=== PATIENT | male | born 1955 | race Caucasian/White ===

== ENCOUNTER 2020-04-04 18:50 | Inpatient (IN) ==
[2020-04-04] MEDS ORDERED: METOCLOPRAMIDE HCL INJ 5 MG/ML 2 ML VIAL IV ONE (20:22)
[2020-04-04] MEDS ORDERED: FAMOTIDINE 20MG/5ML IV PUSH IV STA (20:22)
[2020-04-04] MEDS ORDERED: SODIUM CHLORIDE 0.9% 1000ML 1,000 ML IV SCH (20:30)
--- NOTE | 2020-04-04 20:32 | Emergency Department Note ---
History of Present Illness General Chief complaint: Abdominal Pain Stated complaint: REFERRED BY DOCTOR, FATIGUE & WEAKNESS Time Seen by Provider: 04/04/20 20:01 Source: patient Mode of arrival: ambulatory Limitations: no limitations History of Present Illness Provider complaint: Constipation, nausea and vomiting Onset (ago): day(s) 5 Location: abdomen Radiation: non-radiation Severity: moderate Pain Consistency: + colicky Maximum Pain Intensity: 6 Relieved By: + none Exacerbated By: + eating Associated symptoms: + loss of appetite, + malaise and + nausea/vomiting; no fever/chills and no shortness of breath Treatments prior to arrival: none This is a 64-year-old male who presents from home with concerns for 5 days of constipation, nausea vomiting. Patient is a diabetic and states he had one similar episode previously where he required admission and treatment for DKA. Patient states he had a normal bowel movement last Saturday. Over the weekend and into this morning he had very small bowel movements. Patient began having some intermittent accompanying abdominal pain. Patient had decreasing appetite, and developed overt nausea and vomiting. Patient denies any prior abdominal surgery. Patient states he does have remote history of GERD, has not had any recent increase GERD-like symptoms. No history of peptic ulcer disease. Patient denies accompanying fevers or chills. Patient states his blood sugars have been in the 200s at home which is high for him. Patient states he has had very little oral intake over the last 5 days due to not feeling well. Patient denies any other change in medications or diet. No known sick contacts or any known coronavirus exposures. Pt seen during a time of high acuity and national emergency pandemic while wearing PPE. Home Medications Home Medications Medication Instructions Recorded Confirmed Type amlodipine 10 mg PO DAILY 06/26/18 04/04/20 History atorvastatin 40 mg PO DAILY 06/26/18 04/04/20 History gemfibrozil 600 mg PO DAILY 06/26/18 04/04/20 History magnesium oxide 400 mg PO DAILY 06/26/18 04/04/20 History aspirin 81 mg tablet,delayed 81 mg PO DAILY 01/13/20 04/04/20 History release insulin glargine 100 unit/mL (3 35 units SQ BID ml 01/13/20 04/04/20 History mL) subcutaneous pen metoprolol tartrate 100 mg tablet 100 mg PO BID 01/13/20 04/04/20 History hydrochlorothiazide 25 mg tablet 25 mg PO DAILY #90 tab 02/18/20 04/04/20 Rx Allergies Allergy/AdvReac Type Severity Reaction Status Date / Time No Known Allergies Allergy Verified 04/04/20 20:28 Past Med/Surg History Medical History CKD (chronic kidney disease) Diabetes type 2, uncontrolled Hyperlipidemia LDL goal <70 Hypertension Surgical History 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 Family History Other Diabetes type 2, controlled Social History Smoking Status: Never smoker Hx Alcohol Use: No Hx Substance Use: No Preferred Language: Russian Communication Ability: Effective Log Handling Equipment Operator Required: No Beliefs That Will Affect Care: Amish Amish Beliefs: congregational Current Living Situation: Alone Other Information That Helps Us Care for You: No Feels Safe at Home: Yes Safety Concerns: Feels Safe At This Time Review of Systems See HPI for pertinent positives & negatives. and A total of 10 systems reviewed and were otherwise negative Physical Exam Vital Signs Vital Signs - 24 hr 04/04/20 19:00 04/04/20 21:10 Temperature 37.5 C Temperature Source Oral Pulse Rate 84 Pulse Rate [Bilateral] 92 H Pulse Rhythm [Bilateral] Regular Pulse Strength [Bilateral] Normal Respiratory Rate 20 17 Respiratory Effort / Characteristics Non-Labored Non-Labored Spontaneous Respiratory Depth Normal Normal Respiratory Pattern Regular Blood Pressure 162/81 H Blood Pressure [Right Arm] 222/93 H Blood Pressure Mean 108 Blood Pressure Mean [Right Arm] 136 Blood Pressure Position [Right Arm] Lying Pulse Oximetry 95 97 Oxygen Delivery Method Room Air Room Air Sepsis Recent Fever Within 48 Hours No Sepsis New/Unexplained Change in Mental Status N/A Sepsis Action Taken by Nursing No Action Required GENERAL: alert, ill appearing, well nourished, mild distress, non-toxic, pale appearing, holding emesis bag EYE EXAM: normal conjunctiva, PERRL and EOM's grossly intact OROPHARYNX: no exudate, no erythema, lips, buccal mucosa, and tongue normal and mucous membranes are moist NECK: supple, no nuchal rigidity, no adenopathy, non-tender LUNGS: Clear to auscultation. Normal chest wall mechanics, no w/r/r HEART: no murmurs, S1 normal and S2 normal ABDOMEN: abdomen soft, mild generalized discomfort with palpation, normo-active bowel sounds, no masses, no rebound or guarding. Dull to percussion. BACK: Back is symmetrical on inspection and there is no deformity, no midline tenderness, no CVA tenderness. SKIN: no rashes and no bruising UPPER EXTREMITIES: upper extremities are grossly normal. FROM, nml pulses b/l. LOWER EXTREMITIES: No pitting edema. FROM, nml pulses b/l. NEURO EXAM: Normal sensorium, cranial nerves II-XII grossly intact, normal speech, no gross weakness of arms, no gross weakness of legs. Gross sensation intact. Course Course 2034: Pt with emesis here, appeared grossly bloody. Sent for gastric occult blood testing. 2144: Updated pt on results. Patient states feeling improved, vital signs stable. 2224: Discussed with Dr. Aguilar for admission. Administered Medications Amlodipine Besylate (Norvasc) 10 mg PO DAILY MARCELLUS Stop: 05/05/20 08:59 Last Admin: 04/05/20 08:20 Dose: 10 mg Documented by: [id number] Atorvastatin Calcium (Lipitor) 40 mg PO DAILY MARCELLUS Stop: 05/05/20 08:59 Last Admin: 04/05/20 08:19 Dose: 40 mg Documented by: [id number] Gemfibrozil (Lopid) 600 mg PO DAILY MARCELLUS Stop: 05/05/20 08:59 Last Admin: 04/05/20 08:20 Dose: 600 mg Documented by: [id number] Pantoprazole Sodium 40 mg/ (Dextrose) 100 mls @ 20 mls/hr IV Q5H MARCELLUS Stop: 05/04/20 22:12 Last Admin: 04/05/20 23:33 Dose: Not Given Documented by: [id number] Admin: 04/05/20 23:31 Dose: 8 mg/hr, 20 mls/hr Documented by: [id number] Infusion: 04/05/20 23:26 Dose: 8 mg/hr, 20 mls/hr Documented by: [id number] Admin: 04/05/20 18:26 Dose: 8 mg/hr, 20 mls/hr Documented by: [id number] Infusion: 04/05/20 17:47 Dose: 8 mg/hr, 20 mls/hr Documented by: [id number] Infusion: 04/05/20 14:14 Dose: 8 mg/hr, 20 mls/hr Documented by: [id number] Infusion: 04/05/20 10:35 Dose: 0 mg/hr, 0 mls/hr Documented by: [id number] Admin: 04/05/20 09:07 Dose: 8 mg/hr, 20 mls/hr Documented by: [id number] Infusion: 04/05/20 09:07 Dose: 8 mg/hr, 20 mls/hr Documented by: [id number] Admin: 04/05/20 04:13 Dose: 8 mg/hr, 20 mls/hr Documented by: [id number] Infusion: 04/05/20 04:13 Dose: 8 mg/hr, 20 mls/hr Documented by: [id number] Admin: 04/04/20 23:44 Dose: 8 mg/hr, 20 mls/hr Documented by: [id number] Sodium Chloride (Nss 1000ml) 1,000 mls @ 80 mls/hr IV .[id number] MARCELLUS Stop: 04/06/20 12:28 Last Admin: 04/05/20 23:32 Dose: 80 mls/hr Documented by: [id number] Sodium Chloride (Nss 1000ml) 1,000 mls @ 125 mls/hr IV .Q8H MARCELLUS Stop: 04/06/20 02:14 Last Infusion: 04/05/20 23:32 Dose: 0 mls/hr Documented by: [id number] Admin: 04/05/20 18:33 Dose: 125 mls/hr Documented by: [id number] Insulin Aspart (Novolog Flexpen) 0 units SC Q6 MARCELLUS Stop: 05/05/20 00:59 Last Admin: 04/05/20 17:47 Dose: 9 units Documented by: [id number] Cosigned by: [id number] Admin: 04/05/20 13:59 Dose: Not Given Documented by: [id number] Cosigned by: [id number] Admin: 04/05/20 06:26 Dose: 1 units Documented by: [id number] Cosigned by: [id number] Admin: 04/05/20 01:34 Dose: 6 units Documented by: [id number] Cosigned by: [id number] Insulin Glargine (Lantus Solostar Pen) 35 units SQ BID MARCELLUS Stop: 05/05/20 08:59 Last Admin: 04/05/20 22:02 Dose: 18 units Documented by: [id number] Cosigned by: [id number] Admin: 04/05/20 09:06 Dose: 18 units Documented by: [id number] Cosigned by: [id number] Labetalol HCl (Normodyne) 10 mg IV Q4H PRN PRN Reason: Hypertension Stop: 05/05/20 00:16 Last Admin: 04/05/20 03:34 Dose: 10 mg Documented by: [id number] Cosigned by: [id number] Metoprolol Tartrate (Lopressor) 100 mg PO BID MARCELLUS Stop: 05/05/20 08:59 Last Admin: 04/05/20 22:03 Dose: 100 mg Documented by: [id number] Admin: 04/05/20 08:19 Dose: 100 mg Documented by: [id number] Polyethylene Glycol/Electrolytes (Golytely) 16 dose PO 1800 [facility] Stop: 04/05/20 23:59 Last Admin: 04/05/20 17:46 Dose: 16 dose Documented by: [id number] Polyethylene Glycol/Electrolytes (Golytely) 8 dose PO TODAY@0300,1800 [facility] Stop: 04/06/20 03:01 Last Admin: 04/05/20 19:44 Dose: Not Given Documented by: [id number] Discontinued Medications Famotidine (Pepcid 20mg Iv Push) 20 mg IV ONE STA Stop: 04/04/20 20:23 Last Admin: 04/04/20 21:07 Dose: 20 mg Documented by: [id number] Hydralazine HCl (Hydralazine Hcl) 5 mg IV NOW ONE Stop: 04/05/20 21:31 Last Admin: 04/05/20 22:02 Dose: 5 mg Documented by: [id number] Sodium Chloride (Nss 1000ml) 1,000 mls @ 250 mls/hr IV .Q4H MARCELLUS Stop: 05/04/20 20:29 Last Infusion: 04/05/20 00:22 Dose: 0 mls/hr Documented by: [id number] Admin: 04/04/20 21:07 Dose: 250 mls/hr Documented by: [id number] Pantoprazole Sodium (Protonix Bolus/Drip) 0 mls @ 1 mls/hr IV ONE STA Stop: 04/04/20 21:59 Last Admin: 04/04/20 23:30 Dose: Not Given Documented by: [id number] Pantoprazole Sodium 80 mg/ (Dextrose) 120 mls @ 400 mls/hr IV NOW ONE Stop: 04/04/20 22:15 Last Infusion: 04/04/20 23:43 Dose: 0 mls/hr Documented by: [id number] Admin: 04/04/20 23:25 Dose: 400 mls/hr Documented by: [id number] Sodium Chloride (Nss 1000ml) 1,000 mls @ 125 mls/hr IV .Q8H MARCELLUS Stop: 04/05/20 08:16 Last Infusion: 04/05/20 09:40 Dose: 0 mls/hr Documented by: [id number] Admin: 04/05/20 01:34 Dose: 125 mls/hr Documented by: [id number] Potassium Chloride (K Kan / Wtr) 10 meq in 100 mls @ 100 mls/hr IV Q1H MARCELLUS Stop: 04/05/20 10:44 Last Infusion: 04/05/20 12:46 Dose: 0 mls/hr Documented by: [id number] Admin: 04/05/20 10:17 Dose: 100 mls/hr Documented by: [id number] Infusion: 04/05/20 10:06 Dose: 50 mls/hr Documented by: [id number] Admin: 04/05/20 09:06 Dose: 100 mls/hr Documented by: [id number] Insulin Glargine (Lantus Per Unit) 35 units SQ NOW STA Stop: 04/04/20 22:23 Last Admin: 04/04/20 23:27 Dose: 35 units Documented by: [id number] Cosigned by: [id number] Insulin Human Regular (Novolin R U-100 Per Unit) 6 units SC NOW STA Stop: 04/04/20 21:42 Last Admin: 04/04/20 22:12 Dose: 6 units Documented by: [id number] Cosigned by: [id number] Labetalol HCl (Normodyne) 10 mg IV NOW STA Stop: 04/04/20 22:24 Last Admin: 04/05/20 00:22 Dose: Not Given Documented by: [id number] Lidocaine HCl (Xylocaine 2%) Confirm Administered Dose 4 ml INFIL .STK-MED ONE Stop: 04/05/20 10:53 Last Admin: 04/05/20 13:59 Dose: Not Given Documented by: [id number] Metoclopramide HCl (Reglan) 5 mg IV ONE ONE Stop: 04/04/20 20:23 Last Admin: 04/04/20 21:07 Dose: 5 mg Documented by: [id number] Potassium Chloride (Klor-Con M20) 40 meq PO NOW STA Stop: 04/05/20 03:25 Last Admin: 04/05/20 03:34 Dose: 40 meq Documented by: [id number] Potassium Chloride (Klor-Con M20) 20 meq PO NOW STA Stop: 04/05/20 17:58 Last Admin: 04/05/20 18:26 Dose: 20 meq Documented by: [id number] Propofol (Diprivan) Confirm Administered Dose 200 mg IV .STK-MED ONE Stop: 04/05/20 10:53 Last Admin: 04/05/20 13:59 Dose: Not Given Documented by: [id number] Critical Care Time Critical Care Time: Yes Total Critical Care Time: 39 Critical care of 39 min performed to assess and manage high likelihood of life- threatening gi bleed, involving labs and imaging performed with assessment to evaluate GI bleed diagnosis with frequent reassessment. This time includes bedside time, treatment discussions with patient/family/consultants, documentation time and excludes procedure time. Medical Decision Making Differential Diagnosis Differential: Gastroenteritis, Food Borne, Esophageal Perforation, , Electrolyte Abnormality, Dehydration, Intraabdominal Infection, U TI/Pyelonephritis, Bowel Obstruction, Biliary Pathology, DKA, viral infection, gastroparesis, amongst other pathology entertained. Medical Records Attestation: I reviewed the patient's medical records. Home Medications Current Medication List: was personally reviewed by me Laboratory Data Attestation: I reviewed the patient's lab results. Result diagrams: 04/05/20 15:39 04/05/20 15:39 Lab Results 04/04/20 04/04/20 04/04/20 Range/Units 20:50 20:50 20:50 WBC 10.81 H (4.8-10.8) K/uL RBC 3.07 L (4.7-6.1) M/uL Hgb 9.0 L (14.0-18.0) g/dL Hct 25.0 L (42-52) % MCV 81.4 (80-100) fL MCH 29.3 (25-34) pg MCHC 36.0 (32-36) g/dL RDW Std Deviation 38.4 (36.4-46.3) fL RDW Coeff of Whit 13.0 (11.5-14.5) % Plt Count 255 (130-400) K/uL MPV 8.9 (7.4-10.4) fL Immature Gran % (Auto) 0.4 % Neut % (Auto) 91.0 % Lymph % (Auto) 4.3 % [place] % (Auto) 4.2 % Eos % (Auto) 0.0 % Baso % (Auto) 0.1 % Neut # (Auto) 9.84 H (1.4-6.5) K/uL Lymph # (Auto) 0.47 L (1.2-3.4) K/uL [place] # (Auto) 0.45 (0.11-0.59) K/uL Eos # (Auto) 0.00 (0-0.5) K/uL Baso # (Auto) 0.01 (0-0.2) K/uL Immature Gran # (Auto) 0.04 H (0.00-0.02) K/uL PT 10.3 (9.0-12.0) Seconds INR 1.0 (0.9-1.1) Sodium 126 L (136-145) mmol/L Potassium 3.2 L (3.5-5.1) mmol/L Chloride 92 L (98-107) mmol/L Carbon Dioxide 22 (21-32) mmol/L Anion Gap 12.0 H (3-11) BUN 109 H (7-18) mg/dl Creatinine 2.47 H (0.6-1.4) mg/dl Est Cr Clr Drug Dosing Not Reportable Est GFR ( Amer) 30.5 Est GFR (Non-Af Amer) 26.4 BUN/Creatinine Ratio 43.9 H (10-20) Glucose 252 H (70-99) mg/dl POC Lactic Acid Rayo (0.90-1.70) mmol/L Calcium 8.8 (8.5-10.1) mg/dl Magnesium 2.9 H (1.8-2.4) mg/dl Total Bilirubin 0.3 (0.2-1) mg/dl AST 20 (15-37) U/L ALT 28 (12-78) U/L Alkaline Phosphatase 68 (45-117) U/L Troponin I 0.788 H* (0-0.045) ng/ml NT-Pro-B Natriuret Pep 1338 H (0-900) pg/ml Total Protein 7.8 (6.4-8.2) gm/dl Albumin 3.0 L (3.4-5.0) gm/dl Globulin 4.8 H (2.5-4.0) gm/dl Albumin/Globulin Ratio 0.6 L (0.9-2) Lipase 236 (73-393) U/L TSH 0.591 (0.300-4.500) uIu/ml Gastric Fluid pH Gastric Occult Blood (Negative) Blood Type Antibody Screen Crossmatch 04/04/20 04/04/20 04/04/20 Range/Units 21:00 21:00 23:10 WBC (4.8-10.8) K/uL RBC (4.7-6.1) M/uL Hgb (14.0-18.0) g/dL Hct (42-52) % MCV (80-100) fL MCH (25-34) pg MCHC (32-36) g/dL RDW Std Deviation (36.4-46.3) fL RDW Coeff of Whit (11.5-14.5) % Plt Count (130-400) K/uL MPV (7.4-10.4) fL Immature Gran % (Auto) % Neut % (Auto) % Lymph % (Auto) % [place] % (Auto) % Eos % (Auto) % Baso % (Auto) % Neut # (Auto) (1.4-6.5) K/uL Lymph # (Auto) (1.2-3.4) K/uL [place] # (Auto) (0.11-0.59) K/uL Eos # (Auto) (0-0.5) K/uL Baso # (Auto) (0-0.2) K/uL Immature Gran # (Auto) (0.00-0.02) K/uL PT (9.0-12.0) Seconds INR (0.9-1.1) Sodium (136-145) mmol/L Potassium (3.5-5.1) mmol/L Chloride (98-107) mmol/L Carbon Dioxide (21-32) mmol/L Anion Gap (3-11) BUN (7-18) mg/dl Creatinine (0.6-1.4) mg/dl Est Cr Clr Drug Dosing Est GFR ( Amer) Est GFR (Non-Af Amer) BUN/Creatinine Ratio (10-20) Glucose (70-99) mg/dl POC Lactic Acid Rayo 0.99 (0.90-1.70) mmol/L Calcium (8.5-10.1) mg/dl Magnesium (1.8-2.4) mg/dl Total Bilirubin (0.2-1) mg/dl AST (15-37) U/L ALT (12-78) U/L Alkaline Phosphatase (45-117) U/L Troponin I (0-0.045) ng/ml NT-Pro-B Natriuret Pep (0-900) pg/ml Total Protein (6.4-8.2) gm/dl Albumin (3.4-5.0) gm/dl Globulin (2.5-4.0) gm/dl Albumin/Globulin Ratio (0.9-2) Lipase (73-393) U/L TSH (0.300-4.500) uIu/ml Gastric Fluid pH 4 Gastric Occult Blood Positive A (Negative) Blood Type A Positive Antibody Screen NEGATIVE Crossmatch See Detail 04/04/20 Range/Units 23:13 WBC 11.48 H (4.8-10.8) K/uL RBC 2.88 L (4.7-6.1) M/uL Hgb 8.3 L (14.0-18.0) g/dL Hct 23.1 L (42-52) % MCV 80.2 (80-100) fL MCH 28.8 (25-34) pg MCHC 35.9 (32-36) g/dL RDW Std Deviation 37.9 (36.4-46.3) fL RDW Coeff of Whit 12.8 (11.5-14.5) % Plt Count 252 (130-400) K/uL MPV 9.1 (7.4-10.4) fL Immature Gran % (Auto) 0.4 % Neut % (Auto) 89.9 % Lymph % (Auto) 5.7 % [place] % (Auto) 4.0 % Eos % (Auto) 0.0 % Baso % (Auto) 0.0 % Neut # (Auto) 10.32 H (1.4-6.5) K/uL Lymph # (Auto) 0.65 L (1.2-3.4) K/uL [place] # (Auto) 0.46 (0.11-0.59) K/uL Eos # (Auto) 0.00 (0-0.5) K/uL Baso # (Auto) 0.00 (0-0.2) K/uL Immature Gran # (Auto) 0.05 H (0.00-0.02) K/uL PT (9.0-12.0) Seconds INR (0.9-1.1) Sodium (136-145) mmol/L Potassium (3.5-5.1) mmol/L Chloride (98-107) mmol/L Carbon Dioxide (21-32) mmol/L Anion Gap (3-11) BUN (7-18) mg/dl Creatinine (0.6-1.4) mg/dl Est Cr Clr Drug Dosing Est GFR ( Amer) Est GFR (Non-Af Amer) BUN/Creatinine Ratio (10-20) Glucose (70-99) mg/dl POC Lactic Acid Rayo (0.90-1.70) mmol/L Calcium (8.5-10.1) mg/dl Magnesium (1.8-2.4) mg/dl Total Bilirubin (0.2-1) mg/dl AST (15-37) U/L ALT (12-78) U/L Alkaline Phosphatase (45-117) U/L Troponin I (0-0.045) ng/ml NT-Pro-B Natriuret Pep (0-900) pg/ml Total Protein (6.4-8.2) gm/dl Albumin (3.4-5.0) gm/dl Globulin (2.5-4.0) gm/dl Albumin/Globulin Ratio (0.9-2) Lipase (73-393) U/L TSH (0.300-4.500) uIu/ml Gastric Fluid pH Gastric Occult Blood (Negative) Blood Type Antibody Screen Crossmatch Imaging Data Attestation: I personally reviewed and interpreted this imaging study as follows: My Impression: CXR: 1 view chest x-ray interpreted by me, no cardiomegaly, no effusions, no focal consolidation, no wide mediastinum, no pulmonary edema Abdomen: 2 view x-ray of the abdomen interpreted by me, no obvious SBO, no free air Radiologist's Impression: CT abdomen and pelvis without contrast: Impression: Mild wall thickening of the urinary bladder. Recommend correlation for cystitis. Otherwise no acute abnormality in the abdomen or pelvis. Extensive vascular calcifications. Colonic diverticulosis without evidence of acute diverticulitis. Moderate to severe multilevel degenerative changes throughout the lumbar spine. Radiologist: Brien Lockett MD ECG Data Attestation: I personally reviewed and interpreted this ECG as follows: Indication: + abdominal pain Rate (beats per minute): 86 Rhythm: + normal sinus ECG Intervals/blocks: + Normal QRS and + Normal QT ECG [place]: + Normal ECG ST segments: + T-wave inversions (I, II, aVL, aVF, V3-6) Comparison ECG Date: from (06/28/2018) Change: the following changes noted (More pronounced T wave inversions) Blood Pressure Blood Pressure Findings: Elevated blood pressure Blood Pressure Disposition: further management by hospitalist KAVEH Diego This is a 64-year-old male who is ill-appearing at time of presentation due to concern for nausea, vomiting, constipation, and abdominal pain. Labs drawn and sent, patient started on IV fluid rehydration, given medications for nausea and pain. Initially patient underwent x-ray imaging, however eventually we did progress to CT. With vomiting here, emesis appeared potentially bloody, this was sent for occult blood testing and was positive. Patient with no prior history of varices, peptic ulcer disease, or other GI bleed. Patient denied any recent black stools. Patient does have remote history of GERD. While patient was initially given a dose of IV Pepcid, following confirmation of blood, patient started on Protonix bolus and drip. Patient stated he was feeling improved following medications and IV fluids, and vital signs were stable with the exception of hypertension that was noted. Patient's creatinine was elevated, however he does have a history of chronic kidney disease and it is only slightly elevated compared to his prior. Patient's H&H stable, although his hemoglobin is decreased 2 grams compared to what it was several months ago. Patient is hyperglycemic, he is a known diabetic, no apparent DKA. Patient also noted to have hyponatremia that appears disproportionate to his hyperglycemia. Patient sent for CT imaging after evaluation of all labs and imaging as a precaution given patient's complex past medical history. CT was reassuring. Patient takes a baby aspirin, no other anticoagulation or need for reversal. Did not feel patient required emergent blood transfusion. Patient was also noted to have an elevated troponin, no chest pain or trouble breathing, no EKG changes noted. Unclear if this is from the patient's renal dysfunction, occult infectious etiology, demand ischemia due to worsening anemia, versus ACS. Patient was not anticoagulated due to GI bleed. Case was discussed with hospitalist. Patient was in agreement with plan and verbalized understanding of all results. An order was placed for continuous cardiac monitoring. The monitor shows a rate of 80 with normal sinus rhythm. Impression & Plan Abdominal pain, Constipation, Acute GI bleeding, Nausea & vomiting, Acute hyponatremia, CKD (chronic kidney disease), Elevated troponin Discharge Plan Visit Data *Final* Discharge Date/Time: 04/04/20 23:43 Chief Complaint: Abdominal Pain Stated Complaint: REFERRED BY DOCTOR, FATIGUE & WEAKNESS ED Provider: Bita Carrera Discharge Problem: Abdominal pain, Constipation, Acute GI bleeding, Nausea & vomiting, Acute hyponatremia, CKD (chronic kidney disease), Elevated troponin Patient Disposition: Admitted As Inpatient Discharge Instructions Interventions: ED Discharge Assessment Last Done: 04/04/20 23:43 Discharge Problem: Abdominal pain Qualifiers: Abdominal location: generalized Qualified Code(s): R10.84 - Generalized abdominal pain Constipation Qualifiers: Constipation type: unspecified constipation type Qualified Code(s): K59.00 - Constipation, unspecified Nausea & vomiting Qualifiers: Vomiting type: unspecified Vomiting Intractability: non-intractable Qualified Code(s): R11.2 - Nausea with vomiting, unspecified CKD (chronic kidney disease) Qualifiers: Chronic kidney disease stage: unspecified stage Qualified Code(s): N18.9 - Chronic kidney disease, unspecified
[2020-04-04 21:03] LABS: Basophils # (auto) 0.01 K/uL (0-0.2); Basophils % (auto) 0.1 %; Immature Granulocytes # (auto) 0.04 K/uL (0.00-0.02); Immature Granulocytes % (auto) 0.4 %; Lymphocytes # (auto) 0.47 K/uL (1.2-3.4); Lymphocytes % (auto) 4.3 %; Mean Corpuscular Hemoglobin 29.3 pg (25-34); Mean Corpuscular Volume 81.4 fL (80-100); Mean Platelet Volume 8.9 fL (7.4-10.4); Monocytes # (auto) 0.45 K/uL (0.11-0.59); Monocytes % (auto) 4.2 %; Neutrophils # (auto) 9.84 K/uL (1.4-6.5); Platelet Count 255 K/uL (130-400); RDW Standard Deviation 38.4 fL (36.4-46.3); Red Blood Count 3.07 M/uL (4.7-6.1); White Blood Count 10.81 K/uL (4.8-10.8)
[2020-04-04 21:12] LABS: Prothrombin Time 10.3 Seconds (9.0-12.0)
[2020-04-04 21:22] LABS: Alanine Aminotransferase 28 U/L (12-78); Aspartate Aminotransferase 20 U/L (15-37); BUN Creatinine Ratio 43.9 (10-20); Blood Urea Nitrogen 109 mg/dl (7-18); Calcium 8.8 mg/dl (8.5-10.1); Carbon Dioxide 22 mmol/L (21-32); Chloride 92 mmol/L (98-107); Est GFR (African American) 30.5; Est GFR (Non-African American) 26.4; Glucose 252 mg/dl (70-99); Lipase 236 U/L (73-393); Magnesium 2.9 mg/dl (1.8-2.4); Potassium 3.2 mmol/L (3.5-5.1); Sodium 126 mmol/L (136-145)
[2020-04-04 21:35] LABS: Albumin Globulin Ratio 0.6 (0.9-2); Alkaline Phosphatase 68 U/L (45-117); Bilirubin,Total 0.3 mg/dl (0.2-1); Globulin 4.8 gm/dl (2.5-4.0); NT Pro B Type Natriuretic Pept 1338 pg/ml (0-900); Thyroid Stimulating Hormone 0.591 uIu/ml (0.300-4.500); Total Protein 7.8 gm/dl (6.4-8.2); Troponin I 0.788 ng/ml (0-0.045)
[2020-04-04] MEDS ORDERED: NovoLIN-R INSULIN PER UNIT CHARGE SC STA (21:41)
[2020-04-04 21:58] LABS: Gastric Occult Blood Positive (Negative); pH Gastric Fluid 4
[2020-04-04] MEDS ORDERED: PANTOprazole 80 MG in DEXTROSE 5% 100 ML IV ONE (21:58)
[2020-04-04] MEDS ORDERED: PANTOPRAZOLE BOLUS/DRIP 1 EA IV STA (21:58)
[2020-04-04] MEDS ORDERED: LANTUS PER UNIT CHARGE SQ STA (22:22)
[2020-04-04] MEDS ORDERED: LABETALOL HCL IV 5 MG/ML 20ML IV STA (22:23)
--- NOTE | 2020-04-04 23:26 | History & Physical Report ---
Date of Service April 04, 2020 Assessment & Plan (1) Acute GI bleeding: Concern for acute UGIB - patient reports dark, tarry stools. He has had a significant drop in Hbg over the last 1.5 months, presently 9 from 11.4 and Hct=25 from 34.6. He has an elevated BUN to 109 with only mild increase in baseline Cr. -Admit to PCU, NPO -Maintain two large bore PIVs -Continue Protonic gtt -GI consultation appreciated -Trend CBC q 6 hours - transfuse for active bleed, symptomatic anemia or Hgb <8 -Hold ASA Present on Admission?: Yes (2) Elevated troponin: Patient with elevated troponin = 0.788. EKG with some TWI in anterior leads, similar to prior. He denies chest pain, tightness, SOB, dizziness, diaphoresis. Suspect demand ischemia -Continuous cardiac monitoring -Trend troponin q 8 hours x 3 sets -Hold ASA in setting of acute bleed -Continue Metoprolol and Atorvastatin -Transfusion for Hgb < 8 or increasing troponin Present on Admission?: Yes (3) Hypertension: Patient with elevate BP on arrival -Labetalol PRN -Continue Metoprolol -Continue Amlodipine -Continue to monitor -Hold HCTZ Present on Admission?: Yes (4) Hyperlipidemia LDL goal <70: Chronic -Continue Atorvastatin Present on Admission?: Yes (5) IDDM (insulin dependent diabetes mellitus): Chronic. Elevated blood sugar of 252 -Lantus 35u BID -ISS -Goal blood sugar 100 - 140 Present on Admission?: Yes (6) Hyponatremia: Pd=905. Patient appears volume depleted on exam. No seizure or n eurological symptoms -NSS -Repeat labs Present on Admission?: Yes (7) Hypokalemia: K=3.2 -KDUR 40mEq po x 1 -Repeat labs in AM F/E/N - NSS at 125mL/hr x 1 liter, K repletion as above, monitor BMP, NPO for now Ppx - low risk for DVT, no chemoprophylaxis due to suspected acute bleed Code - Full Dispo - Admit to PCU Admission and Anticipated Discharge Date Admission Date: 04/04/20 Anticipated date of discharge: 04/07/20 History of Present Illness Chief Complaint: nausea, dry heaving Primary Care Provider: Art Trejo Dionicio Coleman is a 64yo male with history of DM, HTN, HLP, CKD. He reports feeling ill starting 4 days ago - anxiety, abdominal pain, constipation then later developed nausea and dry heaving over the last three days. He reports passing minimal flatus, only small amount of black, tarry stools. He denies fever but has had some chills as well as poor appetite and decreased PO intake. He denies CP/SOB/cough. No Covid-19 concerns. No additional complaints at this time. Patient had an episode of vomiting in the ER - gastric contents were sent to the lab for evaluation which revealed +blood ER Course: Pepcid, Insulin, Labetalol, Reglan, NSS, Protonix bolus and drip. Allergies Allergy/AdvReac Type Severity Reaction Status Date / Time No Known Allergies Allergy Verified 04/04/20 20:28 Home Medications Home Medications Medication Instructions Recorded Confirmed Type amlodipine 10 mg PO DAILY 06/26/18 04/04/20 History atorvastatin 40 mg PO DAILY 06/26/18 04/04/20 History gemfibrozil 600 mg PO DAILY 06/26/18 04/04/20 History magnesium oxide 400 mg PO DAILY 06/26/18 04/04/20 History aspirin 81 mg tablet,delayed 81 mg PO DAILY 01/13/20 04/04/20 History release insulin glargine 100 unit/mL (3 35 units SQ BID ml 01/13/20 04/04/20 History mL) subcutaneous pen metoprolol tartrate 100 mg tablet 100 mg PO BID 01/13/20 04/04/20 History hydrochlorothiazide 25 mg tablet 25 mg PO DAILY #90 tab 02/18/20 04/04/20 Rx Past Med/Surg History Medical History (Updated 04/05/20 @ 03:17 by Rosa Aguilar DO) CKD (chronic kidney disease) Diabetes type 2, uncontrolled Hyperlipidemia LDL goal <70 Hypertension Surgical History 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 Family History Other Diabetes type 2, controlled Social History Smoking Status: Never smoker Hx Alcohol Use: No Hx Substance Use: No Preferred Language: Cymraes Communication Ability: Effective Control Room Supervisor Required: No Beliefs That Will Affect Care: Jew Jew Beliefs: protestant Current Living Situation: Alone Other Information That Helps Us Care for You: No Feels Safe at Home: Yes Safety Concerns: Feels Safe At This Time Review of Systems Review of Systems: All systems reviewed & are unremarkable except as noted in HPI & below Physical Exam Physical Exam: General: patient resting comfortably, NAD, non-toxic in appearance, AA&O x 4 Skin: warm, dry, intact, no rashes or lesions HEENT: NC/AT, PERRL, EOMI, anicteric sclera, conjunctiva without injection, external ear normal to inspection and nontender, nares patent, dry mucus membranes, dentition intact, no oropharyngeal lesions, neck supple, trachea midline, no LAD, no thyromegaly, no JVD Heart: +S1/S2, regular, no m/r/g Lungs: equal air entry bilaterally, no rales/rhonchi/wheezes Abd: +BS, soft, NT/ND, no masses/organomegaly/ascites Ext: warm, 2+ pulses in UE/LE bilaterally, no clubbing/cyanosis or edema Neuro: nonfocal, patient AA&O x 4, speech intact, no facial droop, moving all extremities on command with equal strength 5/5 Results & Data Results & Data ([facility]) Vital Signs (Past 12 Hours) Vital Signs Temp Pulse Pulse Resp BP BP Pulse Ox 04/04/20 21:10 92 H 17 222/93 H 97 04/04/20 19:00 37.5 C 84 20 162/81 H 95 Laboratory Results Lab Results 04/04/20 04/04/20 04/04/20 Range/Units 20:50 20:50 20:50 WBC 10.81 H (4.8-10.8) K/uL RBC 3.07 L (4.7-6.1) M/uL Hgb 9.0 L (14.0-18.0) g/dL Hct 25.0 L (42-52) % MCV 81.4 (80-100) fL MCH 29.3 (25-34) pg MCHC 36.0 (32-36) g/dL RDW Std Deviation 38.4 (36.4-46.3) fL RDW Coeff of Whit 13.0 (11.5-14.5) % Plt Count 255 (130-400) K/uL MPV 8.9 (7.4-10.4) fL Immature Gran % (Auto) 0.4 % Neut % (Auto) 91.0 % Lymph % (Auto) 4.3 % [place] % (Auto) 4.2 % Eos % (Auto) 0.0 % Baso % (Auto) 0.1 % Neut # (Auto) 9.84 H (1.4-6.5) K/uL Lymph # (Auto) 0.47 L (1.2-3.4) K/uL [place] # (Auto) 0.45 (0.11-0.59) K/uL Eos # (Auto) 0.00 (0-0.5) K/uL Baso # (Auto) 0.01 (0-0.2) K/uL Immature Gran # (Auto) 0.04 H (0.00-0.02) K/uL PT 10.3 (9.0-12.0) Seconds INR 1.0 (0.9-1.1) Sodium 126 L (136-145) mmol/L Potassium 3.2 L (3.5-5.1) mmol/L Chloride 92 L (98-107) mmol/L Carbon Dioxide 22 (21-32) mmol/L Anion Gap 12.0 H (3-11) BUN 109 H (7-18) mg/dl Creatinine 2.47 H (0.6-1.4) mg/dl Est Cr Clr Drug Dosing Not Reportable Est GFR ( Amer) 30.5 Est GFR (Non-Af Amer) 26.4 BUN/Creatinine Ratio 43.9 H (10-20) Glucose 252 H (70-99) mg/dl POC Glucose (70-99) mg/dl POC Lactic Acid Rayo (0.90-1.70) mmol/L Calcium 8.8 (8.5-10.1) mg/dl Magnesium 2.9 H (1.8-2.4) mg/dl Total Bilirubin 0.3 (0.2-1) mg/dl AST 20 (15-37) U/L ALT 28 (12-78) U/L Alkaline Phosphatase 68 (45-117) U/L Troponin I 0.788 H* (0-0.045) ng/ml NT-Pro-B Natriuret Pep 1338 H (0-900) pg/ml Total Protein 7.8 (6.4-8.2) gm/dl Albumin 3.0 L (3.4-5.0) gm/dl Globulin 4.8 H (2.5-4.0) gm/dl Albumin/Globulin Ratio 0.6 L (0.9-2) Lipase 236 (73-393) U/L TSH 0.591 (0.300-4.500) uIu/ml Gastric Fluid pH Gastric Occult Blood (Negative) Blood Type Antibody Screen 04/04/20 04/04/20 04/04/20 Range/Units 21:00 21:00 23:10 WBC (4.8-10.8) K/uL RBC (4.7-6.1) M/uL Hgb (14.0-18.0) g/dL Hct (42-52) % MCV (80-100) fL MCH (25-34) pg MCHC (32-36) g/dL RDW Std Deviation (36.4-46.3) fL RDW Coeff of Whit (11.5-14.5) % Plt Count (130-400) K/uL MPV (7.4-10.4) fL Immature Gran % (Auto) % Neut % (Auto) % Lymph % (Auto) % [place] % (Auto) % Eos % (Auto) % Baso % (Auto) % Neut # (Auto) (1.4-6.5) K/uL Lymph # (Auto) (1.2-3.4) K/uL [place] # (Auto) (0.11-0.59) K/uL Eos # (Auto) (0-0.5) K/uL Baso # (Auto) (0-0.2) K/uL Immature Gran # (Auto) (0.00-0.02) K/uL PT (9.0-12.0) Seconds INR (0.9-1.1) Sodium (136-145) mmol/L Potassium (3.5-5.1) mmol/L Chloride (98-107) mmol/L Carbon Dioxide (21-32) mmol/L Anion Gap (3-11) BUN (7-18) mg/dl Creatinine (0.6-1.4) mg/dl Est Cr Clr Drug Dosing Est GFR ( Amer) Est GFR (Non-Af Amer) BUN/Creatinine Ratio (10-20) Glucose (70-99) mg/dl POC Glucose (70-99) mg/dl POC Lactic Acid Rayo 0.99 (0.90-1.70) mmol/L Calcium (8.5-10.1) mg/dl Magnesium (1.8-2.4) mg/dl Total Bilirubin (0.2-1) mg/dl AST (15-37) U/L ALT (12-78) U/L Alkaline Phosphatase (45-117) U/L Troponin I (0-0.045) ng/ml NT-Pro-B Natriuret Pep (0-900) pg/ml Total Protein (6.4-8.2) gm/dl Albumin (3.4-5.0) gm/dl Globulin (2.5-4.0) gm/dl Albumin/Globulin Ratio (0.9-2) Lipase (73-393) U/L TSH (0.300-4.500) uIu/ml Gastric Fluid pH 4 Gastric Occult Blood Positive A (Negative) Blood Type A Positive Antibody Screen NEGATIVE 04/04/20 04/05/20 Range/Units 23:13 00:32 WBC 11.48 H (4.8-10.8) K/uL RBC 2.88 L (4.7-6.1) M/uL Hgb 8.3 L (14.0-18.0) g/dL Hct 23.1 L (42-52) % MCV 80.2 (80-100) fL MCH 28.8 (25-34) pg MCHC 35.9 (32-36) g/dL RDW Std Deviation 37.9 (36.4-46.3) fL RDW Coeff of Whit 12.8 (11.5-14.5) % Plt Count 252 (130-400) K/uL MPV 9.1 (7.4-10.4) fL Immature Gran % (Auto) 0.4 % Neut % (Auto) 89.9 % Lymph % (Auto) 5.7 % [place] % (Auto) 4.0 % Eos % (Auto) 0.0 % Baso % (Auto) 0.0 % Neut # (Auto) 10.32 H (1.4-6.5) K/uL Lymph # (Auto) 0.65 L (1.2-3.4) K/uL [place] # (Auto) 0.46 (0.11-0.59) K/uL Eos # (Auto) 0.00 (0-0.5) K/uL Baso # (Auto) 0.00 (0-0.2) K/uL Immature Gran # (Auto) 0.05 H (0.00-0.02) K/uL PT (9.0-12.0) Seconds INR (0.9-1.1) Sodium (136-145) mmol/L Potassium (3.5-5.1) mmol/L Chloride (98-107) mmol/L Carbon Dioxide (21-32) mmol/L Anion Gap (3-11) BUN (7-18) mg/dl Creatinine (0.6-1.4) mg/dl Est Cr Clr Drug Dosing Est GFR ( Amer) Est GFR (Non-Af Amer) BUN/Creatinine Ratio (10-20) Glucose (70-99) mg/dl POC Glucose 272 H (70-99) mg/dl POC Lactic Acid Rayo (0.90-1.70) mmol/L Calcium (8.5-10.1) mg/dl Magnesium (1.8-2.4) mg/dl Total Bilirubin (0.2-1) mg/dl AST (15-37) U/L ALT (12-78) U/L Alkaline Phosphatase (45-117) U/L Troponin I (0-0.045) ng/ml NT-Pro-B Natriuret Pep (0-900) pg/ml Total Protein (6.4-8.2) gm/dl Albumin (3.4-5.0) gm/dl Globulin (2.5-4.0) gm/dl Albumin/Globulin Ratio (0.9-2) Lipase (73-393) U/L TSH (0.300-4.500) uIu/ml Gastric Fluid pH Gastric Occult Blood (Negative) Blood Type Antibody Screen Diagnostic Findings CT Abdomen and Pelvis - MIld wall thickening of the urinary bladder. Recommend correlation for cystitis. Otherwise, no acute abnormality of the abdomen or pelvis. Extensive vascular calcifications. Colonic diverticulosis without evidence of acute diverticulitis. MOderate to severe multilevel degenerative changes throughout the lumbar spine ECG Additional Comments: NSR at 86, normal axis, GK=003, ISV=214, XDg=949, TWI in anterior leads present on prior study Code Status & VTE Plan Code Status FULL PG Care Time/CCT Total # of Minutes Spent Total Time Spent with Patient: Total time spent is greater than 50% in coordination of care (as documented) at patient's floor/unit and/or counseling patient: Coding Level of Care Code 50645 Initial Inpt Care Lvl 3 Diagnoses Acute GI bleeding K92.2 Elevated troponin R79.89 Hypertension I10 Hypertension type: unspecified Hyperlipidemia LDL goal <70 E78.5 IDDM (insulin dependent diabetes mellitus) E11.9; Z79.4 Hyponatremia E87.1 Hypokalemia E87.6 (1) Hypertension Hypertension type: unspecified Qualified Code(s): I10 - Essential (primary) hypertension
[2020-04-04] MEDS: PANTOprazole 40 MG in DEXTROSE 5% 100 ML IV SCH (23:44)
[2020-04-05] MEDS ORDERED: GLUCOSE 10 TABS/TUBE PO PRN (00:17)
[2020-04-05] MEDS ORDERED: GLUCOSE 40% GEL 15 GM TUBE PO PRN (00:17)
[2020-04-05] MEDS ORDERED: DEXTROSE 50% 50 ML SYRINGE IV PRN (00:17)
[2020-04-05] MEDS ORDERED: CARBOHYDRATES FOR HYPOGLYCEMIA PO PRN (00:17)
[2020-04-05] MEDS ORDERED: LABETALOL HCL IV 5 MG/ML 20ML IV PRN (00:17)
[2020-04-05] MEDS ORDERED: SODIUM CHLORIDE 0.9% 1000ML 1,000 ML IV SCH ×3 (00:17→23:59)
[2020-04-05] MEDS ORDERED: GLUCAGON FOR INJ 1 MG VIAL SQ PRN (00:17)
[2020-04-05] MEDS ORDERED: ONDANSETRON INJ 2 MG/ML 2 ML VIAL IV PRN (00:17)
[2020-04-05 00:29] LABS: Hematocrit (blood only) 23.1 % (42-52); Hemoglobin 8.3 g/dL (14.0-18.0); Immature Granulocytes # (auto) 0.05 K/uL (0.00-0.02); Immature Granulocytes % (auto) 0.4 %; Lymphocytes # (auto) 0.65 K/uL (1.2-3.4); Lymphocytes % (auto) 5.7 %; Mean Corpuscular Hemoglobin 28.8 pg (25-34); Mean Corpuscular Hgb Conc 35.9 g/dL (32-36); Mean Corpuscular Volume 80.2 fL (80-100); Mean Platelet Volume 9.1 fL (7.4-10.4); Monocytes # (auto) 0.46 K/uL (0.11-0.59); Neutrophils # (auto) 10.32 K/uL (1.4-6.5); Neutrophils % (auto) 89.9 %; Platelet Count 252 K/uL (130-400); RDW Coefficient of Variation 12.8 % (11.5-14.5); RDW Standard Deviation 37.9 fL (36.4-46.3); Red Blood Count 2.88 M/uL (4.7-6.1); White Blood Count 11.48 K/uL (4.8-10.8)
[2020-04-05] MEDS ORDERED: Nursing to Pharmacy Communication SCH (00:45)
[2020-04-05] MEDS: INSULIN ASPART 100 UNITS/ML 3 ML PEN SC SCH ×5 (01:34→23:56)
[2020-04-05] MEDS ORDERED: POTASSIUM CHLORIDE 20 MEQ TABCR PO STA ×2 (03:24→17:57)
[2020-04-05] MEDS: PANTOprazole 40 MG in DEXTROSE 5% 100 ML IV SCH ×5 (04:13→23:33)
[2020-04-05 06:04] LABS: Appearance Urine Clear (Clear); Bilirubin Urine Negative (Negative); Blood Urine Trace (Negative); Color Urine Yellow; Glucose Urine UA Trace (Negative); Ketones Urine Negative (Negative); Leukocyte Esterase Urine Negative (Negative); Nitrite Urine Negative (Negative); Protein Urine 2+ (Negative); Urobilinogen Urine Negative (Negative)
[2020-04-05 06:15] LABS: Bacteria Urine Negative (Negative); Epithelial Cell Urine 0-5 /lpf (0-5); RBC Urine 0-4 /hpf (0-4); WBC Urine 0-5 /hpf (0-5)
[2020-04-05 06:31] LABS: Basophils # (auto) 0.01 K/uL (0-0.2); Basophils % (auto) 0.1 %; Hematocrit (blood only) 22.2 % (42-52); Immature Granulocytes # (auto) 0.05 K/uL (0.00-0.02); Immature Granulocytes % (auto) 0.4 %; Lymphocytes # (auto) 0.86 K/uL (1.2-3.4); Lymphocytes % (auto) 6.4 %; Mean Corpuscular Hemoglobin 29.2 pg (25-34); Mean Platelet Volume 8.2 fL (7.4-10.4); Monocytes # (auto) 1.44 K/uL (0.11-0.59); Monocytes % (auto) 10.8 %; Neutrophils # (auto) 11.01 K/uL (1.4-6.5); Neutrophils % (auto) 82.3 %; Platelet Count 223 K/uL (130-400); RDW Coefficient of Variation 13.1 % (11.5-14.5); RDW Standard Deviation 38.6 fL (36.4-46.3); Red Blood Count 2.74 M/uL (4.7-6.1); White Blood Count 13.37 K/uL (4.8-10.8)
--- NOTE | 2020-04-05 07:04 | CT Scan Report ---
CT OF THE ABDOMEN AND PELVIS WITHOUT CONTRAST CLINICAL HISTORY: Constipation, nausea and vomiting. COMPARISON STUDY: Renal ultrasound December 15, 2018. Chest radiograph and abdominal series April 04 0. TECHNIQUE: Axial images of the abdomen and pelvis were obtained without IV contrast. Images were revi ewed in the axial, sagittal, and coronal planes. Automated exposure control was utilized for the laci dy. A dose lowering technique was utilized adhering to the principles of ALARA. FINDINGS: Lung bases are unremarkable. No renal, ureteral or bladder calculi are present. There is no hydronephrosis or hydroureter. There is scarring within the upper pole of the left kidney. Evaluatio n of the abdomen and pelvis is suboptimal on this unenhanced examination. There are several partially calcified upper abdominal lymph nodes. Unenhanced images of the liver, spleen, adrenal glands and pa ncreas are unremarkable. There is no biliary or pancreatic ductal dilatation. There is no peripancrea tic or pericholecystic infiltration. There is no evidence for a bowel obstruction. The appendix is no rmal. A few colonic diverticula are noted without evidence for acute diverticulitis. Mild diffuse angel dder wall thickening is noted. Extensive plaque of the abdominal aorta is noted which is ectatic, yamileth suring 2.6 cm in caliber. No suspicious lesions are identified within visualized skeletal structures. No acute fractures are noted. IMPRESSION: 1. No urinary calculi or hydronephrosis. 2. Mild bladder wall thickening which could be correlated with urinalysis to exclude cystitis. 3. Extensive atherosclerotic plaque of the abdominal aorta is ectatic, measuring 2.6 cm in caliber. 4. Normal appendix. No bowel obstruction. ACT 112: Negative or not required by law. Electronically signed by: Nas Drummond M.D. 04/05/2020 7:03 AM
[2020-04-05 07:08] LABS: BUN Creatinine Ratio 38.9 (10-20); Calcium 8.6 mg/dl (8.5-10.1); Creatinine Clr Calc Pharmacy 34.6 ml/min; Est GFR (African American) 30.7; Est GFR (Non-African American) 26.5; Potassium 3.1 mmol/L (3.5-5.1)
[2020-04-05 07:15] LABS: Troponin I 0.714 ng/ml (0-0.045)
--- NOTE | 2020-04-05 07:21 | XRay Report ---
PA CHEST RADIOGRAPH AND UPRIGHT AND SUPINE AP RADIOGRAPHS OF THE ABDOMEN CLINICAL HISTORY: weak, constipation COMPARISON STUDY: Chest radiograph June 26, 2018. FINDINGS: No pneumothorax or pleural effusion is noted. There is no consolidation or evidence for pu lmonary edema. Cardiac size is normal. Mediastinal contours are normal. There is no free air. The bow el gas pattern is normal. No urinary calculi are identified. IMPRESSION: 1. No free air or evidence of bowel obstruction. 2. No acute cardiopulmonary findings. ACT 112: Negative or not required by law. Electronically signed by: Nas Drummond M.D. 04/05/2020 7:19 AM
[2020-04-05] MEDS: ATORVASTATIN 40 MG TAB PO SCH (08:19)
[2020-04-05] MEDS: METOPROLOL TARTRATE 100 MG TAB PO SCH ×2 (08:19→22:03)
[2020-04-05] MEDS: gemfibroziL 600 MG TAB PO SCH (08:20)
[2020-04-05] MEDS: AMLODIPINE BESYLATE 5 MG TAB PO SCH (08:20)
[2020-04-05] MEDS: INSULIN GLARGINE SOLOSTAR 100 UNITS/ML 3 ML PEN SQ SCH ×2 (09:06→22:02)
[2020-04-05] MEDS: POTASSIUM CHLORIDE / WTR 10 MEQ/100 ML PLCT IV SCH ×2 (09:06→10:17)
--- NOTE | 2020-04-05 09:29 | Gastrointestinal Consultation ---
Date of Consultation April 05, 2020 Assessment & Plan (1) Anemia: Patient is a 64 yo male with anemia & melena concerning for possible upper GI bleed. -Continue Protonix drip at present -Continue to monitor H/H -Monitor for further signs & symptoms of active GI bleeding -Keep NPO; EGD today for further evaluation of anemia & melena -Supportive care per primary team Of note, patient has never had a screening colonoscopy. We discussed pursuing this as an outpatient, unless the need arises for diagnostic purposes in relation to his anemia. Thank you for allowing us to participate in the care of this patient. If you should have any further questions or concerns, do not hesitate to contact us at [phone] or [phone]. Present on Admission?: Yes Supervising Physician Co-Signing Physician Notes Agree with IRASEMA Cassidy Abd: Soft, NT, ND, +BS Continue current therapy with Protonix gtt and supportive care EGD today History of Present Illness Reason for Consultation: Possible upper GI bleed Attending Physician: Brian Waterman History of Present Illness Patient is a 64 yo male admitted to [facility]. He has a past medical history of DM, HTN, HLP, CKD. GI has been consulted for a possible upper GI bleed. The patient reports that last Saturday, he had an episode of gas associated with a small amount of black, tarry stool. He reports that this did not reoccur again. He reports that recently when he was hospitalized for another issue, he had one episode of blood-tinged emesis. He reports that over the past 3 days he developed nausea and dry heaving. He notes his appetite was poor. He vomited in the ED and lab confirmed blood in the emesis. He reports that since admission, he is asymptomatic. Of note, his CBC indicates worsening anemia in the short-term. In February 2020, his H/H was found to be 11.4/34.6. His H/H at present is 8.0/22.2. His troponin was elevated, but did not trend upwards during this stay and his EKG did not indicate significant change from previous study. He denies chest pain or shortness of breath. He denies ever having a colonoscopy. He denies heartburn or reflux. He denies NSAID use. He reports that his mother had gallbladder issues, but otherwise there is no family history of GI malignancy. Allergies Allergy/AdvReac Type Severity Reaction Status Date / Time No Known Allergies Allergy Verified 04/04/20 20:28 Home Medications Home Medications Medication Instructions Recorded Confirmed Type amlodipine 10 mg PO DAILY 06/26/18 04/04/20 History atorvastatin 40 mg PO DAILY 06/26/18 04/04/20 History gemfibrozil 600 mg PO DAILY 06/26/18 04/04/20 History magnesium oxide 400 mg PO DAILY 06/26/18 04/04/20 History aspirin 81 mg tablet,delayed 81 mg PO DAILY 01/13/20 04/04/20 History release insulin glargine 100 unit/mL (3 35 units SQ BID ml 01/13/20 04/04/20 History mL) subcutaneous pen metoprolol tartrate 100 mg tablet 100 mg PO BID 01/13/20 04/04/20 History hydrochlorothiazide 25 mg tablet 25 mg PO DAILY #90 tab 02/18/20 04/04/20 Rx Patient History Medical History CKD (chronic kidney disease) Diabetes type 2, uncontrolled Hyperlipidemia LDL goal <70 Hypertension Surgical History 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 Family History Other Diabetes type 2, controlled Social History Smoking Status: Never smoker Hx Alcohol Use: No Hx Substance Use: No Preferred Language: Nicaraguan Communication Ability: Effective Orthotic/Prosthetic Practitioner Required: No Beliefs That Will Affect Care: Latter Day Latter Day Beliefs: muslim Current Living Situation: Alone Other Information That Helps Us Care for You: No Feels Safe at Home: Yes Safety Concerns: Feels Safe At This Time Review of Systems Constitutional: no increased appetite Eyes: no problem reported Respiratory: no cough and no dyspnea Cardiovascular: no chest pain Gastrointestinal: + vomiting (now resolved) and + melena; no abdominal pain, no belching, no heartburn, no coffee ground emesis and no change in bowel habits Musculoskeletal: no problem reported Integumentary: no problem reported Neurologic: no problem reported Psychiatric: no problem reported Endocrine: no fatigue Physical Exam Constitutional: WD/WN, vitals as above Eyes: PERRL, conjunctivae normal, anicteric sclerae Neck: normal visual inspection Respiratory: normal respiratory effort Cardiovascular: Extremities: no edema Gastrointestinal (Abdomen): Inspection/Auscultation: abdomen normal to inspection; abdomen not distended Percussion/Palpation: no ascites Skin: no rashes Neurologic: Speech / Cognition: normal speech Motor/Sensory: no tremor Psychiatric: A+Ox3, euthymic affect Results & Data ([facility]) Vital Signs (Past 12 Hours) Vital Signs Temp Pulse Pulse Pulse Resp BP BP 04/05/20 08:16 36.8 C 79 16 165/79 H 04/05/20 04:16 85 177/73 H 04/05/20 03:28 36.7 C 104 H 16 197/80 H 04/05/20 00:05 37.4 C 101 H 101 H 16 193/78 H 04/04/20 23:31 101 H 15 04/04/20 23:30 99 H 28 H 192/83 H 04/04/20 23:09 103 H 22 213/88 H 04/04/20 23:00 96 H 20 04/04/20 22:14 99 H 22 199/92 H Pulse Ox 04/05/20 08:16 98 04/05/20 04:16 04/05/20 03:28 99 04/05/20 00:05 99 04/04/20 23:31 04/04/20 23:30 04/04/20 23:09 04/04/20 23:00 04/04/20 22:14 97 PG Care Time/CCT Total # of Minutes Spent Total Time Spent with Patient: Total time spent is greater than 50% in coordination of care (as documented) at patient's floor/unit and/or counseling patient: Coding Level of Care Code 40101 Initial Inpt Care Lvl 3 Diagnoses Anemia D64.9 Anemia type: unspecified type (1) Anemia Anemia type: unspecified type Qualified Code(s): D64.9 - Anemia, unspecified
[2020-04-05] MEDS ORDERED: PROPOFOL IV EMULSION 10 MG/ML 20 ML VIAL IV ONE (10:52)
[2020-04-05] MEDS ORDERED: LIDOCAINE HCL 2% 2 ML VIAL/AMP(20MG/ML) INFIL ONE (10:52)
[2020-04-05] MEDS ORDERED: SODIUM CHLORIDE 0.9% 250 ML IV PRN ×3 (10:53→11:24)
--- NOTE | 2020-04-05 10:55 | Anesthesiology Consultation ---
Date of Service April 05, 2020 Assessment & Plan (1) Encounter for pre-operative examination: Chart Review Chart Review: Acceptable Risk for Surgery and Patient NOT seen in Pre Admission Testing Consults Requested none ASA ASA4 Proposed Anesthesia Anesthesia Type: MAC Risk / Benefits Reviewed With: PT / POA / Parent / Guardian, Accepts Plan and Informed Consent Obtained History Surgery Operation Date: 04/05/20 16:00 Proposed Procedures p Esophagogastroduodenoscopy Dr Santana - Brien Parr Case, DO Height/Weight Height: 5 ft 10 in Weight: 93.4 kg Allergies Allergy/AdvReac Type Severity Reaction Status Date / Time No Known Allergies Allergy Verified 04/04/20 20:28 Medications Home Medications Medication Instructions Recorded Confirmed Last Taken amlodipine 10 mg PO DAILY 06/26/18 04/04/20 06/26/18 atorvastatin 40 mg PO DAILY 06/26/18 04/04/20 06/26/18 gemfibrozil 600 mg PO DAILY 06/26/18 04/04/20 06/26/18 magnesium oxide 400 mg PO DAILY 06/26/18 04/04/20 06/26/18 aspirin 81 mg tablet,delayed 81 mg PO DAILY 01/13/20 04/04/20 Unknown release insulin glargine 100 unit/mL (3 35 units SQ BID ml 01/13/20 04/04/20 Unknown mL) subcutaneous pen metoprolol tartrate 100 mg tablet 100 mg PO BID 01/13/20 04/04/20 Unknown hydrochlorothiazide 25 mg tablet 25 mg PO DAILY #90 tab 02/18/20 04/04/20 Unknown Active Medications Generic Name Dose Route Start Last Admin Trade Name Vinceq PRN Reason Stop Dose Admin Amlodipine Besylate 10 mg 04/05/20 09:00 04/05/20 08:20 Norvasc PO 05/05/20 08:59 10 mg DAILY MARCELLUS Administration Atorvastatin Calcium 40 mg 04/05/20 09:00 04/05/20 08:19 Lipitor PO 05/05/20 08:59 40 mg DAILY MARCELLUS Administration Gemfibrozil 600 mg 04/05/20 09:00 04/05/20 08:20 Lopid PO 05/05/20 08:59 600 mg DAILY MARCELLUS Administration Pantoprazole Sodium 40 mg/ 100 mls @ 20 mls/hr 04/04/20 22:13 04/05/20 10:35 Dextrose IV 05/04/20 22:12 0 mg/hr Q5H MARCELLUS 0 mls/hr Infusion 8 MG/HR Insulin Aspart 0 units 04/05/20 01:00 04/05/20 06:26 Novolog Flexpen SC 05/05/20 00:59 1 units Q6 MARCELLUS Administration Insulin Glargine 35 units 04/05/20 09:00 04/05/20 09:06 Lantus Solostar Pen SQ 05/05/20 08:59 18 units BID MARCELLUS Administration Labetalol HCl 10 mg 04/05/20 00:17 04/05/20 03:34 Normodyne IV 05/05/20 00:16 10 mg Q4H PRN Administration Hypertension Metoprolol Tartrate 100 mg 04/05/20 09:00 04/05/20 08:19 Lopressor PO 05/05/20 08:59 100 mg BID MARCELLUS Administration NPO Date Last Intake of Fluids: 04/04/20 Time Last Intake of Fluids: 12:00 Date Last Intake of Solids: 04/04/20 Time Last Intake of Solids: 12:00 Past Medical History Medical History CKD (chronic kidney disease) Diabetes type 2, uncontrolled Hyperlipidemia LDL goal <70 Hypertension Exercise / Class Metabolic Activity II 4-5 Yardwork/Stairs/Walk up hill Past Family History Family History Other Diabetes type 2, controlled Past Surgical History Surgical History 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 Past Anesthesia History No Hx of Anesthesia Complications and No Family Hx of Anesthesia Complications History of PONV No Hx of PONV and No Hx of Motion Sickness Social History Smoking Status: Never smoker Hx Alcohol Use: No Alcohol type: beer and wine alcohol intake frequency: a few times a month Hx Substance Use: No Physical Exam Vital Signs Last Vital Signs Temp 36.8 C 04/05/20 08:16 Pulse 79 04/05/20 08:16 Resp 16 04/05/20 08:16 BP 165/79 H 04/05/20 08:16 Pulse Ox 98 04/05/20 08:16 ENMT Mouth: no dentition abnormality Thyromental Distance: > or= 3.5 Finger Breadths Mallampati Class: II Neck normal visual inspection Respiratory normal respiratory effort Auscultation: lungs clear to auscultation bilaterally Cardiovascular Rate/Rhythm: regular rate and regular rhythm Psychiatric Orientation: alert Testing Laboratory Results 04/05/20 06:19 04/05/20 06:19 PT 10.3 Seconds (9.0-12.0) 04/04/20 20:50 INR 1.0 (0.9-1.1) 04/04/20 20:50 Urine Color Yellow 04/05/20 03:50 Urine Appearance Clear (Clear) 04/05/20 03:50 Urine pH 5.0 (4.5-7.5) 04/05/20 03:50 Ur Specific [place] 1.020 (1.000-1.030) 04/05/20 03:50 Urine Protein 2+ (Negative) H 04/05/20 03:50 Urine Glucose (UA) Trace (Negative) H 04/05/20 03:50 Urine Ketones Negative (Negative) 04/05/20 03:50 Urine Nitrite Negative (Negative) 04/05/20 03:50 Ur Leukocyte Esterase Negative (Negative) 04/05/20 03:50 Urine RBC 0-4 /hpf (0-4) 04/05/20 03:50 Urine WBC 0-5 /hpf (0-5) 04/05/20 03:50 Ur Epithelial Cells 0-5 /lpf (0-5) 04/05/20 03:50 Blood Type A Positive 04/04/20 23:10 Antibody Screen NEGATIVE 04/04/20 23:10 04/05/20 04/05/20 04/05/20 07:16 06:10 00:32 POC Glucose 146 H 150 H 272 H
--- NOTE | 2020-04-05 11:16 | Hospitalist Progress Note ---
Date of Service April 05, 2020 Assessment & Plan (1) Acute GI bleeding: * Concern for acute UGIB - patient reported dark, tarry stools. He had a significant drop in Hbg over the last 1.5 months, dropped to 9 from 11.4 and Hct=25 from 34.6 on admission. He has an elevated BUN to 109 with only mild increase in baseline Cr. * Hgb down to 8.0 -- transfused 1u PRBC with repeat hgb 8.6 * GI Consulted -- appreciate assistance * EGD this morning with gastritis, plans for colonoscopy in AM * Continue protonix gtt for now * Clear liquid diet, NPO after midnight (will place on NSS @80cc/hr at midnight) * Bowel prep per GI * Holding ASA in setting of GIB/melena * MCV low normal 80/81 -- iron studies obtained, wnl: Iron 75, TIBC 326, Transferrin 242, Trans % 22, Ferritin 257 * Serial labs (2) Elevated troponin: * Patient with elevated troponin = 0.788. EKG with some TWI in anterior leads, similar to prior. He denies chest pain, tightness, SOB, dizziness, diaphoresis. * Continuous cardiac monitoring -- has been sinus rhythm in the 90s this morning and sinus with PVCs 70-100s overnight on telemetry * Troponin trending down, suspect demand ischemia given anemia. (initially 0.788 --> 0.714, 0.638) * Cardiology consulted -- appreciate input * Holding ASA in setting of acute bleed * Continue home metoprolol tartrate 100mg BID, atorvastatin 40mg (3) Hypertension: * Patient with elevate BP on arrival. * BP 149/71 this AM, but back up to 174/63 * Labetalol 10mg IV PRN * Continue Metoprolol 100mg BID, amlodipine 10mg * HCTZ on hold * Continue to monitor (4) Hyperlipidemia LDL goal <70: * Chronic * Continue Atorvastatin (5) IDDM (insulin dependent diabetes mellitus): * Chronic. Elevated blood sugar of 252 * Lantus 35u BID * ISS * Goal blood sugar 100 - 140. Sugars have been 150-190 since initial 252 on admission. Will tighten parameters and continue to monitor (6) Acute kidney injury superimposed on CKD: * Follows with Dr. Nelson as an outpatient * Baseline Cr 1.6-1.8, however had been elevated up to 2.2 on most recent office visit * Cr 2.47 on admission -- likely in setting of GIB/ischemia * HCTZ on hold (had recently been increased to 25mg for HTN). * Not on EUN/ARB 2/2 hx hyperK * Will give additional IVF, prn medication for HTN * Continue to monitor (7) Hyponatremia: * Na 126 on admission. IVF as above. No neurological symptoms * Repeat Na improved to 132. * Additional IVF ordered * Continue to monitor (8) Hypokalemia: * K 3.2 on admission. Given 40meq PO x 1. * Repeat K 3.1 -- ordered 2 K riders as pt NPO for EGD this morning * Repeat K this afternoon 3.4 -- will order 20meq PO x 1 * Continue to monitor (9) CKD (chronic kidney disease) stage 3, GFR 30-59 ml/min: * Follows with Dr. Nelson. Of note, recently ordered PTH, Vit D levels show elevated PTH 91.8, Vit D low at 17.8. Per patient, no discussion about following up with Endocrinology mentioned (may need to have set up at d/c) * Baseline Cr 1.6-1.8, however had been elevated up to 2.2 on most recent office visit. 24h U with 3.5g/d. PEP w/o monocloncal process. Per note, suspecting kidney dysfunctionbe attributed to diabetic nephropathy or glomerular sclerosis. * HCTZ on hold (had recently been increased to 25mg for HTN). * Not on EUN/ARB 2/2 hx hyperK (10) DVT prophylaxis: * Low risk for DVT, no chemoprophylaxis due to suspected acute bleed Dispo: colonoscopy in AM Admission and Anticipated Discharge Date Admission Date: April 04, 2020 Supervising Physician Co-Signing Physician Notes Attending Attestation: Chart reviewed in detail, care plan d/w PREETI Grace. I agree w/ the mcgee components of her documentation. 64yo male with ACUTE BLOOD LOSS ANEMIA 2nd to GI bleeding. s/p EGD today with gastritis. colonoscopy planned for tomorrow. Serial labs. Vitals remain stable. Brian Waterman MD Subjective Patient feeling much better since admission. No further melena or BM reported since arrival. Patient underwent EGD this morning with Dr. Santana which showed some gastritis. Plans for colonoscopy in AM (never had one done in the past). States he had been on daily iron supplementation. Receiving 1 unit PRBC at current moment for hgb 8.0. Ill for 4 days, then took laxative and had "squirts" on Saturday and small dark tarry stool saturday which prompted him to come to ER. Denies abdominal pain, NSAID use (states he only uses tylenol with hx CKD), alcohol or tobacco use. Denies fever, chills, chest pain, shortness of breath, abdominal pain, n/v, dysuria at this time. Review of Systems Review of Systems: All systems reviewed & are unremarkable except as noted in HPI & below Physical Exam Constitutional: WD/WN, vitals as above no acute distress Eyes: PERRL, conjunctivae normal, anicteric sclerae Neck: trachea midline, no thyromegaly Respiratory: normal respiratory effort, lungs clear to auscultation Cardiovascular: RRR, no murmur, no edema Gastrointestinal (Abdomen): normal bowel sounds, soft, nontender, no hepatosplenomegaly Musculoskeletal: no cyanosis or clubbing, extremities motor strength 5/5 Skin: no rashes, warm and dry Neurologic: PERRL, EOMI, accommodation nl, no face palsy, no dysarthria Psychiatric: A+Ox3, euthymic affect Lymphatic: no cervical or axillary lymphadenopathy Results & Data Results & Data ([facility]) Vital Signs (Past 12 Hours) Vital Signs Temp Pulse Pulse Pulse Resp BP BP 04/05/20 10:59 37.6 C H 66 16 149/71 H 04/05/20 08:16 36.8 C 79 16 165/79 H 04/05/20 04:16 85 177/73 H 04/05/20 03:28 36.7 C 104 H 16 197/80 H 04/05/20 00:05 37.4 C 101 H 101 H 16 193/78 H 04/04/20 23:31 101 H 15 04/04/20 23:30 99 H 28 H 192/83 H Pulse Ox 04/05/20 10:59 98 04/05/20 08:16 98 04/05/20 04:16 04/05/20 03:28 99 04/05/20 00:05 99 04/04/20 23:31 04/04/20 23:30 Laboratory Results 04/05/20 04/05/20 04/05/20 Range/Units 16:17 15:39 15:39 WBC 12.37 H (4.8-10.8) K/uL RBC 3.05 L (4.7-6.1) M/uL Hgb 8.6 L (14.0-18.0) g/dL Hct 24.8 L (42-52) % MCV 81.3 (80-100) fL MCH 28.2 (25-34) pg MCHC 34.7 (32-36) g/dL RDW Std Deviation 40.7 (36.4-46.3) fL RDW Coeff of Whit 13.7 (11.5-14.5) % Plt Count 256 (130-400) K/uL MPV 8.6 (7.4-10.4) fL Immature Gran % (Auto) 0.5 % Neut % (Auto) 79.5 % Lymph % (Auto) 12.6 % [place] % (Auto) 7.0 % Eos % (Auto) 0.2 % Baso % (Auto) 0.2 % Neut # (Auto) 9.85 H (1.4-6.5) K/uL Lymph # (Auto) 1.56 (1.2-3.4) K/uL [place] # (Auto) 0.86 H (0.11-0.59) K/uL Eos # (Auto) 0.02 (0-0.5) K/uL Baso # (Auto) 0.02 (0-0.2) K/uL Immature Gran # (Auto) 0.06 H (0.00-0.02) K/uL PT (9.0-12.0) Seconds INR (0.9-1.1) Sodium 136 (136-145) mmol/L Potassium 3.4 L (3.5-5.1) mmol/L Chloride 107 (98-107) mmol/L Carbon Dioxide 21 (21-32) mmol/L Anion Gap 8.0 (3-11) BUN 84 H (7-18) mg/dl Creatinine 2.48 H (0.6-1.4) mg/dl Est Cr Clr Drug Dosing 34.1 Est GFR ( Amer) 30.4 Est GFR (Non-Af Amer) 26.2 BUN/Creatinine Ratio 33.7 H (10-20) Glucose 194 H (70-99) mg/dl POC Glucose 190 H (70-99) mg/dl POC Lactic Acid Rayo (0.90-1.70) mmol/L Calcium 8.3 L (8.5-10.1) mg/dl Magnesium (1.8-2.4) mg/dl Iron (35-175) mcg/dl TIBC (250-450) mcg/dl Transferrin (200-360) mg/dl Transferrin % Sat (20-50) % Ferritin (8-388) ng/ml Total Bilirubin (0.2-1) mg/dl AST (15-37) U/L ALT (12-78) U/L Alkaline Phosphatase (45-117) U/L Troponin I 0.638 H* (0-0.045) ng/ml NT-Pro-B Natriuret Pep (0-900) pg/ml Total Protein (6.4-8.2) gm/dl Albumin (3.4-5.0) gm/dl Globulin (2.5-4.0) gm/dl Albumin/Globulin Ratio (0.9-2) Lipase (73-393) U/L TSH (0.300-4.500) uIu/ml Urine Color Urine Appearance (Clear) Urine pH (4.5-7.5) Ur Specific [place] (1.000-1.030) Urine Protein (Negative) Urine Glucose (UA) (Negative) Urine Ketones (Negative) Urine Blood (Negative) Urine Nitrite (Negative) Urine Bilirubin (Negative) Urine Urobilinogen (Negative) Ur Leukocyte Esterase (Negative) Urine RBC (0-4) /hpf Urine WBC (0-5) /hpf Ur Epithelial Cells (0-5) /lpf Urine Bacteria (Negative) Gastric Fluid pH Gastric Occult Blood (Negative) Blood Type Antibody Screen Crossmatch 04/05/20 04/05/20 04/05/20 Range/Units 07:16 06:19 06:19 WBC 13.37 H (4.8-10.8) K/uL RBC 2.74 L (4.7-6.1) M/uL Hgb 8.0 L (14.0-18.0) g/dL Hct 22.2 L (42-52) % MCV 81.0 (80-100) fL MCH 29.2 (25-34) pg MCHC 36.0 (32-36) g/dL RDW Std Deviation 38.6 (36.4-46.3) fL RDW Coeff of Whit 13.1 (11.5-14.5) % Plt Count 223 (130-400) K/uL MPV 8.2 (7.4-10.4) fL Immature Gran % (Auto) 0.4 % Neut % (Auto) 82.3 % Lymph % (Auto) 6.4 % [place] % (Auto) 10.8 % Eos % (Auto) 0.0 % Baso % (Auto) 0.1 % Neut # (Auto) 11.01 H (1.4-6.5) K/uL Lymph # (Auto) 0.86 L (1.2-3.4) K/uL [place] # (Auto) 1.44 H (0.11-0.59) K/uL Eos # (Auto) 0.00 (0-0.5) K/uL Baso # (Auto) 0.01 (0-0.2) K/uL Immature Gran # (Auto) 0.05 H (0.00-0.02) K/uL PT (9.0-12.0) Seconds INR (0.9-1.1) Sodium (136-145) mmol/L Potassium (3.5-5.1) mmol/L Chloride (98-107) mmol/L Carbon Dioxide (21-32) mmol/L Anion Gap (3-11) BUN (7-18) mg/dl Creatinine (0.6-1.4) mg/dl Est Cr Clr Drug Dosing Est GFR ( Amer) Est GFR (Non-Af Amer) BUN/Creatinine Ratio (10-20) Glucose (70-99) mg/dl POC Glucose 146 H (70-99) mg/dl POC Lactic Acid Rayo (0.90-1.70) mmol/L Calcium (8.5-10.1) mg/dl Magnesium (1.8-2.4) mg/dl Iron 75 (35-175) mcg/dl TIBC 326 (250-450) mcg/dl Transferrin 242 (200-360) mg/dl Transferrin % Sat 22 (20-50) % Ferritin 257.0 (8-388) ng/ml Total Bilirubin (0.2-1) mg/dl AST (15-37) U/L ALT (12-78) U/L Alkaline Phosphatase (45-117) U/L Troponin I (0-0.045) ng/ml NT-Pro-B Natriuret Pep (0-900) pg/ml Total Protein (6.4-8.2) gm/dl Albumin (3.4-5.0) gm/dl Globulin (2.5-4.0) gm/dl Albumin/Globulin Ratio (0.9-2) Lipase (73-393) U/L TSH (0.300-4.500) uIu/ml Urine Color Urine Appearance (Clear) Urine pH (4.5-7.5) Ur Specific [place] (1.000-1.030) Urine Protein (Negative) Urine Glucose (UA) (Negative) Urine Ketones (Negative) Urine Blood (Negative) Urine Nitrite (Negative) Urine Bilirubin (Negative) Urine Urobilinogen (Negative) Ur Leukocyte Esterase (Negative) Urine RBC (0-4) /hpf Urine WBC (0-5) /hpf Ur Epithelial Cells (0-5) /lpf Urine Bacteria (Negative) Gastric Fluid pH Gastric Occult Blood (Negative) Blood Type Antibody Screen Crossmatch 04/05/20 04/05/20 04/05/20 Range/Units 06:19 06:10 03:50 WBC (4.8-10.8) K/uL RBC (4.7-6.1) M/uL Hgb (14.0-18.0) g/dL Hct (42-52) % MCV (80-100) fL MCH (25-34) pg MCHC (32-36) g/dL RDW Std Deviation (36.4-46.3) fL RDW Coeff of Whit (11.5-14.5) % Plt Count (130-400) K/uL MPV (7.4-10.4) fL Immature Gran % (Auto) % Neut % (Auto) % Lymph % (Auto) % [place] % (Auto) % Eos % (Auto) % Baso % (Auto) % Neut # (Auto) (1.4-6.5) K/uL Lymph # (Auto) (1.2-3.4) K/uL [place] # (Auto) (0.11-0.59) K/uL Eos # (Auto) (0-0.5) K/uL Baso # (Auto) (0-0.2) K/uL Immature Gran # (Auto) (0.00-0.02) K/uL PT (9.0-12.0) Seconds INR (0.9-1.1) Sodium 132 L (136-145) mmol/L Potassium 3.1 L (3.5-5.1) mmol/L Chloride 100 (98-107) mmol/L Carbon Dioxide 23 (21-32) mmol/L Anion Gap 9.0 (3-11) BUN 96 H (7-18) mg/dl Creatinine 2.46 H (0.6-1.4) mg/dl Est Cr Clr Drug Dosing 34.6 Est GFR ( Amer) 30.7 Est GFR (Non-Af Amer) 26.5 BUN/Creatinine Ratio 38.9 H (10-20) Glucose 126 H (70-99) mg/dl POC Glucose 150 H (70-99) mg/dl POC Lactic Acid Rayo (0.90-1.70) mmol/L Calcium 8.6 (8.5-10.1) mg/dl Magnesium (1.8-2.4) mg/dl Iron (35-175) mcg/dl TIBC (250-450) mcg/dl Transferrin (200-360) mg/dl Transferrin % Sat (20-50) % Ferritin (8-388) ng/ml Total Bilirubin (0.2-1) mg/dl AST (15-37) U/L ALT (12-78) U/L Alkaline Phosphatase (45-117) U/L Troponin I 0.714 H* (0-0.045) ng/ml NT-Pro-B Natriuret Pep (0-900) pg/ml Total Protein (6.4-8.2) gm/dl Albumin (3.4-5.0) gm/dl Globulin (2.5-4.0) gm/dl Albumin/Globulin Ratio (0.9-2) Lipase (73-393) U/L TSH (0.300-4.500) uIu/ml Urine Color Yellow Urine Appearance Clear (Clear) Urine pH 5.0 (4.5-7.5) Ur Specific [place] 1.020 (1.000-1.030) Urine Protein 2+ H (Negative) Urine Glucose (UA) Trace H (Negative) Urine Ketones Negative (Negative) Urine Blood Trace H (Negative) Urine Nitrite Negative (Negative) Urine Bilirubin Negative (Negative) Urine Urobilinogen Negative (Negative) Ur Leukocyte Esterase Negative (Negative) Urine RBC 0-4 (0-4) /hpf Urine WBC 0-5 (0-5) /hpf Ur Epithelial Cells 0-5 (0-5) /lpf Urine Bacteria Negative (Negative) Gastric Fluid pH Gastric Occult Blood (Negative) Blood Type Antibody Screen Crossmatch 04/05/20 04/04/20 04/04/20 Range/Units 00:32 23:13 23:10 WBC 11.48 H (4.8-10.8) K/uL RBC 2.88 L (4.7-6.1) M/uL Hgb 8.3 L (14.0-18.0) g/dL Hct 23.1 L (42-52) % MCV 80.2 (80-100) fL MCH 28.8 (25-34) pg MCHC 35.9 (32-36) g/dL RDW Std Deviation 37.9 (36.4-46.3) fL RDW Coeff of Whit 12.8 (11.5-14.5) % Plt Count 252 (130-400) K/uL MPV 9.1 (7.4-10.4) fL Immature Gran % (Auto) 0.4 % Neut % (Auto) 89.9 % Lymph % (Auto) 5.7 % [place] % (Auto) 4.0 % Eos % (Auto) 0.0 % Baso % (Auto) 0.0 % Neut # (Auto) 10.32 H (1.4-6.5) K/uL Lymph # (Auto) 0.65 L (1.2-3.4) K/uL [place] # (Auto) 0.46 (0.11-0.59) K/uL Eos # (Auto) 0.00 (0-0.5) K/uL Baso # (Auto) 0.00 (0-0.2) K/uL Immature Gran # (Auto) 0.05 H (0.00-0.02) K/uL PT (9.0-12.0) Seconds INR (0.9-1.1) Sodium (136-145) mmol/L Potassium (3.5-5.1) mmol/L Chloride (98-107) mmol/L Carbon Dioxide (21-32) mmol/L Anion Gap (3-11) BUN (7-18) mg/dl Creatinine (0.6-1.4) mg/dl Est Cr Clr Drug Dosing Est GFR ( Amer) Est GFR (Non-Af Amer) BUN/Creatinine Ratio (10-20) Glucose (70-99) mg/dl POC Glucose 272 H (70-99) mg/dl POC Lactic Acid Rayo (0.90-1.70) mmol/L Calcium (8.5-10.1) mg/dl Magnesium (1.8-2.4) mg/dl Iron (35-175) mcg/dl TIBC (250-450) mcg/dl Transferrin (200-360) mg/dl Transferrin % Sat (20-50) % Ferritin (8-388) ng/ml Total Bilirubin (0.2-1) mg/dl AST (15-37) U/L ALT (12-78) U/L Alkaline Phosphatase (45-117) U/L Troponin I (0-0.045) ng/ml NT-Pro-B Natriuret Pep (0-900) pg/ml Total Protein (6.4-8.2) gm/dl Albumin (3.4-5.0) gm/dl Globulin (2.5-4.0) gm/dl Albumin/Globulin Ratio (0.9-2) Lipase (73-393) U/L TSH (0.300-4.500) uIu/ml Urine Color Urine Appearance (Clear) Urine pH (4.5-7.5) Ur Specific [place] (1.000-1.030) Urine Protein (Negative) Urine Glucose (UA) (Negative) Urine Ketones (Negative) Urine Blood (Negative) Urine Nitrite (Negative) Urine Bilirubin (Negative) Urine Urobilinogen (Negative) Ur Leukocyte Esterase (Negative) Urine RBC (0-4) /hpf Urine WBC (0-5) /hpf Ur Epithelial Cells (0-5) /lpf Urine Bacteria (Negative) Gastric Fluid pH Gastric Occult Blood (Negative) Blood Type A Positive Antibody Screen NEGATIVE Crossmatch See Detail 04/04/20 04/04/20 04/04/20 Range/Units 21:00 21:00 20:50 WBC (4.8-10.8) K/uL RBC (4.7-6.1) M/uL Hgb (14.0-18.0) g/dL Hct (42-52) % MCV (80-100) fL MCH (25-34) pg MCHC (32-36) g/dL RDW Std Deviation (36.4-46.3) fL RDW Coeff of Whit (11.5-14.5) % Plt Count (130-400) K/uL MPV (7.4-10.4) fL Immature Gran % (Auto) % Neut % (Auto) % Lymph % (Auto) % [place] % (Auto) % Eos % (Auto) % Baso % (Auto) % Neut # (Auto) (1.4-6.5) K/uL Lymph # (Auto) (1.2-3.4) K/uL [place] # (Auto) (0.11-0.59) K/uL Eos # (Auto) (0-0.5) K/uL Baso # (Auto) (0-0.2) K/uL Immature Gran # (Auto) (0.00-0.02) K/uL PT (9.0-12.0) Seconds INR (0.9-1.1) Sodium 126 L (136-145) mmol/L Potassium 3.2 L (3.5-5.1) mmol/L Chloride 92 L (98-107) mmol/L Carbon Dioxide 22 (21-32) mmol/L Anion Gap 12.0 H (3-11) BUN 109 H (7-18) mg/dl Creatinine 2.47 H (0.6-1.4) mg/dl Est Cr Clr Drug Dosing Not Reportable Est GFR ( Amer) 30.5 Est GFR (Non-Af Amer) 26.4 BUN/Creatinine Ratio 43.9 H (10-20) Glucose 252 H (70-99) mg/dl POC Glucose (70-99) mg/dl POC Lactic Acid Rayo 0.99 (0.90-1.70) mmol/L Calcium 8.8 (8.5-10.1) mg/dl Magnesium 2.9 H (1.8-2.4) mg/dl Iron (35-175) mcg/dl TIBC (250-450) mcg/dl Transferrin (200-360) mg/dl Transferrin % Sat (20-50) % Ferritin (8-388) ng/ml Total Bilirubin 0.3 (0.2-1) mg/dl AST 20 (15-37) U/L ALT 28 (12-78) U/L Alkaline Phosphatase 68 (45-117) U/L Troponin I 0.788 H* (0-0.045) ng/ml NT-Pro-B Natriuret Pep 1338 H (0-900) pg/ml Total Protein 7.8 (6.4-8.2) gm/dl Albumin 3.0 L (3.4-5.0) gm/dl Globulin 4.8 H (2.5-4.0) gm/dl Albumin/Globulin Ratio 0.6 L (0.9-2) Lipase 236 (73-393) U/L TSH 0.591 (0.300-4.500) uIu/ml Urine Color Urine Appearance (Clear) Urine pH (4.5-7.5) Ur Specific [place] (1.000-1.030) Urine Protein (Negative) Urine Glucose (UA) (Negative) Urine Ketones (Negative) Urine Blood (Negative) Urine Nitrite (Negative) Urine Bilirubin (Negative) Urine Urobilinogen (Negative) Ur Leukocyte Esterase (Negative) Urine RBC (0-4) /hpf Urine WBC (0-5) /hpf Ur Epithelial Cells (0-5) /lpf Urine Bacteria (Negative) Gastric Fluid pH 4 Gastric Occult Blood Positive A (Negative) Blood Type Antibody Screen Crossmatch 04/04/20 04/04/20 Range/Units 20:50 20:50 WBC 10.81 H (4.8-10.8) K/uL RBC 3.07 L (4.7-6.1) M/uL Hgb 9.0 L (14.0-18.0) g/dL Hct 25.0 L (42-52) % MCV 81.4 (80-100) fL MCH 29.3 (25-34) pg MCHC 36.0 (32-36) g/dL RDW Std Deviation 38.4 (36.4-46.3) fL RDW Coeff of Whit 13.0 (11.5-14.5) % Plt Count 255 (130-400) K/uL MPV 8.9 (7.4-10.4) fL Immature Gran % (Auto) 0.4 % Neut % (Auto) 91.0 % Lymph % (Auto) 4.3 % [place] % (Auto) 4.2 % Eos % (Auto) 0.0 % Baso % (Auto) 0.1 % Neut # (Auto) 9.84 H (1.4-6.5) K/uL Lymph # (Auto) 0.47 L (1.2-3.4) K/uL [place] # (Auto) 0.45 (0.11-0.59) K/uL Eos # (Auto) 0.00 (0-0.5) K/uL Baso # (Auto) 0.01 (0-0.2) K/uL Immature Gran # (Auto) 0.04 H (0.00-0.02) K/uL PT 10.3 (9.0-12.0) Seconds INR 1.0 (0.9-1.1) Sodium (136-145) mmol/L Potassium (3.5-5.1) mmol/L Chloride (98-107) mmol/L Carbon Dioxide (21-32) mmol/L Anion Gap (3-11) BUN (7-18) mg/dl Creatinine (0.6-1.4) mg/dl Est Cr Clr Drug Dosing Est GFR ( Amer) Est GFR (Non-Af Amer) BUN/Creatinine Ratio (10-20) Glucose (70-99) mg/dl POC Glucose (70-99) mg/dl POC Lactic Acid [place] (0.90-1.70) mmol/L Calcium (8.5-10.1) mg/dl Magnesium (1.8-2.4) mg/dl Iron (35-175) mcg/dl TIBC (250-450) mcg/dl Transferrin (200-360) mg/dl Transferrin % Sat (20-50) % Ferritin (8-388) ng/ml Total Bilirubin (0.2-1) mg/dl AST (15-37) U/L ALT (12-78) U/L Alkaline Phosphatase (45-117) U/L Troponin I (0-0.045) ng/ml NT-Pro-B Natriuret Pep (0-900) pg/ml Total Protein (6.4-8.2) gm/dl Albumin (3.4-5.0) gm/dl Globulin (2.5-4.0) gm/dl Albumin/Globulin Ratio (0.9-2) Lipase (73-393) U/L TSH (0.300-4.500) uIu/ml Urine Color Urine Appearance (Clear) Urine pH (4.5-7.5) Ur Specific [place] (1.000-1.030) Urine Protein (Negative) Urine Glucose (UA) (Negative) Urine Ketones (Negative) Urine Blood (Negative) Urine Nitrite (Negative) Urine Bilirubin (Negative) Urine Urobilinogen (Negative) Ur Leukocyte Esterase (Negative) Urine RBC (0-4) /hpf Urine WBC (0-5) /hpf Ur Epithelial Cells (0-5) /lpf Urine Bacteria (Negative) Gastric Fluid pH Gastric Occult Blood (Negative) Blood Type Antibody Screen Crossmatch PG Care Time/CCT Total # of Minutes Spent Total Time Spent with Patient: Total time spent is greater than 50% in coordination of care (as documented) at patient's floor/unit and/or counseling patient: Coding Level of Care Code 70599 Subseq Hosp Care Lvl 3 Diagnoses Acute GI bleeding K92.2 Elevated troponin R79.89 Hypertension I10 Hypertension type: unspecified Hyperlipidemia LDL goal <70 E78.5 IDDM (insulin dependent diabetes mellitus) E11.9; Z79.4 Acute kidney injury superimposed on CKD N17.9; N18.9 Hyponatremia E87.1 Hypokalemia E87.6 CKD (chronic kidney disease) stage 3, GFR 30-59 ml/min N18.3 DVT prophylaxis Z29.9 (1) Hypertension Hypertension type: unspecified Qualified Code(s): I10 - Essential (primary) hypertension
--- NOTE | 2020-04-05 12:19 | GI REPORT ---
Patient Name: Dionicio Coleman Procedure Date: 04/05/2020 12:01 PM Date of : 1955 Admit Type: Inpatient Age: 64 Gender: Male Attending MD: Brien Santana DO Procedure: Upper GI endoscopy Providers: Brien Santana DO Referring MD: Brian Waterman Indications: Iron deficiency anemia Medicines: Monitored Anesthesia Care Complications: No immediate complications. Estimated Blood Loss: Estimated blood loss: none. Procedure: Pre-Anesthesia Assessment: - Prior to the procedure, a History and Physical was performed, and patient medications and allergies were reviewed. The patient's tolerance of previous anesthesia was also reviewed. The risks and benefits of the procedure and the sedation options and risks were discussed with the patient. All questions were answered, and informed consent was obtained. Prior Anticoagulants: The patient has taken aspirin, last dose was 1 day prior to procedure. ASA Grade Assessment: IV - A patient with severe systemic disease that is a constant threat to life. After reviewing the risks and benefits, the patient was deemed in satisfactory condition to undergo the procedure. After obtaining informed consent, the endoscope was passed under direct vision. Throughout the procedure, the patient's blood pressure, pulse, and oxygen saturations were monitored continuously. The Endoscope was introduced through the mouth, and advanced to the second part of duodenum. The upper GI endoscopy was accomplished without difficulty. The patient tolerated the procedure well. Findings: The examined esophagus was normal. Localized mild inflammation characterized by congestion (edema), erosions and erythema was found in the gastric antrum. The examined duodenum was normal. Impression: - Normal esophagus. - Gastritis. - Normal examined duodenum. - No specimens collected. Recommendation: - Return patient to hospital [facility] for ongoing care. - Clear liquid diet. - Perform a colonoscopy tomorrow. Brien Santana DO 04/05/2020 12:18:56 PM This report has been signed electronically. Note Initiated On: 04/05/2020 12:01 PM Number of Addenda: 0 I attest to the content of the Intraoperative Record and orders documented therein, exceptions below {[id number]}
--- NOTE | 2020-04-05 12:57 | Anesthesiology Progress Note ---
Date of Service April 05, 2020 Anesthesia Post Procedure Vital Signs Vital Signs: Temp Pulse Pulse Pulse Pulse Resp BP 04/05/20 12:42 71 16 04/05/20 12:27 36.9 C 68 68 16 121/52 L 04/05/20 12:12 36.8 C 75 75 16 142/61 H 04/05/20 11:57 37.2 C 70 16 171/70 H 04/05/20 11:53 36.9 C 69 16 169/71 H 04/05/20 11:45 36.9 C 71 16 175/75 H 04/05/20 10:59 37.6 C H 66 16 04/05/20 08:16 36.8 C 79 16 04/05/20 04:16 85 04/05/20 03:28 36.7 C 104 H 16 04/05/20 00:05 37.4 C 101 H 101 H 16 04/04/20 23:31 101 H 15 04/04/20 23:30 99 H 28 H 192/83 H 04/04/20 23:09 103 H 22 213/88 H 04/04/20 23:00 96 H 20 04/04/20 22:14 99 H 22 199/92 H 04/04/20 21:12 94 H 17 222/93 H 04/04/20 21:10 92 H 17 04/04/20 19:00 37.5 C 84 20 162/81 H BP Pulse Ox 04/05/20 12:42 166/75 H 100 04/05/20 12:27 121/52 L 98 04/05/20 12:12 142/61 H 100 04/05/20 11:57 97 04/05/20 11:53 98 04/05/20 11:45 99 04/05/20 10:59 149/71 H 98 04/05/20 08:16 165/79 H 98 04/05/20 04:16 177/73 H 04/05/20 03:28 197/80 H 99 04/05/20 00:05 193/78 H 99 04/04/20 23:31 04/04/20 23:30 04/04/20 23:09 04/04/20 23:00 04/04/20 22:14 97 04/04/20 21:12 98 04/04/20 21:10 222/93 H 97 04/04/20 19:00 95 Transfer of Care Handoff Completed per policy Notes Mental Status: alert / awake / arousable Patient Amnestic to Procedure: Yes Nausea / Vomiting: adequately controlled Pain: adequately controlled Airway Patency, RR, SpO2: stable & adequate BP & HR: stable & adequate Hydration State: stable & adequate Anesthetic Complications: no major complications apparent Notes: 1 unit of packed red cells started in preop for acute blood loss anemia with signs of cardiac ischemia.
[2020-04-05 15:52] LABS: Basophils # (auto) 0.02 K/uL (0-0.2); Basophils % (auto) 0.2 %; Eosinophils # (auto) 0.02 K/uL (0-0.5); Eosinophils % (auto) 0.2 %; Hematocrit (blood only) 24.8 % (42-52); Hemoglobin 8.6 g/dL (14.0-18.0); Immature Granulocytes # (auto) 0.06 K/uL (0.00-0.02); Immature Granulocytes % (auto) 0.5 %; Lymphocytes # (auto) 1.56 K/uL (1.2-3.4); Lymphocytes % (auto) 12.6 %; Mean Corpuscular Hemoglobin 28.2 pg (25-34); Mean Corpuscular Hgb Conc 34.7 g/dL (32-36); Mean Corpuscular Volume 81.3 fL (80-100); Mean Platelet Volume 8.6 fL (7.4-10.4); Monocytes # (auto) 0.86 K/uL (0.11-0.59); Neutrophils # (auto) 9.85 K/uL (1.4-6.5); Neutrophils % (auto) 79.5 %; Platelet Count 256 K/uL (130-400); RDW Coefficient of Variation 13.7 % (11.5-14.5); RDW Standard Deviation 40.7 fL (36.4-46.3); Red Blood Count 3.05 M/uL (4.7-6.1); White Blood Count 12.37 K/uL (4.8-10.8)
[2020-04-05 16:09] LABS: BUN Creatinine Ratio 33.7 (10-20); Calcium 8.3 mg/dl (8.5-10.1); Creatinine Clr Calc Pharmacy 34.1 ml/min; Est GFR (African American) 30.4; Est GFR (Non-African American) 26.2; Potassium 3.4 mmol/L (3.5-5.1)
[2020-04-05 16:19] LABS: Troponin I 0.638 ng/ml (0-0.045)
[2020-04-05] MEDS ORDERED: LAVAGE SOLUTION 4000ML PO SCH (18:00)
[2020-04-05] MEDS: LAVAGE SOLUTION 4000ML PO SCH (19:44)
[2020-04-05] MEDS ORDERED: HydrALAZINE HCL 20 MG/ML VIAL IV ONE (21:30)
[2020-04-06 00:25] LABS: Hematocrit (blood only) 23.9 % (42-52); Hemoglobin 8.3 g/dL (14.0-18.0); Mean Corpuscular Hemoglobin 28.3 pg (25-34); Mean Corpuscular Hgb Conc 34.7 g/dL (32-36); Mean Corpuscular Volume 81.6 fL (80-100); Mean Platelet Volume 8.3 fL (7.4-10.4); Nucleated RBC # (auto) 0.02 K/uL (0-0); Nucleated RBC % (auto) 0.1 %; Platelet Count 276 K/uL (130-400); RDW Coefficient of Variation 14.1 % (11.5-14.5); RDW Standard Deviation 42.2 fL (36.4-46.3); Red Blood Count 2.93 M/uL (4.7-6.1); White Blood Count 14.96 K/uL (4.8-10.8)
[2020-04-06 00:53] LABS: BUN Creatinine Ratio 26.9 (10-20); Calcium 8.4 mg/dl (8.5-10.1); Creatinine Clr Calc Pharmacy 35.5 ml/min; Est GFR (African American) 31.9; Est GFR (Non-African American) 27.6; Potassium 3.3 mmol/L (3.5-5.1)
[2020-04-06] MEDS: LAVAGE SOLUTION 4000ML PO SCH (03:07)
[2020-04-06] MEDS: PANTOprazole 40 MG in DEXTROSE 5% 100 ML IV SCH ×4 (04:30→21:03)
[2020-04-06 06:06] LABS: Basophils # (auto) 0.02 K/uL (0-0.2); Basophils % (auto) 0.1 %; Eosinophils # (auto) 0.11 K/uL (0-0.5); Eosinophils % (auto) 0.8 %; Hematocrit (blood only) 24.1 % (42-52); Hemoglobin 8.4 g/dL (14.0-18.0); Immature Granulocytes # (auto) 0.11 K/uL (0.00-0.02); Immature Granulocytes % (auto) 0.8 %; Lymphocytes # (auto) 1.24 K/uL (1.2-3.4); Lymphocytes % (auto) 9.3 %; Mean Corpuscular Hemoglobin 28.4 pg (25-34); Mean Corpuscular Hgb Conc 34.9 g/dL (32-36); Mean Corpuscular Volume 81.4 fL (80-100); Mean Platelet Volume 8.6 fL (7.4-10.4); Monocytes # (auto) 1.12 K/uL (0.11-0.59); Monocytes % (auto) 8.4 %; Neutrophils # (auto) 10.75 K/uL (1.4-6.5); Neutrophils % (auto) 80.6 %; Nucleated RBC # (auto) 0.03 K/uL (0-0); Nucleated RBC % (auto) 0.3 %; Platelet Count 279 K/uL (130-400); RDW Coefficient of Variation 14.2 % (11.5-14.5); Red Blood Count 2.96 M/uL (4.7-6.1); White Blood Count 13.35 K/uL (4.8-10.8)
[2020-04-06] MEDS: INSULIN ASPART 100 UNITS/ML 3 ML PEN SC SCH ×4 (06:11→21:04)
[2020-04-06 06:29] LABS: Albumin Level 2.8 gm/dl (3.4-5.0); Calcium 8.2 mg/dl (8.5-10.1); Creatinine Clr Calc Pharmacy 39.2 ml/min; Est GFR (African American) 35.7; Est GFR (Non-African American) 30.8; Potassium 3.1 mmol/L (3.5-5.1)
[2020-04-06 06:32] LABS: Albumin Globulin Ratio 0.7 (0.9-2); Bilirubin,Total 0.5 mg/dl (0.2-1); Globulin 4.1 gm/dl (2.5-4.0); Phosphorus 2.5 mg/dl (2.5-4.9); Total Protein 6.9 gm/dl (6.4-8.2)
--- NOTE | 2020-04-06 08:45 | Anesthesiology Consultation ---
Date of Service April 06, 2020 Assessment & Plan Chart Review Chart Review: Acceptable Risk for Surgery Consults Requested none ASA ASA3 Proposed Anesthesia Anesthesia Type: MAC Risk / Benefits Reviewed With: PT / POA / Parent / Guardian, Accepts Plan and Informed Consent Obtained History Surgery Operation Date: 04/05/20 16:00 Proposed Procedures p Esophagogastroduodenoscopy Dr Max Parr Case, DO Operation Date: 04/06/20 15:35 Proposed Procedures p Colonoscopy Dr. Max Parr Case, DO Height/Weight Height: 5 ft 10 in Weight: 94.6 kg Allergies Allergy/AdvReac Type Severity Reaction Status Date / Time No Known Allergies Allergy Verified 04/04/20 20:28 Medications Home Medications Medication Instructions Recorded Confirmed Last Taken amlodipine 10 mg PO DAILY 06/26/18 04/04/20 06/26/18 atorvastatin 40 mg PO DAILY 06/26/18 04/04/20 06/26/18 gemfibrozil 600 mg PO DAILY 06/26/18 04/04/20 06/26/18 magnesium oxide 400 mg PO DAILY 06/26/18 04/04/20 06/26/18 aspirin 81 mg tablet,delayed 81 mg PO DAILY 01/13/20 04/04/20 Unknown release insulin glargine 100 unit/mL (3 35 units SQ BID ml 01/13/20 04/04/20 Unknown mL) subcutaneous pen metoprolol tartrate 100 mg tablet 100 mg PO BID 01/13/20 04/04/20 Unknown hydrochlorothiazide 25 mg tablet 25 mg PO DAILY #90 tab 02/18/20 04/04/20 Unknown Active Medications Generic Name Dose Route Start Last Admin Trade Name Sol PRN Reason Stop Dose Admin Amlodipine Besylate 10 mg 04/05/20 09:00 04/05/20 08:20 Norvasc PO 05/05/20 08:59 10 mg DAILY MARCELLUS Administration Atorvastatin Calcium 40 mg 04/05/20 09:00 04/05/20 08:19 Lipitor PO 05/05/20 08:59 40 mg DAILY MARCELLUS Administration Gemfibrozil 600 mg 04/05/20 09:00 04/05/20 08:20 Lopid PO 05/05/20 08:59 600 mg DAILY MARCELLUS Administration Pantoprazole Sodium 40 mg/ 100 mls @ 20 mls/hr 04/04/20 22:13 04/06/20 09:30 Dextrose IV 05/04/20 22:12 Infused Q5H MARCELLUS Infusion 8 MG/HR Potassium Chloride/Sodium Chloride 20 meq in 1,000 mls @ 80 mls/hr 04/06/20 11:00 04/06/20 10:00 Normal Saline W/20 Meq Kcl IV 04/06/20 23:29 80 mls/hr .[id number] MARCELLUS Administration Insulin Aspart 0 units 04/05/20 01:00 04/06/20 06:11 Novolog Flexpen SC 05/05/20 00:59 Not Given Q6 MARCELLUS Insulin Glargine 35 units 04/05/20 09:00 04/06/20 09:26 Lantus Solostar Pen SQ 05/05/20 08:59 18 units BID MARCELLUS Administration Labetalol HCl 10 mg 04/05/20 00:17 04/05/20 03:34 Normodyne IV 05/05/20 00:16 10 mg Q4H PRN Administration Hypertension Metoprolol Tartrate 100 mg 04/05/20 09:00 04/05/20 22:03 Lopressor PO 05/05/20 08:59 100 mg BID MARCELLUS Administration NPO Date Last Intake of Fluids: 04/06/20 Time Last Intake of Fluids: 06:30 Date Last Intake of Solids: 04/03/20 Time Last Intake of Solids: 18:00 Past Medical History Medical History CKD (chronic kidney disease) Diabetes type 2, uncontrolled Hyperlipidemia LDL goal <70 Hypertension Exercise / Class Metabolic Activity II 4-5 Yardwork/Stairs/Walk up hill Past Family History Family History Other Diabetes type 2, controlled Past Surgical History Surgical History 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 Past Anesthesia History No Hx of Anesthesia Complications and No Family Hx of Anesthesia Complications History of PONV No Hx of PONV and No Hx of Motion Sickness Social History Smoking Status: Never smoker Hx Alcohol Use: No Alcohol type: beer and wine alcohol intake frequency: a few times a month Hx Substance Use: No Physical Exam Vital Signs Last Vital Signs Temp 98.4 F 04/06/20 11:27 Pulse 77 04/06/20 11:27 Resp 18 04/06/20 11:27 BP 155/70 H 04/06/20 11:27 Pulse Ox 98 04/06/20 11:27 ENMT Mouth: no dentition abnormality Thyromental Distance: > or= 3.5 Finger Breadths Mallampati Class: II Neck normal visual inspection Respiratory normal respiratory effort Auscultation: lungs clear to auscultation bilaterally Cardiovascular Rate/Rhythm: regular rate and regular rhythm Testing Laboratory Results 04/06/20 05:32 04/06/20 05:32 PT 10.3 Seconds (9.0-12.0) 04/04/20 20:50 INR 1.0 (0.9-1.1) 04/04/20 20:50 Urine Color Yellow 04/05/20 03:50 Urine Appearance Clear (Clear) 04/05/20 03:50 Urine pH 5.0 (4.5-7.5) 04/05/20 03:50 Ur Specific [place] 1.020 (1.000-1.030) 04/05/20 03:50 Urine Protein 2+ (Negative) H 04/05/20 03:50 Urine Glucose (UA) Trace (Negative) H 04/05/20 03:50 Urine Ketones Negative (Negative) 04/05/20 03:50 Urine Nitrite Negative (Negative) 04/05/20 03:50 Ur Leukocyte Esterase Negative (Negative) 04/05/20 03:50 Urine RBC 0-4 /hpf (0-4) 04/05/20 03:50 Urine WBC 0-5 /hpf (0-5) 04/05/20 03:50 Ur Epithelial Cells 0-5 /lpf (0-5) 04/05/20 03:50 Blood Type A Positive 04/04/20 23:10 Antibody Screen NEGATIVE 04/04/20 23:10 04/06/20 04/05/20 04/05/20 05:58 23:49 20:14 POC Glucose 114 H 97 178 H Electrocardiogram Date: 04/04/20 Normal sinus rhythm, rate 86 bpm Left ventricular hypertrophy with repolarization abnormality Abnormal ECG When compared with ECG of 28-JUN-2018 07:08, Non-specific change in ST segment in Anterior leads T wave inversion now evident in Anterior leads
[2020-04-06] MEDS: POTASSIUM CHLORIDE / WTR 10 MEQ/100 ML PLCT IV SCH ×3 (09:25→13:51)
[2020-04-06] MEDS: INSULIN GLARGINE SOLOSTAR 100 UNITS/ML 3 ML PEN SQ SCH ×2 (09:26→21:03)
--- NOTE | 2020-04-06 10:19 | History & Physical Bridge Note ---
Date of Service April 06, 2020 History & Physical Bridge Note I have examined the patient, reviewed the History & Physical and in the interval since the performance of the History & Physical I have noted the following changes of clinical significance: no changes noted Patient denies any further melena. EGD on 04/05/20 was unremarkable. H/H stable at 8.4/24.1. He completed his bowel prep and has been appropriately NPO. Proceed with colonoscopy today. Supervising Physician Co-Signing Physician Notes Agree with IRASEMA Cassidy as above Abd: Soft, NT, ND, +BS Continue current therapy Proceed with colonoscopy today
--- NOTE | 2020-04-06 10:40 | Cardiology Consultation ---
Date of Consultation April 06, 2020 Assessment & Plan (1) Acute GI bleeding: Mr. Coleman is a 64 year old male with a history of long-standing Type 2 DM, Hypertension, Hypercholesterolemia, CKD, and Concentric LVH who was admitted with an Acute Blood Loss Anemia which required transfusion (negative EGD, colonoscopy pending), Non-specific EKG Findings (without any anginal type symptoms), and Downward Trending Troponin I Levels which is most consistent with Demand Ischemia. Troponin I level was 0.788 ng/ml with subsequent values of 0.714, 0.638, and 0.550 ng/ml. Echocardiogram has not been ordered -- but I will order one. Aspirin 81 mg is currently on hold for his GIB. On admission, patient was noted to be anemic with a Hgb of 9.0 gm/dl and trended down 8.0 gm/dl -- requiring a transfusion of PRBC's. He was diagnosed with an Acute GI bleed. He underwent an unremarkable EGD on 04/05/2020, and is scheduled to have a Colonoscopy today. Patient has been and remains hypokalemic throughout this hospitalization. His EKG on admission shows NSR with LVH and associated repolarization abnormalities, non-specific ST changes, and T wave inversion in anterior leads. Patient has not experienced any angina pectoris or anginal equivalent symptoms, overt signs or symptoms of CHF, nor has he had any evidence of dysrhythmia. Recommend the following: -- Check Echocardiogram to assess LV systolic function and wall motion. -- Continue Metoprolol Tartrate 100 mg b.i.d.. -- Continue Atorvastatin 40 mg daily. -- Continue Amlodipine 10 mg daily. -- Hold Aspirin 81 mg until he can safely restart. -- Continue Gemfibrozil 600 mg daily. (2) Acute blood loss anemia: -- GI work-up is underway. -- Monitor H&H closely. (3) Elevated troponin: -- Secondary to demand ischemia. -- Continue management as outlined above. (4) Hypertension: -- Continue anti hypertensives as outlined above. -- Continue Hydrochlorothiazide 25 mg daily. -- Address hypokalemia with potassium supplementation. Supervising Physician Co-Signing Physician Notes Patient was seen and examined. Discussed with Tiburcio Tristan. Agree with assessment and plan. History of Present Illness Reason for Consultation: -- Elevated Troponin I in the setting of an Acute Blood Loss Anemia. -- Multiple Cardiac Risk Factors. Requesting Physician: Giuseppe Cherry MD Attending Physician: Tyler Werner MD History of Present Illness Mr. Coleman is a 64 year old male with a history of long-standing Type 2 DM, Hypertension, Hypercholesterolemia, CKD, and Concentric LVH who presented to [facility] on 04/04/2020 with Fatigue and Weakness after experiencing 5 days of Constipation, Nausea, Vomiting, and Abdominal Pain. His last normal bowel movement was last Saturday. Over the weekend and into the morning of admission - he had very small bowel movements. Patient began having intermittent a bdominal pain, decreasing appetite, and then developed overt nausea and vomiting. Patient admits to a remote history of GERD -- but he denied any recent increase GERD-like symptoms. No history of peptic ulcer disease. On admission, patient admitted that his blood sugars had been in the 200s at home which were high for him. On admission, patient was noted to be anemic with a Hgb of 9.0 gm/dl and trended down 8.0 gm/dl -- requiring a transfusion of PRBC's. He was diagnosed with an Acute GI bleed. He underwent an unremarkable EGD on 04/05/2020, and is scheduled to have a Colonoscopy today. Patient has been and remains hypokalemic throughout this hospitalization. His EKG on admission shows NSR with LVH and associated repolarization abnormalities, non-specific ST changes, and T wave in version in anterior leads. Patient denies any cardiopulmonary symptoms leading up to or during this hospitalization -- he specifically denies any chest pain, heaviness, tightness, pressure, or discomfort. No neck, jaw, back, or arm pain. No SOB, orthopnea, or pnd. He further denies any palpitations, syncope, or near syncope. Troponin I level was 0.788 ng/ml with subsequent values of 0.714, 0.638, and 0.550 ng/ml. Echocardiogram has not been ordered -- but I will order one. Aspirin 81 mg is currently on hold for his GIB. Allergies Allergy/AdvReac Type Severity Reaction Status Date / Time No Known Allergies Allergy Verified 04/06/20 11:34 Home Medications Home Medications Medication Instructions Recorded Confirmed Type amlodipine 10 mg PO DAILY 06/26/18 04/04/20 History atorvastatin 40 mg PO DAILY 06/26/18 04/04/20 History gemfibrozil 600 mg PO DAILY 06/26/18 04/04/20 History magnesium oxide 400 mg PO DAILY 06/26/18 04/04/20 History aspirin 81 mg tablet,delayed 81 mg PO DAILY 01/13/20 04/04/20 History release insulin glargine 100 unit/mL (3 35 units SQ BID ml 01/13/20 04/04/20 History mL) subcutaneous pen metoprolol tartrate 100 mg tablet 100 mg PO BID 01/13/20 04/04/20 History hydrochlorothiazide 25 mg tablet 25 mg PO DAILY #90 tab 02/18/20 04/04/20 Rx Patient History Medical History CKD (chronic kidney disease) Diabetes type 2, uncontrolled Hyperlipidemia LDL goal <70 Hypertension Surgical History 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 Family History Other Diabetes type 2, controlled Social History Smoking Status: Never smoker Hx Alcohol Use: No Hx Substance Use: No Preferred Language: Trinidadian Communication Ability: Effective Financial Service Rep Required: No Beliefs That Will Affect Care: Islam Islam Beliefs: synagogue Current Living Situation: Alone Other Information That Helps Us Care for You: No Feels Safe at Home: Yes Safety Concerns: Feels Safe At This Time Physical Exam Physical Exam: GENERAL: Patient has a pale complexion but is in no acute distress. HEENT: Head is atraumatic, normocephalic. EOM's intact. Facies symmetric. No perioral cyanosis. NECK: No JVD. JVP is at the level of the clavicle sitting upright. Carotid upstrokes are + 2 bilaterally. No bruits are noted. CHEST/LUNGS: Clear to auscultation throughout all lung saenz. No wheezes, rales, or crackles. CVS: S1 and S2 are regular without obvious murmurs, gallops, or rubs. PMI is nondisplaced. No lifts, heaves, or thrills. No abdominal aortic or renal bruits. ABDOMINAL EXAM: Bowel sounds are present. No masses or organomegaly. EXTREMITIES: No clubbing or cyanosis. No edema. Intact posterior tibial and radial pulses bilaterally. NEUROLOGIC EXAM: Patient is awake, alert, and oriented. Pleasant and cooperative. Answers questions appropriately. Speech is clear. Normal movement in all 4 extremities. TELEMETRY: -- NSR with rare PAC's and rare PVC's. -- HR in the 65 to 80 bpm range. Results & Data ([facility]) Vital Signs (Past 12 Hours) Vital Signs Temp Pulse Pulse Pulse Resp BP Pulse Ox 04/06/20 08:03 37.0 C 72 19 153/69 H 96 04/06/20 03:24 36.8 C 71 16 148/64 H 98 04/06/20 00:01 88 04/05/20 23:59 36.9 C 68 16 158/73 H 98 Laboratory Results Laboratory Results - last 24 hr 04/04/20 04/05/20 04/05/20 23:10 15:39 15:39 WBC 12.37 H RBC 3.05 L Hgb 8.6 L Hct 24.8 L MCV 81.3 MCH 28.2 MCHC 34.7 RDW Std Deviation 40.7 RDW Coeff of Whit 13.7 Plt Count 256 MPV 8.6 Immature Gran % (Auto) 0.5 Neut % (Auto) 79.5 Lymph % (Auto) 12.6 Shannon % (Auto) 7.0 Eos % (Auto) 0.2 Baso % (Auto) 0.2 Neut # (Auto) 9.85 H Lymph # (Auto) 1.56 Shannon # (Auto) 0.86 H Eos # (Auto) 0.02 Baso # (Auto) 0.02 Immature Gran # (Auto) 0.06 H Absolute Nucleated RBC Nucleated RBC % (auto) Sodium 136 Potassium 3.4 L Chloride 107 Carbon Dioxide 21 Anion Gap 8.0 BUN 84 H Creatinine 2.48 H Est Cr Clr Drug Dosing 34.1 Est GFR ( Amer) 30.4 Est GFR (Non-Af Amer) 26.2 BUN/Creatinine Ratio 33.7 H Glucose 194 H POC Glucose Calcium 8.3 L Phosphorus Total Bilirubin AST ALT Alkaline Phosphatase Troponin I 0.638 H* Total Protein Albumin Globulin Albumin/Globulin Ratio Blood Type A Positive Antibody Screen NEGATIVE Crossmatch See Detail 04/05/20 04/05/20 04/05/20 16:17 20:14 23:49 WBC RBC Hgb Hct MCV MCH MCHC RDW Std Deviation RDW Coeff of Whit Plt Count MPV Immature Gran % (Auto) Neut % (Auto) Lymph % (Auto) Shannon % (Auto) Eos % (Auto) Baso % (Auto) Neut # (Auto) Lymph # (Auto) Shannon # (Auto) Eos # (Auto) Baso # (Auto) Immature Gran # (Auto) Absolute Nucleated RBC Nucleated RBC % (auto) Sodium Potassium Chloride Carbon Dioxide Anion Gap BUN Creatinine Est Cr Clr Drug Dosing Est GFR ( Amer) Est GFR (Non-Af Amer) BUN/Creatinine Ratio Glucose POC Glucose 190 H 178 H 97 Calcium Phosphorus Total Bilirubin AST ALT Alkaline Phosphatase Troponin I Total Protein Albumin Globulin Albumin/Globulin Ratio Blood Type Antibody Screen Crossmatch 04/06/20 04/06/20 04/06/20 00:10 00:10 05:32 WBC 14.96 H 13.35 H RBC 2.93 L 2.96 L Hgb 8.3 L 8.4 L Hct 23.9 L 24.1 L MCV 81.6 81.4 MCH 28.3 28.4 MCHC 34.7 34.9 RDW Std Deviation 42.2 42.0 RDW Coeff of Whit 14.1 14.2 Plt Count 276 279 MPV 8.3 8.6 Immature Gran % (Auto) 0.8 Neut % (Auto) 80.6 Lymph % (Auto) 9.3 Shannon % (Auto) 8.4 Eos % (Auto) 0.8 Baso % (Auto) 0.1 Neut # (Auto) 10.75 H Lymph # (Auto) 1.24 Shannon # (Auto) 1.12 H Eos # (Auto) 0.11 Baso # (Auto) 0.02 Immature Gran # (Auto) 0.11 H Absolute Nucleated RBC 0.02 H 0.03 H Nucleated RBC % (auto) 0.1 0.3 Sodium 140 Potassium 3.3 L Chloride 107 Carbon Dioxide 25 Anion Gap 8.0 BUN 64 H Creatinine 2.38 H Est Cr Clr Drug Dosing 35.5 Est GFR ( Amer) 31.9 Est GFR (Non-Af Amer) 27.6 BUN/Creatinine Ratio 26.9 H Glucose 81 POC Glucose Calcium 8.4 L Phosphorus Total Bilirubin AST ALT Alkaline Phosphatase Troponin I Total Protein Albumin Globulin Albumin/Globulin Ratio Blood Type Antibody Screen Crossmatch 04/06/20 04/06/20 04/06/20 05:32 05:58 07:50 WBC RBC Hgb Hct MCV MCH MCHC RDW Std Deviation RDW Coeff of Whit Plt Count MPV Immature Gran % (Auto) Neut % (Auto) Lymph % (Auto) Shannon % (Auto) Eos % (Auto) Baso % (Auto) Neut # (Auto) Lymph # (Auto) Shannon # (Auto) Eos # (Auto) Baso # (Auto) Immature Gran # (Auto) Absolute Nucleated RBC Nucleated RBC % (auto) Sodium 138 Potassium 3.1 L Chloride 105 Carbon Dioxide 25 Anion Gap 7.0 BUN 54 H Creatinine 2.17 H Est Cr Clr Drug Dosing 39.2 Est GFR ( Amer) 35.7 Est GFR (Non-Af Amer) 30.8 BUN/Creatinine Ratio 25.0 H Glucose 90 POC Glucose 114 H Calcium 8.2 L Phosphorus 2.5 Total Bilirubin 0.5 AST 34 ALT 36 Alkaline Phosphatase 73 Troponin I 0.550 H* Total Protein 6.9 Albumin 2.8 L Globulin 4.1 H Albumin/Globulin Ratio 0.7 L Blood Type Antibody Screen Crossmatch Medications Administered Active Medications Generic Name Dose Route Start Last Admin Trade Name Freq PRN Reason Stop Dose Admin Amlodipine Besylate 10 mg 04/05/20 09:00 04/05/20 08:20 Norvasc PO 05/05/20 08:59 10 mg DAILY MARCELLUS Administration Atorvastatin Calcium 40 mg 04/05/20 09:00 04/05/20 08:19 Lipitor PO 05/05/20 08:59 40 mg DAILY MARCELLUS Administration Dextrose 25 - 50 ml 04/05/20 00:17 Dextrose 50% IV 05/05/20 00:16 UD PRN Hypoglycemia Protocol Protocol Gemfibrozil 600 mg 04/05/20 09:00 04/05/20 08:20 Lopid PO 05/05/20 08:59 600 mg DAILY MARCELLUS Administration Glucagon 1 mg 04/05/20 00:17 Glucagen SQ 05/05/20 00:16 UD PRN Hypoglycemia Protocol Protocol Glucose 4 - 8 tabs 04/05/20 00:17 Dex4 Glucose PO 05/05/20 00:16 UD PRN Hypoglycemia Protocol Protocol Glucose 15 - 30 gm 04/05/20 00:17 Glucose 40% PO 05/05/20 00:16 UD PRN Hypoglycemia Protocol Protocol Pantoprazole Sodium 40 mg/ 100 mls @ 20 mls/hr 04/04/20 22:13 04/06/20 09:30 Dextrose IV 05/04/20 22:12 Infused Q5H MARCELLUS Infusion 8 MG/HR Potassium Chloride/Sodium Chloride 20 meq in 1,000 mls @ 80 mls/hr 04/06/20 1 1:00 04/06/20 10:00 Normal Saline W/20 Meq Kcl IV 04/06/20 23:29 80 mls/hr .[id number] MARCELLUS Administration Insulin Aspart 0 units 04/05/20 01:00 04/06/20 06:11 Novolog Flexpen SC 05/05/20 00:59 Not Given Q6 MARCELLUS Insulin Glargine 35 units 04/05/20 09:00 04/06/20 09:26 Lantus Solostar Pen SQ 05/05/20 08:59 18 units BID MARCELLUS Administration Labetalol HCl 10 mg 04/05/20 00:17 04/05/20 03:34 Normodyne IV 05/05/20 00:16 10 mg Q4H PRN Administration Hypertension Metoprolol Tartrate 100 mg 04/05/20 09:00 04/05/20 22:03 Lopressor PO 05/05/20 08:59 100 mg BID MARCELLUS Administration Miscellaneous 15 - 30 gm 04/05/20 00:17 Carbohydrates For Hypoglycemia PO 05/05/20 00:16 UD PRN Hypoglycemia Protocol Ondansetron HCl 4 mg 04/05/20 00:17 Zofran IV 05/05/20 00:16 Q6H PRN Nausea PG Care Time/CCT Total # of Minutes Spent Total Time Spent with Patient: Total time spent is greater than 50% in coordination of care (as documented) at patient's floor/unit and/or counseling patient: 60 minutes Coding Level of Care Code 78801 Inpt Consult Level 4 Diagnoses Acute GI bleeding K92.2 Acute blood loss anemia D62 Elevated troponin R79.89 Hypertension I10 Hypertension type: unspecified (1) Hypertension Hypertension type: unspecified Qualified Code(s): I10 - Essential (primary) hypertension
[2020-04-06] MEDS ORDERED: NSS + 20MEQ KCL 20 MEQ/1,000 ML BAG IV SCH (11:00)
[2020-04-06] MEDS ORDERED: PROPOFOL IV EMULSION 10 MG/ML 20 ML VIAL IV ONE (11:48)
[2020-04-06] MEDS ORDERED: LIDOCAINE HCL 2% 2 ML VIAL/AMP(20MG/ML) INFIL ONE (11:48)
--- NOTE | 2020-04-06 12:08 | GI REPORT ---
Patient Name: Dionicio Coleman Procedure Date: 04/06/2020 11:42 AM Date of : 1955 Admit Type: Inpatient Age: 64 Gender: Male Attending MD: Brien Santana DO Procedure: Colonoscopy Providers: Brien Santana DO Referring MD: Giuseppe Cherry Indications: Iron deficiency anemia Medicines: Monitored Anesthesia Care Complications: No immediate complications. Estimated Blood Loss: Estimated blood loss: none. Procedure: Pre-Anesthesia Assessment: - Prior to the procedure, a History and Physical was performed, and patient medications and allergies were reviewed. The patient's tolerance of previous anesthesia was also reviewed. The risks and benefits of the procedure and the sedation options and risks were discussed with the patient. All questions were answered, and informed consent was obtained. Prior Anticoagulants: The patient has taken aspirin, last dose was 2 days prior to procedure. ASA Grade Assessment: III - A patient with severe systemic disease. After reviewing the risks and benefits, the patient was deemed in satisfactory condition to undergo the procedure. After I obtained informed consent, the scope was passed under direct vision. Throughout the procedure, the patient's blood pressure, pulse, and oxygen saturations were monitored continuously. The Colonoscope was introduced through the anus and advanced to the cecum, identified by appendiceal orifice and ileocecal valve. The colonoscopy was performed without difficulty. The patient tolerated the procedure well. The quality of the bowel preparation was good. The ileocecal valve, appendiceal orifice, and rectum were photographed. Findings: The perianal and digital rectal examinations were normal. Non-bleeding internal hemorrhoids were found during retroflexion. The hemorrhoids were small. Impression: - Non-bleeding internal hemorrhoids. - No specimens collected. Recommendation: - Return patient to hospital [facility] for ongoing care. - Advance diet as tolerated. - Continue present medications. Brien Santana DO 04/06/2020 12:07:53 PM This report has been signed electronically. Note Initiated On: 04/06/2020 11:42 AM Number of Addenda: 0 I attest to the content of the Intraoperative Record and orders documented therein, exceptions below {[id number]}
--- NOTE | 2020-04-06 12:20 | Anesthesiology Progress Note ---
Date of Service April 06, 2020 Anesthesia Post Procedure Vital Signs Vital Signs: Temp Pulse Pulse Pulse Resp BP BP 04/06/20 12:05 63 16 100/43 L 04/06/20 11:27 98.4 F 77 18 155/70 H 04/06/20 11:25 98.6 F 74 16 176/76 H 04/06/20 08:03 98.6 F 72 19 153/69 H 04/06/20 03:24 98.2 F 71 16 148/64 H 04/06/20 00:01 88 04/05/20 23:59 98.4 F 68 16 158/73 H 04/05/20 20:36 98.2 F 86 18 169/73 H 04/05/20 15:35 98.6 F 72 18 174/63 H 04/05/20 14:33 97.9 F 85 16 185/65 H 04/05/20 14:32 97.9 F 85 16 185/65 H 04/05/20 13:32 97.7 F 73 16 170/73 H 04/05/20 12:57 99.0 F 67 16 160/61 H 04/05/20 12:42 71 16 166/75 H 04/05/20 12:27 98.4 F 68 68 16 121/52 L 121/52 L Pulse Ox 04/06/20 12:05 100 04/06/20 11:27 98 04/06/20 11:25 97 04/06/20 08:03 96 04/06/20 03:24 98 04/06/20 00:01 04/05/20 23:59 98 04/05/20 20:36 98 04/05/20 15:35 99 04/05/20 14:33 95 04/05/20 14:32 95 04/05/20 13:32 94 04/05/20 12:57 100 04/05/20 12:42 100 04/05/20 12:27 98 Transfer of Care Handoff Completed per policy Notes Mental Status: alert / awake / arousable and participated in evaluation Patient Amnestic to Procedure: Yes Nausea / Vomiting: adequately controlled Pain: adequately controlled Airway Patency, RR, SpO2: stable & adequate BP & HR: stable & adequate Hydration State: stable & adequate Anesthetic Complications: no major complications apparent and Pt Satisfied with anesthetic care
[2020-04-06] MEDS: AMLODIPINE BESYLATE 5 MG TAB PO SCH (15:42)
[2020-04-06] MEDS: METOPROLOL TARTRATE 100 MG TAB PO SCH ×2 (15:43→21:04)
[2020-04-06] MEDS: ATORVASTATIN 40 MG TAB PO SCH (15:43)
[2020-04-06] MEDS: gemfibroziL 600 MG TAB PO SCH (15:43)
--- NOTE | 2020-04-06 16:09 | Hospitalist Progress Note ---
Date of Service April 06, 2020 Assessment & Plan (1) Acute GI bleeding: * Concern for acute UGIB - patient reported dark, tarry stools. He had a significant drop in Hbg over the last 1.5 months, dropped to 9 from 11.4 and Hct=25 from 34.6 on admission. He has an elevated BUN to 109 with only mild increase in baseline Cr. * H/h 8.4/24.1 -- did receive 1 u PRBC on 04/05 for hgb 8.0 * GI Consulted -- appreciate assistance * EGD this morning with gastritis, plans for colonoscopy this afternoon * Continue protonix gtt for now * Clear liquid diet, NPO after midnight (will place on NSS @80cc/hr at midnight) * Holding ASA in setting of GIB/melena * MCV low normal 80/81 -- iron studies obtained, wnl: Iron 75, TIBC 326, Transferrin 242, Trans % 22, Ferritin 257 * Serial labs (2) Elevated troponin: * Patient with elevated troponin = 0.788. EKG with some TWI in anterior leads, similar to prior. He denies chest pain, tightness, SOB, dizziness, diaphoresis. * Continuous cardiac monitoring -- has been sinus rhythm in the 90s this morning and sinus with PVCs 70-100s overnight on telemetry * Troponin trending down, suspect demand ischemia given anemia. (initially 0.788 --> 0.714, 0.638) Repeat down to 0.055 in setting of acute blood loss/anemia * Cardiology consulted -- appreciate input * Holding ASA in setting of acute bleed * Continue home metoprolol tartrate 100mg BID, atorvastatin 40mg * ECHO pending (3) Hypertension: * Patient with elevate BP on arrival. Contiue to be elevated * Labetalol 10mg IV PRN * Continue Metoprolol 100mg BID, amlodipine 10mg * HCTZ on hold initially --> will resume * Continue to monitor (4) Hyperlipidemia LDL goal <70: * Chronic * Continue Atorvastatin (5) IDDM (insulin dependent diabetes mellitus): * Chronic. Elevated blood sugar of 252 * Lantus 35u BID * ISS * Goal blood sugar 100 - 140. * Continue to monitor (6) Acute kidney injury superimposed on CKD: * Follows with Dr. Nelson as an outpatient * Baseline Cr 1.6-1.8 * Cr 2.47 on admission -- likely in setting of GIB/ischemia * HCTZ on hold (had recently been increased to 25mg for HTN) -- resumed and will likely need extra potassium supplementation. Had issues in past with EUN/ARB with hyperK * Will give additional IVF, prn medication for HTN and discontinue IVF after colonoscopy * Cr improved to 2.17 today, likely newer baseline given recent office visit with Cr up to 2.2 * Continue to monitor (7) Hyponatremia: * Na 126 on admission. IVF as above. No neurological symptoms * RESOLVED -- Na 138 * IVF to be discontinued as above (8) Hypokalemia: * K 3.2 on admission. Given 40meq PO x 1. * Repeat K 3.1 -- ordered 3 K riders as pt NPO for colonoscopy this morning * Continue to monitor (9) CKD (chronic kidney disease) stage 3, GFR 30-59 ml/min: * Follows with Dr. Nelson. Of note, recently ordered PTH, Vit D levels show elevated PTH 91.8, Vit D low at 17.8. Per patient, no discussion about following up with Endocrinology mentioned (may need to have set up at d/c) * Baseline Cr 1.6-1.8, however had been elevated up to 2.2 on most recent office visit. 24h U with 3.5g/d. PEP w/o monocloncal process. Per note, suspecting kidney dysfunctionbe attributed to diabetic nephropathy or glomerular sclerosis. * HCTZ on hold (had recently been increased to 25mg for HTN) -- resumed as baove * Not on EUN/ARB 2/2 hx hyperK (10) DVT prophylaxis: * Low risk for DVT, no chemoprophylaxis due to suspected acute bleed Dispo: colonoscopy this afternoon Admission and Anticipated Discharge Date Admission Date: April 04, 2020 Subjective Patient evaluated this morning. Feeling well. No further BM or melena reported. Plans for Colonoscopy this afternoon. Review of Systems Review of Systems: All systems reviewed & are unremarkable except as noted in HPI & below Constitutional: no fever and no chills Respiratory: no cough and no dyspnea Cardiovascular: no chest pain and no palpitations Gastrointestinal: no abdominal pain, no nausea and no vomiting Genitourinary: no dysuria and no hematuria Physical Exam Constitutional: WD/WN, vitals as above no acute distress Eyes: PERRL, conjunctivae normal, anicteric sclerae Neck: trachea midline, no thyromegaly Respiratory: normal respiratory effort, lungs clear to auscultation Cardiovascular: RRR, no murmur, no edema Gastrointestinal (Abdomen): normal bowel sounds, soft, nontender, no hepatosplenomegaly Musculoskeletal: no cyanosis or clubbing, extremities motor strength 5/5 Skin: no rashes, warm and dry Neurologic: PERRL, EOMI, accommodation nl, no face palsy, no dysarthria Psychiatric: A+Ox3, euthymic affect Lymphatic: no cervical or axillary lymphadenopathy Results & Data Results & Data ([facility]) Vital Signs (Past 12 Hours) Vital Signs Temp Pulse Pulse Resp BP Pulse Ox 04/06/20 15:15 37.2 C 84 21 190/76 H 98 04/06/20 12:34 73 18 179/78 H 99 04/06/20 12:19 75 18 121/54 L 99 04/06/20 12:05 63 16 100/43 L 100 04/06/20 11:27 36.9 C 77 18 155/70 H 98 04/06/20 11:25 37.0 C 74 16 176/76 H 97 04/06/20 08:03 37.0 C 72 19 153/69 H 96 Laboratory Results 04/06/20 04/06/20 04/06/20 Range/Units 16:23 07:50 05:58 WBC (4.8-10.8) K/uL RBC (4.7-6.1) M/uL Hgb (14.0-18.0) g/dL Hct (42-52) % MCV (80-100) fL MCH (25-34) pg MCHC (32-36) g/dL RDW Std Deviation (36.4-46.3) fL RDW Coeff of Whit (11.5-14.5) % Plt Count (130-400) K/uL MPV (7.4-10.4) fL Immature Gran % (Auto) % Neut % (Auto) % Lymph % (Auto) % Citrus % (Auto) % Eos % (Auto) % Baso % (Auto) % Neut # (Auto) (1.4-6.5) K/uL Lymph # (Auto) (1.2-3.4) K/uL Citrus # (Auto) (0.11-0.59) K/uL Eos # (Auto) (0-0.5) K/uL Baso # (Auto) (0-0.2) K/uL Immature Gran # (Auto) (0.00-0.02) K/uL Absolute Nucleated RBC (0-0) K/uL Nucleated RBC % (auto) % Sodium (136-145) mmol/L Potassium (3.5-5.1) mmol/L Chloride (98-107) mmol/L Carbon Dioxide (21-32) mmol/L Anion Gap (3-11) BUN (7-18) mg/dl Creatinine (0.6-1.4) mg/dl Est Cr Clr Drug Dosing ml/min Est GFR ( Amer) Est GFR (Non-Af Amer) BUN/Creatinine Ratio (10-20) Glucose (70-99) mg/dl POC Glucose 97 114 H (70-99) mg/dl Calcium (8.5-10.1) mg/dl Phosphorus (2.5-4.9) mg/dl Total Bilirubin (0.2-1) mg/dl AST (15-37) U/L ALT (12-78) U/L Alkaline Phosphatase (45-117) U/L Troponin I 0.550 H* (0-0.045) ng/ml Total Protein (6.4-8.2) gm/dl Albumin (3.4-5.0) gm/dl Globulin (2.5-4.0) gm/dl Albumin/Globulin Ratio (0.9-2) 04/06/20 04/06/20 04/06/20 Range/Units 05:32 05:32 00:10 WBC 13.35 H (4.8-10.8) K/uL RBC 2.96 L (4.7-6.1) M/uL Hgb 8.4 L (14.0-18.0) g/dL Hct 24.1 L (42-52) % MCV 81.4 (80-100) fL MCH 28.4 (25-34) pg MCHC 34.9 (32-36) g/dL RDW Std Deviation 42.0 (36.4-46.3) fL RDW Coeff of Whit 14.2 (11.5-14.5) % Plt Count 279 (130-400) K/uL MPV 8.6 (7.4-10.4) fL Immature Gran % (Auto) 0.8 % Neut % (Auto) 80.6 % Lymph % (Auto) 9.3 % Citrus % (Auto) 8.4 % Eos % (Auto) 0.8 % Baso % (Auto) 0.1 % Neut # (Auto) 10.75 H (1.4-6.5) K/uL Lymph # (Auto) 1.24 (1.2-3.4) K/uL Citrus # (Auto) 1.12 H (0.11-0.59) K/uL Eos # (Auto) 0.11 (0-0.5) K/uL Baso # (Auto) 0.02 (0-0.2) K/uL Immature Gran # (Auto) 0.11 H (0.00-0.02) K/uL Absolute Nucleated RBC 0.03 H (0-0) K/uL Nucleated RBC % (auto) 0.3 % Sodium 138 140 (136-145) mmol/L Potassium 3.1 L 3.3 L (3.5-5.1) mmol/L Chloride 105 107 (98-107) mmol/L Carbon Dioxide 25 25 (21-32) mmol/L Anion Gap 7.0 8.0 (3-11) BUN 54 H 64 H (7-18) mg/dl Creatinine 2.17 H 2.38 H (0.6-1.4) mg/dl Est Cr Clr Drug Dosing 39.2 35.5 ml/min Est GFR ( Amer) 35.7 31.9 Est GFR (Non-Af Amer) 30.8 27.6 BUN/Creatinine Ratio 25.0 H 26.9 H (10-20) Glucose 90 81 (70-99) mg/dl POC Glucose (70-99) mg/dl Calcium 8.2 L 8.4 L (8.5-10.1) mg/dl Phosphorus 2.5 (2.5-4.9) mg/dl Total Bilirubin 0.5 (0.2-1) mg/dl AST 34 (15-37) U/L ALT 36 (12-78) U/L Alkaline Phosphatase 73 (45-117) U/L Troponin I (0-0.045) ng/ml Total Protein 6.9 (6.4-8.2) gm/dl Albumin 2.8 L (3.4-5.0) gm/dl Globulin 4.1 H (2.5-4.0) gm/dl Albumin/Globulin Ratio 0.7 L (0.9-2) 04/06/20 04/05/20 04/05/20 Range/Units 00:10 23:49 20:14 WBC 14.96 H (4.8-10.8) K/uL RBC 2.93 L (4.7-6.1) M/uL Hgb 8.3 L (14.0-18.0) g/dL Hct 23.9 L (42-52) % MCV 81.6 (80-100) fL MCH 28.3 (25-34) pg MCHC 34.7 (32-36) g/dL RDW Std Deviation 42.2 (36.4-46.3) fL RDW Coeff of Whit 14.1 (11.5-14.5) % Plt Count 276 (130-400) K/uL MPV 8.3 (7.4-10.4) fL Immature Gran % (Auto) % Neut % (Auto) % Lymph % (Auto) % Citrus % (Auto) % Eos % (Auto) % Baso % (Auto) % Neut # (Auto) (1.4-6.5) K/uL Lymph # (Auto) (1.2-3.4) K/uL Citrus # (Auto) (0.11-0.59) K/uL Eos # (Auto) (0-0.5) K/uL Baso # (Auto) (0-0.2) K/uL Immature Gran # (Auto) (0.00-0.02) K/uL Absolute Nucleated RBC 0.02 H (0-0) K/uL Nucleated RBC % (auto) 0.1 % Sodium (136-145) mmol/L Potassium (3.5-5.1) mmol/L Chloride (98-107) mmol/L Carbon Dioxide (21-32) mmol/L Anion Gap (3-11) BUN (7-18) mg/dl Creatinine (0.6-1.4) mg/dl Est Cr Clr Drug Dosing ml/min Est GFR ( Amer) Est GFR (Non-Af Amer) BUN/Creatinine Ratio (10-20) Glucose (70-99) mg/dl POC Glucose 97 178 H (70-99) mg/dl Calcium (8.5-10.1) mg/dl Phosphorus (2.5-4.9) mg/dl Total Bilirubin (0.2-1) mg/dl AST (15-37) U/L ALT (12-78) U/L Alkaline Phosphatase (45-117) U/L Troponin I (0-0.045) ng/ml Total Protein (6.4-8.2) gm/dl Albumin (3.4-5.0) gm/dl Globulin (2.5-4.0) gm/dl Albumin/Globulin Ratio (0.9-2) PG Care Time/CCT Total # of Minutes Spent Total Time Spent with Patient: Total time spent is greater than 50% in coordination of care (as documented) at patient's floor/unit and/or counseling patient: Coding Level of Care Code 08955 Subseq Hosp Care Lvl 2 Diagnoses Acute GI bleeding K92.2 Elevated troponin R79.89 Hypertension I10 Hypertension type: unspecified Hyperlipidemia LDL goal <70 E78.5 IDDM (insulin dependent diabetes mellitus) E11.9; Z79.4 Acute kidney injury superimposed on CKD N17.9; N18.9 Hyponatremia E87.1 Hypokalemia E87.6 CKD (chronic kidney disease) stage 3, GFR 30-59 ml/min N18.3 DVT prophylaxis Z29.9 (1) Hypertension Hypertension type: unspecified Qualified Code(s): I10 - Essential (primary) hypertension
--- NOTE | 2020-04-06 16:30 | XCELERA ---
[id number]
[2020-04-06] MEDS ORDERED: POTASSIUM CHLORIDE 20 MEQ TABCR PO STA (17:18)
[2020-04-06] MEDS ORDERED: HydrALAZINE HCL 20 MG/ML VIAL IV PRN (17:22)
[2020-04-06] MEDS ORDERED: HydrALAZINE HCL 20 MG/ML VIAL IV STA (17:23)
[2020-04-06] MEDS: hydroCHLOROthiazide 25 MG TAB PO SCH (17:39)
[2020-04-06 18:06] LABS: BUN Creatinine Ratio 18.3 (10-20); Calcium 8.1 mg/dl (8.5-10.1); Creatinine Clr Calc Pharmacy 40.5 ml/min; Est GFR (African American) 37.2; Est GFR (Non-African American) 32.1; Potassium 3.4 mmol/L (3.5-5.1)
[2020-04-06] MEDS ORDERED: Nursing to Pharmacy Communication SCH (18:15)
[2020-04-07] MEDS: PANTOprazole 40 MG in DEXTROSE 5% 100 ML IV SCH ×4 (03:48→17:32)
[2020-04-07] MEDS ORDERED: ALUMINUM/MAGNESIUM SUSP 30 ML UDC PO PRN (04:05)
[2020-04-07] MEDS: CALCIUM CARBONATE 500 MG CHEWABLE TAB PO PRN ×2 (05:24→08:40)
[2020-04-07 05:29] LABS: Basophils # (auto) 0.01 K/uL (0-0.2); Basophils % (auto) 0.1 %; Hematocrit (blood only) 24.3 % (42-52); Hemoglobin 8.4 g/dL (14.0-18.0); Immature Granulocytes # (auto) 0.12 K/uL (0.00-0.02); Immature Granulocytes % (auto) 0.7 %; Lymphocytes # (auto) 0.41 K/uL (1.2-3.4); Lymphocytes % (auto) 2.4 %; Mean Corpuscular Hemoglobin 28.6 pg (25-34); Mean Corpuscular Hgb Conc 34.6 g/dL (32-36); Mean Corpuscular Volume 82.7 fL (80-100); Mean Platelet Volume 8.4 fL (7.4-10.4); Monocytes # (auto) 0.22 K/uL (0.11-0.59); Monocytes % (auto) 1.3 %; Neutrophils # (auto) 16.67 K/uL (1.4-6.5); Neutrophils % (auto) 95.5 %; Platelet Count 285 K/uL (130-400); RDW Coefficient of Variation 14.3 % (11.5-14.5); RDW Standard Deviation 43.2 fL (36.4-46.3); Red Blood Count 2.94 M/uL (4.7-6.1); White Blood Count 17.43 K/uL (4.8-10.8)
[2020-04-07 06:08] LABS: Blood Urea Nitrogen 44 mg/dl (7-18); Calcium 8.2 mg/dl (8.5-10.1); Carbon Dioxide 21 mmol/L (21-32); Chloride 107 mmol/L (98-107); Creatine Kinase MB 1.5 ng/ml (0.5-3.6); Creatinine Clr Calc Pharmacy 36.8 ml/min; Est GFR (African American) 33.1; Est GFR (Non-African American) 28.6; Glucose 275 mg/dl (70-99); Sodium 135 mmol/L (136-145); Troponin I 0.244 ng/ml (0-0.045)
--- NOTE | 2020-04-07 08:14 | Electrocardiogram Report ---
Test Reason : Blood Pressure : / mmHG Vent. Rate : 086 BPM Atrial Rate : 086 BPM P-R Int : 176 ms QRS Dur : 100 ms QT Int : 366 ms P-R-T Axes : 040 002 210 degrees QTc Int : 437 ms Normal sinus rhythm Left ventricular hypertrophy with repolarization abnormality Abnormal ECG When compared with ECG of 28-JUN-2018 07:08, Non-specific change in ST segment in Anterior leads Confirmed by Tyler Werner ([id number]) on 04/07/2020 8:13:56 AM Referred By: REFERRED SELF Confirmed By:Tyler Werner
[2020-04-07] MEDS: INSULIN ASPART 100 UNITS/ML 3 ML PEN SC SCH ×4 (08:41→20:34)
[2020-04-07] MEDS: INSULIN GLARGINE SOLOSTAR 100 UNITS/ML 3 ML PEN SQ SCH ×2 (08:42→20:35)
[2020-04-07] MEDS: ATORVASTATIN 40 MG TAB PO SCH (08:43)
[2020-04-07] MEDS: AMLODIPINE BESYLATE 5 MG TAB PO SCH (08:43)
[2020-04-07] MEDS: hydroCHLOROthiazide 25 MG TAB PO SCH (08:43)
[2020-04-07] MEDS: gemfibroziL 600 MG TAB PO SCH (08:43)
[2020-04-07] MEDS ORDERED: METOPROLOL TARTRATE 1 MG/ML VIAL IV STA ×3 (09:20→10:19)
--- NOTE | 2020-04-07 09:20 | Electrocardiogram Report ---
Test Reason : Blood Pressure : / mmHG Vent. Rate : 086 BPM Atrial Rate : 086 BPM P-R Int : 192 ms QRS Dur : 094 ms QT Int : 370 ms P-R-T Axes : 049 006 228 degrees QTc Int : 442 ms Normal sinus rhythm Left ventricular hypertrophy with repolarization abnormality Abnormal ECG When compared with ECG of 04-APR-2020 20:42, No significant change Confirmed by Shaggy Lo ([id number] on 04/07/2020 9:20:01 AM Referred By: REFERRED SELF Confirmed By:Shaggy Lo
[2020-04-07] MEDS ORDERED: STAT IV Infusion **Titration per Protocol STA (11:10)
[2020-04-07] MEDS ORDERED: AMIODARONE / D5W 360 MG/200 ML BAG IV ONE (11:10)
[2020-04-07] MEDS ORDERED: 0.2 MICRON FILTER SET 1 EA IV ONE (11:10)
[2020-04-07] MEDS ORDERED: AMIODARONE / D5W 150 MG/100 ML BAG IV STA (11:10)
[2020-04-07] MEDS ORDERED: AMIODARONE IV BOLUS & DRIP IV STA (11:10)
[2020-04-07 11:11] LABS: C Reactive Protein 7.43 mg/dl (0-0.29); Troponin I 0.306 ng/ml (0-0.045)
--- NOTE | 2020-04-07 11:16 | Cardiology Progress Note ---
Date of Service April 07, 2020 Assessment & Plan (1) Atrial fibrillation, new onset: He developed sudden onset of atrial fibrillation at around 9 AM this morning. On discussing symptoms I am not sure he felt it, certainly he does not feel it now and although the rate is better it is still fast. It is very likely that he has had this arrhythmia before or will have it again. At this point with a high risk of anticoagulation I think would be safest to try to get him back into sinus rhythm since we know when it started. I am going to use intravenous amiodarone, if that is ineffective we can consider electrical cardioversion. If we do it within 24 hours that would be relatively safe. If it is safe to use anticoagulants I would recommend that but have not started them. I would continue his beta-abraham as well. (2) Acute GI bleeding: Based on the record I am not sure of the origin, perhaps it is the gastritis. In any case it appears risky to anticoagulate, if GI feels that we can I would recommend anticoagulation. (3) Chest pain at rest: He describes what he calls "heartburn", that occurred at 2 AM and the atrial fibrillation did not occur until 9 AM. They evidently are unrelated. I suspect his "heartburn" is gastritis but do not know, his troponin was very slightly elevated at 10 AM but not enough to consider this discomfort to be cardiac. I suspect it was not ischemic heart disease although I would not be surprised if he has coronary artery disease. (4) Atherosclerosis: He has known atherosclerosis, by his history he has 70% carotid stenoses bilaterally. I would not be surprised if he has coronary disease, he has risk factors of diabetes, hypertension and hypercholesterolemia. He does not have an acute cardiac event however. I would not be too surprised if his troponin increases somewhat due to the very rapid rate during atrial fibrillation this morning but do not think this represents an acute ischemic event. He should be on long-term risk factor modification. As an outpatient he was on aspirin and atorvastatin 40 mg daily as well as gemfibrozil. He should be on a platelet inhibitor, aspirin might not be a good idea with his gastritis. Consider starting clopidogrel. Admission and Anticipated Discharge Date Admission Date: April 04, 2020 Anticipated date of discharge: 04/07/20 Subjective He is feeling well today, he apparently had a rough night which he describes as "heartburn" occurring at about 2 AM and continuing until recently. He then developed rapid atrial fibrillation shoot 9 AM and has received IV metoprolol but the heart rate remains fast. In discussing symptoms it is not clear to me that he has any sensation of it, certainly now with a heart rate of 120 or so he has no sensation. The "heartburn" clearly started before the arrhythmia. Physical Exam Physical Exam: Constitutional: Alert, cooperative and in no distress. HEENT: Unremarkable Neck: No jugular venous distention, carotid pulses are irregular but otherwise normal and equal bilaterally without bruits. Pulmonary: Clear to auscultation bilaterally. Cardiac: Irregular rhythm with no murmur, gallop or rub. Abdomen: Soft, nontender with normal bowel sounds. Extremities: No edema. Distal pulses intact. Neurologic: No focal findings. Gait is steady. Skin: No rash, ecchymoses or petechiae. Results & Data ([facility]) Vital Signs (Past 12 Hours) Vital Signs Temp Pulse Pulse Pulse Resp BP BP 04/07/20 10:32 120 H 151/82 H 04/07/20 10:03 137 H 178/83 H 04/07/20 09:41 119 H 166/96 H 04/07/20 09:35 37 C 119 H 20 166/96 H 04/07/20 08:05 36.9 C 84 20 183/81 H 04/07/20 07:26 87 04/07/20 03:00 36.8 C 93 H 20 156/67 H Pulse Ox 04/07/20 10:32 04/07/20 10:03 04/07/20 09:41 04/07/20 09:35 95 04/07/20 08:05 97 04/07/20 07:26 04/07/20 03:00 97 PG Care Time/CCT Total # of Minutes Spent Total Time Spent with Patient: Total time spent is greater than 50% in coordination of care (as documented) at patient's floor/unit and/or counseling patient: Coding Level of Care Code 18708 Subseq Hosp Care Lvl 3 Diagnoses Atrial fibrillation, new onset I48.91 Acute GI bleeding K92.2 Chest pain at rest R07.9 Atherosclerosis I70.90
[2020-04-07 11:37] LABS: Lyme Ab IgG w/WB Rflx Negative (Negative)
[2020-04-07] MEDS: METOPROLOL TARTRATE 100 MG TAB PO SCH ×2 (11:54→22:23)
[2020-04-07 12:04] LABS: Lyme Ab IgM w/WB Rflx Positive (Negative)
[2020-04-07] MEDS: DOXYCYCLINE HYCLATE 100 MG in DEXTROSE 5% 100 ML IV SCH ×2 (13:26→20:34)
--- NOTE | 2020-04-07 14:47 | Hospitalist Progress Note ---
Date of Service April 07, 2020 Assessment & Plan (1) Atrial fibrillation, new onset: * New today with rates up to 208, starting at 9:22am on 04/07 * Given lopressor 5mg IV x 3. Cardiology placed on amiodarone. Possible cardioversion within 24 hours since known start time. No hx afib. CHADS-VASC score 4. * Patient converted back to NSR at 12:28 on 04/07 * Continue to monitor on telemetry. * TSH 0.591 * Possibly related to newly discovered lyme with + IgM, negative IgG (2) Lyme borreliosis: * Given effusion on ECHO and elevated inflammatory marker and reported weakness, elevated WBC at 17k --> obtained Lyme -- IgG negative, IgM positive. WB pending * EKG on admission without any AV block noted, none on telemetry noted as well * Initiated on Doxy IV BID * Continue to monitor (3) Pericardial effusion: * Seen on ECHO -- possibly 2/2 lyme. * Inflammatory markers also elevated, with ESR 61, CRP 7.43 * Would likely benefit from follow up with cardiology outpatient (4) Acute GI bleeding: * Concern for acute UGIB - patient reported dark, tarry stools. He had a significant drop in Hbg over the last 1.5 months, dropped to 9 from 11.4 and Hct=25 from 34.6 on admission. He has an elevated BUN to 109 with only mild increase in baseline Cr. * H/h unchanged --> 8.4/24 -- did receive 1 u PRBC on 04/05 for hgb 8.0 * GI Consulted -- appreciate assistance * EGD on 04/05 with gastritis. * Colonoscopy on 04/06 with non-bleeding internal hemorrhoids. * Will d/c protonix gtt and place on PO daily * Holding ASA in setting of GIB/melena * MCV low normal 80/81 -- iron studies obtained, wnl: Iron 75, TIBC 326, Transferrin 242, Trans % 22, Ferritin 257 * Serial labs (5) Elevated troponin: * Patient with elevated troponin = 0.788. EKG with some TWI in anterior leads, similar to prior. He denies chest pain, tightness, SOB, dizziness, diaphoresis. * Continuous cardiac monitoring -- has been sinus rhythm in the 90s this morning and sinus with PVCs 70-100s overnight on telemetry * Troponin trending down, suspect demand ischemia given anemia. Bump likely 2/2 to above * Cardiology consulted -- appreciate input * Holding ASA in setting of anemia * Continue home metoprolol tartrate 100mg BID, atorvastatin 40mg * ECHO with moderate LVH, EF 65-70%, normal RV size/function, mild aortic valve sclerosis, normal PA/RA pressures, trivial effusion noted (6) Hypertension: * BP improved to 151/75 * Continue Metoprolol 100mg BID, amlodipine 10mg, HCTZ * Continue to monitor (7) Hyperlipidemia LDL goal <70: * Chronic * Continue Atorvastatin (8) IDDM (insulin dependent diabetes mellitus): * Chronic. Elevated blood sugar of 252 * Lantus 35u BID * ISS * Goal blood sugar 100 - 140. * Elevated-- tighten parameters and continue to monitor (9) Acute kidney injury superimposed on CKD: * Follows with Dr. Nelson as an outpatient * Baseline Cr 1.6-1.8 (although most recent office visit with Cr up to 2.2, likely trending towards higher baseline) * Cr 2.47 on admission, down to 2.1 on 04/06 (HCTZ had been on hold in setting of GIB/ischemia but was resumed) * Cr elevated back up to 2.31 on AM * Will hold HCTZ and utilize hydralazine prn for BP (Of note, HTCZ recently increased to 25mg daily for HTN as pt with issues with EUN/ARB in past with hyperK) * Continue to monitor (10) Hyponatremia: * Na 126 on admission. IVF as above. No neurological symptoms * Na 135 * Continue to monitor on AM labs (11) Hypokalemia: * K 3.2 on admission. Given 40meq PO x 1. Down to 3.1 on 04/06 and given 3K riders prior to colonoscopy. * Resolved -- K 4.0 on AM labs * Continue to monitor (12) CKD (chronic kidney disease) stage 3, GFR 30-59 ml/min: * Follows with Dr. Nelson. Of note, recently ordered PTH, Vit D levels show elevated PTH 91.8, Vit D low at 17.8. Per patient, no discussion about following up with Endocrinology mentioned (may need to have set up at d/c) * Baseline Cr 1.6-1.8, however had been elevated up to 2.2 on most recent office visit. 24h U with 3.5g/d. PEP w/o monocloncal process. Per note, suspecting kidney dysfunctionbe attributed to diabetic nephropathy or glomerular sclerosis. * HCTZ on hold (had recently been increased to 25mg for HTN) -- resumed as baove * Not on EUN/ARB 2/2 hx hyperK (13) Acute blood loss anemia: * See above (14) Hypoxia: * O2 sat to high 80s. Improved initially upon waking patient early in afternoon. Asked nursing to place on O2 to maintain O2 sat >90% at this time * Later back down to 88% on RA. * Placed on 3L NC * Will obtain CXR, but likely related to anemia/effusion/atelectasis * Albuterol neb prn * Incentive spirometer Q1h WA * Continue to monitor * Of note, no reported DEE, but will further investigate daytime sleepiness/etc with pt in AM (15) Bilateral carotid artery stenosis: hx of. 80% bilaterally. likely also with CAD with risk factors DM, HTN, HLD ASA in setting of gastritis not ideal -- per cardiology, would recommend antiplatelet with plavix --> will discuss with pt in AM (16) DVT prophylaxis: * Low risk for DVT, no chemoprophylaxis due to suspected acute bleed Dispo: colonoscopy this afternoon Admission and Anticipated Discharge Date Admission Date: April 04, 2020 Subjective Patient evaluated this morning. Was NSR and converted to afib w RVR with rates in the 140s and bumped up to 208 at 9am. Patient states overnight he was having such severe reflux and woke up in a night sweat and then was unable to get medication for a while and ended up with significant emesis. Denies noting any blood or coffee ground appearance although states he just does not recall. Feels a "heaviness" sensation in his chest but denies any chest pain or appreciable palpitations at this time. Extremely fatigued and feeling wiped out, feeling generalized weakness. No specific joint pain/arthralgias. Discussed giving IV medication to help control HR but will have cardiology input regarding further medication. Also discussed adding lyme testing given elevated inflammatory markers and effusion on ECHO which was positive and that we will start doxycycline at this time. Patient denies any history of tick bites. Upon re-entry into room later, patient with O2 sat down into the 80s while resting, but bounced back up into 90s once awoken. Discussed we will apply supplemental O2 for now and continue to monitor. Review of Systems Review of Systems: All systems reviewed & are unremarkable except as noted in HPI & below Physical Exam Constitutional: + ill appearing and + diaphoretic fatigued Eyes: PERRL, conjunctivae normal, anicteric sclerae Neck: trachea midline, no thyromegaly Respiratory: normal respiratory effort, lungs clear to auscultation Cardiovascular: Rate/Rhythm: + irregularly irregular Vessels: no JVD Extremities: no edema Gastrointestinal (Abdomen): normal bowel sounds, soft, nontender, no hepatosplenomegaly Skin: warm, dry Neurologic: moves all extremities Psychiatric: A+Ox3, euthymic affect Lymphatic: no cervical or axillary lymphadenopathy Results & Data Results & Data ([facility]) Vital Signs (Past 12 Hours) Vital Signs Temp Pulse Pulse Pulse Resp BP BP 04/07/20 13:25 75 167/75 H 04/07/20 13:15 04/07/20 12:09 36.5 C 109 H 17 164/92 H 04/07/20 11:58 110 H 20 163/76 H 04/07/20 10:32 120 H 151/82 H 04/07/20 10:03 137 H 178/83 H 04/07/20 09:41 119 H 166/96 H 04/07/20 09:35 37 C 119 H 20 166/96 H 04/07/20 08:05 36.9 C 84 20 183/81 H 04/07/20 07:26 87 04/07/20 03:00 36.8 C 93 H 20 156/67 H Pulse Ox Pulse Ox 04/07/20 13:25 04/07/20 13:15 92 04/07/20 12:09 93 04/07/20 11:58 97 04/07/20 10:32 04/07/20 10:03 04/07/20 09:41 04/07/20 09:35 95 04/07/20 08:05 97 04/07/20 07:26 04/07/20 03:00 97 PG Care Time/CCT Total # of Minutes Spent Total Time Spent with Patient: Total time spent is greater than 50% in coordination of care (as documented) at patient's floor/unit and/or counseling patient: Coding Level of Care Code 30944 Subseq Hosp Care Lvl 3 Diagnoses Atrial fibrillation, new onset I48.91 Lyme borreliosis A69.20 Pericardial effusion I31.3 Acute GI bleeding K92.2 Elevated troponin R79.89 Hypertension I10 Hypertension type: unspecified Hyperlipidemia LDL goal <70 E78.5 IDDM (insulin dependent diabetes mellitus) E11.9; Z79.4 Acute kidney injury superimposed on CKD N17.9; N18.9 Hyponatremia E87.1 Hypokalemia E87.6 CKD (chronic kidney disease) stage 3, GFR 30-59 ml/min N18.3 Acute blood loss anemia D62 Hypoxia R09.02 Bilateral carotid artery stenosis I65.23 DVT prophylaxis Z29.9 (1) Hypertension Hypertension type: unspecified Qualified Code(s): I10 - Essential (primary) hypertension
--- NOTE | 2020-04-07 16:14 | Electrocardiogram Report ---
Test Reason : Blood Pressure : / mmHG Vent. Rate : 138 BPM Atrial Rate : 000 BPM P-R Int : 000 ms QRS Dur : 100 ms QT Int : 312 ms P-R-T Axes : 000 006 214 degrees QTc Int : 472 ms Atrial fibrillation with rapid ventricular response with premature ventricular or aberrantly conducte d complexes Diffuse Nonspecific ST and T wave abnormality Abnormal ECG When compared with ECG of 07-APR-2020 04:09, Atrial fibrillation has replaced Sinus rhythm Vent. rate has increased BY 52 BPM Confirmed by Shaggy Lo ([id number]) on 04/07/2020 4:14:05 PM Referred By: REFERRED SELF Confirmed By:Shaggy Lo
--- NOTE | 2020-04-07 16:31 | Electrocardiogram Report ---
Test Reason : Blood Pressure : / mmHG Vent. Rate : 076 BPM Atrial Rate : 076 BPM P-R Int : 172 ms QRS Dur : 110 ms QT Int : 384 ms P-R-T Axes : 027 -01 231 degrees QTc Int : 432 ms Normal sinus rhythm Left ventricular hypertrophy with repolarization abnormality ( R in aVL ) Abnormal ECG When compared with ECG of 07-APR-2020 09:27, Sinus rhythm has replaced Atrial fibrillation Vent. rate has decreased BY [address] less depressed in multiple leads Confirmed by Shaggy Lo ([id number]) on 04/07/2020 4:30:40 PM Referred By: REFERRED SELF Confirmed By:Shaggy Lo
[2020-04-07] MEDS: AMIODARONE / D5W 360 MG/200 ML BAG IV SCH (17:32)
--- NOTE | 2020-04-07 17:47 | XRay Report ---
XR chest 1V portable CLINICAL HISTORY: hypoxia dyspnea COMPARISON STUDY: 04/04/2020 FINDINGS: Mild increase in cardiac size. Minimal infiltrative process right base. Mild pulmonary vasc ular congestion IMPRESSION: 1.. Moderate cardiomegaly with components of pulmonary vascular congestion. 2. Small superimposed parenchymal infiltrate right base. ACT 112: Negative or not required by law. The above report was generated using voice recognition software. It may contain grammatical, syntax or spelling errors. Electronically signed by: Elmer Nichole M.D. 04/07/2020 5:45 PM
[2020-04-07] MEDS ORDERED: ALBUTEROL 0.083% NEBU SOLN 3 ML VIAL NEB PRN (19:00)
[2020-04-08] MEDS: AMIODARONE / D5W 360 MG/200 ML BAG IV SCH ×2 (05:55→17:15)
[2020-04-08 06:15] LABS: Basophils # (auto) 0.02 K/uL (0-0.2); Basophils % (auto) 0.1 %; Eosinophils # (auto) 0.09 K/uL (0-0.5); Eosinophils % (auto) 0.5 %; Hemoglobin 7.9 g/dL (14.0-18.0); Immature Granulocytes # (auto) 0.14 K/uL (0.00-0.02); Immature Granulocytes % (auto) 0.8 %; Lymphocytes # (auto) 1.52 K/uL (1.2-3.4); Lymphocytes % (auto) 8.3 %; Mean Corpuscular Hemoglobin 28.5 pg (25-34); Mean Corpuscular Hgb Conc 34.3 g/dL (32-36); Mean Platelet Volume 8.6 fL (7.4-10.4); Monocytes # (auto) 0.86 K/uL (0.11-0.59); Monocytes % (auto) 4.7 %; Neutrophils # (auto) 15.65 K/uL (1.4-6.5); Neutrophils % (auto) 85.6 %; Platelet Count 380 K/uL (130-400); RDW Coefficient of Variation 14.4 % (11.5-14.5); RDW Standard Deviation 43.3 fL (36.4-46.3); Red Blood Count 2.77 M/uL (4.7-6.1); White Blood Count 18.28 K/uL (4.8-10.8)
[2020-04-08 06:38] LABS: Polychromasia 1+
[2020-04-08 06:51] LABS: Calcium 8.3 mg/dl (8.5-10.1); Creatinine Clr Calc Pharmacy 34.9 ml/min; Est GFR (African American) 31.3; Potassium 3.4 mmol/L (3.5-5.1)
[2020-04-08] MEDS ORDERED: SODIUM CHLORIDE 0.9% 250 ML IV PRN (07:39)
[2020-04-08] MEDS ORDERED: POTASSIUM CHLORIDE 20 MEQ TABCR PO ONE (08:15)
[2020-04-08] MEDS ORDERED: FUROSEMIDE 20 MG in SYRINGE 0 ML IV ONE (08:15)
[2020-04-08] MEDS: ATORVASTATIN 40 MG TAB PO SCH (08:47)
[2020-04-08] MEDS: AMLODIPINE BESYLATE 5 MG TAB PO SCH (08:47)
[2020-04-08] MEDS: METOPROLOL TARTRATE 100 MG TAB PO SCH ×2 (08:47→21:12)
[2020-04-08] MEDS: cefTRIAXone SODIUM 2,000 MG in DEXTROSE 5% 50 ML IV SCH (08:47)
[2020-04-08] MEDS: INSULIN GLARGINE SOLOSTAR 100 UNITS/ML 3 ML PEN SQ SCH ×2 (08:48→21:10)
[2020-04-08] MEDS: gemfibroziL 600 MG TAB PO SCH (08:48)
[2020-04-08] MEDS: INSULIN ASPART 100 UNITS/ML 3 ML PEN SC SCH ×4 (08:48→21:11)
[2020-04-08] MEDS ORDERED: PANTOprazole 40 MG TAB PO SCH (09:00)
[2020-04-08] MEDS: DOXYCYCLINE HYCLATE 100 MG in DEXTROSE 5% 100 ML IV SCH ×2 (09:10→21:17)
[2020-04-08 09:56] LABS: Reticulocyte % 4.4 % (0.5-2.0); Reticulocytes # 0.13 10^6/uL (0.02-0.10)
[2020-04-08 15:12] LABS: Hematocrit (blood only) 26.9 % (42-52); Mean Corpuscular Hemoglobin 28.6 pg (25-34); Mean Corpuscular Hgb Conc 33.5 g/dL (32-36); Mean Corpuscular Volume 85.4 fL (80-100); Mean Platelet Volume 8.3 fL (7.4-10.4); Nucleated RBC # (auto) 0.02 K/uL (0-0); Nucleated RBC % (auto) 0.1 %; Platelet Count 374 K/uL (130-400); RDW Coefficient of Variation 14.6 % (11.5-14.5); RDW Standard Deviation 45.3 fL (36.4-46.3); Red Blood Count 3.15 M/uL (4.7-6.1)
--- NOTE | 2020-04-08 15:21 | Hospitalist Progress Note ---
Date of Service April 08, 2020 Assessment & Plan (1) Atrial fibrillation, new onset: * New on 04/07 with rates up to 208, starting at 9:22am * Given lopressor 5mg IV x 3. Cardiology placed on amiodarone. No hx afib. CHADS-VASC score 4. * Patient converted back to NSR at 12:28 on 04/07 * Flipped back into afib at 8:52 am and back into NSR at 9:32am on 04/08 * TSH 0.591 * Possibly related to newly discovered lyme with + IgM, negative IgG * Continue to monitor on telemetry. * Repeat h/h stable -- will place on Eliquis and monitor morning CBC given risk and afib (2) Lyme borreliosis: * Given effusion on ECHO and elevated inflammatory marker and reported w eakness, elevated WBC at 17k --> obtained Lyme -- IgG negative, IgM positive. WB pending * EKG on admission without any AV block noted, none on telemetry noted as well * Initiated on Doxy IV BID -- continue (on day #2 of therapy) * Continue to monitor (3) Pericardial effusion: * Seen on ECHO -- possibly 2/2 lyme. * Inflammatory markers also elevated, with ESR 61, CRP 7.43 * Would likely benefit from follow up with cardiology outpatient (4) Acute GI bleeding: * Concern for acute UGIB - patient reported dark, tarry stools. He had a significant drop in Hbg over the last 1.5 months, dropped to 9 from 11.4 and Hct=25 from 34.6 on admission. He has an elevated BUN to 109 with only mild increase in baseline Cr. * H/h low at 7.9/23.0 -- additional unit PRBC ordered (did receive 1 u PRBC on 04/05 for hgb 8.0) * Repeat h/h improved to 9/26.9. * GI Consulted -- appreciate assistance -- EGD on 04/05 with gastritis. Colonoscopy on 04/06 with non-bleeding internal hemorrhoids. ok from their standpoint to initiate Eliquis for anticoagulation and monitor h/h closely outpatient. Will continue on protonix BID * Holding ASA in setting of anemia * MCV low normal 80/81 -- iron studies obtained, wnl: Iron 75, TIBC 326, Transferrin 242, Trans % 22, Ferritin 257 * LDH wnl, Retic count elevated, 4.4, Haptoglobin pending * CBC in AM (5) Hypoxia: * Desat to 80s, placed on O2. * Supplemental O2 as needed. Did require 3L to maintain, but currently 95% on RA * CXR with moderate cardiomegaly with pulmonary vasc congestion, small infiltrate R base * Started on ceftriaxone --> could transition to omnicef PO at d/c * Albuterol neb prn * Incentive spirometer Q1h WA * Continue to monitor * Currently 95% on RA (6) Elevated troponin: * Patient with elevated troponin = 0.788. EKG with some TWI in anterior leads, similar to prior. He denies chest pain, tightness, SOB, dizziness, diaphoresis. * Continuous cardiac monitoring -- has been sinus rhythm in the 90s this morning and sinus with PVCs 70-100s overnight on telemetry * Troponin trending down, suspect demand ischemia given anemia. Bump likely 2/2 to above * Cardiology consulted -- appreciate input * Holding ASA in setting of anemia * Continue home metoprolol tartrate 100mg BID, atorvastatin 40mg * ECHO with moderate LVH, EF 65-70%, normal RV size/function, mild aortic valve sclerosis, normal PA/RA pressures, trivial effusion noted (7) Hypertension: * BP 139/53 * Continue Metoprolol 100mg BID, amlodipine 10mg * HCTZ on hold * Continue to monitor (8) Hyperlipidemia LDL goal <70: * Chronic * Continue Atorvastatin (9) IDDM (insulin dependent diabetes mellitus): * Chronic. * Lantus 35u BID * ISS * Goal blood sugar 100 - 140. * BSGs improved today (10) Acute kidney injury superimposed on CKD: * Follows with Dr. Nelson as an outpatient * Baseline Cr 1.6-1.8 (although most recent office visit with Cr up to 2.2, likely trending towards higher baseline) * Cr 2.47 on admission, down to 2.1 on 04/06 (HCTZ had been on hold in setting of GIB/ischemia but was resumed) * Cr elevated back up to 2.42 on AM labs but CXR with vascular congestion -- given lasix 40mg x 1 * Will hold HCTZ and utilize hydralazine prn for BP (Of note, HTCZ recently increased to 25mg daily for HTN as pt with issues with EUN/ARB in past with hyperK) * Continue to monitor (11) Hyponatremia: * Na 126 on admission. IVF as above. No neurological symptoms * Na 139 * Continue to monitor on AM labs (12) Hypokalemia: * K 3.2 on admission. Given 40meq PO x 1. Down to 3.1 on 04/06 and given 3K riders prior to colonoscopy. * 3.4 on AM labs -- given 20meq x 1 * Monitor AM labs (13) CKD (chronic kidney disease) stage 3, GFR 30-59 ml/min: * Follows with Dr. Nelson. Of note, recently ordered PTH, Vit D levels show elevated PTH 91.8, Vit D low at 17.8. Per patient, no discussion about following up with Endocrinology mentioned (may need to have set up at d/c) * Baseline Cr 1.6-1.8, however had been elevated up to 2.2 on most recent office visit. 24h U with 3.5g/d. PEP w/o monocloncal process. Per note, suspecting kidney dysfunctionbe attributed to diabetic nephropathy or glomerular sclerosis. * HCTZ on hold (had recently been increased to 25mg for HTN) * Not on EUN/ARB 2/2 hx hyperK (14) Acute blood loss anemia: * See above (15) Bilateral carotid artery stenosis: * hx of. 80% bilaterally. likely also with CAD with risk factors DM, HTN, HLD * ASA in setting of gastritis not ideal -- per cardiology, would recommend antiplatelet--> to be discussed in AM if to be off ASA given gastritis/bleeding. Rec'd plavix (16) DVT prophylaxis: * Low risk for DVT, no chemoprophylaxis due to suspected acute bleed (17) Pneumonia: * See above Admission and Anticipated Discharge Date Admission Date: April 04, 2020 Subjective Patient evaluated this morning. Feeling much better. Improved energy. Up in room standing talking with nursing upon arrival, getting unit of blood for low hemoglobin this morning. Denies chest pain, palpitations, shortness of breath, abdominal pain, n/v/d at this time. Discussed findings of pneumonia on imaging and some congestion and that we will administer dose of lasix with blood to prevent further volume overload. Had bowel movement but denies further blood at this time. Review of Systems Review of Systems: All systems reviewed & are unremarkable except as noted in HPI & below Physical Exam Constitutional: WD/WN, vitals as above comfortable; no acute distress Eyes: PERRL, conjunctivae normal, anicteric sclerae Neck: trachea midline, no thyromegaly Respiratory: normal respiratory effort, lungs clear to auscultation Cardiovascular: Rate/Rhythm: + irregularly irregular Vessels: no JVD Extremities: no edema Gastrointestinal (Abdomen): normal bowel sounds, soft, nontender, no hepatosplenomegaly Skin: warm, dry Neurologic: moves all extremities Psychiatric: A+Ox3, euthymic affect Lymphatic: no cervical or axillary lymphadenopathy Results & Data Results & Data ([facility]) Vital Signs (Past 12 Hours) Vital Signs Temp Pulse Pulse Resp BP BP BP 04/08/20 15:18 37.1 C 63 20 139/53 L 04/08/20 14:45 36.8 C 59 L 16 146/75 H 04/08/20 13:45 36.8 C 61 16 144/72 H 04/08/20 12:45 36.8 C 61 16 138/69 04/08/20 11:45 36.9 C 60 16 133/67 04/08/20 11:15 36.9 C 62 16 153/75 H 04/08/20 11:00 36.9 C 68 16 133/65 04/08/20 10:43 36.8 C 84 16 132/69 04/08/20 08:29 36.9 C 67 18 159/58 H 04/08/20 03:44 36.5 C 72 19 140/71 Pulse Ox 04/08/20 15:18 95 04/08/20 14:45 96 04/08/20 13:45 95 04/08/20 12:45 96 04/08/20 11:45 95 04/08/20 11:15 95 04/08/20 11:00 96 04/08/20 10:43 95 04/08/20 08:29 94 04/08/20 03:44 95 Laboratory Results 04/08/20 04/08/20 04/08/20 Range/Units 16:28 14:57 12:09 WBC 17.20 H (4.8-10.8) K/uL RBC 3.15 L (4.7-6.1) M/uL Hgb 9.0 L (14.0-18.0) g/dL Hct 26.9 L (42-52) % MCV 85.4 (80-100) fL MCH 28.6 (25-34) pg MCHC 33.5 (32-36) g/dL RDW Std Deviation 45.3 (36.4-46.3) fL RDW Coeff of Whit 14.6 H (11.5-14.5) % Plt Count 374 (130-400) K/uL MPV 8.3 (7.4-10.4) fL Immature Gran % (Auto) % Neut % (Auto) % Lymph % (Auto) % Hettinger % (Auto) % Eos % (Auto) % Baso % (Auto) % Reticulocyte % (Auto) (0.5-2.0) % Neut # (Auto) (1.4-6.5) K/uL Lymph # (Auto) (1.2-3.4) K/uL Hettinger # (Auto) (0.11-0.59) K/uL Eos # (Auto) (0-0.5) K/uL Baso # (Auto) (0-0.2) K/uL Reticulocyte # (0.02-0.10) 10^6/uL Immature Gran # (Auto) (0.00-0.02) K/uL Absolute Nucleated RBC 0.02 H (0-0) K/uL Nucleated RBC % (auto) 0.1 % Polychromasia Haptoglobin Sodium (136-145) mmol/L Potassium (3.5-5.1) mmol/L Chloride (98-107) mmol/L Carbon Dioxide (21-32) mmol/L Anion Gap (3-11) BUN (7-18) mg/dl Creatinine (0.6-1.4) mg/dl Est Cr Clr Drug Dosing ml/min Est GFR ( Amer) Est GFR (Non-Af Amer) BUN/Creatinine Ratio (10-20) Glucose (70-99) mg/dl POC Glucose 127 H 150 H (70-99) mg/dl Calcium (8.5-10.1) mg/dl Blood Type Antibody Screen Crossmatch 04/08/20 04/08/20 04/08/20 Range/Units 09:40 09:40 07:49 WBC (4.8-10.8) K/uL RBC (4.7-6.1) M/uL Hgb (14.0-18.0) g/dL Hct (42-52) % MCV (80-100) fL MCH (25-34) pg MCHC (32-36) g/dL RDW Std Deviation (36.4-46.3) fL RDW Coeff of Whit (11.5-14.5) % Plt Count (130-400) K/uL MPV (7.4-10.4) fL Immature Gran % (Auto) % Neut % (Auto) % Lymph % (Auto) % Hettinger % (Auto) % Eos % (Auto) % Baso % (Auto) % Reticulocyte % (Auto) 4.4 H (0.5-2.0) % Neut # (Auto) (1.4-6.5) K/uL Lymph # (Auto) (1.2-3.4) K/uL Hettinger # (Auto) (0.11-0.59) K/uL Eos # (Auto) (0-0.5) K/uL Baso # (Auto) (0-0.2) K/uL Reticulocyte # 0.13 H (0.02-0.10) 10^6/uL Immature Gran # (Auto) (0.00-0.02) K/uL Absolute Nucleated RBC (0-0) K/uL Nucleated RBC % (auto) % Polychromasia Haptoglobin Pending Sodium (136-145) mmol/L Potassium (3.5-5.1) mmol/L Chloride (98-107) mmol/L Carbon Dioxide (21-32) mmol/L Anion Gap (3-11) BUN (7-18) mg/dl Creatinine (0.6-1.4) mg/dl Est Cr Clr Drug Dosing ml/min Est GFR ( Amer) Est GFR (Non-Af Amer) BUN/Creatinine Ratio (10-20) Glucose (70-99) mg/dl POC Glucose (70-99) mg/dl Calcium (8.5-10.1) mg/dl Blood Type A Positive Antibody Screen NEGATIVE Crossmatch See Detail 04/08/20 04/08/20 04/07/20 Range/Units 05:41 05:41 20:17 WBC 18.28 H (4.8-10.8) K/uL RBC 2.77 L (4.7-6.1) M/uL Hgb 7.9 L (14.0-18.0) g/dL Hct 23.0 L (42-52) % MCV 83.0 (80-100) fL MCH 28.5 (25-34) pg MCHC 34.3 (32-36) g/dL RDW Std Deviation 43.3 (36.4-46.3) fL RDW Coeff of Whit 14.4 (11.5-14.5) % Plt Count 380 (130-400) K/uL MPV 8.6 (7.4-10.4) fL Immature Gran % (Auto) 0.8 % Neut % (Auto) 85.6 % Lymph % (Auto) 8.3 % Hettinger % (Auto) 4.7 % Eos % (Auto) 0.5 % Baso % (Auto) 0.1 % Reticulocyte % (Auto) (0.5-2.0) % Neut # (Auto) 15.65 H (1.4-6.5) K/uL Lymph # (Auto) 1.52 (1.2-3.4) K/uL Hettinger # (Auto) 0.86 H (0.11-0.59) K/uL Eos # (Auto) 0.09 (0-0.5) K/uL Baso # (Auto) 0.02 (0-0.2) K/uL Reticulocyte # (0.02-0.10) 10^6/uL Immature Gran # (Auto) 0.14 H (0.00-0.02) K/uL Absolute Nucleated RBC (0-0) K/uL Nucleated RBC % (auto) % Polychromasia 1+ Haptoglobin Sodium 139 (136-145) mmol/L Potassium 3.4 L (3.5-5.1) mmol/L Chloride 107 (98-107) mmol/L Carbon Dioxide 25 (21-32) mmol/L Anion Gap 7.0 (3-11) BUN 46 H (7-18) mg/dl Creatinine 2.42 H (0.6-1.4) mg/dl Est Cr Clr Drug Dosing 34.9 ml/min Est GFR ( Amer) 31.3 Est GFR (Non-Af Amer) 27.0 BUN/Creatinine Ratio 19.0 (10-20) Glucose 68 L (70-99) mg/dl POC Glucose 166 H (70-99) mg/dl Calcium 8.3 L (8.5-10.1) mg/dl Blood Type Antibody Screen Crossmatch Diagnostic Findings CXR IMPRESSION: 1.. Moderate cardiomegaly with components of pulmonary vascular congestion. 2. Small superimposed parenchymal infiltrate right base. PG Care Time/CCT Total # of Minutes Spent Total Time Spent with Patient: Total time spent is greater than 50% in coordination of care (as documented) at patient's floor/unit and/or counseling patient: Coding Level of Care Code 92323 Subseq Hosp Care Lvl 3 Diagnoses Atrial fibrillation, new onset I48.91 Lyme borreliosis A69.20 Pericardial effusion I31.3 Acute GI bleeding K92.2 Hypoxia R09.02 Elevated troponin R79.89 Hypertension I10 Hypertension type: unspecified Hyperlipidemia LDL goal <70 E78.5 IDDM (insulin dependent diabetes mellitus) E11.9; Z79.4 Acute kidney injury superimposed on CKD N17.9; N18.9 Hyponatremia E87.1 Hypokalemia E87.6 CKD (chronic kidney disease) stage 3, GFR 30-59 ml/min N18.3 Acute blood loss anemia D62 Bilateral carotid artery stenosis I65.23 DVT prophylaxis Z29.9 Pneumonia J18.9 (1) Hypertension Hypertension type: unspecified Qualified Code(s): I10 - Essential (primary) hypertension
--- NOTE | 2020-04-08 18:08 | Cardiology Progress Note ---
Date of Service April 08, 2020 Assessment & Plan (1) Atrial fibrillation, new onset: He developed sudden onset of atrial fibrillation at around 9 AM yesterday morning. He appears essentially asymptomatic. It is very likely that he has had this arrhythmia before or will have it again. I believe he should remain on anticoagulation indefinitely and I agree with the use of Eliquis. He is now in sinus rhythm, he may have recurrence of atrial fibrillation but I think we should discontinue his amiodarone. I will do that after he receives his Eliquis this evening. (2) Chest pain at rest: He describes what he calls "heartburn", that occurred at 2 AM and the atrial fibrillation did not occur until 9 AM. They evidently are unrelated. I suspect his "heartburn" is gastritis but do not know, his troponin was very slightly elevated at 10 AM but not enough to consider this discomfort to be cardiac. I suspect it was not ischemic heart disease although I would not be surprised if he has coronary artery disease. (3) Atherosclerosis: He has known atherosclerosis, by his history he has 70% carotid stenoses bilaterally. I would not be surprised if he has coronary disease, he has risk factors of diabetes, hypertension and hypercholesterolemia. He does not have an acute cardiac event however. I would not be too surprised if his troponin increases somewhat due to the very rapid rate during atrial fibrillation this morning but do not think this represents an acute ischemic event. He should be on long-term risk factor modification. As an outpatient he was on aspirin and atorvastatin 40 mg daily as well as gemfibrozil. He should be on a platelet inhibitor, aspirin might not be a good idea with his gastritis. Consider starting clopidogrel. Admission and Anticipated Discharge Date Admission Date: April 04, 2020 Anticipated date of discharge: 04/07/20 Subjective He is feeling quite well today, he feels much better than he has in quite some time he tells me. No cardiac complaints. Physical Exam Physical Exam: Constitutional: Alert, cooperative and in no distress. HEENT: Unremarkable Neck: No jugular venous distention, carotid pulses are normal and equal bilaterally without bruits. Pulmonary: Clear to auscultation bilaterally. Cardiac: Regular rhythm with no murmur, gallop or rub. Abdomen: Soft, nontender with normal bowel sounds. Extremities: No edema. Distal pulses intact. Neurologic: No focal findings. Gait is steady. Skin: No rash, ecchymoses or petechiae. Results & Data ([facility]) Vital Signs (Past 12 Hours) Vital Signs Temp Pulse Pulse Resp BP BP BP 04/08/20 15:18 37.1 C 63 20 139/53 L 04/08/20 14:45 36.8 C 59 L 16 146/75 H 04/08/20 13:45 36.8 C 61 16 144/72 H 04/08/20 12:45 36.8 C 61 16 138/69 04/08/20 11:45 36.9 C 60 16 133/67 04/08/20 11:15 36.9 C 62 16 153/75 H 04/08/20 11:00 36.9 C 68 16 133/65 04/08/20 10:43 36.8 C 84 16 132/69 04/08/20 08:29 36.9 C 67 18 159/58 H Pulse Ox 04/08/20 15:18 95 04/08/20 14:45 96 04/08/20 13:45 95 04/08/20 12:45 96 04/08/20 11:45 95 04/08/20 11:15 95 04/08/20 11:00 96 04/08/20 10:43 95 04/08/20 08:29 94 Laboratory Results CBC 04/08/20 04/08/20 Range/Units 05:41 14:57 WBC 18.28 H 17.20 H (4.8-10.8) K/uL RBC 2.77 L 3.15 L (4.7-6.1) M/uL Hgb 7.9 L 9.0 L (14.0-18.0) g/dL Hct 23.0 L 26.9 L (42-52) % Plt Count 380 374 (130-400) K/uL Neut # (Auto) 15.65 H (1.4-6.5) K/uL Lymph # (Auto) 1.52 (1.2-3.4) K/uL [place] # (Auto) 0.86 H (0.11-0.59) K/uL Eos # (Auto) 0.09 (0-0.5) K/uL Baso # (Auto) 0.02 (0-0.2) K/uL Comprehensive Metabolic Panel 04/08/20 Range/Units 05:41 Sodium 139 (136-145) mmol/L Potassium 3.4 L (3.5-5.1) mmol/L Chloride 107 (98-107) mmol/L Carbon Dioxide 25 (21-32) mmol/L BUN 46 H (7-18) mg/dl Creatinine 2.42 H (0.6-1.4) mg/dl Glucose 68 L (70-99) mg/dl Calcium 8.3 L (8.5-10.1) mg/dl Intake and Output 04/08/20 04/08/20 04/08/20 06:59 14:59 22:59 Intake Total 610.00 / 2009.666 1060.318 / 1229.266 168.948 / 1229.266 Output Total 700 / 1775 990 / 1390 400 / 1390 Balance -90.00 / 234.666 70.318 / -160.734 -231.052 / -160.734 Intake: IV 310.00 / 1009.666 200.318 / 369.266 168.948 / 369.266 NEXTERONE / D5W 360 mg In 200 200.00 / 200.00 20.318 / 189.266 168.948 / 189.266 ml @ 0.5 MG/MIN 16.667 mls/hr IV .Q12H [facility] Rx#:[id number] Vibramycin 100 mg In D5 100 ml 110 / 220 110 / 110 @ 50 mls/hr IV Q12 [facility] Rx#: [id number] Rocephin 2,000 mg In D5w 50 ml 70 / 70 @ 100 mls/hr IV DAILY [facility] Rx#: [id number] Oral 300 / 1000 550 / 550 Intake (Blood Product) Amt 310 / 310 Packed Cells, Leukoreduced 310 / 310 Unit [id number] Output: Urine 700 / 1775 990 / 1390 400 / 1390 Other: # Unmeasured Voids 1 Weight 93.4 kg Diagnostic Findings Telemetry: Atrial fibrillation with a heart rate of about 120 bpm this morning with conversion to sinus rhythm subsequently. PG Care Time/CCT Total # of Minutes Spent Total Time Spent with Patient: Total time spent is greater than 50% in coordination of care (as documented) at patient's floor/unit and/or counseling patient: Coding Level of Care Code 05551 Subseq Hosp Care Lvl 3 Diagnoses Atrial fibrillation, new onset I48.91 Chest pain at rest R07.9 Atherosclerosis I70.90
[2020-04-08] MEDS: PANTOprazole 40 MG TAB PO SCH (21:12)
[2020-04-08] MEDS: APIXABAN 5 MG TABLET PO SCH (21:12)
[2020-04-09 03:15] LABS: 18KDIGG Band NON-REACTIVE; 23KDIGG Band NON-REACTIVE; 23KDIGM Band REACTIVE; 28KDIGG Band NON-REACTIVE; 30KDIGG Band NON-REACTIVE; 39KDIGG Band NON-REACTIVE; 39KDIGM Band REACTIVE; 41KDIGG Band REACTIVE; 41KDIGM Band NON-REACTIVE; 45KDIGG Band NON-REACTIVE; 58KDIGG Band NON-REACTIVE; 66KDIGG Band NON-REACTIVE; 93KDIGG Band NON-REACTIVE; Lyme Antibodies, WB IgG NEGATIVE (NEGATIVE); Lyme Antibodies, WB IgM POSITIVE (NEGATIVE)
[2020-04-09 04:48] VITALS: O2SAT 98
[2020-04-09 07:24] LABS: Basophils # (auto) 0.02 K/uL (0-0.2); Basophils % (auto) 0.2 %; Eosinophils # (auto) 0.37 K/uL (0-0.5); Hematocrit (blood only) 28.1 % (42-52); Hemoglobin 9.7 g/dL (14.0-18.0); Immature Granulocytes # (auto) 0.33 K/uL (0.00-0.02); Immature Granulocytes % (auto) 2.6 %; Lymphocytes # (auto) 1.64 K/uL (1.2-3.4); Lymphocytes % (auto) 13.1 %; Mean Corpuscular Hgb Conc 34.5 g/dL (32-36); Mean Corpuscular Volume 83.9 fL (80-100); Mean Platelet Volume 8.6 fL (7.4-10.4); Monocytes # (auto) 1.12 K/uL (0.11-0.59); Neutrophils # (auto) 9.02 K/uL (1.4-6.5); Neutrophils % (auto) 72.1 %; Nucleated RBC # (auto) 0.04 K/uL (0-0); Nucleated RBC % (auto) 0.3 %; Platelet Count 393 K/uL (130-400); RDW Coefficient of Variation 14.3 % (11.5-14.5); RDW Standard Deviation 42.5 fL (36.4-46.3); Red Blood Count 3.35 M/uL (4.7-6.1)
[2020-04-09] MEDS: INSULIN GLARGINE SOLOSTAR 100 UNITS/ML 3 ML PEN SQ SCH (07:47)
[2020-04-09] MEDS: INSULIN ASPART 100 UNITS/ML 3 ML PEN SC SCH ×2 (07:48→12:07)
[2020-04-09] MEDS: APIXABAN 5 MG TABLET PO SCH (07:48)
[2020-04-09] MEDS: ATORVASTATIN 40 MG TAB PO SCH (07:49)
[2020-04-09] MEDS: METOPROLOL TARTRATE 100 MG TAB PO SCH (07:49)
[2020-04-09] MEDS: PANTOprazole 40 MG TAB PO SCH (07:49)
[2020-04-09] MEDS: gemfibroziL 600 MG TAB PO SCH (07:49)
[2020-04-09] MEDS: AMLODIPINE BESYLATE 5 MG TAB PO SCH (07:50)
[2020-04-09] MEDS: DOXYCYCLINE HYCLATE 100 MG in DEXTROSE 5% 100 ML IV SCH (07:53)
[2020-04-09] MEDS: cefTRIAXone SODIUM 2,000 MG in DEXTROSE 5% 50 ML IV SCH (07:53)
[2020-04-09 07:56] LABS: Albumin Level 2.6 gm/dl (3.4-5.0); BUN Creatinine Ratio 17.8 (10-20); Est GFR (African American) 29.5; Est GFR (Non-African American) 25.5; Potassium 3.2 mmol/L (3.5-5.1)
[2020-04-09 07:59] LABS: Albumin Globulin Ratio 0.6 (0.9-2); Bilirubin,Total 0.6 mg/dl (0.2-1); Globulin 4.7 gm/dl (2.5-4.0); Total Protein 7.3 gm/dl (6.4-8.2)
[2020-04-09] MEDS ORDERED: POTASSIUM CHLORIDE 20 MEQ TABCR PO STA (08:22)
--- NOTE | 2020-04-09 11:26 | Discharge Summary ---
Date of Service April 09, 2020 Admission HPI Per Admitting Provider Dionicio Coleman is a 64yo male with history of DM, HTN, HLP, CKD. He reports feeling ill starting 4 days ago - anxiety, abdominal pain, constipation then later developed nausea and dry heaving over the last three days. He reports passing minimal flatus, only small amount of black, tarry stools. He denies fever but has had some chills as well as poor appetite and decreased PO intake. He denies CP/SOB/cough. No Covid-19 concerns. No additional complaints at this time. Patient had an episode of vomiting in the ER - gastric contents were sent to the lab for evaluation which revealed +blood ER Course: Pepcid, Insulin, Labetalol, Reglan, NSS, Protonix bolus and drip. Admission Exam Per Admitting Provider Chief Complaint: nausea, dry heaving Primary Care Provider: Art Trejo Dionicio Coleman is a 64yo male with history of DM, HTN, HLP, CKD. He reports feeling ill starting 4 days ago - anxiety, abdominal pain, constipation then later developed nausea and dry heaving over the last three days. He reports passing minimal flatus, only small amount of black, tarry stools. He denies fever but has had some chills as well as poor appetite and decreased PO intake. He denies CP/SOB/cough. No Covid-19 concerns. No additional complaints at this time. Patient had an episode of vomiting in the ER - gastric contents were sent to the lab for evaluation which revealed +blood ER Course: Pepcid, Insulin, Labetalol, Reglan, NSS, Protonix bolus and drip. Allergies Principal Diagnosis Lyme Disease, Atrial Fibrillation, Pneumonia Discharge Exam Constitutional WD/WN, vitals as above comfortable; no acute distress Eyes PERRL, conjunctivae normal, anicteric sclerae ENMT external ear and nose normal, oropharynx normal Neck trachea midline, no thyromegaly Respiratory normal respiratory effort, lungs clear to auscultation Cardiovascular RRR, no murmur, no edema Gastrointestinal (Abdomen) normal bowel sounds, soft, nontender, no hepatosplenomegaly Musculoskeletal no cyanosis or clubbing, extremities motor strength 5/5 Skin no rashes, warm and dry Neurologic PERRL, EOMI, accommodation nl, no face palsy, no dysarthria moves all extremities Psychiatric A+Ox3, euthymic affect Lymphatic no cervical or axillary lymphadenopathy Discharge Data Allergies Allergy/AdvReac Type Severity Reaction Status Date / Time No Known Allergies Allergy Verified 04/06/20 11:34 Consultations 04/04/20 22:29 ED Decision to Admit Stat 04/05/20 00:17 Consult Gastroenterology Routine 04/05/20 18:11 Consult Cardiology Routine Procedures Performed Operation Date: 04/05/20 16:00 Actual Procedures p Esophagogastroduodenoscopy - Brien G. Case, DO Operation Date: 04/06/20 15:35 Actual Procedures p Colonoscopy - Brien G. Case, DO Ordered Studies 04/04/20 21:45 CT abd pelvis wo con Urgent Chest/Abdomen xray 04/06 ECHO 04/07 CXR Hospital Course (1) Atrial fibrillation, new onset: * New on 04/07 with rates up to 208, starting at 9:22am and was given lopressor IV x 3. Cardiology placed on amiodarone, since discontinued. No hx afib. CHADS-VASC score 4. * Patient converted back to NSR at 12:28 on 04/07 * Flipped back into afib at 8:52 am and back into NSR at 9:32am on 04/08 and remained in NSR since that time * TSH 0.591 * Possibly related to newly discovered lyme with + IgM, negative IgG * Initiated and continued on Eliquis 5mg BID daily and instructed to watch for s/sx bleeding. Given coupon for 30days by CM (2) Lyme borreliosis: * Given effusion on ECHO and elevated inflammatory marker and reported weakness, elevated WBC at 17k --> obtained Lyme -- IgG negative, IgM positive. WB with + [id number], IgM 23, 39 * EKG on admission without any AV block noted, none on telemetry noted as well * Initiated on Doxy IV BID -- continued doxy 100mg BID for 14 days total treatment * Also with effusion on ECHO -- to have follow up with cardiology in 1 month time (3) Pericardial effusion: * Seen on ECHO -- possibly 2/2 lyme. * Inflammatory markers also elevated, with ESR 61, CRP 7.43 * Rec'd follow up with cardiology outpatient as above in 1 month (4) Acute GI bleeding: * Concern for acute UGIB - patient reported dark, tarry stools. He had a significant drop in Hbg over the last 1.5 months, dropped to 9 from 11.4 and Hct=25 from 34.6 on admission. Had an elevated BUN to 109 with only mild increase in baseline Cr. * GI Consulted * s/p EGD on 04/05 with gastritis. s/p Colonoscopy on 04/06 with non-bleeding internal hemorrhoids. ok from their standpoint to initiate Eliquis for anticoagulation and monitor h/h closely outpatient. Continued on protonix 40mg daily at discharge * Received 2 units PRBC during admission with drop in hgb down to 7.9 on admission * H/h 9.7/.1 with repeat stable prior to discharge * ASA discontinued and patient placed on plavix for hx carotid stenosis/HLD for prevention * Given slips for repeat labs on Saturday but to return if any further s/sx bleeding * No further melena or hematochezia, hematemesis since admission * MCV low normal and iron studies obtained, wnl: Iron 75, TIBC 326, Transferrin 242, Trans % 22, Ferritin 257 * LDH wnl, Retic count elevated, 4.4, Haptoglobin pending at discharge * CBC on Saturday, slip provided (5) Hypoxia: * Hypoxia with O2 sat into the 80s during admission and required supplemental O2 to maintain sat * CXR with moderate cardiomegaly with pulmonary vasc congestion, small infiltrate R base. Given 40mg lasix x 1 with blood administration to prevent volume overload. * Initiated on ceftriaxone, discharge with cefdinir to complete course for this * Patient without wheezing/sob and feeling better, 98% on RA prior to discharge (6) Elevated troponin: * Patient with elevated troponin = 0.788. EKG with some TWI in anterior leads, similar to prior. He denies chest pain, tightness, SOB, dizziness, diaphoresis. * Troponin trending down, suspect demand ischemia given anemia. Bump likely 2/2 to above * Cardiology consulted. * Holding ASA in setting of anemia * Continued home metoprolol tartrate 100mg BID, atorvastatin 40mg * ECHO with moderate LVH, EF 65-70%, normal RV size/function, mild aortic valve sclerosis, normal PA/RA pressures, trivial effusion noted * Follow up with cardiology in 1 month for effusion on ECHO (7) Hypertension: * Continued Metoprolol 100mg BID, amlodipine 10mg (8) Hyperlipidemia LDL goal <70: * Chronic * Continued Atorvastatin (9) IDDM (insulin dependent diabetes mellitus): * Chronic. * Lantus 35u BID * ISS while inpatient, BSGs acceptable (10) Acute kidney injury superimposed on CKD: * Follows with Dr. Nelson as an outpatient * Baseline Cr 1.6-1.8 (although most recent office visit with Cr up to 2.2, likely trending towards higher baseline) * Cr 2.47 on admission, down to 2.1 on 04/06 (HCTZ had been on hold in setting of GIB/ischemia but was resumed) * Cr improved on repeat labs afternoon 04/09 to 2.54 but making adequate urine and wanting to be discharged * Given episodes of hypokalemia during admission, may want to re-trial EUN/ARB (previously had issues with hyperK) and repeat labs --> to have follow up with Dr. Nelson at discharge and given slips for repeat labs on Wednesday 04/11. May benefit from combination product (11) Hyponatremia: * Na 126 on admission. IVF as above. No neurological symptoms * Resolved, Na 136 on repeat (12) Hypokalemia: * K 3.2 on admission. Given 40meq PO x 1. Down to 3.1 on 04/06 and given 3K riders prior to colonoscopy. * 3.4 on AM labs -- given 20meq x 1. RESOLVED -- repeat 3.8 * Follow up with nephrology as above (13) CKD (chronic kidney disease) stage 3, GFR 30-59 ml/min: * Follows with Dr. Nelson. Of note, recently ordered PTH, Vit D levels show elevated PTH 91.8, Vit D low at 17.8. Per patient, no discussion about following up with Endocrinology mentioned (may need to have set up at d/c) * Baseline Cr 1.6-1.8, however had been elevated up to 2.2 on most recent office visit. 24h U with 3.5g/d. PEP w/o monocloncal process. Per note, suspecting kidney dysfunctionbe attributed to diabetic nephropathy or glomerular sclerosis. * HCTZ held for 1 day and then to be resumed. Patient to monitor BPs at home * Not on EUN/ARB 2/2 hx hyperK but to follow up as above (14) Acute blood loss anemia: * See above (15) Bilateral carotid artery stenosis: * hx of. 80% bilaterally. likely also with CAD with risk factors DM, HTN, HLD * ASA discontinued in setting of gastritis/anemia/bleeding * Per cardiology, rec antiplatelet with plavix --> discussed with patient and prescription sent (16) DVT prophylaxis: * Initiated on eliquis during admission for afib w/ rvr (17) Pneumonia: * See above Total Time Total Time Spent Total Time Spent (In Minutes): 110 Discharge Plan Discharge Items Patient Disposition: Home - Self-Care Reason For Visit: UGIB, ELEVATED TROPONIN Discharge Diagnosis: Anemia, Lyme Disease, Pneumonia Goals: You have been hospitalized for an acute medical problem. During your stay at [facility], we have made an effort to correct the problem that brought you to the hospital while keeping you as comfortable as possible. Medications were used to bring your condition under control and your discharge instructions will include directions for any medications you should take after leaving the hospital. Please make sure you see your Primary Care Provider as part of your follow up plan. Activity: Resume your previous activity Non-emergency contact: Primary Care Provider and Millwork Estimator Call non-emergency contact if: you have any medication questions, your symptoms worsen and you have a fever Follow-up/Referrals: Tyler Werner MD [Physician] - (1 month) Cornelius Nelson DO [Physician] - (1 week -- f/u [facility]ONE) Art Trejo [Primary Care Provider] - Diet: Carb Consistent or DM2 and Heart Healthy Ambulatory Orders: Basic Metabolic Panel (Routine) Timeframe: 2 Days Location: Determined by Patient Ordered By: Sara Grace Complete Blood Count no Diff (Timed) Timeframe: 2 Days Location: Determined by Patient Ordered By: Sara Grace Addtl Attending Provider Instructions: You have been hospitalized for blood in your stool. You had an EGD and colonoscopy that showed gastritis (inflammation of stomach lining) and non-bleeding hemorrhoids. You were started on and will be continued daily at discharge. You were found to be positive for Lyme Disease and started on Doxycycline, which will be continued for total of 14 days of treatment. This will be continued as 100mg by mouth twice daily. You were also found to have a small pneumonia and were given additional antibiotics to cover for that and will be continued on cefdinir 300 mg by mouth twice daily for total of seven days. You were found to flip into an irregular heart rhythm called atrial fibrillation. You were placed on medications and it has been decided that you should continue on Eliquis. You were evaluated by cardiology and should follow up with them in 1 month regarding the effusion seen on ECHO (ultrasound of your heart, likely due to current lyme disease) Please monitor for any bleeding in your stools, urine, nose, etc and alert your doctor MADELEINE. Given your carotid artery stenosis, and you having had been on Aspirin for this (which can worsen gastritis) it is recommended that you continue on daily clopidogrel (plavix) daily for prevention. Prescriptions for these medications have been sent to your pharmacy. Your kidney function is slightly above baseline. Repeat labs have been provided to have your blood counts and kidney function monitored on Saturday. Please hold your hydrochlorothiazide tomorrow and monitor your blood pressure at home. Please resume this medication on Saturday, given the elevation in your kidney function. You should follow up with your network programmer in the next week or two to monitor your progress. You should address supplemental potassium if it continued to be low on repeat labs on saturday and may need additional agent given recent increase to 25mg daily To be addressed at follow up with Nephrology given inability to tolerate EUN/ARB in the past due to elevated potassium. You should follow up with your primary care provider in the next week to monitor your progress. Please return to the emergency department for any worsening shortness of breath, chest pain, fevers, or for any symptoms that are concerning for you. It has been a pleasure being a part of the medical team providing for you while you have been in the hospital. Take care! Addtl Finance Clerk Provider Instructions: Medication Instructions: Your condition is typically treated with an anticoagulant. Anticoagulants will thin your blood to help prevent new clots. * You should take her medication exactly as directed. * Never skip a dose. * Never take a double dose. If you miss a dose, take it as soon as you remember. Call your Primary Care doctor if you experience any of the following: * Swelling or Pain in your leg * Sudden, continuous pain deep in a muscle * Pain that worsens when you are active or when you stand still for a long time * Chest Pain * Sudden Shortness of Breath * Rapid or pounding heart beat * Fainting * Dizziness * Cough with blood or bloody sputum * Sweating more than normal * Bruises * Heavy or uncontrolled bleeding * Blood in your urine, stool or vomit * Black or tarry stools Caring for Your Self at Home: * Avoid sitting, standing or lying down for long periods without moving your legs and feet * When traveling by car, stop to get out and move around at least once every 3 hours * On long airplane, train or bus rides, get up and move around when possible * If you can't get up, wiggle your toes and tighten your calves to keep your blood moving Follow Up: It is important for you to keep your follow up appointments with your medical provider. Pending Studies at Discharge: No Stand-Alone Forms: My [facility], Smoking Cessation Medications and DC Order Prescriptions: New pantoprazole 40 mg Tablet,Delayed Release (Dr/Ec) 40 mg PO QAM 30 Days Qty: 30 RF: 0 Eliquis 5 mg Tablet 5 mg PO BID 30 Days Qty: 60 RF: 1 clopidogrel [Plavix] 75 mg tablet 75 mg PO DAILY Qty: 30 RF: 0 cefdinir 300 mg capsule 300 mg PO BID 5 Days Qty: 10 RF: 0 doxycycline hyclate 100 mg tablet 100 mg PO BID 11 Days Qty: 22 RF: 0 Continued hydrochlorothiazide 25 mg tablet 25 mg PO DAILY Qty: 90 RF: 2 metoprolol tartrate 100 mg tablet 100 mg PO BID RF: 0 Basaglar KwikPen U-100 Insulin 100 unit/mL (3 mL) insulin pen 35 units SQ BID RF: 0 atorvastatin 40 mg Tablet 40 mg PO DAILY RF: 0 amlodipine 10 mg Tablet 10 mg PO DAILY RF: 0 gemfibrozil 600 mg Tablet 600 mg PO DAILY RF: 0 magnesium oxide 400 mg magnesium Tablet 400 mg PO DAILY RF: 0 Discontinued aspirin 81 mg tablet,delayed release (DR/EC) 81 mg PO DAILY RF: 0 Discharge Orders: Discharge Order (Routine); Ordered 04/09/20 Ordered By: Sara Grace Admission Data Admit Date/Time: 04/04/20 23:26 Attending Provider: Giuseppe Cherry Admit Provider: Rosa Aguilar Primary Care Provider: Art Trejo Other Providers: Rosa Aguilar ; Brien Santana ; Tyler Werner Other Interventions: Discharge Summary Assessment (RN) Last Done: 04/09/20 13:41 DC Date/Time DO NOT enter until pt leaves facility: 04/09/20 14:32 Coding Level of Care Code D/C Day Management >30 mins Diagnoses Atrial fibrillation, new onset I48.91 Lyme borreliosis A69.20 Pericardial effusion I31.3 Acute GI bleeding K92.2 Hypoxia R09.02 Elevated troponin R79.89 Hypertension I10 Hypertension type: unspecified Hyperlipidemia LDL goal <70 E78.5 IDDM (insulin dependent diabetes mellitus) E11.9; Z79.4 Acute kidney injury superimposed on CKD N17.9; N18.9 Hyponatremia E87.1 Hypokalemia E87.6 CKD (chronic kidney disease) stage 3, GFR 30-59 ml/min N18.3 Acute blood loss anemia D62 Bilateral carotid artery stenosis I65.23 DVT prophylaxis Z29.9 Pneumonia J18.9
[2020-04-09 12:13] VITALS: TEMP 98.6
[2020-04-09 13:23] LABS: Hematocrit (blood only) 28.9 % (42-52); Hemoglobin 9.6 g/dL (14.0-18.0)
[2020-04-09 13:43] VITALS: BP 177/76; PULSE 75
[2020-04-09 13:49] LABS: BUN Creatinine Ratio 18.1 (10-20); Calcium 8.6 mg/dl (8.5-10.1); Creatinine Clr Calc Pharmacy 33.8 ml/min; Est GFR (African American) 30.4; Est GFR (Non-African American) 26.2; Potassium 3.8 mmol/L (3.5-5.1)
[2020-04-15 06:24] LABS: CK Total 89 U/L (44-196); CK-MB 0 % (<5); CK-MM 100 % (95-100)
== END 2020-04-09 14:32 | disposition home or self-care (01) | DRG 867 ==
LOC: ED 18:50 → 2S 23:26 → SUATTDRO 23:26 → 2S 23:43

== ENCOUNTER 2022-08-02 19:15 | Inpatient (IN) ==
[2022-08-02] MEDS ORDERED: CEFEPIME 2,000 MG/20 ML VIAL IV STA (19:35)
[2022-08-02 20:17] LABS: Basophils # (auto) 0.02 K/uL (0-0.2); Basophils % (auto) 0.1 %; Hematocrit (blood only) 32.4 % (40.1-51.0); Hemoglobin 10.6 g/dl (14.0-18.0); Immature Granulocytes # (auto) 0.15 K/uL (0.00-0.02); Immature Granulocytes % (auto) 0.7 %; Lymphocytes # (auto) 1.76 K/uL (1.2-3.4); Lymphocytes % (auto) 8.7 %; Mean Corpuscular Hemoglobin 29.5 pg (25.0-34.0); Mean Corpuscular Hgb Conc 32.7 g/dL (32.0-36.0); Mean Corpuscular Volume 90.3 fL (80.0-100.0); Mean Platelet Volume 9.1 fL (9.4-12.4); Monocytes # (auto) 1.34 K/uL (0.24-0.82); Monocytes % (auto) 6.7 %; Neutrophils # (auto) 16.85 K/uL (1.4-6.5); Neutrophils % (auto) 83.8 %; Platelet Count 327 K/uL (130-400); RDW Coefficient of Variation 14.1 % (11.5-14.5); RDW Standard Deviation 46.5 fL (36.4-46.3); Red Blood Count 3.59 M/uL (4.63-6.08); White Blood Count 20.12 K/ul (4.8-10.8)
[2022-08-02 20:29] LABS: INR 1.1 (0.9-1.1); Partial Thromboplastin Time 28.2 Seconds (21.0-31.0); Prothrombin Time 11.5 Seconds (9.0-12.0)
--- NOTE | 2022-08-02 20:34 | Emergency Department Note ---
History of Present Illness General Chief complaint: Shortness of Breath/Dyspnea Stated complaint: SOB, SP02 81% Time Seen by Provider: 08/02/22 19:29 History of Present Illness 67-year-old male presents to the ED with a chief complaint of shortness of breath. The patient reports a cough for the past couple of days. Slight sore throat. Symptoms worsened today. His family wanted him to come in and get checked. His family initially called EMS who evaluated him on scene and found him to have oxygen saturations of 80%. He refused transport and came in by private vehicle. The patient denies any fevers. No chest pains today however he states that he has recently had some heartburn symptoms that resolved with Tums. He does have a history of A. fib and is chronically on Eliquis. He has not missed any doses. Home Medications Medication Instructions Recorded Confirmed Type amlodipine 10 mg tablet 10 mg PO DAILY 06/26/18 08/02/22 History atorvastatin 40 mg tablet 40 mg PO DAILY 06/26/18 08/02/22 History gemfibrozil 600 mg tablet 600 mg PO DAILY 06/26/18 08/02/22 History magnesium oxide 400 mg PO DAILY 06/26/18 08/02/22 History insulin glargine 100 unit/mL (3 35 units subcut BID 01/13/20 08/02/22 History mL) subcutaneous pen (Basaglar KwikPen U-100 Insulin) apixaban 5 mg tablet (Eliquis) 5 mg PO BID 30 days #60 tabs 04/09/20 08/02/22 Rx clopidogrel 75 mg tablet (Plavix) 75 mg PO DAILY #30 tabs 04/09/20 08/02/22 Rx acetaminophen 650 mg 650 mg PO BID 05/30/20 08/02/22 History tablet,extended release coenzyme Q10 400 mg capsule 400 mg PO DAILY 05/30/20 08/02/22 History docusate sodium 100 mg capsule 100 mg PO DAILY 05/30/20 08/02/22 History ferrous sulfate 325 mg (65 mg 325 mg PO DAILY 05/30/20 08/02/22 History iron) tablet fluticasone propionate 50 1 spray intranasal DAILY PRN 05/30/20 08/02/22 History mcg/actuation nasal Congestion spray,suspension krill oil 500 mg capsule 500 mg PO BID 05/30/20 08/02/22 History mecobalamin (vitamin B12) 5,000 5,000 mcg PO DAILY 05/30/20 08/02/22 History mcg disintegrating tablet metoprolol succinate 100 mg 100 mg PO BID 05/30/20 08/02/22 History tablet,extended release 24 hr tivrczaceuvl-iasegngb-tlbicx tablet 1 tab PO DAILY 05/30/20 08/02/22 History potassium chloride 20 mEq 20 meq PO DAILY 05/30/20 08/02/22 History tablet,extended release vitamin B complex 1 tab PO DAILY 05/30/20 08/02/22 History hydrochlorothiazide 25 mg tablet 50 mg PO DAILY #90 tabs 03/21/22 08/02/22 Rx sodium bicarbonate 650 mg tablet 1,300 mg PO BID #360 tabs 03/21/22 08/02/22 Rx calcitriol 0.25 mcg capsule 0.25 mcg PO DAILY #90 caps 03/23/22 08/02/22 Rx Allergies Allergy/AdvReac Type Severity Reaction Status Date / Time No Known Allergies Allergy Verified 08/02/22 21:00 Past Med/Surg History Medical History Acute non-ST elevation myocardial infarction (NSTEMI) Diabetes type 2, uncontrolled DKA (diabetic ketoacidoses) Hypertension Lyme borreliosis Surgical History 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 Family History Other Diabetes type 2, controlled Social History Smoking Status: Never smoker Hx Alcohol Use: No Hx Substance Use: No Preferred Language: Tamaz[place] Communication Ability: Effective Kitchen Bath Designer Required: No Beliefs That Will Affect Care: Hoahaoism Hoahaoism Beliefs: islam Current Living Situation: Alone Feels Safe at Home: Yes Assistive Devices: Glasses Review of Systems A total of 10 systems reviewed and were otherwise negative Physical Exam Vital Signs Vital Signs - 24 hr 08/02/22 19:17 08/02/22 19:24 08/02/22 19:24 Pulse Rate 94 H Pulse Rate from SpO2 Sensor Pulse Rhythm Regular Pulse Strength Normal Respiratory Rate 22 Respiratory Effort / Characteristics Non-Labored Spontaneous Spontaneous Short of Breath SOB on Exertion Respiratory Depth Normal Normal Respiratory Pattern Regular Regular Blood Pressure Position Sitting Pulse Oximetry 86 L 90 Oxygen Delivery Method Room Air Nasal Cannula Nasal Cannula Oxygen Flow Rate 2 3 Sepsis Recent Fever Within 48 Hours No Sepsis New/Unexplained Change in Mental Status N/A Sepsis Action Taken by Nursing No Action Required 08/02/22 19:24 08/02/22 19:31 08/02/22 20:00 Pulse Rate 88 89 Pulse Rate from SpO2 Sensor 90 90 Pulse Rhythm Pulse Strength Respiratory Rate 28 H 29 H Respiratory Effort / Characteristics Respiratory Depth Respiratory Pattern Blood Pressure Position Pulse Oximetry 60 L 93 90 Oxygen Delivery Method Nasal Cannula Nasal Cannula Nasal Cannula Oxygen Flow Rate 3 2 2 Sepsis Recent Fever Within 48 Hours Sepsis New/Unexplained Change in Mental Status Sepsis Action Taken by Nursing 08/02/22 20:30 Pulse Rate 92 H Pulse Rate from SpO2 Sensor 93 H Pulse Rhythm Pulse Strength Respiratory Rate 22 Respiratory Effort / Characteristics Respiratory Depth Respiratory Pattern Blood Pressure Position Pulse Oximetry 90 Oxygen Delivery Method Nasal Cannula Oxygen Flow Rate 2 Sepsis Recent Fever Within 48 Hours Sepsis New/Unexplained Change in Mental Status Sepsis Action Taken by Nursing CONSTITUTIONAL/VITAL SIGNS: Reviewed / noted above. GENERAL: Non-toxic in appearance. INTEGUMENTARY: Warm, dry, and Kathryn. HEAD: Normocephalic. EYES: without scleral icterus or trauma. ENT/OROPHARYNX: clear and moist. LYMPHADENOPATHY/NECK: Is supple without lymphadenopathy or meningismus. RESPIRATORY: Diminished with bilateral expiratory wheezing to auscultation bilaterally. No increased work of breathing. CARDIOVASCULAR: Regular rate and rhythm. GI/ABDOMEN: Soft and nontender. No organomegaly or pulsatile mass. EXTREMITIES: Warm and well perfused. BACK: No CVA tenderness. NEUROLOGICAL: Intact without focal deficits. PSYCHIATRIC: normal affect. MUSCULOSKELETAL: Normally developed with good muscle tone. TRIAGE NURSING DOCUMENTATION REVIEWED. Course Administered Medications Discontinued Medications Albuterol (Albut/Ipratrop 3mg/0.5mg Neb 3 Ml Vial) 3 ml NEB NOW STA; Protocol Stop: 08/02/22 20:36 Last Admin: 08/02/22 20:43 Dose: 3 ml Documented By: Cefepime HCl (Maxipime) 2,000 mg in 20 mls @ 5 mls/min IV NOW STA; Protocol Stop: 08/02/22 19:38 Last Admin: 08/02/22 20:15 Dose: 5 mls/min Documented By: JAYDE Medical Decision Making Differential Diagnosis The differential was considered includes acute myocardial infarction, acute coronary syndrome, myocarditis, pericarditis, pericardial effusions /tamponad, esophageal perforation, pulmonary embolism, pneumonia, pneumothorax, cardiomyopathy, congestive heart, anemia , COPD/asthma exacerbation. Medical Records Attestation: I reviewed the patient's medical records. Home Medications Current Medication List: was personally reviewed by me Laboratory Data Attestation: I reviewed the patient's lab results. Result diagrams: 08/02/22 20:05 08/02/22 20:05 Lab Results 08/02/22 08/02/22 08/02/22 Range/Units 19:25 19:59 20:05 WBC 20.12 H (4.8-10.8) K/ul RBC 3.59 L (4.63-6.08) M/uL Hgb 10.6 L (14.0-18.0) g/dl Hct 32.4 L (40.1-51.0) % MCV 90.3 (80.0-100.0) fL MCH 29.5 (25.0-34.0) pg MCHC 32.7 (32.0-36.0) g/dL RDW Std Deviation 46.5 H (36.4-46.3) fL RDW Coeff of Whit 14.1 (11.5-14.5) % Plt Count 327 (130-400) K/uL MPV 9.1 L (9.4-12.4) fL Immature Gran % (Auto) 0.7 % Neut % (Auto) 83.8 % Lymph % (Auto) 8.7 % Roosevelt % (Auto) 6.7 % Eos % (Auto) 0.0 % Baso % (Auto) 0.1 % Neut # (Auto) 16.85 H (1.4-6.5) K/uL Lymph # (Auto) 1.76 (1.2-3.4) K/uL Roosevelt # (Auto) 1.34 H (0.24-0.82) K/uL Eos # (Auto) 0.00 (0-0.50) K/uL Baso # (Auto) 0.02 (0-0.2) K/uL Immature Gran # (Auto) 0.15 H (0.00-0.02) K/uL PT (9.0-12.0) Seconds INR (0.9-1.1) APTT (21.0-31.0) Seconds PTT Ratio Sodium (136-145) mmol/L Potassium (3.5-5.1) mmol/L Chloride (98-107) mmol/L Carbon Dioxide (21-32) mmol/L Anion Gap (3-11) BUN (6-23) mg/dl Creatinine (0.6-1.4) mg/dl Est Cr Clr Drug Dosing ml/min Est GFR ( Amer) ml/min Est GFR (Non-Af Amer) ml/min BUN/Creatinine Ratio (10-20) Glucose (70-99(Fasting)) mg/dl POC Glucose (70-99) mg/dl Lactate 1.7 (0.4-2.0) mmol/L Calcium (8.5-10.1) mg/dl Magnesium (1.7-2.4) mg/dl Total Bilirubin (0.2-1.0) mg/dl Direct Bilirubin (0-0.2) mg/dl AST (13-39) U/L ALT (7-52) U/L Alkaline Phosphatase (34-104) U/L Troponin I High Sens (0-20) pg/ml Total Protein (6.0-8.3) gm/dl Albumin (3.4-5.0) gm/dl Procalcitonin (0-0.5) ng/ml Adenovirus (PCR) Not Detected (NotDetected) B. pertussis DNA (PCR) Not Detected (NotDetected) B.parapertussis DNA PCR Not Detected (NotDetected) C. pneumoniae DNA (PCR) Not Detected (NotDetected) Coronavirus OC43 (PCR) Not Detected (NotDetected) Coronavirus HKU1 (PCR) Not Detected (NotDetected) Coronavirus 229E (PCR) Not Detected (NotDetected) SARS-CoV-2 (PCR) Not Detected (NotDetected) Coronavirus NL63 (PCR) Not Detected (NotDetected) Human Metapneumovir PCR Not Detected (NotDetected) Influenza Type A (PCR) Not Detected (NotDetected) Influenza Type B (PCR) Not Detected (NotDetected) M. pneumoniae (PCR) Not Detected (NotDetected) Parainfluenza 1 (PCR) Not Detected (NotDetected) Parainfluenza 2 (PCR) Not Detected (NotDetected) Parainfluenza 3 (PCR) Not Detected (NotDetected) Parainfluenza 4 (PCR) Not Detected (NotDetected) RSV (PCR) Not Detected (NotDetected) Entero/Rhino (PCR) Not Detected (NotDetected) 08/02/22 08/02/22 08/02/22 Range/Units 20:05 20:05 20:05 WBC (4.8-10.8) K/ul RBC (4.63-6.08) M/uL Hgb (14.0-18.0) g/dl Hct (40.1-51.0) % MCV (80.0-100.0) fL MCH (25.0-34.0) pg MCHC (32.0-36.0) g/dL RDW Std Deviation (36.4-46.3) fL RDW Coeff of Whit (11.5-14.5) % Plt Count (130-400) K/uL MPV (9.4-12.4) fL Immature Gran % (Auto) % Neut % (Auto) % Lymph % (Auto) % Roosevelt % (Auto) % Eos % (Auto) % Baso % (Auto) % Neut # (Auto) (1.4-6.5) K/uL Lymph # (Auto) (1.2-3.4) K/uL Roosevelt # (Auto) (0.24-0.82) K/uL Eos # (Auto) (0-0.50) K/uL Baso # (Auto) (0-0.2) K/uL Immature Gran # (Auto) (0.00-0.02) K/uL PT 11.5 (9.0-12.0) Seconds INR 1.1 (0.9-1.1) APTT 28.2 (21.0-31.0) Seconds PTT Ratio 1.0 Sodium 136 (136-145) mmol/L Potassium 5.0 (3.5-5.1) mmol/L Chloride 103 (98-107) mmol/L Carbon Dioxide 19 L (21-32) mmol/L Anion Gap 14 H (3-11) BUN 82 H (6-23) mg/dl Creatinine 4.09 H (0.6-1.4) mg/dl Est Cr Clr Drug Dosing 17.8 ml/min Est GFR ( Amer) 16.3 ml/min Est GFR (Non-Af Amer) 14.0 ml/min BUN/Creatinine Ratio 20.0 (10-20) Glucose 150 H (70-99(Fasting)) mg/dl POC Glucose (70-99) mg/dl Lactate (0.4-2.0) mmol/L Calcium 10.4 H (8.5-10.1) mg/dl Magnesium 1.6 L (1.7-2.4) mg/dl Total Bilirubin 0.4 (0.2-1.0) mg/dl Direct Bilirubin 0.1 (0-0.2) mg/dl AST 178 H (13-39) U/L ALT 34 (7-52) U/L Alkaline Phosphatase 60 (34-104) U/L Troponin I High Sens 57121.9 H* (0-20) pg/ml Total Protein 8.0 (6.0-8.3) gm/dl Albumin 4.0 (3.4-5.0) gm/dl Procalcitonin 0.35 (0-0.5) ng/ml Adenovirus (PCR) (NotDetected) B. pertussis DNA (PCR) (NotDetected) B.parapertussis DNA PCR (NotDetected) C. pneumoniae DNA (PCR) (NotDetected) Coronavirus OC43 (PCR) (NotDetected) Coronavirus HKU1 (PCR) (NotDetected) Coronavirus 229E (PCR) (NotDetected) SARS-CoV-2 (PCR) (NotDetected) Coronavirus NL63 (PCR) (NotDetected) Human Metapneumovir PCR (NotDetected) Influenza Type A (PCR) (NotDetected) Influenza Type B (PCR) (NotDetected) M. pneumoniae (PCR) (NotDetected) Parainfluenza 1 (PCR) (NotDetected) Parainfluenza 2 (PCR) (NotDetected) Parainfluenza 3 (PCR) (NotDetected) Parainfluenza 4 (PCR) (NotDetected) RSV (PCR) (NotDetected) Entero/Rhino (PCR) (NotDetected) 08/02/22 Range/Units 21:42 WBC (4.8-10.8) K/ul RBC (4.63-6.08) M/uL Hgb (14.0-18.0) g/dl Hct (40.1-51.0) % MCV (80.0-100.0) fL MCH (25.0-34.0) pg MCHC (32.0-36.0) g/dL RDW Std Deviation (36.4-46.3) fL RDW Coeff of Whit (11.5-14.5) % Plt Count (130-400) K/uL MPV (9.4-12.4) fL Immature Gran % (Auto) % Neut % (Auto) % Lymph % (Auto) % Roosevelt % (Auto) % Eos % (Auto) % Baso % (Auto) % Neut # (Auto) (1.4-6.5) K/uL Lymph # (Auto) (1.2-3.4) K/uL Roosevelt # (Auto) (0.24-0.82) K/uL Eos # (Auto) (0-0.50) K/uL Baso # (Auto) (0-0.2) K/uL Immature Gran # (Auto) (0.00-0.02) K/uL PT (9.0-12.0) Seconds INR (0.9-1.1) APTT (21.0-31.0) Seconds PTT Ratio Sodium (136-145) mmol/L Potassium (3.5-5.1) mmol/L Chloride (98-107) mmol/L Carbon Dioxide (21-32) mmol/L Anion Gap (3-11) BUN (6-23) mg/dl Creatinine (0.6-1.4) mg/dl Est Cr Clr Drug Dosing ml/min Est GFR ( Amer) ml/min Est GFR (Non-Af Amer) ml/min BUN/Creatinine Ratio (10-20) Glucose (70-99(Fasting)) mg/dl POC Glucose 139 H (70-99) mg/dl Lactate (0.4-2.0) mmol/L Calcium (8.5-10.1) mg/dl Magnesium (1.7-2.4) mg/dl Total Bilirubin (0.2-1.0) mg/dl Direct Bilirubin (0-0.2) mg/dl AST (13-39) U/L ALT (7-52) U/L Alkaline Phosphatase (34-104) U/L Troponin I High Sens (0-20) pg/ml Total Protein (6.0-8.3) gm/dl Albumin (3.4-5.0) gm/dl Procalcitonin (0-0.5) ng/ml Adenovirus (PCR) (NotDetected) B. pertussis DNA (PCR) (NotDetected) B.parapertussis DNA PCR (NotDetected) C. pneumoniae DNA (PCR) (NotDetected) Coronavirus OC43 (PCR) (NotDetected) Coronavirus HKU1 (PCR) (NotDetected) Coronavirus 229E (PCR) (NotDetected) SARS-CoV-2 (PCR) (NotDetected) Coronavirus NL63 (PCR) (NotDetected) Human Metapneumovir PCR (NotDetected) Influenza Type A (PCR) (NotDetected) Influenza Type B (PCR) (NotDetected) M. pneumoniae (PCR) (NotDetected) Parainfluenza 1 (PCR) (NotDetected) Parainfluenza 2 (PCR) (NotDetected) Parainfluenza 3 (PCR) (NotDetected) Parainfluenza 4 (PCR) (NotDetected) RSV (PCR) (NotDetected) Entero/Rhino (PCR) (NotDetected) Imaging Data My Impression: Chest x-ray: Per my interpretation there is bilateral pneumonia ECG Data Attestation: I personally reviewed and interpreted this ECG as follows: Additional Comments: Twelve-lead EKG: Per my interpretation shows a Normal sinus rhythm at a rate of 90. No ST elevation. No PVCs. Normal QTC. MDM Narrative 67-year-old male presents to the ED with a chief complaint of shortness of breath and hypoxia. His vital signs reveal hypoxia on room air. He was 86%. He does not use home oxygen. Lung sounds revealed bilateral wheezing. Chest x- ray suggest bilateral pneumonia. His white blood cell count was 20,000. Lactic acid was negative. Chronic renal sufficiency. Little worse than baseline. Troponin is elevated at 68,309. EKG did not show any acute ischemic changes. The patient was treated with IV cefepime and given a DuoNeb treatment. He will be seen by the hospitalist for further evaluation and care. His ox saturations improved to the 90s on 2 L of oxygen. Viral panel was negative. Impression & Plan Hypoxia, Bilateral pneumonia, Elevated troponin Discharge Plan Visit Data Chief Complaint: Shortness of Breath/Dyspnea Stated Complaint: SOB, SP02 81% ED Provider: Cornelius Doshi Discharge Problem: Hypoxia, Bilateral pneumonia, Elevated troponin Patient Disposition: Being Evaluated by Hospitalist Forms Stand Alone Forms: My [facility] Prescriptions Prescriptions: No Action calcitriol 0.25 mcg capsule 0.25 mcg PO DAILY Qty: 90 2RF metoprolol succinate 100 mg tablet extended release 24 hr 100 mg PO BID krill oil 500 mg capsule 500 mg PO BID ferrous sulfate 325 mg (65 mg iron) tablet 325 mg PO DAILY fluticasone propionate 50 mcg/actuation spray,suspension 1 spray intranasal DAILY PRN (Reason: Congestion) Rx Instructions: administer into each nostril vitamin B complex Tablet 1 tab PO DAILY mecobalamin (vitamin B12) 5,000 mcg tablet,disintegrating 5,000 mcg PO DAILY [id number] Tablet 1 tab PO DAILY coenzyme Q10 400 mg capsule 400 mg PO DAILY docusate sodium 100 mg capsule 100 mg PO DAILY potassium chloride 20 mEq tablet extended release 20 meq PO DAILY acetaminophen 650 mg tablet extended release 650 mg PO BID hydrochlorothiazide 25 mg tablet 50 mg PO DAILY Qty: 90 2RF sodium bicarbonate 650 mg tablet 1,300 mg PO BID Qty: 360 3RF Basaglar KwikPen U-100 Insulin 100 unit/mL (3 mL) insulin pen 35 units SQ BID atorvastatin 40 mg Tablet 40 mg PO DAILY amlodipine 10 mg Tablet 10 mg PO DAILY gemfibrozil 600 mg Tablet 600 mg PO DAILY magnesium oxide 400 mg magnesium Tablet 400 mg PO DAILY Eliquis 5 mg Tablet 5 mg PO BID 30 Days Qty: 60 1RF clopidogrel [Plavix] 75 mg tablet 75 mg PO DAILY Qty: 30 0RF Referrals Referrals: Art Trejo [Primary Care Provider] -
[2022-08-02] MEDS ORDERED: ALBUT/IPRATROP 3MG/0.5MG NEB 3 ML VIAL NEB STA (20:35)
[2022-08-02 20:38] LABS: Bilirubin Direct 0.1 mg/dl (0-0.2); Bilirubin,Total 0.4 mg/dl (0.2-1.0); Calcium 10.4 mg/dl (8.5-10.1); Creatinine Clr Calc Pharmacy 17.8 ml/min; Est GFR (African American) 16.3 ml/min; Magnesium 1.6 mg/dl (1.7-2.4)
[2022-08-02 21:08] LABS: Troponin I High Sensitivity 68309.9 pg/ml (0-20)
[2022-08-02 21:28] LABS: Adenovirus PCR Not Detected (NotDetected); Bordetella parapertussis PCR Not Detected (NotDetected); Bordetella pertussis PCR Not Detected (NotDetected); Chlamydia pneumoniae PCR Not Detected (NotDetected); Coronavirus 229E PCR Not Detected (NotDetected); Coronavirus CoV-2 (COVID19)PCR Not Detected (NotDetected); Coronavirus HKU1 PCR Not Detected (NotDetected); Coronavirus NL63 PCR Not Detected (NotDetected); Coronavirus OC43PCR Not Detected (NotDetected); Human Metapneumovirus PCR Not Detected (NotDetected); Influenza A PCR Not Detected (NotDetected); Influenza B PCR Not Detected (NotDetected); Mycoplasma pneumoniae PCR Not Detected (NotDetected); Parainfluenza Virus 1 PCR Not Detected (NotDetected); Parainfluenza Virus 2 PCR Not Detected (NotDetected); Parainfluenza Virus 3 PCR Not Detected (NotDetected); Parainfluenza Virus 4 PCR Not Detected (NotDetected); Respiratory Syncytial VirusPCR Not Detected (NotDetected); Rhinovirus/Enterovirus PCR Not Detected (NotDetected)
[2022-08-02] MEDS ORDERED: MAGNESIUM SULFATE / D5W 1 GM/100 ML BAG IV ONE (22:03)
[2022-08-02] MEDS ORDERED: METOPROLOL SUCC 50MG EXT REL TAB PO STA (22:06)
[2022-08-02] MEDS ORDERED: LANTUS PER UNIT CHARGE SQ ONE (22:07)
[2022-08-03] MEDS ORDERED: DEXTROSE 50% 50 ML SYRINGE IV PRN (00:19)
[2022-08-03] MEDS ORDERED: GLUCOSE 10 TAB/TUBE PO PRN (00:19)
[2022-08-03] MEDS ORDERED: GLUCOSE 40% GEL 15 GM TUBE PO PRN (00:19)
[2022-08-03] MEDS ORDERED: NITROGLYCERIN SL 0.4 MG/TAB TAB SL PRN (00:19)
[2022-08-03] MEDS ORDERED: GLUCAGON FOR INJ 1 MG VIAL SQ PRN (00:19)
[2022-08-03] MEDS ORDERED: Heparin IV Adult Wt-Based Low-Dose *NO* Bolus Protocol IV SCH (00:19)
[2022-08-03] MEDS ORDERED: ONDANSETRON INJ 2 MG/ML 2 ML VIAL IV PRN (00:19)
[2022-08-03] MEDS ORDERED: CARBOHYDRATES FOR HYPOGLYCEMIA PO PRN (00:19)
[2022-08-03] MEDS ORDERED: ACETAMINOPHEN 325 MG TAB PO PRN (00:19)
[2022-08-03] MEDS: METOPROLOL SUCC 50MG EXT REL TAB PO SCH ×3 (01:09→20:27)
[2022-08-03] MEDS: SODIUM BICARBONATE 650 MG TAB PO SCH ×3 (01:10→20:27)
[2022-08-03] MEDS: HEPARIN SODIUM/DEXTROSE 25,000 UNITS/500 ML BAG IV SCH (01:11)
[2022-08-03] MEDS: LANTUS PER UNIT CHARGE SQ SCH ×3 (01:11→20:26)
--- NOTE | 2022-08-03 03:58 | History & Physical Report ---
Date of Service August 03, 2022 The patient was seen and examined on 08/02/22 Assessment & Plan (1) Bilateral pneumonia: Plan: Bilateral pneumonia/acute respiratory failure with hypoxia- Cefepime 2 g IV every 12 hours Azithromycin 500 mg IV daily Guaifenesin extended release 1200 mg p.o. twice daily Duonebs every 4 hours while awake and every 2 hours when necessary. Pulmicort Respules 0.5 mg inhaled twice daily Nasal cannula oxygen, titrate to keep pulse ox 92-94%. Patient is 80% on room air (2) Hypoxia: (3) Elevated troponin: Plan: Elevated troponin/atrial fibrillation/hypertension- Troponin 68,309.9 on admission. The patient will be admitted to telemetry for serial cardiac enzymes, serial EKG's, cardiac rhythm monitoring and a 2-D echocardiogram with Dopplers. Hold Eliquis Start heparin drip low-dose no bolus per protocol Give magnesium sulfate 1 g IV for magnesium of 1.6 Consult cardiology (4) Chronic kidney disease, stage IV (severe): Plan: Acute kidney injury on chronic kidney disease- Creatinine 4.09, with range 2.4 to-3.58 Hold HCTZ and potassium NSS x80 mils per hour for 1 L Recheck laboratories in a.m. Continue aspirin, clopidogrel, amlodipine and metoprolol succinate Hold HCTZ and potassium chloride (5) Diabetes type 2, uncontrolled: Plan: Continue Lantus insulin but decrease dose from 35 units to 20 units subcu twice daily, with 15 units this evening Placed on Accu-Cheks with NovoLog SSI (6) Hyperlipidemia LDL goal <70: Plan: Continue atorvastatin 40 mg daily and gemfibrozil 600 mg daily (7) Bilateral carotid artery stenosis: (8) Atrial fibrillation, new onset: (9) Hypertension: Admission and Anticipated Discharge Date Admission Date: August 02, 2022 History of Present Illness Chief Complaint: The patient presents to the ED with complaint of SOB//ZHONG for 2 days, but made it very difficult to sleep last evening. He slept for most of the day today, which prompted his family to ask him to see a doctor today Primary Care Provider: Art Trejo The patient is a 67-year-old male with a past medical history including CKD stage IV, diabetes mellitus type 2, bilateral carotid artery stenosis, atrial fibrillation, anemia and hypertension. The patient presents with symptoms as noted above. He reports that a number of family members have come to visit due to the , but is unsure if any of them were sick. Allergies Allergy/AdvReac Type Severity Reaction Status Date / Time No Known Allergies Allergy Verified 08/02/22 21:00 Home Medications Medication Instructions Recorded Confirmed Type amlodipine 10 mg tablet 10 mg PO DAILY 06/26/18 08/02/22 History atorvastatin 40 mg tablet 40 mg PO DAILY 06/26/18 08/02/22 History gemfibrozil 600 mg tablet 600 mg PO DAILY 06/26/18 08/02/22 History magnesium oxide 400 mg PO DAILY 06/26/18 08/02/22 History insulin glargine 100 unit/mL (3 35 units subcut BID 01/13/20 08/02/22 History mL) subcutaneous pen (Basaglar KwikPen U-100 Insulin) apixaban 5 mg tablet (Eliquis) 5 mg PO BID 30 days #60 tabs 04/09/20 08/02/22 Rx clopidogrel 75 mg tablet (Plavix) 75 mg PO DAILY #30 tabs 04/09/20 08/02/22 Rx acetaminophen 650 mg 650 mg PO BID 05/30/20 08/02/22 History tablet,extended release coenzyme Q10 400 mg capsule 400 mg PO DAILY 05/30/20 08/02/22 History docusate sodium 100 mg capsule 100 mg PO DAILY 05/30/20 08/02/22 History ferrous sulfate 325 mg (65 mg 325 mg PO DAILY 05/30/20 08/02/22 History iron) tablet fluticasone propionate 50 1 spray intranasal DAILY PRN 05/30/20 08/02/22 History mcg/actuation nasal Congestion spray,suspension krill oil 500 mg capsule 500 mg PO BID 05/30/20 08/02/22 History mecobalamin (vitamin B12) 5,000 5,000 mcg PO DAILY 05/30/20 08/02/22 History mcg disintegrating tablet metoprolol succinate 100 mg 100 mg PO BID 05/30/20 08/02/22 History tablet,extended release 24 hr phcvczabghrr-ckdshdpj-yxawdm tablet 1 tab PO DAILY 05/30/20 08/02/22 History potassium chloride 20 mEq 20 meq PO DAILY 05/30/20 08/02/22 History tablet,extended release vitamin B complex 1 tab PO DAILY 05/30/20 08/02/22 History hydrochlorothiazide 25 mg tablet 50 mg PO DAILY #90 tabs 03/21/22 08/02/22 Rx sodium bicarbonate 650 mg tablet 1,300 mg PO BID #360 tabs 03/21/22 08/02/22 Rx calcitriol 0.25 mcg capsule 0.25 mcg PO DAILY #90 caps 03/23/22 08/02/22 Rx Past Med/Surg History Medical History (Updated 08/03/22 @ 04:26 by Alexander Santoyo MD) Acute non-ST elevation myocardial infarction (NSTEMI) Diabetes type 2, uncontrolled DKA (diabetic ketoacidoses) Hyperlipidemia LDL goal <70 Hypertension Lyme borreliosis Surgical History 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 Family History Other Diabetes type 2, controlled Social History Smoking Status: Never smoker Hx Alcohol Use: No Hx Substance Use: No Preferred Language: Azeri Communication Ability: Effective Button Breaker Required: No Beliefs That Will Affect Care: None Current Living Situation: Alone Feels Safe at Home: Yes Safety Concerns: Feels Safe At This Time Assistive Devices: Glasses Review of Systems Review of Systems: The patient denies chest pain, palpitations, cough, lower extremity swelling, sore throat, fevers, chills, sweats, nausea, vomiting, diarrhea , constipation, abdominal pain, pelvic pain, blood in urine or stool, dysuria, urinary frequency or urgency, lightheadedness, dizziness, headache, memory loss, loss of consciousness, rash, abnormal bruising or bleeding, imbalance, focal weakness, numbness or tingling in arms or legs, generalized arthralgias or myalgias, back or neck pain, or night sweats. The review of systems is otherwise negative other than for that already noted above, and at least 10 systems have been reviewed. Physical Exam Physical Exam: The patient is awake, alert and oriented 3, well developed and well nourished, normocephalic and atraumatic, lying in bed and in no acute distress. HEENT--PERRL, EOMI, mucous membranes and oropharynx mildly dry. Neck--supple. No JVD. No bruits. Thyroid normal, trachea midline, no adenopat hy. Heart--normal S1 and S2. No murmurs, rubs or gallops. Lungs--coarse breath sounds bilaterally with wheezes, right worse than left Abdomen--normal bowel sounds and soft. Nontender. Nondistended, no hernias or masses, no organomegaly. Extremities--no cyanosis or clubbing. No edema. Dermatologic--normal skin turgor, normal color, no abnormal lymph nodes, no rash. Neurologic--cranial nerves II through XII grossly intact. Rheumatologic--normal range of motion. Psychiatric--normal affect. Results & Data Results & Data ([facility]) Vital Signs (Past 12 Hours) Vital Signs Temp Pulse Pulse Resp BP BP Pulse Ox 08/03/22 02:30 174/82 H 08/03/22 00:59 08/03/22 00:33 08/03/22 00:08 37.3 C 91 H 22 186/75 H 95 08/03/22 00:01 08/02/22 23:30 84 24 177/81 H 90 08/02/22 22:30 95 H 22 172/78 H 90 08/02/22 22:01 94 H 29 H 189/135 H 92 08/02/22 21:49 93 H 24 93 08/02/22 21:49 192/86 H 08/02/22 19:31 174/82 H 08/02/22 20:30 92 H 22 90 08/02/22 20:00 89 29 H 90 08/02/22 19:31 88 28 H 93 08/02/22 19:24 60 L 08/02/22 19:24 90 08/02/22 19:24 08/02/22 19:17 36.6 C 94 H 22 181/80 H 86 L Pulse Ox O2 Del Method O2 Del Method O2 Flow Rate O2 Flow Rate 08/03/22 02:30 08/03/22 00:59 94 Nasal Cannula 5 08/03/22 00:33 Nasal Cannula 5 08/03/22 00:08 Nasal Cannula 5 08/03/22 00:01 Nasal Cannula 5 08/02/22 23:30 Nasal Cannula 5 08/02/22 22:30 Nasal Cannula 5 08/02/22 22:01 Nasal Cannula 5 08/02/22 21:49 Nasal Cannula 4 08/02/22 21:49 08/02/22 19:31 08/02/22 20:30 Nasal Cannula 2 08/02/22 20:00 Nasal Cannula 2 08/02/22 19:31 Nasal Cannula 2 08/02/22 19:24 Nasal Cannula 3 08/02/22 19:24 Nasal Cannula 3 08/02/22 19:24 Nasal Cannula 2 08/02/22 19:17 Room Air Laboratory Results Laboratory Results WBC 20.12 K/ul (4.8-10.8) H 08/02/22 20:05 RBC 3.59 M/uL (4.63-6.08) L 08/02/22 20:05 Hgb 10.6 g/dl (14.0-18.0) L 08/02/22 20:05 Hct 32.4 % (40.1-51.0) L 08/02/22 20:05 MCV 90.3 fL (80.0-100.0) 08/02/22 20:05 MCH 29.5 pg (25.0-34.0) 08/02/22 20:05 MCHC 32.7 g/dL (32.0-36.0) 08/02/22 20:05 RDW Std Deviation 46.5 fL (36.4-46.3) H 08/02/22 20:05 RDW Coeff of Whit 14.1 % (11.5-14.5) 08/02/22 20:05 Plt Count 327 K/uL (130-400) 08/02/22 20:05 MPV 9.1 fL (9.4-12.4) L 08/02/22 20:05 Immature Gran % (Auto) 0.7 % 08/02/22 20:05 Neut % (Auto) 83.8 % 08/02/22 20:05 Lymph % (Auto) 8.7 % 08/02/22 20:05 Prentiss % (Auto) 6.7 % 08/02/22 20:05 Eos % (Auto) 0.0 % 08/02/22 20:05 Baso % (Auto) 0.1 % 08/02/22 20:05 Neut # (Auto) 16.85 K/uL (1.4-6.5) H 08/02/22 20:05 Lymph # (Auto) 1.76 K/uL (1.2-3.4) 08/02/22 20:05 Prentiss # (Auto) 1.34 K/uL (0.24-0.82) H 08/02/22 20:05 Eos # (Auto) 0.00 K/uL (0-0.50) 08/02/22 20:05 Baso # (Auto) 0.02 K/uL (0-0.2) 08/02/22 20:05 Immature Gran # (Auto) 0.15 K/uL (0.00-0.02) H 08/02/22 20:05 PT 11.5 Seconds (9.0-12.0) 08/02/22 20:05 INR 1.1 (0.9-1.1) 08/02/22 20:05 APTT 28.2 Seconds (21.0-31.0) 08/02/22 20:05 PTT Ratio 1.0 08/02/22 20:05 Sodium 136 mmol/L (136-145) 08/02/22 20:05 Potassium 5.0 mmol/L (3.5-5.1) 08/02/22 20:05 Chloride 103 mmol/L (98-107) 08/02/22 20:05 Carbon Dioxide 19 mmol/L (21-32) L 08/02/22 20:05 Anion Gap 14 (3-11) H 08/02/22 20:05 BUN 82 mg/dl (6-23) H 08/02/22 20:05 Creatinine 4.09 mg/dl (0.6-1.4) H 08/02/22 20:05 Est Cr Clr Drug Dosing 17.8 ml/min 08/02/22 20:05 Est GFR ( Amer) 16.3 ml/min 08/02/22 20:05 Est GFR (Non-Af Amer) 14.0 ml/min 08/02/22 20:05 BUN/Creatinine Ratio 20.0 (10-20) 08/02/22 20:05 Glucose 150 mg/dl (70-99(Fasting)) H 08/02/22 20:05 POC Glucose 141 mg/dl (70-99) H 08/03/22 00:18 Lactate 1.7 mmol/L (0.4-2.0) 08/02/22 19:59 Calcium 10.4 mg/dl (8.5-10.1) H 08/02/22 20:05 Magnesium 1.6 mg/dl (1.7-2.4) L 08/02/22 20:05 Total Bilirubin 0.4 mg/dl (0.2-1.0) 08/02/22 20:05 Direct Bilirubin 0.1 mg/dl (0-0.2) 08/02/22 20:05 AST 178 U/L (13-39) H 08/02/22 20:05 ALT 34 U/L (7-52) 08/02/22 20:05 Alkaline Phosphatase 60 U/L (34-104) 08/02/22 20:05 Troponin I High Sens 98364.9 pg/ml (0-20) H* 08/03/22 00:20 Total Protein 8.0 gm/dl (6.0-8.3) 08/02/22 20:05 Albumin 4.0 gm/dl (3.4-5.0) 08/02/22 20:05 Procalcitonin 0.35 ng/ml (0-0.5) 08/02/22 20:05 Nasal Screen MRSA (PCR) Negative (Negative) 08/03/22 00:49 Adenovirus (PCR) Not Detected (NotDetected) 08/02/22 19:25 B. pertussis DNA (PCR) Not Detected (NotDetected) 08/02/22 19:25 B.parapertussis DNA PCR Not Detected (NotDetected) 08/02/22 19:25 C. pneumoniae DNA (PCR) Not Detected (NotDetected) 08/02/22 19:25 Coronavirus OC43 (PCR) Not Detected (NotDetected) 08/02/22 19:25 Coronavirus HKU1 (PCR) Not Detected (NotDetected) 08/02/22 19:25 Coronavirus 229E (PCR) Not Detected (NotDetected) 08/02/22 19:25 SARS-CoV-2 (PCR) Not Detected (NotDetected) 08/02/22 19:25 Coronavirus NL63 (PCR) Not Detected (NotDetected) 08/02/22 19:25 Human Metapneumovir PCR Not Detected (NotDetected) 08/02/22 19:25 Influenza Type A (PCR) Not Detected (NotDetected) 08/02/22 19:25 Influenza Type B (PCR) Not Detected (NotDetected) 08/02/22 19:25 M. pneumoniae (PCR) Not Detected (NotDetected) 08/02/22 19:25 Parainfluenza 1 (PCR) Not Detected (NotDetected) 08/02/22 19:25 Parainfluenza 2 (PCR) Not Detected (NotDetected) 08/02/22 19:25 Parainfluenza 3 (PCR) Not Detected (NotDetected) 08/02/22 19:25 Parainfluenza 4 (PCR) Not Detected (NotDetected) 08/02/22 19:25 RSV (PCR) Not Detected (NotDetected) 08/02/22 19:25 Entero/Rhino (PCR) Not Detected (NotDetected) 08/02/22 19:25 Code Status & VTE Plan Code Status Full code VTE Prophylaxis Plan VTE Prophylaxis will be ordered: Yes (1) Hypertension Hypertension type: unspecified Qualified Code(s): I10 - Essential (primary) hypertension
--- NOTE | 2022-08-03 04:29 | Billing Data ---
Date of Service August 03, 2022 Coding Level of Care Code 55145 Initial Inpt Care Lvl 3
[2022-08-03 06:36] LABS: Basophils # (auto) 0.02 K/uL (0-0.2); Basophils % (auto) 0.1 %; Eosinophils # (auto) 0.01 K/uL (0-0.50); Eosinophils % (auto) 0.1 %; Hematocrit (blood only) 27.8 % (40.1-51.0); Hemoglobin 9.2 g/dl (14.0-18.0); Immature Granulocytes # (auto) 0.22 K/uL (0.00-0.02); Immature Granulocytes % (auto) 1.3 %; Lymphocytes # (auto) 2.08 K/uL (1.2-3.4); Lymphocytes % (auto) 12.2 %; Mean Corpuscular Hgb Conc 33.1 g/dL (32.0-36.0); Mean Corpuscular Volume 90.6 fL (80.0-100.0); Mean Platelet Volume 8.9 fL (9.4-12.4); Monocytes # (auto) 1.56 K/uL (0.24-0.82); Monocytes % (auto) 9.2 %; Neutrophils # (auto) 13.13 K/uL (1.4-6.5); Neutrophils % (auto) 77.1 %; Platelet Count 274 K/uL (130-400); RDW Standard Deviation 45.4 fL (36.4-46.3); Red Blood Count 3.07 M/uL (4.63-6.08); White Blood Count 17.02 K/ul (4.8-10.8)
[2022-08-03] MEDS: ALBUT/IPRATROP 3MG/0.5MG NEB 3 ML VIAL NEB SCH ×4 (06:56→19:33)
[2022-08-03] MEDS: BUDESONIDE 0.5 MG/2 ML VIAL (PULMICORT) NEB SCH ×2 (06:56→19:33)
[2022-08-03 07:03] LABS: Albumin Globulin Ratio 1.1 (0.9-2); Albumin Level 3.5 gm/dl (3.4-5.0); BUN Creatinine Ratio 19.7 (10-20); Bilirubin,Total 0.3 mg/dl (0.2-1.0); Calcium 9.1 mg/dl (8.5-10.1); Creatinine Clr Calc Pharmacy 20.5 ml/min; Est GFR (African American) 16.4 ml/min; Est GFR (Non-African American) 14.1 ml/min; Globulin 3.3 gm/dl (2.5-4.0); Magnesium 1.9 mg/dl (1.7-2.4); Potassium 4.6 mmol/L (3.5-5.1); Total Protein 6.8 gm/dl (6.0-8.3)
[2022-08-03 07:38] LABS: Estimated Average Glucose 126 mg/dl
[2022-08-03 07:41] LABS: INR 1.1 (0.9-1.1); Partial Thromboplastin Ratio 1.1; Partial Thromboplastin Time 31.3 Seconds (21.0-31.0); Prothrombin Time 11.2 Seconds (9.0-12.0)
[2022-08-03] MEDS: gemfibroziL 600 MG TAB PO SCH (08:11)
[2022-08-03] MEDS: FERROUS SULFATE 325 MG TAB PO SCH (08:12)
[2022-08-03] MEDS: CYANOCOBALAMIN (B-12) 2,500 MCG TABLET SL SCH (08:12)
[2022-08-03] MEDS: CALCITRIOL 0.25 MCG CAPSULE PO SCH (08:12)
[2022-08-03] MEDS: VITAMIN B COMPLEX TAB PO SCH (08:12)
[2022-08-03] MEDS: amLODIPine BESYLATE 5 MG TAB PO SCH (08:13)
[2022-08-03] MEDS: DOCUSATE SODIUM 100 MG CAP PO SCH (08:13)
[2022-08-03] MEDS: ATORVASTATIN 40 MG TAB PO SCH (08:13)
[2022-08-03] MEDS: CEROVITE ADV FORMULA TAB PO SCH (08:13)
[2022-08-03] MEDS: CLOPIDOGREL BISULFATE 75 MG TAB PO SCH (08:14)
[2022-08-03] MEDS: MAGNESIUM OXIDE 400 MG TAB PO SCH (08:15)
[2022-08-03] MEDS ORDERED: HEPARIN SOD (PORCINE) 1000 UNIT/ML IV ONE ×3 (08:15→23:50)
[2022-08-03] MEDS: guaiFENesin 600 MG TABCR PO SCH ×2 (08:15→20:26)
[2022-08-03] MEDS: INSULIN ASPART PER UNIT SC SCH ×4 (08:25→20:23)
--- NOTE | 2022-08-03 08:46 | XRay Report ---
XR chest 1V portable CLINICAL HISTORY: Sepsis TECHNIQUE: Single frontal radiograph of the chest was obtained. Comparison: Comparison is made to chest radiograph 04/07/2020 FINDINGS: No lines and tubes are seen. Cardiomegaly is noted. The aortic arch is calcified. Multifocal airspace opacities are seen. No evidence of pleural effusion or pneumothorax. IMPRESSION: Multifocal airspace opacities may represent atelectasis, pneumonia, and/or aspiration. ACT 112: Negative or not required by law. Electronically signed by: Wally Qiu M.D. 08/03/2022 8:44 AM
[2022-08-03] MEDS: AZITHROMYCIN 500 MG in DEXTROSE 5% 250 ML IV SCH (08:50)
--- NOTE | 2022-08-03 09:00 | Cardiology Consultation ---
Date of Consultation August 03, 2022 Assessment & Plan (1) Demand ischemia: (2) Elevated troponin: (3) Bilateral pneumonia: (4) Hypoxia: (5) Chronic kidney disease, stage IV (severe): (6) IDDM (insulin dependent diabetes mellitus): Plan 67-year-old man with significant vascular risk factors (DM, HTN, dyslipidemia) and apparent vascular disease (vertebral stenosis with questionable carotid stenosis), who was admitted with bilateral pneumonia and found to have an elevated troponin. Of note, his troponin is chronically quite elevated, going back to at least 2018, when I saw him in consultation for a very similar presentation (elevated troponin in the context of DKA). Most likely his chronic troponin elevations are secondary to a combination of severe left ventricular hypertrophy and chronic kidney disease, with fluctuations likely based on transient supply/demand factors when he faces any hemodynamic challenge. ECG is difficult to interpret given his baseline LVH with repolarization abnormalities, but does not show any definite ischemic changes nor evidence of i nfarct. The absence of chest pain and the presence of normal wall motion on echocardiogram is quite reassuring, making the occurrence of an acute thrombotic event exceedingly unlikely. He has not been tachycardic but has had significant BP elevation since admission, this could be the source of supply/demand mismatch. Given the low likelihood that this is an acute thrombotic event, could discontinue heparin and restart his apixaban. Rhythm appears to have been been sinus since admission. Continue metoprolol succinate 100 mg twice daily for rhythm/rate control. He may need additional antihypertensive medication for BP spikes, could consider clonidine 0.1 mg twice daily with additional as needed use if necessary. If he does develop chest pain or further cardiac issues, please contact Dr. Mittal tomorrow, as he will be covering [facility] cardiology. History of Present Illness Reason for Consultation: NSTEMI, pneumonia Requesting Physician: Abril Curiel MD Attending Physician: Abril Curiel MD History of Present Illness 67-year-old man with HTN, DM, stage IV chronic kidney disease, chronic anemia, ? carotid artery stenosis, paroxysmal atrial fibrillation (metoprolol/apixaban) who was admitted earlier today (08/03/2022) with bilateral pneumonia and noted to have an elevated troponin. His main complaint is dyspnea, although he has bilateral pneumonia he denies chest pain at any time. Troponin was significantly elevated but fairly flat curve over the first 4 draws with a modest decline on the fifth draw. ECGs did show some initial ST abnormalities, but earlier ECGs have shown left ventricular hypertrophy with repolarization abnormalities, making the recent findings nonspecific. Echocardiogram today shows severe LVH with type II diastolic dysfunction, no wall motion abnormalities. Of note, the diagnosis of "carotid artery stenosis" is uncertain, as Dopplers have suggested 70-99% left carotid stenosis, but CT angiograms in 2018 and 2019 showed linear densities consistent with possible prior dissection but no remaining stenosis. He did have significant left vertebral stenosis on the angiograms. At the time my evaluation, the patient was comfortable at rest and had no somatic complaints. Allergies Allergy/AdvReac Type Severity Reaction Status Date / Time No Known Allergies Allergy Verified 08/02/22 21:00 Home Medications Medication Instructions Recorded Confirmed Type amlodipine 10 mg tablet 10 mg PO DAILY 06/26/18 08/02/22 History atorvastatin 40 mg tablet 40 mg PO DAILY 06/26/18 08/02/22 History gemfibrozil 600 mg tablet 600 mg PO DAILY 06/26/18 08/02/22 History magnesium oxide 400 mg PO DAILY 06/26/18 08/02/22 History insulin glargine 100 unit/mL (3 35 units subcut BID 01/13/20 08/02/22 History mL) subcutaneous pen (Basaglar KwikPen U-100 Insulin) apixaban 5 mg tablet (Eliquis) 5 mg PO BID 30 days #60 tabs 04/09/20 08/02/22 Rx clopidogrel 75 mg tablet (Plavix) 75 mg PO DAILY #30 tabs 04/09/20 08/02/22 Rx acetaminophen 650 mg 650 mg PO BID 05/30/20 08/02/22 History tablet,extended release coenzyme Q10 400 mg capsule 400 mg PO DAILY 05/30/20 08/02/22 History docusate sodium 100 mg capsule 100 mg PO DAILY 05/30/20 08/02/22 History ferrous sulfate 325 mg (65 mg 325 mg PO DAILY 05/30/20 08/02/22 History iron) tablet fluticasone propionate 50 1 spray intranasal DAILY PRN 05/30/20 08/02/22 History mcg/actuation nasal Congestion spray,suspension krill oil 500 mg capsule 500 mg PO BID 05/30/20 08/02/22 History mecobalamin (vitamin B12) 5,000 5,000 mcg PO DAILY 05/30/20 08/02/22 History mcg disintegrating tablet metoprolol succinate 100 mg 100 mg PO BID 05/30/20 08/02/22 History tablet,extended release 24 hr kghaqiypskyd-pwmadzjc-itqrrw tablet 1 tab PO DAILY 05/30/20 08/02/22 History potassium chloride 20 mEq 20 meq PO DAILY 05/30/20 08/02/22 History tablet,extended release vitamin B complex 1 tab PO DAILY 05/30/20 08/02/22 History hydrochlorothiazide 25 mg tablet 50 mg PO DAILY #90 tabs 03/21/22 08/02/22 Rx sodium bicarbonate 650 mg tablet 1,300 mg PO BID #360 tabs 03/21/22 08/02/22 Rx calcitriol 0.25 mcg capsule 0.25 mcg PO DAILY #90 caps 03/23/22 08/02/22 Rx Patient History Medical History Acute non-ST elevation myocardial infarction (NSTEMI) Diabetes type 2, uncontrolled DKA (diabetic ketoacidoses) Hyperlipidemia LDL goal <70 Hypertension Lyme borreliosis Surgical History 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 Family History Other Diabetes type 2, controlled Social History Smoking Status: Never smoker Hx Alcohol Use: No Hx Substance Use: No Preferred Language: Polish Communication Ability: Effective Party Host Required: No Beliefs That Will Affect Care: None Current Living Situation: Alone Feels Safe at Home: Yes Safety Concerns: Feels Safe At This Time Assistive Devices: Cane Physical Exam Physical Exam: No distress. BP mildly hypertensive. Pulse 76 bpm and regular without ectopy. Skin: no ecchymoses or generalized lesions. HEENT: unremarkable. Neck: Jugular venous pulse just above the clavicle, no obvious carotid bruits. Lungs: Bilateral expiratory wheezing, greater on the left. No accessory muscle use. Cardiac: regular rhythm, no murmur or gallop. Abdomen: benign. Extremities: no edema, pulses intact. Neurologic: normal affect and conversation, nonfocal. Results & Data ([facility]) Laboratory Results High-sensitivity troponin curve was flat as follows: [id number] Normal sodium and potassium, BUN 80, creatinine 4.07. Magnesium initially 1.6, 1.9 today. Hemoglobin 9.2 with white count 17.02, normal platelet count. Diagnostic Findings ECG on admission showed sinus rhythm at [address] abnormalities (1 to [address] depression in multiple leads). Repeat ECG today showed sinus rhythm at 79 bpm with persistent but improved ST abnormalities. Chest x-ray on admission showed multifocal airspace opacities, likely pneumonia. Echocardiogram today showed normal systolic function with no wall motion abnormalities, severe LVH with type II diastolic dysfunction, mild mitral regurgitation. Echocardiogram from 2020 showed EF 65 to 70% with no wall motion abnormalities, moderate LVH was present, trivial pericardial effusion, no significant valvular disease and no change compared with 2018. PG Care Time/CCT Total # of Minutes Spent Total Time Spent with Patient: Total time spent is greater than 50% in coordination of care (as documented) at patient's floor/unit and/or counseling patient: Coding Level of Care Code 56239 Inpt Consult Level 4 Diagnoses Demand ischemia I24.8 Elevated troponin R77.8 Bilateral pneumonia J18.9 Hypoxia R09.02 Chronic kidney disease, stage IV (severe) N18.4 IDDM (insulin dependent diabetes mellitus) E11.9; Z79.4
--- NOTE | 2022-08-03 09:13 | Electrocardiogram Report ---
Test Reason : Blood Pressure : / mmHG Vent. Rate : 079 BPM Atrial Rate : 079 BPM P-R Int : 160 ms QRS Dur : 092 ms QT Int : 396 ms P-R-T Axes : 021 012 105 degrees QTc Int : 454 ms Poor data quality, interpretation may be adversely affected Normal sinus rhythm Cannot rule out Anteroseptal infarct , age undetermined Nonspecific ST and T wave abnormality Lateral leads Abnormal ECG When compared with ECG of 02-AUG-2022 19:24, Minimal criteria for Anteroseptal infarct are now Present Confirmed by Shaggy Lo ([id number]) on 08/03/2022 9:13:37 AM Referred By: REFERRED SELF Confirmed By:Shaggy Lo
--- NOTE | 2022-08-03 09:13 | Electrocardiogram Report ---
Test Reason : Blood Pressure : / mmHG Vent. Rate : 091 BPM Atrial Rate : 091 BPM P-R Int : 166 ms QRS Dur : 090 ms QT Int : 378 ms P-R-T Axes : 023 024 057 degrees QTc Int : 464 ms Normal sinus rhythm Diffuse Nonspecific ST and T wave abnormality Prolonged QT Abnormal ECG When compared with ECG of 07-APR-2020 12:59, Criteria for Voltage criteria for left ventricular hypertrophy no longer present Nonspecific ST and T wave abnormality less pronounced Confirmed by Shaggy Lo ([id number]) on 08/03/2022 9:13:02 AM Referred By: REFERRED SELF Confirmed By:Shaggy Lo
--- NOTE | 2022-08-03 14:22 | Hospitalist Progress Note ---
Date of Service August 03, 2022 Assessment & Plan (1) Bilateral pneumonia: Plan: Patient has been feeling unwell for a few days Presents to the hospital on account of worsening SOB Found to have Bilateral pneumonia on prema x ray COVID was negative Cultures were obtained Started on Cefepime 2 g IV every 12 hours and Azithromycin 500 mg IV daily Guaifenesin extended release 1200 mg p.o. twice daily Duonebs every 4 hours while awake and every 2 hours when necessary. Pulmicort Respules 0.5 mg inhaled twice daily Nasal cannula oxygen, titrate to keep pulse ox 92-94%. (2) Hypoxia: Plan: acute respiratory failure with hypoxia- secondary to PNA Currently on 5L oxygen through mask wean as tolerated (3) Elevated troponin: Plan: Most lijkley demand ischemia from worsening Afib and PNA Troponin 68,309.9 on admission. He was started on Heparin by weight, his home Eliquis was held No ST changes on EKG Cardiology consulted 2 D ECHO pending (4) Chronic kidney disease, stage IV (severe): Plan: Acute kidney injury on chronic kidney disease- Creatinine 4.09, with range 2.4 to-3.58 Hold HCTZ and potassium Recheck laboratories in a.m. Continue aspirin, clopidogrel, amlodipine and metoprolol succinate Hold HCTZ and potassium chloride Continue sodium bicarbonate Outpatient follow up with nephrology (5) Diabetes type 2, uncontrolled: Plan: Continue Lantus insulin but decrease dose from 35 units to 20 units subcu twice daily, with 15 units this evening Placed on Accu-Cheks with NovoLog SSI Blood glucose under fair control (6) Hyperlipidemia LDL goal <70: Plan: Continue atorvastatin 40 mg daily and gemfibrozil 600 mg daily (7) Bilateral carotid artery stenosis: (8) Atrial fibrillation, new onset: Plan: Patient on Eliquis at home (9) Hypertension: Plan continue hospitalization Admission and Anticipated Discharge Date Admission Date: August 02, 2022 Subjective patient seen and examined,feels a little less short of breath Review of Systems Review of Systems: All systems reviewed are negative, apart from the ones contained in the history. Physical Exam Physical Exam: The patient is awake, alert and oriented 3, well developed and well nourished, normocephalic and atraumatic, lying in bed and in no acute distress. HEENT--PERRL, EOMI, mucous membranes and oropharynx mildly dry Neck--supple. No JVD. No bruits. Thyroid normal, trachea midline, no adenopathy. Heart--normal S1 and S2. No murmurs, rubs or gallops. Lungs--Reduced air entry on auscultation Abdomen--normal bowel sounds and soft. Mild epigastric and left sided abdominal pain Extremities--no cyanosis or clubbing. No edema. Dermatologic--normal skin turgor, normal color, no abnormal lymph nodes, no rash. Neurologic--cranial nerves II through XII grossly intact. Rheumatologic--normal range of motion. Psychiatric--normal affect. Results & Data Results & Data ([facility]) Vital Signs (Past 12 Hours) Vital Signs Temp Pulse Pulse Resp BP Pulse Ox O2 Del Method 08/03/22 11:58 98.2 F 76 20 160/73 H 97 Oxymask 08/03/22 11:00 71 18 93 Oxymask 08/03/22 07:00 75 08/03/22 08:43 92 Oxymask 08/03/22 07:38 98.4 F 82 18 155/78 H 92 Nasal Cannula 08/03/22 06:58 80 19 94 Nasal Cannula 08/03/22 04:02 97.5 F L 77 17 165/76 H 90 Nasal Cannula 08/03/22 02:30 174/82 H O2 Flow Rate 08/03/22 11:58 5 08/03/22 11:00 4 08/03/22 07:00 08/03/22 08:43 5 08/03/22 07:38 3 08/03/22 06:58 4 08/03/22 04:02 5 08/03/22 02:30 PG Care Time/CCT Total # of Minutes Spent Total Time Spent with Patient: Total time spent is greater than 50% in coordination of care (as documented) at patient's floor/unit and/or counseling patient: Coding Level of Care Code 88262 Subseq Hosp Care Lvl 2 Diagnoses Bilateral pneumonia J18.9 Hypoxia R09.02 Elevated troponin R77.8 Chronic kidney disease, stage IV (severe) N18.4 Diabetes type 2, uncontrolled E11.65 Hyperlipidemia LDL goal <70 E78.5 Bilateral carotid artery stenosis I65.23 Atrial fibrillation, new onset I48.91 Hypertension I10 Hypertension type: unspecified Time Spent (min) 35 (1) Hypertension Hypertension type: unspecified Qualified Code(s): I10 - Essential (primary) hypertension
--- NOTE | 2022-08-03 14:24 | XCELERA ---
[id number]}___[id number]
[2022-08-03 15:21] LABS: Partial Thromboplastin Ratio 1.2; Partial Thromboplastin Time 32.4 Seconds (21.0-31.0)
[2022-08-03] MEDS: CEFEPIME 2,000 MG in SYRINGE 0 ML IV SCH (20:26)
[2022-08-03 22:56] LABS: Partial Thromboplastin Ratio 1.2; Partial Thromboplastin Time 31.9 Seconds (21.0-31.0)
[2022-08-04] MEDS: HEPARIN SODIUM/DEXTROSE 25,000 UNITS/500 ML BAG IV SCH ×2 (00:08→19:05)
[2022-08-04 05:38] LABS: Basophils # (auto) 0.02 K/uL (0-0.2); Basophils % (auto) 0.1 %; Eosinophils # (auto) 0.05 K/uL (0-0.50); Eosinophils % (auto) 0.4 %; Hemoglobin 8.3 g/dl (14.0-18.0); Immature Granulocytes % (auto) 0.7 %; Lymphocytes # (auto) 1.98 K/uL (1.2-3.4); Lymphocytes % (auto) 14.5 %; Mean Corpuscular Hemoglobin 30.1 pg (25.0-34.0); Mean Corpuscular Hgb Conc 33.2 g/dL (32.0-36.0); Mean Corpuscular Volume 90.6 fL (80.0-100.0); Mean Platelet Volume 9.3 fL (9.4-12.4); Monocytes # (auto) 1.15 K/uL (0.24-0.82); Monocytes % (auto) 8.4 %; Neutrophils % (auto) 75.9 %; Platelet Count 234 K/uL (130-400); RDW Standard Deviation 46.2 fL (36.4-46.3); Red Blood Count 2.76 M/uL (4.63-6.08)
[2022-08-04 05:58] LABS: Partial Thromboplastin Ratio 1.4; Partial Thromboplastin Time 37.6 Seconds (21.0-31.0); Prothrombin Time 11.1 Seconds (9.0-12.0)
[2022-08-04 06:20] LABS: Albumin Globulin Ratio 1.1 (0.9-2); Albumin Level 3.4 gm/dl (3.4-5.0); BUN Creatinine Ratio 18.7 (10-20); Bilirubin,Total 0.4 mg/dl (0.2-1.0); Calcium 8.6 mg/dl (8.5-10.1); Creatinine Clr Calc Pharmacy 18.4 ml/min; Est GFR (African American) 14.3 ml/min; Est GFR (Non-African American) 12.4 ml/min; Globulin 3.2 gm/dl (2.5-4.0); Magnesium 1.9 mg/dl (1.7-2.4); Potassium 4.2 mmol/L (3.5-5.1); Total Protein 6.6 gm/dl (6.0-8.3)
[2022-08-04] MEDS ORDERED: HEPARIN SOD (PORCINE) 1000 UNIT/ML IV ONE (06:30)
[2022-08-04] MEDS: BUDESONIDE 0.5 MG/2 ML VIAL (PULMICORT) NEB SCH (07:07)
[2022-08-04] MEDS: ALBUT/IPRATROP 3MG/0.5MG NEB 3 ML VIAL NEB SCH ×2 (07:07→11:00)
--- NOTE | 2022-08-04 07:15 | Electrocardiogram Report ---
Test Reason : Blood Pressure : / mmHG Vent. Rate : 074 BPM Atrial Rate : 074 BPM P-R Int : 162 ms QRS Dur : 096 ms QT Int : 412 ms P-R-T Axes : 022 016 088 degrees QTc Int : 457 ms Normal sinus rhythm Abnormal ECG Confirmed by Jose Eduardo Mittal ([id number]) on 08/04/2022 7:15:13 AM Referred By: REFERRED SELF Confirmed By:Dominguez Mittal
[2022-08-04] MEDS: amLODIPine BESYLATE 5 MG TAB PO SCH (08:32)
[2022-08-04] MEDS: CYANOCOBALAMIN (B-12) 2,500 MCG TABLET SL SCH (08:32)
[2022-08-04] MEDS: guaiFENesin 600 MG TABCR PO SCH ×2 (08:33→20:07)
[2022-08-04] MEDS: SODIUM BICARBONATE 650 MG TAB PO SCH ×2 (08:33→20:08)
[2022-08-04] MEDS: MAGNESIUM OXIDE 400 MG TAB PO SCH (08:33)
[2022-08-04] MEDS: VITAMIN B COMPLEX TAB PO SCH (08:33)
[2022-08-04] MEDS: CEROVITE ADV FORMULA TAB PO SCH (08:34)
[2022-08-04] MEDS: DOCUSATE SODIUM 100 MG CAP PO SCH (08:34)
[2022-08-04] MEDS: ATORVASTATIN 40 MG TAB PO SCH (08:34)
[2022-08-04] MEDS: CLOPIDOGREL BISULFATE 75 MG TAB PO SCH (08:34)
[2022-08-04] MEDS: FERROUS SULFATE 325 MG TAB PO SCH (08:35)
[2022-08-04] MEDS: gemfibroziL 600 MG TAB PO SCH (08:36)
[2022-08-04] MEDS: METOPROLOL SUCC 50MG EXT REL TAB PO SCH ×2 (08:36→20:08)
[2022-08-04] MEDS: CALCITRIOL 0.25 MCG CAPSULE PO SCH (08:37)
[2022-08-04] MEDS: LANTUS PER UNIT CHARGE SQ SCH ×2 (08:57→20:06)
[2022-08-04] MEDS: INSULIN ASPART PER UNIT SC SCH ×4 (08:57→20:03)
[2022-08-04] MEDS: AZITHROMYCIN 500 MG in DEXTROSE 5% 250 ML IV SCH (09:00)
[2022-08-04] MEDS: APIXABAN 5 MG TABLET PO SCH ×2 (09:04→20:07)
--- NOTE | 2022-08-04 12:46 | Hospitalist Progress Note ---
Date of Service August 04, 2022 Assessment & Plan (1) Bilateral pneumonia: Plan: According to Patient he had been feeling unwell for a few days prior to presentation was Found to have Bilateral pneumonia on prema x ray COVID was negative Cultures were obtained Started on Cefepime 2 g IV every 12 hours and Azithromycin 500 mg IV daily Guaifenesin extended release 1200 mg p.o. twice daily Duonebs every 4 hours while awake and every 2 hours when necessary. Pulmicort Respules 0.5 mg inhaled twice daily Nasal cannula oxygen, titrate to keep pulse ox 92-94%. SOB is much improved (2) Hypoxia: Plan: acute respiratory failure with hypoxia- secondary to PNA Currently on 2L oxygen through mask wean as tolerated (3) Elevated troponin: Plan: Most likely demand ischemia from worsening renal function, elevated BP Troponin 68,309.9 on admission. He was started on Heparin by weight, his home Eliquis was held No acute ST changes on EKG, but chronic repolarization changes Cardiology consulted, Heparin has been stopped, Eliquis continued 2 D ECHO shows preserved EF, but grade II diasytolic dysfunction (4) Chronic kidney disease, stage IV (severe): Plan: Acute kidney injury on chronic kidney disease- Creatinine still worsening Hold HCTZ and potassium Recheck laboratories in a.m. Continue aspirin, clopidogrel, amlodipine and metoprolol succinate Hold HCTZ and potassium chloride Continue sodium bicarbonate consult nephrology (5) Diabetes type 2, uncontrolled: Plan: Continue Lantus insulin but decrease dose from 35 units to 20 units subcu twice daily, with 15 units this evening Placed on Accu-Cheks with NovoLog SSI Blood glucose under fair control (6) Hyperlipidemia LDL goal <70: Plan: Continue atorvastatin 40 mg daily and gemfibrozil 600 mg daily (7) Bilateral carotid artery stenosis: (8) Atrial fibrillation, new onset: Plan: Patient on Eliquis at home (9) Hypertension: Plan continue hospitalization Admission and Anticipated Discharge Date Admission Date: August 02, 2022 Subjective patient seen and examined,feels a little less short of breath Review of Systems Review of Systems: All systems reviewed are negative, apart from the ones contained in the history. Physical Exam Physical Exam: The patient is awake, alert and oriented 3, well developed and well nourished, normocephalic and atraumatic, lying in bed and in no acute distress. HEENT--PERRL, EOMI, mucous membranes and oropharynx mildly dry Neck--supple. No JVD. No bruits. Thyroid normal, trachea midline, no adenopa thy. Heart--normal S1 and S2. No murmurs, rubs or gallops. Lungs--Reduced air entry on auscultation Abdomen--normal bowel sounds and soft. Mild epigastric and left sided abdominal pain Extremities--no cyanosis or clubbing. No edema. Dermatologic--normal skin turgor, normal color, no abnormal lymph nodes, no rash. Neurologic--cranial nerves II through XII grossly intact. Rheumatologic--normal range of motion. Psychiatric--normal affect. Results & Data Results & Data ([facility]) Vital Signs (Past 12 Hours) Vital Signs Temp Pulse Pulse Resp BP Pulse Ox O2 Del Method 08/04/22 11:00 98.1 F 71 18 159/73 H 94 Nasal Cannula 08/04/22 11:00 74 16 98 Nasal Cannula 08/04/22 07:00 98.1 F 74 18 153/71 H 91 Oxymask 08/04/22 07:17 73 08/04/22 06:06 Oxymask 08/04/22 02:52 97.9 F 79 18 164/74 H 93 Oxymask O2 Flow Rate 08/04/22 11:00 2 08/04/22 11:00 4 08/04/22 07:00 4 08/04/22 07:17 08/04/22 06:06 5 08/04/22 02:52 9 PG Care Time/CCT Total # of Minutes Spent Total Time Spent with Patient: Total time spent is greater than 50% in coordination of care (as documented) at patient's floor/unit and/or counseling patient: Coding Level of Care Code 84198 Subseq Hosp Care Lvl 2 Diagnoses Bilateral pneumonia J18.9 Hypoxia R09.02 Elevated troponin R77.8 Chronic kidney disease, stage IV (severe) N18.4 Diabetes type 2, uncontrolled E11.65 Hyperlipidemia LDL goal <70 E78.5 Bilateral carotid artery stenosis I65.23 Atrial fibrillation, new onset I48.91 Hypertension I10 Hypertension type: unspecified Time Spent (min) 35 (1) Hypertension Hypertension type: unspecified Qualified Code(s): I10 - Essential (primary) hypertension
--- NOTE | 2022-08-04 13:05 | Nephrology Consultation ---
Date of Consultation August 04, 2022 Assessment & Plan (1) Acute kidney injury: (2) Hypertension: (3) Anemia: (4) Bilateral pneumonia: (5) Renal artery stenosis: Plan 67 year old gentleman with stage IV CKD in the setting of renovascular disease, poorly-controlled hypertension, diabetes with nephrotic range proteinuria baseline creatinine 3-3.5. Admitted with hypoxic respiratory failure and noted to have pneumonia and elevated troponin. Renal function has been worsening over last 2 days with creatinine up to 4.5, blood pressure poorly controlled and renal artery Doppler showing more than 60% stenosis and right renal artery. -- poorly-controlled hypertension and elevated creatinine could be secondary to underlying hemodynamically significant renal artery stenosis although Doppler is showing more than 60% stenosis. . -- may need further evaluation with CTA or angiogram however considering MONE, focus on blood pressure control, start on hydralazine 25 mg 3 times a day. Since he has underlying pretty advanced CKD, even if there is critical left renal artery stenosis, unclear how much benefit there will be with any vascular intervention. -- routine vascular consult -- continue calcitriol and sodium bicarbonate Thank you for allowing me to participate in your patient's care. It was a pleasure to see Dionicio. History of Present Illness Reason for Consultation: Acute kidney injury with advanced CKD, poorly-controlled hypertension and concern for renovascular disease. Attending Physician: Abril Curiel MD History of Present Illness Dionicio Coleman is 67-year-old gentleman with past medical history significant for stage IV CKD baseline creatinine 3-3.5, hypertension, diabetes, LVH, AFib admitted to the hospital with pneumonia, MONE and elevated troponin. Nephrology consult was requested for management of MONE with advanced CKD and poorly- controlled hypertension. EMR records are reviewed in detail during patient's visit. Dionicio was admitted To hospital on 08/02/2022 after he presented with weakness, shortness of breath and respiratory failure. Oxygen saturation was less than 90%. Chest x-ray on admission was concerning for multifocal pneumonia versus aspiration. He was started on empiric antibiotic. His troponin was noted to be elevated but it was considered less likely to be acute coronary event but rather due to demand ischemia. 2D echo showed severe LVH and grade 2 diastolic dysfunction but no significant wall motion abnormality noted. Blood pressure remained elevated through the hospitalization, on amlodipine 10 mg daily and metoprolol 100 mg twice a day. At home he was on HCTZ 25 mg bid. Renal artery Doppler showed more than 60% stenosis in left renal artery. also has history of carotid artery stenosis and atherosclerotic disease. on admission creatinine was 4.1 which worsened to 4.5 this morning. As metabolic acidosis but potassium has been normal. Never smoker, lives alone. No known history of CKD or ESRD in family. Stage IV CKD, baseline creatinine 3.0-3.5, follows with Dr. Nelson as an outpatient. CKD was thought to be secondary to renovascular disease, FSGS or diabetic nephropathy. Has nephrotic range proteinuria but no hematuria. He had pre dialysis education done and decided to do peritoneal dialysis when needed. Previously refused AV fistula placement. Past medical history also significant for hypertension, diabetes, dyslipidemia, atherosclerotic disease. Shortness of breath improved and overall feeling much better, no chest pain, no nausea or vomiting. Decent urine output. Allergies Allergy/AdvReac Type Severity Reaction Status Date / Time No Known Allergies Allergy Verified 08/02/22 21:00 Home Medications Medication Instructions Recorded Confirmed Type amlodipine 10 mg tablet 10 mg PO DAILY 06/26/18 08/02/22 History atorvastatin 40 mg tablet 40 mg PO DAILY 06/26/18 08/02/22 History gemfibrozil 600 mg tablet 600 mg PO DAILY 06/26/18 08/02/22 History magnesium oxide 400 mg PO DAILY 06/26/18 08/02/22 History insulin glargine 100 unit/mL (3 35 units subcut BID 01/13/20 08/02/22 History mL) subcutaneous pen (Basaglar KwikPen U-100 Insulin) apixaban 5 mg tablet (Eliquis) 5 mg PO BID 30 days #60 tabs 04/09/20 08/02/22 Rx clopidogrel 75 mg tablet (Plavix) 75 mg PO DAILY #30 tabs 04/09/20 08/02/22 Rx acetaminophen 650 mg 650 mg PO BID 05/30/20 08/02/22 History tablet,extended release coenzyme Q10 400 mg capsule 400 mg PO DAILY 05/30/20 08/02/22 History docusate sodium 100 mg capsule 100 mg PO DAILY 05/30/20 08/02/22 History ferrous sulfate 325 mg (65 mg 325 mg PO DAILY 05/30/20 08/02/22 History iron) tablet fluticasone propionate 50 1 spray intranasal DAILY PRN 05/30/20 08/02/22 History mcg/actuation nasal Congestion spray,suspension krill oil 500 mg capsule 500 mg PO BID 05/30/20 08/02/22 History mecobalamin (vitamin B12) 5,000 5,000 mcg PO DAILY 05/30/20 08/02/22 History mcg disintegrating tablet metoprolol succinate 100 mg 100 mg PO BID 05/30/20 08/02/22 History tablet,extended release 24 hr fyqxmxoberlq-rrvsthla-huhaod tablet 1 tab PO DAILY 05/30/20 08/02/22 History potassium chloride 20 mEq 20 meq PO DAILY 05/30/20 08/02/22 History tablet,extended release vitamin B complex 1 tab PO DAILY 05/30/20 08/02/22 History hydrochlorothiazide 25 mg tablet 50 mg PO DAILY #90 tabs 03/21/22 08/02/22 Rx sodium bicarbonate 650 mg tablet 1,300 mg PO BID #360 tabs 03/21/22 08/02/22 Rx calcitriol 0.25 mcg capsule 0.25 mcg PO DAILY #90 caps 03/23/22 08/02/22 Rx Patient History Medical History (Updated 08/04/22 @ 13:11 by Penny Munoz MD) Acute kidney injury Acute non-ST elevation myocardial infarction (NSTEMI) Diabetes type 2, uncontrolled DKA (diabetic ketoacidoses) Hyperlipidemia LDL goal <70 Hypertension Lyme borreliosis Renal artery stenosis Surgical History 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 Family History Other Diabetes type 2, controlled Social History Smoking Status: Never smoker Hx Alcohol Use: No Hx Substance Use: No Preferred Language: Frisian Communication Ability: Effective Barrel Raiser Helper Required: No Beliefs That Will Affect Care: None Current Living Situation: Alone Feels Safe at Home: Yes Safety Concerns: Feels Safe At This Time Assistive Devices: Cane Review of Systems Review of Systems: Detailed review of system was done and pertinent positives and negatives were mentioned above. Physical Exam Constitutional: WD/WN, vitals as above no acute distress Eyes: + anicteric sclerae ENMT: Ears: no hearing impairment Neck: normal visual inspection Respiratory: no respiratory distress Auscultation: + diminished lung sounds; no wheezes Gastrointestinal (Abdomen): Inspection/Auscultation: abdomen normal to inspection and normal bowel sounds Percussion/Palpation: abdomen soft; abdomen nontender Musculoskeletal: Extremities: extremities normal to inspection Skin: no rashes Neurologic: no focal motor deficits Psychiatric: Orientation: alert and oriented x 3 Affect: euthymic affect Results & Data ([facility]) Vital Signs (Past 12 Hours) Vital Signs Temp Pulse Pulse Resp BP Pulse Ox O2 Del Method 08/04/22 11:00 36.7 C 71 18 159/73 H 94 Nasal Cannula 08/04/22 11:00 74 16 98 Nasal Cannula 08/04/22 07:00 36.7 C 74 18 153/71 H 91 Oxymask 08/04/22 07:17 73 08/04/22 06:06 Oxymask 08/04/22 02:52 36.6 C 79 18 164/74 H 93 Oxymask O2 Flow Rate 08/04/22 11:00 2 08/04/22 11:00 4 08/04/22 07:00 4 08/04/22 07:17 08/04/22 06:06 5 08/04/22 02:52 9 PG Care Time/CCT Total # of Minutes Spent Total Time Spent with Patient: Total time spent is greater than 50% in coordination of care (as documented) at patient's floor/unit and/or counseling patient: Coding Level of Care Code 84885 Inpt Consult Level 5 Diagnoses Acute kidney injury N17.9 Hypertension I10 Hypertension type: unspecified Anemia D64.9 Anemia type: unspecified type Bilateral pneumonia J18.9 Renal artery stenosis I70.1 (1) Anemia Anemia type: unspecified type Qualified Code(s): D64.9 - Anemia, unspecified (2) Hypertension Hypertension type: unspecified Qualified Code(s): I10 - Essential (primary) hypertension
[2022-08-04] MEDS ORDERED: ALBUT/IPRATROP 3MG/0.5MG NEB 3 ML VIAL NEB PRN (14:21)
[2022-08-04] MEDS: hydrALAZINE HCL 25 MG TAB PO SCH ×2 (14:50→20:09)
[2022-08-04] MEDS: CEFEPIME 2,000 MG in SYRINGE 0 ML IV SCH (20:07)
[2022-08-05 06:43] LABS: Basophils # (auto) 0.03 K/uL (0-0.2); Basophils % (auto) 0.2 %; Eosinophils # (auto) 0.24 K/uL (0-0.50); Eosinophils % (auto) 1.9 %; Hematocrit (blood only) 25.2 % (40.1-51.0); Hemoglobin 8.4 g/dl (14.0-18.0); Immature Granulocytes # (auto) 0.05 K/uL (0.00-0.02); Immature Granulocytes % (auto) 0.4 %; Lymphocytes # (auto) 2.11 K/uL (1.2-3.4); Lymphocytes % (auto) 16.4 %; Mean Corpuscular Hemoglobin 29.8 pg (25.0-34.0); Mean Corpuscular Hgb Conc 33.3 g/dL (32.0-36.0); Mean Corpuscular Volume 89.4 fL (80.0-100.0); Mean Platelet Volume 9.6 fL (9.4-12.4); Monocytes # (auto) 1.18 K/uL (0.24-0.82); Monocytes % (auto) 9.2 %; Neutrophils # (auto) 9.24 K/uL (1.4-6.5); Neutrophils % (auto) 71.9 %; Platelet Count 237 K/uL (130-400); RDW Coefficient of Variation 13.8 % (11.5-14.5); RDW Standard Deviation 44.5 fL (36.4-46.3); Red Blood Count 2.82 M/uL (4.63-6.08); White Blood Count 12.85 K/ul (4.8-10.8)
[2022-08-05 07:02] LABS: Albumin Level 3.5 gm/dl (3.4-5.0); Calcium 8.6 mg/dl (8.5-10.1); Creatinine Clr Calc Pharmacy 19.4 ml/min; Est GFR (African American) 15.3 ml/min; Est GFR (Non-African American) 13.2 ml/min; Potassium 4.1 mmol/L (3.5-5.1)
[2022-08-05 07:23] LABS: Partial Thromboplastin Ratio 1.1; Partial Thromboplastin Time 30.3 Seconds (21.0-31.0); Prothrombin Time 10.8 Seconds (9.0-12.0)
[2022-08-05] MEDS: SODIUM BICARBONATE 650 MG TAB PO SCH (08:30)
[2022-08-05] MEDS: MAGNESIUM OXIDE 400 MG TAB PO SCH (08:30)
[2022-08-05] MEDS: VITAMIN B COMPLEX TAB PO SCH (08:31)
[2022-08-05] MEDS: METOPROLOL SUCC 50MG EXT REL TAB PO SCH (08:31)
[2022-08-05] MEDS: CYANOCOBALAMIN (B-12) 2,500 MCG TABLET SL SCH (08:31)
[2022-08-05] MEDS: amLODIPine BESYLATE 5 MG TAB PO SCH (08:32)
[2022-08-05] MEDS: CALCITRIOL 0.25 MCG CAPSULE PO SCH (08:32)
[2022-08-05] MEDS: APIXABAN 5 MG TABLET PO SCH (08:33)
[2022-08-05] MEDS: ATORVASTATIN 40 MG TAB PO SCH (08:33)
[2022-08-05] MEDS: gemfibroziL 600 MG TAB PO SCH (08:33)
[2022-08-05] MEDS: guaiFENesin 600 MG TABCR PO SCH (08:33)
[2022-08-05] MEDS: CLOPIDOGREL BISULFATE 75 MG TAB PO SCH (08:33)
[2022-08-05] MEDS: CEROVITE ADV FORMULA TAB PO SCH (08:34)
[2022-08-05] MEDS: DOCUSATE SODIUM 100 MG CAP PO SCH (08:34)
[2022-08-05] MEDS: hydrALAZINE HCL 25 MG TAB PO SCH (08:34)
[2022-08-05] MEDS: AZITHROMYCIN 500 MG in DEXTROSE 5% 250 ML IV SCH (08:35)
[2022-08-05] MEDS: FERROUS SULFATE 325 MG TAB PO SCH (08:35)
[2022-08-05] MEDS: INSULIN ASPART PER UNIT SC SCH ×2 (08:45→12:21)
[2022-08-05] MEDS: LANTUS PER UNIT CHARGE SQ SCH (08:45)
[2022-08-05] MEDS ORDERED: IRON SUCROSE 200 MG in 0.9 % SODIUM CHLORIDE 100 ML IV SCH (10:30)
--- NOTE | 2022-08-05 12:23 | Discharge Summary ---
Date of Service August 05, 2022 Admission HPI Per Admitting Provider The patient is a 67-year-old male with a past medical history including CKD stage IV, diabetes mellitus type 2, bilateral carotid artery stenosis, atrial fibrillation, anemia and hypertension. The patient presents with symptoms as noted above. He reports that a number of family members have come to visit due to the , but is unsure if any of them were sick. Principal Diagnosis Bilateral PNA Discharge Exam The patient is awake, alert and oriented 3, well developed and well nourished, normocephalic and atraumatic, lying in bed and in no acute distress. HEENT--PERRL, EOMI, mucous membranes and oropharynx mildly dry Neck--supple. No JVD. No bruits. Thyroid normal, trachea midline, no johny opathy. Heart--normal S1 and S2. No murmurs, rubs or gallops. Lungs--Reduced air entry on auscultation Abdomen--normal bowel sounds and soft. Mild epigastric and left sided abdominal pain Extremities--no cyanosis or clubbing. No edema. Dermatologic--normal skin turgor, normal color, no abnormal lymph nodes, no rash. Neurologic--cranial nerves II through XII grossly intact. Rheumatologic--normal range of motion. Psychiatric--normal affect. Discharge Data Allergies Allergy/AdvReac Type Severity Reaction Status Date / Time No Known Allergies Allergy Verified 08/02/22 21:00 Consultations 08/02/22 21:47 ED Decision to Admit Stat 08/03/22 00:19 Consult Cardiology Routine 08/04/22 12:27 Consult Nephrology Routine Hospital Course (1) Bilateral pneumonia: According to Patient he had been feeling unwell for a few days prior to presentation was Found to have Bilateral pneumonia on prema x ray COVID was negative Cultures were obtained Started on Cefepime 2 g IV every 12 hours and Azithromycin 500 mg IV daily Guaifenesin extended release 1200 mg p.o. twice daily Duonebs every 4 hours while awake and every 2 hours when necessary. Pulmicort Respules 0.5 mg inhaled twice daily Nasal cannula oxygen, titrate to keep pulse ox 92-94%. SOB is much improved Cultures have been negative will discharge on PO cefdinir 300mg BID for 5 days, PO Cipro 500mg BID for 5 days (2) Hypoxia: Resolved patient saturating on room air (3) Elevated troponin: Most likely demand ischemia from worsening renal function, elevated BP Troponin 68,309.9 on admission. He was started on Heparin by weight, his home Eliquis was held No acute ST changes on EKG, but chronic repolarization changes Cardiology consulted, Heparin has been stopped, Eliquis continued 2 D ECHO shows preserved EF, but grade II diasytolic dysfunction (4) Chronic kidney disease, stage IV (severe): Acute kidney injury on chronic kidney disease- -Renal artery stenosis comtributing Hold HCTZ and potassium Recheck laboratories in a.m. Continue aspirin, clopidogrel, amlodipine and metoprolol succinate Hold HCTZ and potassium chloride Continue sodium bicarbonate consult nephrology Outpatient follow up with nephrology and vascular surgery (5) Diabetes type 2, uncontrolled: Continue Lantus insulin but decrease dose from 35 units to 20 units subcu twice daily, with 15 units this evening Placed on Accu-Cheks with NovoLog SSI Blood glucose under fair control (6) Hyperlipidemia LDL goal <70: Continue atorvastatin 40 mg daily and gemfibrozil 600 mg daily (7) Bilateral carotid artery stenosis: (8) Atrial fibrillation, new onset: Patient on Eliquis at home (9) Hypertension: Plan d/c home Total Time Total Time Spent Total Time Spent (In Minutes): 35 Discharge Plan Discharge Items Patient Disposition: Home - Self-Care Reason For Visit: NSTEMI, PNEUMONIA Discharge Diagnosis: Bilateral PNA Activity: Resume your previous activity Non-emergency contact: Primary Care Provider and Aircraft Air Conditioning Mechanic Call non-emergency contact if: you have any medication questions Follow-up/Referrals: Art Trejo [Primary Care Provider] - Diet: Regular Addtl Attending Provider Instructions: Please make appointment to see your windows server specialist, so he can arrange an evaluation with a vascular surgeon regarding your renal artery stenosis Pending Studies at Discharge: No Stand-Alone Forms: My [employer], Smoking Cessation Medications and DC Order Prescriptions: New cefdinir 300 mg capsule 300 mg PO BID 5 Days Qty: 10 0RF ciprofloxacin HCl 500 mg tablet 500 mg PO BID 5 Days Qty: 10 0RF Continued calcitriol 0.25 mcg capsule 0.25 mcg PO DAILY Qty: 90 2RF metoprolol succinate 100 mg tablet extended release 24 hr 100 mg PO BID krill oil 500 mg capsule 500 mg PO BID ferrous sulfate 325 mg (65 mg iron) tablet 325 mg PO DAILY fluticasone propionate 50 mcg/actuation spray,suspension 1 spray intranasal DAILY PRN (Reason: Congestion) Rx Instructions: administer into each nostril vitamin B complex Tablet 1 tab PO DAILY mecobalamin (vitamin B12) 5,000 mcg tablet,disintegrating 5,000 mcg PO DAILY [id number] Tablet 1 tab PO DAILY coenzyme Q10 400 mg capsule 400 mg PO DAILY docusate sodium 100 mg capsule 100 mg PO DAILY potassium chloride 20 mEq tablet extended release 20 meq PO DAILY acetaminophen 650 mg tablet extended release 650 mg PO BID hydrochlorothiazide 25 mg tablet 50 mg PO DAILY Qty: 90 2RF sodium bicarbonate 650 mg tablet 1,300 mg PO BID Qty: 360 3RF Basaglar KwikPen U-100 Insulin 100 unit/mL (3 mL) insulin pen 35 units SQ BID atorvastatin 40 mg Tablet 40 mg PO DAILY amlodipine 10 mg Tablet 10 mg PO DAILY gemfibrozil 600 mg Tablet 600 mg PO DAILY magnesium oxide 400 mg magnesium Tablet 400 mg PO DAILY Eliquis 5 mg Tablet 5 mg PO BID 30 Days Qty: 60 1RF clopidogrel [Plavix] 75 mg tablet 75 mg PO DAILY Qty: 30 0RF Discharge Orders: Discharge Order (Routine); Ordered 08/05/22 Ordered By: Abril Vega/Other Patient Handouts: Managing Type 2 Diabetes Admission Data Admit Date/Time: 08/02/22 22:28 Attending Provider: Abril Curiel Admit Provider: Alexander Santoyo Primary Care Provider: Art Trejo Other Providers: Alexander Santoyo ; Jordan Oates ; Cornelius Nelson Coding Level of Care Code D/C DAY MANAGEMENT >30 MINS Diagnoses Bilateral pneumonia J18.9 Hypoxia R09.02 Elevated troponin R77.8 Chronic kidney disease, stage IV (severe) N18.4 Diabetes type 2, uncontrolled E11.65 Hyperlipidemia LDL goal <70 E78.5 Bilateral carotid artery stenosis I65.23 Atrial fibrillation, new onset I48.91 Hypertension I10 Hypertension type: unspecified Time Spent (min) 35
--- NOTE | 2022-08-05 12:54 | Nephrology Progress Note ---
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 Admitted with hypoxic respiratory failure and noted to have pneumonia and elevated troponin. Renal function has been worsening over last 2 days with creatinine up to 4.5, blood pressure poorly controlled and renal artery Doppler showing more than 60% stenosis and right renal artery. Poorly-controlled hypertension and elevated creatinine could be secondary to underlying hemodynamically significant renal artery stenosis although Doppler is showing more than 60% stenosis. Creatinine staying relatively stable at 4.3 this morning, electrolyte decent. Blood pressure remains elevated. --will need further evaluation with CTA or angiogram, either inpatient or can be done as an outpatient. -- increase hydralazine to 50 mg 3 times a day. Since he has underlying pretty advanced CKD, even if there is critical left renal artery stenosis, unclear how much benefit there will be with any vascular intervention. -- continue calcitriol and sodium bicarbonate --venofer -- if discharge planned, recommend checking renal function electrolyte tomorrow, advised to keep well hydrated at home and avoid NSAIDs. Will follow Admission and Anticipated Discharge Date Admission Date: August 02, 2022 Subjective Dionicio was seen and evaluated this morning. Overall he feels well, denies any shortness of breath, chest pain, appetite decent. Renal function relatively stable without further worsening, electrolyte acceptable. Decent urine output. Blood pressure remains elevated. Review of Systems Review of Systems: Detailed review of system was done and pertinent positives and negatives were mentioned above. Physical Exam Constitutional: WD/WN, vitals as above no acute distress Eyes: + anicteric sclerae ENMT: Ears: no hearing impairment Neck: normal visual inspection Respiratory: no respiratory distress Auscultation: + diminished lung sounds; no wheezes Neurologic: no focal motor deficits Psychiatric: Orientation: alert and oriented x 3 Affect: euthymic affect Results & Data ([facility]) Vital Signs (Past 12 Hours) Vital Signs Temp Pulse Pulse Resp BP Pulse Ox O2 Del Method 08/05/22 12:05 37.2 C 67 19 160/74 H 95 Room Air 08/05/22 11:40 95 08/05/22 11:25 94 Room Air 08/05/22 07:42 36.7 C 72 19 168/72 H 92 Nasal Cannula 08/05/22 07:16 69 08/05/22 03:48 36.7 C 70 18 172/73 H 96 Nasal Cannula O2 Flow Rate 08/05/22 12:05 08/05/22 11:40 08/05/22 11:25 08/05/22 07:42 2 08/05/22 07:16 08/05/22 03:48 PG Care Time/CCT Total # of Minutes Spent Total Time Spent with Patient: Total time spent is greater than 50% in coordination of care (as documented) at patient's floor/unit and/or counseling patient: Coding Level of Care Code 99399 Subseq Hosp Care Lvl 3 Diagnoses Acute kidney injury N17.9 Hypertension I10 Hypertension type: unspecified Anemia D64.9 Anemia type: unspecified type Bilateral pneumonia J18.9 Renal artery stenosis I70.1 (1) Hypertension Hypertension type: unspecified Qualified Code(s): I10 - Essential (primary) hypertension (2) Anemia Anemia type: unspecified type Qualified Code(s): D64.9 - Anemia, unspecified
[2022-08-05] MEDS ORDERED: hydrALAZINE TAB 50 MG TAB PO SCH (14:00)
== END 2022-08-05 13:57 | disposition home or self-care (01) | DRG 193 ==
LOC: ED 19:15 → SUATTDRO 22:28 → 2S 22:28

== ENCOUNTER 2022-08-08 19:28 | Inpatient (IN) ==
[2022-08-08] MEDS ORDERED: ALBUT/IPRATROP 3MG/0.5MG NEB 3 ML VIAL INH STA (19:44)
[2022-08-08] MEDS ORDERED: CEFEPIME 2,000 MG/20 ML VIAL IV STA (19:45)
--- NOTE | 2022-08-08 19:49 | Emergency Department Note ---
Impression & Plan Respiratory failure, Chronic kidney disease, stage IV (severe), Fluid overload, Pneumonia ED Provider Note Provider: Roman Morris MD DATE OF SERVICE: 08/08/2022 CHIEF COMPLAINT: Shortness of breath HISTORY OF PRESENT ILLNESS: Patient is a 67-year-old gentleman significant history for advanced CAD type 2 diabetes, carotid stenosis, atrial fibrillation on Eliquis, and recent hospitalization over just this past week for pneumonia presenting the ambulance today. States he was doing well and taking his antibiotics and medications including this morning. However woke this morning felt more short of breath which persisted all day. Denies pain. Maybe little bit of feet swelling. Denies abdominal pain or nausea or vomiting. Patient states he feels short of breath and weak but has not fainted. Denies a history of smoking or asthma. Did test negative for COVID during last hospitalization. Again denies chest pain. EMS found the patient in the SpO2 70s on room air. REVIEW OF SYSTEMS: A total of 10 review of systems was obtained and negative except as stated above in the HPI. PAST MEDICAL HISTORY: As noted above MEDICATIONS: Reviewed home medications includes Eliquis SOCIAL HISTORY: Does not smoke currently, very distantly briefly smoked. PHYSICAL EXAM: GENERAL: alert and oriented in no acute distress on stretcher fatigued in appearance Head: normocephalic and atraumatic EYES: No injection, discharge or icterus. NECK: Trachea midline. ENT: Mucous membranes pink and moist. LUNGS: Airway patent. No retractions but some increased work of breathing with some diffuse expiratory wheeze appreciated. Diminished bases HEART: Regular rate and rhythm. No chest wall tenderness ABDOMEN: Soft and non-tender, without guarding or rebound. SKIN: Acyanotic, warm, dry, without rashes EXTREMITIES: Without significant tenderness with trace bilateral pedal edema. NEUROLOGICAL: No focal deficits. No aphasia. No facial droop or slurred speech. EK beats per min. Normal sinus rhythm. No PVC or PAC. No acute ST segment elevation with nonspecific T wave changes. CONTINUOUS CARDIAC MONITORING: was ordered and showed a heart rate of 70s-80s bpm in normal sinus rhythm Patient's laboratory studies and imaging reviewed. Differential includes Reactive airway disease, pneumonia, pneumothorax, COPD, CHF, infections, cardiac ischemia, pulmonary embolism, musculoskeletal, gastrointestinal, as well as other pathologies. IMPRESSION/MEDICAL DECISION MAKING: Desaturates into the mid 80s on 6 L of oxygen. Wheezy. Given DuoNeb here. Will cover empirically with cefepime given recent pneumonia. X-ray basic labs and cultures were sent. Anticoagulation lowers my suspicion for acute VTE. Does not normally use oxygen. Leukocytosis increased to 17 today. Stable mild anemia 9.6 today. Has chronic kidney disease fairly similar to over the weekend at 4.68. Mild hyperkalemia 5.7. BNP significantly elevated. Slight AST and ALT elevation but no bilirubin elevation. Chest x-ray questions pneumonia versus some component of pleural effusion fluid/pulmonary edema. Given this we will complete a CT of the chest without contrast to evaluate further the lung parenchyma. Again with the anticoagulation of the lower suspicion for PE. We will try some Lasix to see if some diuresis improves the situation as well. Negative COVID and influenza testing. No real improvement after albuterol. History of elevated troponins and this returns elevated today. Believe likely more demand from his hypoxia and fluid overload. CT report is below questions pneumonia versus possible pulmonary edema. Hospitalist will admit for further care given his new oxygen requirement. DIAGNOSIS: Acute hypoxic respiratory failure, pneumonia, pulmonary edema, CKD DISPOSITION: Hospitalist will evaluate Patient was agreeable with this plan. Critical Care I have personally spent 34 minutes of critical care time in the direct management of this patient. This includes bedside care, interpretation of diagnostic studies, and testing, discussion with consultants, patient, and family members, and other required patient management activities. These 34 minutes is in excess of all separately billable procedures. Preliminary Findings Only See Final Report For Complete Findings CT CHEST Without Contrast: Impression: Airspace disease throughout the lungs concerning for multifocal pneumonia. Edema could have a similar appearance. Bilateral pleural effusions. Extensive coronary artery atherosclerotic calcifications. Degenerative change in the spine. 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: No Beliefs That Will Affect Care: None Current Living Situation: Alone Feels Safe at Home: Yes Assistive Devices: Cane Allergies Allergies Allergy/AdvReac Type Severity Reaction Status Date / Time No Known Allergies Allergy Verified 08/02/22 21:00 Home Meds Home Medications Medication Instructions Recorded Confirmed amlodipine 10 mg tablet 10 mg PO DAILY 06/26/18 08/02/22 atorvastatin 40 mg tablet 40 mg PO DAILY 06/26/18 08/02/22 gemfibrozil 600 mg tablet 600 mg PO DAILY 06/26/18 08/02/22 magnesium oxide 400 mg PO DAILY 06/26/18 08/02/22 insulin glargine 100 unit/mL (3 35 units subcut BID 01/13/20 08/02/22 mL) subcutaneous pen (Basaglar KwikPen U-100 Insulin) acetaminophen 650 mg 650 mg PO BID 05/30/20 08/02/22 tablet,extended release coenzyme Q10 400 mg capsule 400 mg PO DAILY 05/30/20 08/02/22 docusate sodium 100 mg capsule 100 mg PO DAILY 05/30/20 08/02/22 ferrous sulfate 325 mg (65 mg 325 mg PO DAILY 05/30/20 08/02/22 iron) tablet fluticasone propionate 50 1 spray intranasal DAILY PRN 05/30/20 08/02/22 mcg/actuation nasal Congestion spray,suspension krill oil 500 mg capsule 500 mg PO BID 05/30/20 08/02/22 mecobalamin (vitamin B12) 5,000 5,000 mcg PO DAILY 05/30/20 08/02/22 mcg disintegrating tablet metoprolol succinate 100 mg 100 mg PO BID 05/30/20 08/02/22 tablet,extended release 24 hr jfayfvlfrphb-qtelekqt-[id number] tablet 1 tab PO DAILY 05/30/20 08/02/22 potassium chloride 20 mEq 20 meq PO DAILY 05/30/20 08/02/22 tablet,extended release vitamin B complex 1 tab PO DAILY 05/30/20 08/02/22 Previous Rx's Medication Instructions Recorded apixaban 5 mg tablet (Eliquis) 5 mg PO BID 30 days #60 tabs 04/09/20 clopidogrel 75 mg tablet (Plavix) 75 mg PO DAILY #30 tabs 04/09/20 sodium bicarbonate 650 mg tablet 1,300 mg PO BID #360 tabs 03/21/22 calcitriol 0.25 mcg capsule 0.25 mcg PO DAILY #90 caps 03/23/22 cefdinir 300 mg capsule 300 mg PO BID 5 days #10 caps 08/05/22 ciprofloxacin HCl 500 mg tablet 500 mg PO BID 5 days #10 tabs 08/05/22 hydrochlorothiazide 25 mg tablet 50 mg PO DAILY #60 tabs 08/06/22 Results & Data (ED) Vital Signs Vital Signs - 24 hr 08/08/22 20:02 08/08/22 20:02 08/08/22 20:08 Temperature Temperature Source Pulse Rate Respiratory Effort / Characteristics Grunting Labored Blood Pressure Blood Pressure Mean Pulse Oximetry Oxygen Delivery Method Oxymask Nebulizer Oxymask Nebulizer Oxygen Flow Rate 10 10 Sepsis Recent Fever Within 48 Hours Sepsis New/Unexplained Change in Mental Status Sepsis Action Taken by Nursing Pulse Oximetry Post Tiitration 95 95 08/08/22 20:08 08/08/22 20:08 08/08/22 20:08 Temperature 36.5 C 36.5 C Temperature Source Oral Oral Pulse Rate 78 Respiratory Effort / Characteristics Blood Pressure 180/94 H Blood Pressure Mean 122 Pulse Oximetry 94 95 95 Oxygen Delivery Method Oxymask Nebulizer Oxymask Nebulizer Nebulizer Oxygen Flow Rate 10 10 10 Sepsis Recent Fever Within 48 Hours No Sepsis New/Unexplained Change in Mental Status No Sepsis Action Taken by Nursing No Action Required Pulse Oximetry Post Tiitration Laboratory Data Result diagrams: 08/08/22 20:00 08/08/22 20:00 Lab Results 08/08/22 08/08/22 08/08/22 Range/Units 20:00 20:00 20:00 WBC 17.61 H (4.8-10.8) K/ul RBC 3.24 L (4.63-6.08) M/uL Hgb 9.6 L (14.0-18.0) g/dl Hct 29.5 L (40.1-51.0) % MCV 91.0 (80.0-100.0) fL MCH 29.6 (25.0-34.0) pg MCHC 32.5 (32.0-36.0) g/dL RDW Std Deviation 46.9 H (36.4-46.3) fL RDW Coeff of Whit 14.1 (11.5-14.5) % Plt Count 435 H (130-400) K/uL MPV 9.2 L (9.4-12.4) fL Immature Gran % (Auto) 1.0 % Neut % (Auto) 92.1 % Lymph % (Auto) 3.7 % [place] % (Auto) 3.0 % Eos % (Auto) 0.0 % Baso % (Auto) 0.2 % Neut # (Auto) 16.21 H (1.4-6.5) K/uL Lymph # (Auto) 0.66 L (1.2-3.4) K/uL [place] # (Auto) 0.53 (0.24-0.82) K/uL Eos # (Auto) 0.00 (0-0.50) K/uL Baso # (Auto) 0.03 (0-0.2) K/uL Immature Gran # (Auto) 0.18 H (0.00-0.02) K/uL PT 11.6 (9.0-12.0) Seconds INR 1.1 (0.9-1.1) APTT 29.2 (21.0-31.0) Seconds PTT Ratio 1.1 Sodium 133 L (136-145) mmol/L Potassium 5.7 H (3.5-5.1) mmol/L Chloride 100 (98-107) mmol/L Carbon Dioxide 19 L (21-32) mmol/L Anion Gap 14 H (3-11) BUN 98 H (6-23) mg/dl Creatinine 4.68 H* (0.6-1.4) mg/dl Est Cr Clr Drug Dosing 18.0 ml/min Est GFR ( Amer) 13.8 ml/min Est GFR (Non-Af Amer) 11.9 ml/min BUN/Creatinine Ratio 20.9 H (10-20) Glucose 160 H (70-99(Fasting)) mg/dl Calcium 11.1 H (8.5-10.1) mg/dl Magnesium 2.1 (1.7-2.4) mg/dl Total Bilirubin 0.3 (0.2-1.0) mg/dl AST 270 H (13-39) U/L ALT 86 H (7-52) U/L Alkaline Phosphatase 64 (34-104) U/L Troponin I High Sens 25757.0 H* D (0-20) pg/ml C-Reactive Protein (0-0.5) mg/dl B-Natriuretic Peptide (0-100) pg/ml Total Protein 8.0 (6.0-8.3) gm/dl Albumin 3.9 (3.4-5.0) gm/dl Globulin 4.1 H (2.5-4.0) gm/dl Albumin/Globulin Ratio 1.0 (0.9-2) Procalcitonin (0-0.5) ng/ml SARS-CoV-2 (PCR) (Negative) Influenza Type A (PCR) (Neg) Influenza Type B (PCR) (Neg) RSV (RT-PCR) (Neg) 08/08/22 08/08/22 08/08/22 Range/Units 20:00 20:00 20:00 WBC (4.8-10.8) K/ul RBC (4.63-6.08) M/uL Hgb (14.0-18.0) g/dl Hct (40.1-51.0) % MCV (80.0-100.0) fL MCH (25.0-34.0) pg MCHC (32.0-36.0) g/dL RDW Std Deviation (36.4-46.3) fL RDW Coeff of Whit (11.5-14.5) % Plt Count (130-400) K/uL MPV (9.4-12.4) fL Immature Gran % (Auto) % Neut % (Auto) % Lymph % (Auto) % [place] % (Auto) % Eos % (Auto) % Baso % (Auto) % Neut # (Auto) (1.4-6.5) K/uL Lymph # (Auto) (1.2-3.4) K/uL [place] # (Auto) (0.24-0.82) K/uL Eos # (Auto) (0-0.50) K/uL Baso # (Auto) (0-0.2) K/uL Immature Gran # (Auto) (0.00-0.02) K/uL PT (9.0-12.0) Seconds INR (0.9-1.1) APTT (21.0-31.0) Seconds PTT Ratio Sodium (136-145) mmol/L Potassium (3.5-5.1) mmol/L Chloride (98-107) mmol/L Carbon Dioxide (21-32) mmol/L Anion Gap (3-11) BUN (6-23) mg/dl Creatinine (0.6-1.4) mg/dl Est Cr Clr Drug Dosing ml/min Est GFR ( Amer) ml/min Est GFR (Non-Af Amer) ml/min BUN/Creatinine Ratio (10-20) Glucose (70-99(Fasting)) mg/dl Calcium (8.5-10.1) mg/dl Magnesium (1.7-2.4) mg/dl Total Bilirubin (0.2-1.0) mg/dl AST (13-39) U/L ALT (7-52) U/L Alkaline Phosphatase (34-104) U/L Troponin I High Sens (0-20) pg/ml C-Reactive Protein 5.39 H (0-0.5) mg/dl B-Natriuretic Peptide 2286 H (0-100) pg/ml Total Protein (6.0-8.3) gm/dl Albumin (3.4-5.0) gm/dl Globulin (2.5-4.0) gm/dl Albumin/Globulin Ratio (0.9-2) Procalcitonin (0-0.5) ng/ml SARS-CoV-2 (PCR) NEGATIVE (Negative) Influenza Type A (PCR) Negative (Neg) Influenza Type B (PCR) Negative (Neg) RSV (RT-PCR) Negative (Neg) 08/08/22 Range/Units 20:00 WBC (4.8-10.8) K/ul RBC (4.63-6.08) M/uL Hgb (14.0-18.0) g/dl Hct (40.1-51.0) % MCV (80.0-100.0) fL MCH (25.0-34.0) pg MCHC (32.0-36.0) g/dL RDW Std Deviation (36.4-46.3) fL RDW Coeff of Whit (11.5-14.5) % Plt Count (130-400) K/uL MPV (9.4-12.4) fL Immature Gran % (Auto) % Neut % (Auto) % Lymph % (Auto) % [place] % (Auto) % Eos % (Auto) % Baso % (Auto) % Neut # (Auto) (1.4-6.5) K/uL Lymph # (Auto) (1.2-3.4) K/uL [place] # (Auto) (0.24-0.82) K/uL Eos # (Auto) (0-0.50) K/uL Baso # (Auto) (0-0.2) K/uL Immature Gran # (Auto) (0.00-0.02) K/uL PT (9.0-12.0) Seconds INR (0.9-1.1) APTT (21.0-31.0) Seconds PTT Ratio Sodium (136-145) mmol/L Potassium (3.5-5.1) mmol/L Chloride (98-107) mmol/L Carbon Dioxide (21-32) mmol/L Anion Gap (3-11) BUN (6-23) mg/dl Creatinine (0.6-1.4) mg/dl Est Cr Clr Drug Dosing ml/min Est GFR ( Amer) ml/min Est GFR (Non-Af Amer) ml/min BUN/Creatinine Ratio (10-20) Glucose (70-99(Fasting)) mg/dl Calcium (8.5-10.1) mg/dl Magnesium (1.7-2.4) mg/dl Total Bilirubin (0.2-1.0) mg/dl AST (13-39) U/L ALT (7-52) U/L Alkaline Phosphatase (34-104) U/L Troponin I High Sens (0-20) pg/ml C-Reactive Protein (0-0.5) mg/dl B-Natriuretic Peptide (0-100) pg/ml Total Protein (6.0-8.3) gm/dl Albumin (3.4-5.0) gm/dl Globulin (2.5-4.0) gm/dl Albumin/Globulin Ratio (0.9-2) Procalcitonin 0.55 H (0-0.5) ng/ml SARS-CoV-2 (PCR) (Negative) Influenza Type A (PCR) (Neg) Influenza Type B (PCR) (Neg) RSV (RT-PCR) (Neg) Administered Medications Apixaban (Apixaban 5 Mg Tablet) 5 mg PO BID MARCELLUS Stop: 09/07/22 23:19 Last Admin: 08/09/22 01:04 Dose: 5 mg Documented By: TIM Azithromycin 500 mg/ Dextrose 255 mls @ 125 mls/hr IV Q24H MARCELLUS Stop: 08/16/22 00:00 Last Admin: 08/09/22 01:09 Dose: 125 mls/hr Documented By: TIM Insulin Glargine (Lantus Per Unit Charge) 25 units SQ BID MARCELLUS Stop: 09/07/22 23:19 Last Admin: 08/09/22 00:55 Dose: 25 units Documented By: TIM Co-signed By: HERSON Discontinued Medications Albuterol (Albut/Ipratrop 3mg/0.5mg Neb 3 Ml Vial) 3 ml INH NOW STA Stop: 08/08/22 19:45 Last Admin: 08/08/22 19:55 Dose: 3 ml Documented By: JOAQUIM Furosemide (Furosemide Inj 20 Mg/2 Ml Vial) 20 mg IV ONE ONE Stop: 08/08/22 21:13 Last Admin: 08/08/22 21:54 Dose: 20 mg Documented By: JOAQUIM Furosemide (Furosemide Inj 20 Mg/2 Ml Vial) 20 mg IV ONE ONE Stop: 08/08/22 22:55 Last Admin: 08/09/22 01:06 Dose: 20 mg Documented By: TIM Cefepime HCl (Maxipime) 2,000 mg in 20 mls @ 5 mls/min IV NOW STA; Protocol Stop: 08/08/22 19:48 Last Admin: 08/08/22 21:10 Dose: 5 mls/min Documented By: JOAQUIM Ondansetron HCl (Ondansetron Inj 2 Mg/Ml 2 Ml Vial) Confirm Administered Dose 4 mg .ROUTE .STK-MED ONE Stop: 08/08/22 21:52 Last Admin: 08/08/22 21:54 Dose: 4 mg Documented By: JOAQUIM Patiromer (Patiromer Calcium Sorbitex 8.4 Gm Pack) 8.4 gm PO NOW STA Stop: 08/08/22 23:21 Last Admin: 08/09/22 00:58 Dose: 8.4 gm Documented By: TIM Imaging Data Radiologist's Impression: Chest X-Ray 08/08/22 19:44 XR chest 1V portable HISTORY: 67 years-old Male Dyspnea acute shortness of breath COMPARISON: Chest radiograph 08/02/2022 TECHNIQUE: AP view of the chest FINDINGS: Cardiac silhouette is enlarged. Pulmonary vascular congestion with interstitial coarsening. No pneumothorax. Trace pleural effusions. Bibasilar and right midlung airspace opacities. Pulmonary edema compared to the prior study. Degenerative changes of the shoulders and spine. IMPRESSION: 1. Cardiomegaly with mildly improved pulmonary edema compared to the 08/02/2022 exam. 2. Right greater than left bibasilar opacities may represent atelectasis versus pneumonia. 3. Right midlung opacity may represent pleural fluid within the minor fissure. ACT 112: Negative or not required by law. The above report was generated using voice recognition software. It may contain grammatical, syntax or spelling errors. Electronically signed by: Ted Victor M.D. 08/08/2022 8:20 PM Discharge Plan Visit Data Chief Complaint: Shortness of Breath/Dyspnea ED Provider: Roman Morris Discharge Problem: Respiratory failure, Chronic kidney disease, stage IV (severe), Fluid overload, Pneumonia Patient Disposition: Admitted As Inpatient Discharge Instructions Interventions: ED Discharge Assessment Last Done: 08/08/22 23:22 : Respiratory failure Qualifiers: Chronicity: acute Respiratory failure complication: hypoxia Qualified Code(s): J96.01 - Acute respiratory failure with hypoxia
[2022-08-08 20:21] LABS: Hematocrit (blood only) 29.5 % (40.1-51.0); Hemoglobin 9.6 g/dl (14.0-18.0); Mean Corpuscular Hemoglobin 29.6 pg (25.0-34.0); Mean Corpuscular Hgb Conc 32.5 g/dL (32.0-36.0); Mean Platelet Volume 9.2 fL (9.4-12.4); Platelet Count 435 K/uL (130-400); RDW Coefficient of Variation 14.1 % (11.5-14.5); RDW Standard Deviation 46.9 fL (36.4-46.3); Red Blood Count 3.24 M/uL (4.63-6.08); White Blood Count 17.61 K/ul (4.8-10.8)
--- NOTE | 2022-08-08 20:22 | XRay Report ---
XR chest 1V portable HISTORY: 67 years-old Male Dyspnea acute shortness of breath COMPARISON: Chest radiograph 08/02/2022 TECHNIQUE: AP view of the chest FINDINGS: Cardiac silhouette is enlarged. Pulmonary vascular congestion with interstitial coarsening. No pneumo thorax. Trace pleural effusions. Bibasilar and right midlung airspace opacities. Pulmonary edema comp ared to the prior study. Degenerative changes of the shoulders and spine. IMPRESSION: 1. Cardiomegaly with mildly improved pulmonary edema compared to the 08/02/2022 exam. 2. Right greater than left bibasilar opacities may represent atelectasis versus pneumonia. 3. Right midlung opacity may represent pleural fluid within the minor fissure. ACT 112: Negative or not required by law. The above report was generated using voice recognition software. It may contain grammatical, syntax o r spelling errors. Electronically signed by: Ted Victor M.D. 08/08/2022 8:20 PM
[2022-08-08 20:33] LABS: INR 1.1 (0.9-1.1); Partial Thromboplastin Ratio 1.1; Partial Thromboplastin Time 29.2 Seconds (21.0-31.0); Prothrombin Time 11.6 Seconds (9.0-12.0)
[2022-08-08 20:41] LABS: Basophils # (auto) 0.03 K/uL (0-0.2); Basophils % (auto) 0.2 %; Immature Granulocytes # (auto) 0.18 K/uL (0.00-0.02); Lymphocytes # (auto) 0.66 K/uL (1.2-3.4); Lymphocytes % (auto) 3.7 %; Monocytes # (auto) 0.53 K/uL (0.24-0.82); Neutrophils # (auto) 16.21 K/uL (1.4-6.5); Neutrophils % (auto) 92.1 %
[2022-08-08 20:48] LABS: Albumin Level 3.9 gm/dl (3.4-5.0); BUN Creatinine Ratio 20.9 (10-20); Bilirubin,Total 0.3 mg/dl (0.2-1.0); Calcium 11.1 mg/dl (8.5-10.1); Est GFR (African American) 13.8 ml/min; Est GFR (Non-African American) 11.9 ml/min; Globulin 4.1 gm/dl (2.5-4.0); Magnesium 2.1 mg/dl (1.7-2.4); Potassium 5.7 mmol/L (3.5-5.1)
[2022-08-08 21:11] LABS: Influenza A virus by PCR Negative (Neg); Influenza B virus by PCR Negative (Neg); RSV by PCR Negative (Neg); SARS CoV2 RNA(COVID-19) Ceph NEGATIVE (Negative)
[2022-08-08] MEDS ORDERED: FUROSEMIDE INJ 20 MG/2 ML VIAL IV ONE ×2 (21:12→22:54)
--- NOTE | 2022-08-08 21:29 | History & Physical Report ---
Date of Service August 08, 2022 Assessment & Plan (1) Respiratory failure: Plan: This is a 67-year-old male with a history of hypertension, insulin-dependent diabetes, atrial fibrillation, bilateral carotid artery stenosis, CKD stage IV, hyperlipidemia, renal artery stenosis who presented to [facility] for evaluation of shortness of breath, likely secondary to hypervolemia and recurrent PNA. Acute Hypoxic Respiratory Failure - Redevelopment of AHRF in the setting of CKD4 and recent PNA; patient found to have features of hypervolemia on exam and on chest imaging - Work-up as follows: - TTE 08/02: LVEF 65-70% with severe cLVH, grade II diastolic dysfunction, no significant AoV stenosis - BUN 98 / Cr 4.68 on admission (from 84 / 4.59 on 08/06) - Lytes: Na 133, K 5.7, HCO3 19 - Troponin 45137 (from 06717) on arrival / BNP at 2286 - CT Chest (STAT Rad): " Airspace disease throughout the lungs concerning for multifocal pneumonia. Edema could have a similar appearance. Bilateral pleural effusions. Extensive coronary artery calcifications. " - WBC 17.6 with L shift on admission / procal elevated 0.55 / CRP 5.39 - MRSA swab 08/03: NEGATIVE - Likely multifactorial: possible recurrence of multifocal PNA given appearance on CT, likely compounded by fluid overload and pleural effusions - multifactorial from CKD4 and HFpEF. Lower suspicion for VTE at present. - Titrate oxygen as needed to maintain SpO2 > 92%; given fluid overloaded appearance, opt to transition to BiPAP if needed - Fluid restriction to 2L/d, Dialysis diet, daily I&Os, daily weights - Management as below otherwise (2) Pneumonia: Plan: Multifocal Pneumonia - As above, CT imaging and labs are concerning for recurrent multifocal pneumonia. Influenza/COVID/RSV negative. - Continue cefepime/azithromycin as above - Recheck MRSA nares to determine MRSA coverage - Could consider respiratory BioFire if no significant improvement - Pulmonary Respules b.i.d. scheduled (3) Hypervolemia: Plan: Hypervolemia - Features of pulmonary edema and lower extremity edema present on exam and imaging and with elevated BNP (though noted with CKD) - TTE 08/02: LVEF 65-70% with severe cLVH, grade II diastolic dysfunction, no significant AoV stenosis - Suspect multifactorial: CKD4, component of acute HFpEF (e.g., cardiorenal) - Lasix 40mg IV given in the ED - Monitor I&Os, daily weights - Fluid restriction < 2L/day, Dialysis diet - Monitor lytes (4) Pleural effusion: Plan: Bilateral Pleural Effusions - Appreciated on CT and CXR imaging - Very likely secondary to hypervolemia from CKD and HFpEF - Diurese as outlined above - Recheck CXR and follow - if respiratory status continues to be poor and/or effusions grow, could consider pulmonary consult (5) Chronic kidney disease, stage IV (severe): Plan: MONE-on-CKD4 - Patient was being followed during last admission for the same - nephrology notes indicate baseline Cr 3.0-3.5, though has been persistently >4 since last admission - Secondary to renovascular disease, including renal artery stenosis (>60% stenosis in R renal artery) - BUN 98 / Cr 4.68 on admission (from 84 / 4.59 on 08/06) - Lytes: Na 133, K 5.7, HCO3 19 - Appreciate nephrology consultation while here to aid with fluid balance - Continue NaHCO3 and calcitriol - Patiromer x 1 given in the ED given hyperkalemia in setting of MONE-on-CKD - Lasix 40mg IV x 1 in ED, will schedule additional dose in the AM - Monitor BMP - Hold HCTZ/KCl (6) Hyperlipidemia LDL goal <70: Plan: HLD, CAD, MARTIN, B[place] - Continue statin, Plavix (7) IDDM (insulin dependent diabetes mellitus): Plan: ID-DM2 - History of poorly controlled DM2, now more well controlled with most recent A1c at 6.0% on 08/03 - Lower home Lantus to 25U b.i.d. and add SSI, adjust as needed (8) Hypertension: Plan: HTN - Continue amlodipine, metoprolol - Hold HCTZ (9) Hyperkalemia: Plan: Hyperkalemia - Likely secondary to MONE-on-CKD - Diuresis as above, give Patiromer x 1 (10) Atrial fibrillation: Plan: Atrial Fibrillation - Continue metoprolol and Eliquis (11) Elevated troponin: Plan: Elevated Troponin - Patient presented with high sensitivity troponin at over >28258 ; however, he has an extensive history of chronically and highly elevated troponin - He has no chest symptoms at present and has no acute ECG changes compared to last visit - Cardiology consulted during last admission (08/03) - suspect due to severe cLVH, CKD, vascular disease, especially given no RWMAs on TTE performed same-day - In setting of acute hypoxia and PNA/hypervolemia, suspect this is similar to previous with supply/demand mismatch - Check once more in 6 hours' time, trend if indicated - Monitored bed (12) Leukocytosis: Plan: Leukocytosis - Definitely a degree of PNA/physiologic stress contributing to this. However, looking back at his records, he has had a notable leukocytosis to 2018 - Should consider obtaining a peripheral smear once acute stressors have resolved to screen for hematologic malignancy Plan Code: Full Diet: Renal, fluid < 2L/d PPX: Eliquis Dispo: PCU History of Present Illness Primary Care Provider: Art Trejo This is a 67-year-old male with a history of hypertension, insulin-dependent diabetes, atrial fibrillation, bilateral carotid artery stenosis, CKD stage IV, hyperlipidemia, renal artery stenosis who presented to [facility] for evaluation of shortness of breath and fatigue. Patient says following his discharge from the hospital couple days ago, he was actually feeling quite good. He tells me his energy levels were good, he was not getting short of breath walking around, did not have any fevers, chills, sweats. Then beginning yesterday, he began developing progressive fatigue. He said that he just did not have the energy to do things that he normally wanted to do. He then said he began getting a little more short of breath with activities. He says he has felt cold/hot throughout today, but no myalgias or new night sweats or fevers. He denies any appetite changes. He does say that his belly has felt bigger today compared to previous days, no change in leg size. Given his significant fatigue and growing shortness of breath, he did report to the emergency department for further evaluation. Of note, patient was recently discharged for management of pneumonia. During that time, He was treated with cefepime and azithromycin, scheduled DuoNebs. Medications reviewed and include amlodipine, atorvastatin, calcitriol, clopidogrel, Eliquis, gemfibrozil, hydrochlorothiazide, Lantus, metoprolol, sodium bicarbonate. In the ED, patient was found to have a 10 L oxygen requirement to maintain saturations over 90%. Blood pressure on arrival was 180/94, heart rate 78. Weight today at 100.7 kg from 98.8 kg on discharge 1126 (on 1126, also was back on room air).Labs reveal white count of 17.6 with notable left shift, chronic anemia at 9.6, sodium 133, potassium 5.7, anion gap 14, HCO3 19, BUN 98/creatinine 4.68 (from 84/4.59 on 1127). Calcium at 11.1. AST 270/ALT 86. BNP 2286. COVID-negative, influenza negative, RSV negative.Chest x-ray demonstrated cardiomegaly with pulmonary edema, right and left bibasilar opacit ies, right midlung opacity. Chest CT pending.He was given albuterol and cefepime. He was also given 20 mg of IV Lasix. Allergies Allergy/AdvReac Type Severity Reaction Status Date / Time No Known Allergies Allergy Verified 08/02/22 21:00 Home Medications Medication Instructions Recorded Confirmed Type amlodipine 10 mg tablet 10 mg PO DAILY 06/26/18 08/02/22 History atorvastatin 40 mg tablet 40 mg PO DAILY 06/26/18 08/02/22 History gemfibrozil 600 mg tablet 600 mg PO DAILY 06/26/18 08/02/22 History magnesium oxide 400 mg PO DAILY 06/26/18 08/02/22 History insulin glargine 100 unit/mL (3 35 units subcut BID 01/13/20 08/02/22 History mL) subcutaneous pen (Basaglar KwikPen U-100 Insulin) apixaban 5 mg tablet (Eliquis) 5 mg PO BID 30 days #60 tabs 04/09/20 08/02/22 Rx clopidogrel 75 mg tablet (Plavix) 75 mg PO DAILY #30 tabs 04/09/20 08/02/22 Rx acetaminophen 650 mg 650 mg PO BID 05/30/20 08/02/22 History tablet,extended release coenzyme Q10 400 mg capsule 400 mg PO DAILY 05/30/20 08/02/22 History docusate sodium 100 mg capsule 100 mg PO DAILY 05/30/20 08/02/22 History ferrous sulfate 325 mg (65 mg 325 mg PO DAILY 05/30/20 08/02/22 History iron) tablet fluticasone propionate 50 1 spray intranasal DAILY PRN 05/30/20 08/02/22 History mcg/actuation nasal Congestion spray,suspension krill oil 500 mg capsule 500 mg PO BID 05/30/20 08/02/22 History mecobalamin (vitamin B12) 5,000 5,000 mcg PO DAILY 05/30/20 08/02/22 History mcg disintegrating tablet metoprolol succinate 100 mg 100 mg PO BID 05/30/20 08/02/22 History tablet,extended release 24 hr vbxdfwjsbmbi-lgyatuie-ewqnxh tablet 1 tab PO DAILY 05/30/20 08/02/22 History potassium chloride 20 mEq 20 meq PO DAILY 05/30/20 08/02/22 History tablet,extended release vitamin B complex 1 tab PO DAILY 05/30/20 08/02/22 History sodium bicarbonate 650 mg tablet 1,300 mg PO BID #360 tabs 03/21/22 08/02/22 Rx calcitriol 0.25 mcg capsule 0.25 mcg PO DAILY #90 caps 03/23/22 08/02/22 Rx cefdinir 300 mg capsule 300 mg PO BID 5 days #10 caps 08/05/22 Rx ciprofloxacin HCl 500 mg tablet 500 mg PO BID 5 days #10 tabs 08/05/22 Rx hydrochlorothiazide 25 mg tablet 50 mg PO DAILY #60 tabs 08/06/22 Rx Past Med/Surg History Medical History (Updated 08/08/22 @ 23:08 by Arnaud Rodríguez MD) Acute kidney injury Acute non-ST elevation myocardial infarction (NSTEMI) Atrial fibrillation, new onset Diabetes type 2, uncontrolled DKA (diabetic ketoacidoses) Hyperlipidemia LDL goal <70 Hypertension Lyme borreliosis Renal artery stenosis Surgical History 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 Family History Other Diabetes type 2, controlled Social History Smoking Status: Never smoker Hx Alcohol Use: No Hx Substance Use: No Preferred Language: Slovak Communication Ability: Effective Care Transition Coordinator Required: No Beliefs That Will Affect Care: None Current Living Situation: Alone Feels Safe at Home: Yes Assistive Devices: Cane Review of Systems Review of Systems: as per HPI Physical Exam Physical Exam: General: Tired-appearing 67-year old male who is alert, oriented, and appears in no acute distress. HEENT: NCAT. - Eyes - Sclera are white, anicteric, and without injection. - Mouth - MMM - Neck - supple, no appreciable JVD though difficult to assess with habitus Cardiac: Difficult exam given habitus. Normal rate and regular rhythm; S1 and S2 present with no murmurs, rubs, or gallops. Pulmonary: Mildly increased respiratory effort with symmetric expansion of the chest. No use of accessory muscles. Lungs demonstrated diffuse crackles, R>L, particularly near the bases and in the mid-lung saenz on R Abdominal: Normoactive bowel sounds. Abdomen was soft, mildly distended, and non-tender to palpation. Extremities: Upper and lower extremities are warm and well perfused. 1+ peripheral edema in the lower extremities bilaterally Psych: Well-developed, well-nourished, appropriately dressed for occasion. Behavior is cooperative and appropriate. Affect is WNL. Insight is appropriate. Results & Data Results & Data ([facility]) Vital Signs (Past 12 Hours) Vital Signs Temp Pulse BP Pulse Ox O2 Del Method O2 Flow Rate 08/08/22 20:08 95 Nebulizer 10 08/08/22 20:08 36.5 C 95 Oxymask, Nebulizer 10 08/08/22 20:08 36.5 C 78 180/94 H 94 Oxymask, Nebulizer 10 08/08/22 20:02 Oxymask, Nebulizer 10 08/08/22 20:02 Oxymask, Nebulizer 10 Laboratory Results Laboratory Results WBC 17.61 K/ul (4.8-10.8) H 08/08/22 20:00 RBC 3.24 M/uL (4.63-6.08) L 08/08/22 20:00 Hgb 9.6 g/dl (14.0-18.0) L 08/08/22 20:00 Hct 29.5 % (40.1-51.0) L 08/08/22 20:00 MCV 91.0 fL (80.0-100.0) 08/08/22 20: MCH 29.6 pg (25.0-34.0) 08/08/22 20:00 MCHC 32.5 g/dL (32.0-36.0) 08/08/22 20:00 RDW Std Deviation 46.9 fL (36.4-46.3) H 08/08/22 20:00 RDW Coeff of Whit 14.1 % (11.5-14.5) 08/08/22 20:00 Plt Count 435 K/uL (130-400) H 08/08/22 20:00 MPV 9.2 fL (9.4-12.4) L 08/08/22 20:00 Immature Gran % (Auto) 1.0 % 08/08/22 20:00 Neut % (Auto) 92.1 % 08/08/22 20:00 Lymph % (Auto) 3.7 % 08/08/22 20:00 [place] % (Auto) 3.0 % 08/08/22 20:00 Eos % (Auto) 0.0 % 08/08/22 20:00 Baso % (Auto) 0.2 % 08/08/22 20:00 Neut # (Auto) 16.21 K/uL (1.4-6.5) H 08/08/22 20:00 Lymph # (Auto) 0.66 K/uL (1.2-3.4) L 08/08/22 20:00 [place] # (Auto) 0.53 K/uL (0.24-0.82) 08/08/22 20:00 Eos # (Auto) 0.00 K/uL (0-0.50) 08/08/22 20:00 Baso # (Auto) 0.03 K/uL (0-0.2) 08/08/22 20:00 Immature Gran # (Auto) 0.18 K/uL (0.00-0.02) H 08/08/22 20:00 PT 11.6 Seconds (9.0-12.0) 08/08/22 20:00 INR 1.1 (0.9-1.1) 08/08/22 20:00 APTT 29.2 Seconds (21.0-31.0) 08/08/22 20:00 PTT Ratio 1.1 08/08/22 20:00 Sodium 133 mmol/L (136-145) L 08/08/22 20:00 Potassium 5.7 mmol/L (3.5-5.1) H 08/08/22 20:00 Chloride 100 mmol/L (98-107) 08/08/22 20:00 Carbon Dioxide 19 mmol/L (21-32) L 08/08/22 20:00 Anion Gap 14 (3-11) H 08/08/22 20:00 BUN 98 mg/dl (6-23) H 08/08/22 20:00 Creatinine 4.68 mg/dl (0.6-1.4) H* 08/08/22 20:00 Est Cr Clr Drug Dosing 18.0 ml/min 08/08/22 20:00 Est GFR ( Amer) 13.8 ml/min 08/08/22 20:00 Est GFR (Non-Af Amer) 11.9 ml/min 08/08/22 20:00 BUN/Creatinine Ratio 20.9 (10-20) H 08/08/22 20:00 Glucose 160 mg/dl (70-99(Fasting)) H 08/08/22 20:00 Calcium 11.1 mg/dl (8.5-10.1) H 08/08/22 20:00 Magnesium 2.1 mg/dl (1.7-2.4) 08/08/22 20:00 Total Bilirubin 0.3 mg/dl (0.2-1.0) 08/08/22 20:00 AST 270 U/L (13-39) H 08/08/22 20:00 ALT 86 U/L (7-52) H 08/08/22 20:00 Alkaline Phosphatase 64 U/L (34-104) 08/08/22 20:00 Troponin I High Sens 69738.0 pg/ml (0-20) H* D 08/08/22 20:00 C-Reactive Protein 5.39 mg/dl (0-0.5) H 08/08/22 20:00 B-Natriuretic Peptide 2286 pg/ml (0-100) H 08/08/22 20:00 Total Protein 8.0 gm/dl (6.0-8.3) 08/08/22 20:00 Albumin 3.9 gm/dl (3.4-5.0) 08/08/22 20:00 Globulin 4.1 gm/dl (2.5-4.0) H 08/08/22 20:00 Albumin/Globulin Ratio 1.0 (0.9-2) 08/08/22 20:00 Procalcitonin 0.55 ng/ml (0-0.5) H 08/08/22 20:00 Urine Color Yellow 08/09/22 00:15 Urine Appearance Clear (Clear) 08/09/22 00:15 Urine pH 5.0 (4.5-7.5) 08/09/22 00:15 Ur Specific [place] 1.017 (1.000-1.030) 08/09/22 00:15 Urine Protein 3+ (Negative) H 08/09/22 00:15 Urine Glucose (UA) 1+ (Negative) H 08/09/22 00:15 Urine Ketones Negative (Negative) 08/09/22 00:15 Urine Blood 3+ (Negative) H 08/09/22 00:15 Urine Nitrite Negative (Negative) 08/09/22 00:15 Urine Bilirubin Negative (Negative) 08/09/22 00:15 Urine Urobilinogen Negative (Negative) 08/09/22 00:15 Ur Leukocyte Esterase Negative (Negative) 08/09/22 00:15 Urine WBC (Auto) 1-5 /hpf (0-5) 08/09/22 00:15 Urine RBC (Auto) 0-4 /hpf (0-4) 08/09/22 00:15 U Hyaline Cast (Auto) 1-5 /lpf (0-5) 08/09/22 00:15 U Epithel Cells (Auto) 10-20 /lpf (0-5) H 08/09/22 00:15 Urine Bacteria (Auto) Negative (Negative) 08/09/22 00:15 SARS-CoV-2 (PCR) NEGATIVE (Negative) 08/08/22 20:00 Influenza Type A (PCR) Negative (Neg) 08/08/22 20:00 Influenza Type B (PCR) Negative (Neg) 08/08/22 20:00 RSV (RT-PCR) Negative (Neg) 08/08/22 20:00 Impressions Chest X-Ray 08/08/22 19:44 XR chest 1V portable HISTORY: 67 years-old Male Dyspnea acute shortness of breath COMPARISON: Chest radiograph 08/02/2022 TECHNIQUE: AP view of the chest FINDINGS: Cardiac silhouette is enlarged. Pulmonary vascular congestion with interstitial coarsening. No pneumothorax. Trace pleural effusions. Bibasilar and right midlung airspace opacities. Pulmonary edema compared to the prior study. Degenerative changes of the shoulders and spine. IMPRESSION: 1. Cardiomegaly with mildly improved pulmonary edema compared to the 08/02/2022 exam. 2. Right greater than left bibasilar opacities may represent atelectasis versus pneumonia. 3. Right midlung opacity may represent pleural fluid within the minor fissure. ACT 112: Negative or not required by law. The above report was generated using voice recognition software. It may contain grammatical, syntax or spelling errors. Electronically signed by: Ted Victor M.D. 08/08/2022 8:20 PM Supervising Physician Co-Signing Physician Notes Patient seen and examined, chart reviewed, case discussed with Dr. Rodríguez and I agree with the assessment and plan as above. In brief, patient is a 67yo male with history of DM, AF, CKD IV and HLP presentign with progressive SOB. Patient was recently hospitalized for PNA. Has had progressive fatigue and SOB x 1 day. On exam he is afebrile, hypertensive Resting comfortably, no respiratory distress at present. Speaking in complete sentences. Skin - intact, no rash HEENT - MMM, neck supple Heart - +S1/S2, regular, no m/r/g Lungs - +crackles in bilateral bases, some coarse breath sounds anteriorly Abd - +BS, soft, NT/ND Ext - warm an dwell perfused, 1+ edema bilaterally Labs and images reviewed Assessment/Plan - worsening respiratory status, suspect volume is major contributor. Also infectious process -Treatment with diuresis, follow I/Os, daily weights -Continue antibiotics -nebs scheduled and PRN -Remainder as above Resident Activity Tracking Resident Involvement: Resident Care Provided Care Provided: Adult Hospital Medicine (1) Respiratory failure Chronicity: acute Respiratory failure complication: hypoxia Qualified Code(s): J96.01 - Acute respiratory failure with hypoxia (2) Hypertension Hypertension type: unspecified Qualified Code(s): I10 - Essential (primary) hypertension
[2022-08-08] MEDS ORDERED: ONDANSETRON INJ 2 MG/ML 2 ML VIAL ONE (21:51)
[2022-08-08] MEDS ORDERED: FLUTICASONE PROPIONATE NA SPR 16 GM BTL NAE PRN (23:20)
[2022-08-08] MEDS ORDERED: DEXTROSE 50% 50 ML SYRINGE IV PRN (23:20)
[2022-08-08] MEDS ORDERED: CARBOHYDRATES FOR HYPOGLYCEMIA PO PRN (23:20)
[2022-08-08] MEDS ORDERED: PATIROMER CALCIUM SORBITEX 8.4 GM PACK PO STA (23:20)
[2022-08-08] MEDS ORDERED: GLUCOSE 40% GEL 15 GM TUBE PO PRN (23:20)
[2022-08-08] MEDS ORDERED: GLUCOSE 10 TAB/TUBE PO PRN (23:20)
[2022-08-08] MEDS ORDERED: GLUCAGON FOR INJ 1 MG VIAL SQ PRN (23:20)
[2022-08-09 00:42] LABS: Appearance Urine Clear (Clear); Bacteria Urine Automated Negative (Negative); Bilirubin Urine Negative (Negative); Blood Urine 3+ (Negative); Color Urine Yellow; Glucose Urine UA 1+ (Negative); Ketones Urine Negative (Negative); Leukocyte Esterase Urine Negative (Negative); Nitrite Urine Negative (Negative); Protein Urine 3+ (Negative); RBC Urine Automated 0-4 /hpf (0-4); Specific Gravity Urine 1.017 (1.000-1.030); Urobilinogen Urine Negative (Negative)
[2022-08-09] MEDS: LANTUS PER UNIT CHARGE SQ SCH ×3 (00:55→21:35)
--- NOTE | 2022-08-09 00:55 | Billing Data ---
Date of Service August 08, 2022 Coding Level of Care Code 62832 Initial Inpt Care Lvl 3
[2022-08-09] MEDS: APIXABAN 5 MG TABLET PO SCH (01:04)
[2022-08-09] MEDS: AZITHROMYCIN 500 MG in DEXTROSE 5% 250 ML IV SCH ×2 (01:09→23:23)
[2022-08-09 02:56] LABS: Basophils # (auto) 0.03 K/uL (0-0.2); Basophils % (auto) 0.2 %; Hematocrit (blood only) 26.8 % (40.1-51.0); Hemoglobin 8.8 g/dl (14.0-18.0); Immature Granulocytes # (auto) 0.15 K/uL (0.00-0.02); Immature Granulocytes % (auto) 0.8 %; Lymphocytes # (auto) 1.61 K/uL (1.2-3.4); Lymphocytes % (auto) 8.1 %; Mean Corpuscular Hgb Conc 32.8 g/dL (32.0-36.0); Mean Corpuscular Volume 91.5 fL (80.0-100.0); Mean Platelet Volume 8.9 fL (9.4-12.4); Monocytes # (auto) 1.35 K/uL (0.24-0.82); Monocytes % (auto) 6.8 %; Neutrophils % (auto) 84.1 %; Platelet Count 346 K/uL (130-400); RDW Coefficient of Variation 13.9 % (11.5-14.5); RDW Standard Deviation 45.9 fL (36.4-46.3); Red Blood Count 2.93 M/uL (4.63-6.08); White Blood Count 19.84 K/ul (4.8-10.8)
[2022-08-09 03:37] LABS: Albumin Globulin Ratio 0.9 (0.9-2); Albumin Level 3.4 gm/dl (3.4-5.0); BUN Creatinine Ratio 20.8 (10-20); Bilirubin,Total 0.3 mg/dl (0.2-1.0); Calcium 10.3 mg/dl (8.5-10.1); Creatinine Clr Calc Pharmacy 17.3 ml/min; Est GFR (African American) 13.2 ml/min; Est GFR (Non-African American) 11.4 ml/min; Globulin 3.6 gm/dl (2.5-4.0)
[2022-08-09] MEDS ORDERED: LACTATED RINGER'S 500 ML IV SCH (04:30)
[2022-08-09] MEDS: BUDESONIDE 0.5 MG/2 ML VIAL (PULMICORT) NEB SCH ×2 (07:06→19:58)
[2022-08-09] MEDS ORDERED: INSULIN ASPART PER UNIT SC SCH (07:30)
--- NOTE | 2022-08-09 07:55 | Hospitalist Progress Note ---
Date of Service August 09, 2022 Assessment & Plan (1) Respiratory failure: Plan: 67yo male PMHx hypertension, insulin-dependent diabetes, atrial fibrillation, bilateral carotid artery stenosis, CKD stage IV, hyperlipidemia, renal artery stenosis who presented for evaluation of shortness of breath, likely secondary to hypervolemia and recurrent PNA. Acute Hypoxic Respiratory Failure - Redevelopment of AHRF in the setting of CKD4 and recent PNA; patient found to have features of hypervolemia on exam and on chest imaging. Likely multifactorial: possible recurrence of multifocal PNA compounded by fluid overload and pleural effusions - multifactorial from CKD4 and HFpEF. - Work-up as follows: - TTE 08/02: LVEF 65-70% with severe concentric LVH, grade II diastolic dysfunction, no significant aortic stenosis - BUN 98 / Cr 4.68 (from 84 / 4.59 on 08/06) - initial Troponin 47k, peaked at 90k - WBC 17.6, increasing / procal elevated 0.55 / CRP 5.39 - CT Chest: Moderate interstitial pulmonary edema with suspected alveolar pulmonary edema. Small to moderate right and small left pleural effusions. Multifocal subpleural airspace opacities. Extensive coronary artery calcification. Mild cardiomegaly. Follow up chest CT in 2 months to ensure resolution is recommended. - Supplement O2, goal SpO2 > 92%; currently on non rebreather - furosemide 40 mg IV x1. Goal will be to continue diuretics to encourage a negative fluid balance. - daily I&Os, daily weights - Management as below otherwise (2) Hypervolemia: Plan: Hypervolemia - Features of pulmonary edema and lower extremity edema present on exam and imaging and with elevated BNP (though noted with CKD) - pleural effusions appreciated on CT and CXR imaging - TTE 08/02: LVEF 65-70% with severe LVH, grade II diastolic dysfunction, no significant aortic stenosis - Suspect multifactorial: CKD4, component of acute HFpEF (e.g., cardiorenal) - Lasix 40mg IV given in the ED. Cont diuresis as above. - Monitor I&Os, daily weights - Fluid restriction < 2L/day - Monitor lytes (3) Pneumonia: Plan: Multifocal Pneumonia - As above, CT imaging and labs are concerning for recurrent multifocal pneumonia. Influenza/COVID/RSV negative. - Continue cefepime/azithromycin as above - MRSA nares neg - Consider respiratory BioFire if no significant improvement - Pulmonary Respules (4) Chronic kidney disease, stage IV (severe): Plan: MONE-on-CKD4 - Patient was being followed during last admission for the same - nephrology notes indicate baseline Cr 3.0-3.5, though has been persistently >4 since last admission - Secondary to renovascular disease, including renal artery stenosis (>60% stenosis in R renal artery) - Continue NaHCO3 and calcitriol - Patiromer x1 in ED given hyperkalemia in setting of MONE-on-CKD - Lasix 40mg IV x1 in ED, diuresis as above. - Appreciate nephrology consultation -multi organ symptomatology likely stemming from acute renal failure -will need dialysis, scheduled for HD catheter placement tomorrow - Monitor BMP - Hold HCTZ/KCl (5) Elevated troponin: Plan: Elevated Troponin, peaked - high sensitivity troponin at over >[id number] on admission; however, he has an extensive history of chronically and highly elevated troponin - denies chest symptoms with no acute ECG changes compared to last visit - Cardiology consulted during last admission (08/03) - suspect due to severe LVH, CKD, vascular disease, especially given no wall motion abnormalities on TTE - In setting of acute hypoxia and PNA/hypervolemia, suspect this is similar to previous with supply/demand mismatch - consulted cardiology given significant elevation in troponin from baseline (6) Hyperlipidemia LDL goal <70: Plan: HLD, CAD, MARTIN, [place] - Continue statin, Plavix (7) IDDM (insulin dependent diabetes mellitus): Plan: ID-DM2 - h/o poorly controlled DM2, improved, most recent A1c at 6.0% (08/03) - Lower home Lantus to 30U b.i.d. and add SSI, adjust as needed (8) Hypertension: Plan: HTN - Continue amlodipine, metoprolol - Hold HCTZ (9) Hyperkalemia: Plan: Hyperkalemia - Likely secondary to MONE-on-CKD - Diuresis as above, give Patiromer x1 in ED (10) Atrial fibrillation: Plan: Atrial Fibrillation - Continue metoprolol and Eliquis (11) Leukocytosis: Plan: Leukocytosis - Definitely a degree of PNA/physiologic stress contributing to this. However, looking back at his records, he has had a notable leukocytosis to 2018 - Should consider obtaining a peripheral smear once acute stressors have resolved to screen for hematologic malignancy Plan Code status: Full Diet: npo after midnight DVT ppx: SCD, hold eliquis for procedure in am Dispo: PCU Admission and Anticipated Discharge Date Admission Date: August 08, 2022 Supervising Physician Co-Signing Physician Notes Attending attestation Pt seen and examined in concert with Dr. Hadley. In agreement with the documented findings as noted in the resident documentation with any exceptions or additions as noted here. Shortness of breath improved on supplemental O2 therapy. VS, nursing notes, ED documentation, imaging reviewed. On examination, S1/S2 nl RRR no MCG. CTAB. Abd NT/ND BS+ve. No LE edema appreciated. Acute hypoxic respiratory failure - multifactorial with PNA, but concerning for fluid overload in the setting of MONE on CKD4. O2 therapy per protocol. Furosemide 40mg x 1 with close monitoring of I/O/weights. Echo as noted. IV cefepime, azithro MONE on CKD4 - nephrology consult, vascular consult - HD catheter for tomorrow to assist in electrolyte and fluid balance management Elevated troponin - cardiology consult - no apparent symptoms or EKG changes, e cho as noted. Downtrending. IDDMII - A1c tightly controlled at 6%. Consider loosening glycemic control as outpatient, reduced insulin here as noted. Else see resident documentation as noted. Subjective Seen at bedside this morning. Just feels a little weird with some sob. Otherwise laying comfortably. On nonrebreather. Denies chest pain, abd pain, headache, N/V. Review of Systems Review of Systems: All systems reviewed & are unremarkable except as noted in HPI & below Physical Exam Physical Exam: General: AOx3, in no acute distress. HEENT: NCAT. Sclera without injection. MMM Neck - supple, no appreciable JVD Cardiac: Difficult exam given habitus. RRR; S1 and S2 present with no murmurs, rubs, or gallops. Pulmonary: Mildly increased respiratory effort with symmetric expansion of the chest. Visible retractions. No use of accessory muscles. Lungs demonstrated diffuse crackles, R>L, particularly near the bases and in the mid-lung saenz on R Abdominal: Normoactive bowel sounds. Abdomen was soft, mildly distended, and non-tender to palpation. Extremities: Upper and lower extremities are warm and well perfused. 1+ peripheral edema in the lower extremities bilaterally Psych: cooperative. Insight is appropriate. Results & Data Results & Data ([facility]) Vital Signs (Past 12 Hours) Vital Signs Temp Pulse Pulse Resp BP BP Pulse Ox 08/09/22 07:43 73 08/09/22 07:22 37.1 C 81 19 157/62 H 95 08/09/22 07:06 84 96 08/09/22 03:30 08/09/22 03:15 36.5 C 83 16 150/76 H 95 08/09/22 03:12 83 08/09/22 03:15 36.5 C 83 20 151/71 H 95 08/09/22 02:50 82 20 97 08/09/22 02:46 79 23 95 08/09/22 02:10 43 H 100 08/09/22 02:00 36 H 99 08/09/22 02:00 158/72 H 08/09/22 01:50 37 H 98 08/09/22 01:40 23 96 08/09/22 01:30 24 97 08/09/22 01:20 28 H 97 08/09/22 01:10 22 97 08/09/22 01:00 24 98 08/09/22 01:00 176/84 H 08/09/22 00:54 25 H 98 08/09/22 00:54 154/69 H 08/09/22 00:50 23 99 08/09/22 00:40 83 24 98 08/09/22 00:30 80 23 98 08/09/22 00:20 82 24 93 08/09/22 00:10 83 23 93 08/09/22 00:00 78 25 H 96 08/08/22 23:50 76 21 96 08/08/22 23:40 78 31 H 97 08/08/22 23:30 83 26 H 92 08/08/22 23:20 85 41 H 95 08/08/22 23:10 73 23 97 08/08/22 23:00 73 23 97 08/08/22 22:50 74 23 97 08/08/22 22:40 76 27 H 97 08/08/22 22:30 80 34 H 98 08/08/22 22:20 81 30 H 96 08/08/22 22:10 83 22 97 08/08/22 22:00 97 08/08/22 21:50 97 08/08/22 21:40 96 08/08/22 21:30 96 08/08/22 21:27 93 08/08/22 21:10 79 30 H 97 08/08/22 21:00 78 26 H 96 08/08/22 20:50 78 25 H 97 08/08/22 20:40 78 29 H 96 08/08/22 20:30 73 27 H 94 08/08/22 20:20 77 28 H 94 08/08/22 20:10 79 27 H 95 08/08/22 20:00 78 30 H 96 08/09/22 02:43 78 24 167/78 H 97 08/08/22 22:31 78 98 08/08/22 20:08 95 08/08/22 20:08 36.5 C 95 08/08/22 20:08 36.5 C 78 180/94 H 94 08/08/22 20:02 08/08/22 20:02 O2 Del Method O2 Flow Rate 08/09/22 07:43 08/09/22 07:22 Room Air, Nasal Cannula, Aerosol Mask 6 08/09/22 07:06 6 08/09/22 03:30 Non-rebreather 10 08/09/22 03:15 Non-rebreather 10 08/09/22 03:12 08/09/22 03:15 Non-rebreather 10 08/09/22 02:50 08/09/22 02:46 08/09/22 02:10 08/09/22 02:00 08/09/22 02:00 08/09/22 01:50 08/09/22 01:40 08/09/22 01:30 08/09/22 01:20 08/09/22 01:10 08/09/22 01:00 08/09/22 01:00 08/09/22 00:54 08/09/22 00:54 08/09/22 00:50 08/09/22 00:40 08/09/22 00:30 08/09/22 00:20 08/09/22 00:10 08/09/22 00:00 08/08/22 23:50 08/08/22 23:40 08/08/22 23:30 08/08/22 23:20 08/08/22 23:10 08/08/22 23:00 08/08/22 22:50 08/08/22 22:40 08/08/22 22:30 08/08/22 22:20 08/08/22 22:10 08/08/22 22:00 08/08/22 21:50 08/08/22 21:40 08/08/22 21:30 08/08/22 21:27 08/08/22 21:10 08/08/22 21:00 08/08/22 20:50 08/08/22 20:40 08/08/22 20:30 08/08/22 20:20 08/08/22 20:10 08/08/22 20:00 08/09/22 02:43 Non-rebreather 10 08/08/22 22:31 Room Air 08/08/22 20:08 Nebulizer 10 08/08/22 20:08 Oxymask, Nebulizer 10 08/08/22 20:08 Oxymask, Nebulizer 10 08/08/22 20:02 Oxymask, Nebulizer 10 08/08/22 20:02 Oxymask, Nebulizer 10 Laboratory Results 08/09/22 08/09/22 08/09/22 Range/Units 11:06 10:40 07:35 WBC (4.8-10.8) K/ul RBC (4.63-6.08) M/uL Hgb (14.0-18.0) g/dl Hct (40.1-51.0) % MCV (80.0-100.0) fL MCH (25.0-34.0) pg MCHC (32.0-36.0) g/dL RDW Std Deviation (36.4-46.3) fL RDW Coeff of Whit (11.5-14.5) % Plt Count (130-400) K/uL MPV (9.4-12.4) fL Immature Gran % (Auto) % Neut % (Auto) % Lymph % (Auto) % Whitman % (Auto) % Eos % (Auto) % Baso % (Auto) % Neut # (Auto) (1.4-6.5) K/uL Lymph # (Auto) (1.2-3.4) K/uL Whitman # (Auto) (0.24-0.82) K/uL Eos # (Auto) (0-0.50) K/uL Baso # (Auto) (0-0.2) K/uL Immature Gran # (Auto) (0.00-0.02) K/uL PT (9.0-12.0) Seconds INR (0.9-1.1) APTT (21.0-31.0) Seconds PTT Ratio Sodium (136-145) mmol/L Potassium (3.5-5.1) mmol/L Chloride (98-107) mmol/L Carbon Dioxide (21-32) mmol/L Anion Gap (3-11) BUN (6-23) mg/dl Creatinine (0.6-1.4) mg/dl Est Cr Clr Drug Dosing ml/min Est GFR ( Amer) ml/min Est GFR (Non-Af Amer) ml/min BUN/Creatinine Ratio (10-20) Glucose (70-99(Fasting)) mg/dl POC Glucose 150 H 119 H (70-99) mg/dl Calcium (8.5-10.1) mg/dl Magnesium (1.7-2.4) mg/dl Total Bilirubin (0.2-1.0) mg/dl AST (13-39) U/L ALT (7-52) U/L Alkaline Phosphatase (34-104) U/L Troponin I High Sens 28893.1 H* D (0-20) pg/ml C-Reactive Protein (0-0.5) mg/dl B-Natriuretic Peptide (0-100) pg/ml Total Protein (6.0-8.3) gm/dl Albumin (3.4-5.0) gm/dl Globulin (2.5-4.0) gm/dl Albumin/Globulin Ratio (0.9-2) Procalcitonin (0-0.5) ng/ml Urine Color Urine Appearance (Clear) Urine pH (4.5-7.5) Ur Specific [place] (1.000-1.030) Urine Protein (Negative) Urine Glucose (UA) (Negative) Urine Ketones (Negative) Urine Blood (Negative) Urine Nitrite (Negative) Urine Bilirubin (Negative) Urine Urobilinogen (Negative) Ur Leukocyte Esterase (Negative) Urine WBC (Auto) (0-5) /hpf Urine RBC (Auto) (0-4) /hpf U Hyaline Cast (Auto) (0-5) /lpf U Epithel Cells (Auto) (0-5) /lpf Urine Bacteria (Auto) (Negative) Nasal Screen MRSA (PCR) (Negative) SARS-CoV-2 (PCR) (Negative) Influenza Type A (PCR) (Neg) Influenza Type B (PCR) (Neg) RSV (RT-PCR) (Neg) 08/09/22 08/09/22 08/09/22 Range/Units 02:45 02:45 02:45 WBC 19.84 H (4.8-10.8) K/ul RBC 2.93 L (4.63-6.08) M/uL Hgb 8.8 L (14.0-18.0) g/dl Hct 26.8 L (40.1-51.0) % MCV 91.5 (80.0-100.0) fL MCH 30.0 (25.0-34.0) pg MCHC 32.8 (32.0-36.0) g/dL RDW Std Deviation 45.9 (36.4-46.3) fL RDW Coeff of Whit 13.9 (11.5-14.5) % Plt Count 346 (130-400) K/uL MPV 8.9 L (9.4-12.4) fL Immature Gran % (Auto) 0.8 % Neut % (Auto) 84.1 % Lymph % (Auto) 8.1 % Whitman % (Auto) 6.8 % Eos % (Auto) 0.0 % Baso % (Auto) 0.2 % Neut # (Auto) 16.70 H (1.4-6.5) K/uL Lymph # (Auto) 1.61 (1.2-3.4) K/uL Whitman # (Auto) 1.35 H (0.24-0.82) K/uL Eos # (Auto) 0.00 (0-0.50) K/uL Baso # (Auto) 0.03 (0-0.2) K/uL Immature Gran # (Auto) 0.15 H (0.00-0.02) K/uL PT (9.0-12.0) Seconds INR (0.9-1.1) APTT (21.0-31.0) Seconds PTT Ratio Sodium 132 L (136-145) mmol/L Potassium 5.0 (3.5-5.1) mmol/L Chloride 101 (98-107) mmol/L Carbon Dioxide 18 L (21-32) mmol/L Anion Gap 13 H (3-11) BUN 101 H (6-23) mg/dl Creatinine 4.86 H* (0.6-1.4) mg/dl Est Cr Clr Drug Dosing 17.3 ml/min Est GFR ( Amer) 13.2 ml/min Est GFR (Non-Af Amer) 11.4 ml/min BUN/Creatinine Ratio 20.8 H (10-20) Glucose 142 H (70-99(Fasting)) mg/dl POC Glucose (70-99) mg/dl Calcium 10.3 H (8.5-10.1) mg/dl Magnesium (1.7-2.4) mg/dl Total Bilirubin 0.3 (0.2-1.0) mg/dl AST 331 H (13-39) U/L ALT 85 H (7-52) U/L Alkaline Phosphatase 53 (34-104) U/L Troponin I High Sens 01959.1 H* D (0-20) pg/ml C-Reactive Protein (0-0.5) mg/dl B-Natriuretic Peptide (0-100) pg/ml Total Protein 7.0 (6.0-8.3) gm/dl Albumin 3.4 (3.4-5.0) gm/dl Globulin 3.6 (2.5-4.0) gm/dl Albumin/Globulin Ratio 0.9 (0.9-2) Procalcitonin (0-0.5) ng/ml Urine Color Urine Appearance (Clear) Urine pH (4.5-7.5) Ur Specific [place] (1.000-1.030) Urine Protein (Negative) Urine Glucose (UA) (Negative) Urine Ketones (Negative) Urine Blood (Negative) Urine Nitrite (Negative) Urine Bilirubin (Negative) Urine Urobilinogen (Negative) Ur Leukocyte Esterase (Negative) Urine WBC (Auto) (0-5) /hpf Urine RBC (Auto) (0-4) /hpf U Hyaline Cast (Auto) (0-5) /lpf U Epithel Cells (Auto) (0-5) /lpf Urine Bacteria (Auto) (Negative) Nasal Screen MRSA (PCR) (Negative) SARS-CoV-2 (PCR) (Negative) Influenza Type A (PCR) (Neg) Influenza Type B (PCR) (Neg) RSV (RT-PCR) (Neg) 08/09/22 08/09/22 08/08/22 Range/Units 01:15 00:15 20:00 WBC (4.8-10.8) K/ul RBC (4.63-6.08) M/uL Hgb (14.0-18.0) g/dl Hct (40.1-51.0) % MCV (80.0-100.0) fL MCH (25.0-34.0) pg MCHC (32.0-36.0) g/dL RDW Std Deviation (36.4-46.3) fL RDW Coeff of Whit (11.5-14.5) % Plt Count (130-400) K/uL MPV (9.4-12.4) fL Immature Gran % (Auto) % Neut % (Auto) % Lymph % (Auto) % Whitman % (Auto) % Eos % (Auto) % Baso % (Auto) % Neut # (Auto) (1.4-6.5) K/uL Lymph # (Auto) (1.2-3.4) K/uL Whitman # (Auto) (0.24-0.82) K/uL Eos # (Auto) (0-0.50) K/uL Baso # (Auto) (0-0.2) K/uL Immature Gran # (Auto) (0.00-0.02) K/uL PT (9.0-12.0) Seconds INR (0.9-1.1) APTT (21.0-31.0) Seconds PTT Ratio Sodium (136-145) mmol/L Potassium (3.5-5.1) mmol/L Chloride (98-107) mmol/L Carbon Dioxide (21-32) mmol/L Anion Gap (3-11) BUN (6-23) mg/dl Creatinine (0.6-1.4) mg/dl Est Cr Clr Drug Dosing ml/min Est GFR ( Amer) ml/min Est GFR (Non-Af Amer) ml/min BUN/Creatinine Ratio (10-20) Glucose (70-99(Fasting)) mg/dl POC Glucose (70-99) mg/dl Calcium (8.5-10.1) mg/dl Magnesium (1.7-2.4) mg/dl Total Bilirubin (0.2-1.0) mg/dl AST (13-39) U/L ALT (7-52) U/L Alkaline Phosphatase (34-104) U/L Troponin I High Sens (0-20) pg/ml C-Reactive Protein (0-0.5) mg/dl B-Natriuretic Peptide (0-100) pg/ml Total Protein (6.0-8.3) gm/dl Albumin (3.4-5.0) gm/dl Globulin (2.5-4.0) gm/dl Albumin/Globulin Ratio (0.9-2) Procalcitonin 0.55 H (0-0.5) ng/ml Urine Color Yellow Urine Appearance Clear (Clear) Urine pH 5.0 (4.5-7.5) Ur Specific [place] 1.017 (1.000-1.030) Urine Protein 3+ H (Negative) Urine Glucose (UA) 1+ H (Negative) Urine Ketones Negative (Negative) Urine Blood 3+ H (Negative) Urine Nitrite Negative (Negative) Urine Bilirubin Negative (Negative) Urine Urobilinogen Negative (Negative) Ur Leukocyte Esterase Negative (Negative) Urine WBC (Auto) 1-5 (0-5) /hpf Urine RBC (Auto) 0-4 (0-4) /hpf U Hyaline Cast (Auto) 1-5 (0-5) /lpf U Epithel Cells (Auto) 10-20 H (0-5) /lpf Urine Bacteria (Auto) Negative (Negative) Nasal Screen MRSA (PCR) Negative (Negative) SARS-CoV-2 (PCR) (Negative) Influenza Type A (PCR) (Neg) Influenza Type B (PCR) (Neg) RSV (RT-PCR) (Neg) 08/08/22 08/08/22 08/08/22 Range/Units 20:00 20:00 20:00 WBC (4.8-10.8) K/ul RBC (4.63-6.08) M/uL Hgb (14.0-18.0) g/dl Hct (40.1-51.0) % MCV (80.0-100.0) fL MCH (25.0-34.0) pg MCHC (32.0-36.0) g/dL RDW Std Deviation (36.4-46.3) fL RDW Coeff of Whit (11.5-14.5) % Plt Count (130-400) K/uL MPV (9.4-12.4) fL Immature Gran % (Auto) % Neut % (Auto) % Lymph % (Auto) % Whitman % (Auto) % Eos % (Auto) % Baso % (Auto) % Neut # (Auto) (1.4-6.5) K/uL Lymph # (Auto) (1.2-3.4) K/uL Whitman # (Auto) (0.24-0.82) K/uL Eos # (Auto) (0-0.50) K/uL Baso # (Auto) (0-0.2) K/uL Immature Gran # (Auto) (0.00-0.02) K/uL PT (9.0-12.0) Seconds INR (0.9-1.1) APTT (21.0-31.0) Seconds PTT Ratio Sodium (136-145) mmol/L Potassium (3.5-5.1) mmol/L Chloride (98-107) mmol/L Carbon Dioxide (21-32) mmol/L Anion Gap (3-11) BUN (6-23) mg/dl Creatinine (0.6-1.4) mg/dl Est Cr Clr Drug Dosing ml/min Est GFR ( Amer) ml/min Est GFR (Non-Af Amer) ml/min BUN/Creatinine Ratio (10-20) Glucose (70-99(Fasting)) mg/dl POC Glucose (70-99) mg/dl Calcium (8.5-10.1) mg/dl Magnesium (1.7-2.4) mg/dl Total Bilirubin (0.2-1.0) mg/dl AST (13-39) U/L ALT (7-52) U/L Alkaline Phosphatase (34-104) U/L Troponin I High Sens (0-20) pg/ml C-Reactive Protein 5.39 H (0-0.5) mg/dl B-Natriuretic Peptide 2286 H (0-100) pg/ml Total Protein (6.0-8.3) gm/dl Albumin (3.4-5.0) gm/dl Globulin (2.5-4.0) gm/dl Albumin/Globulin Ratio (0.9-2) Procalcitonin (0-0.5) ng/ml Urine Color Urine Appearance (Clear) Urine pH (4.5-7.5) Ur Specific [place] (1.000-1.030) Urine Protein (Negative) Urine Glucose (UA) (Negative) Urine Ketones (Negative) Urine Blood (Negative) Urine Nitrite (Negative) Urine Bilirubin (Negative) Urine Urobilinogen (Negative) Ur Leukocyte Esterase (Negative) Urine WBC (Auto) (0-5) /hpf Urine RBC (Auto) (0-4) /hpf U Hyaline Cast (Auto) (0-5) /lpf U Epithel Cells (Auto) (0-5) /lpf Urine Bacteria (Auto) (Negative) Nasal Screen MRSA (PCR) (Negative) SARS-CoV-2 (PCR) NEGATIVE (Negative) Influenza Type A (PCR) Negative (Neg) Influenza Type B (PCR) Negative (Neg) RSV (RT-PCR) Negative (Neg) 08/08/22 08/08/22 08/08/22 Range/Units 20:00 20:00 20:00 WBC 17.61 H (4.8-10.8) K/ul RBC 3.24 L (4.63-6.08) M/uL Hgb 9.6 L (14.0-18.0) g/dl Hct 29.5 L (40.1-51.0) % MCV 91.0 (80.0-100.0) fL MCH 29.6 (25.0-34.0) pg MCHC 32.5 (32.0-36.0) g/dL RDW Std Deviation 46.9 H (36.4-46.3) fL RDW Coeff of Whit 14.1 (11.5-14.5) % Plt Count 435 H (130-400) K/uL MPV 9.2 L (9.4-12.4) fL Immature Gran % (Auto) 1.0 % Neut % (Auto) 92.1 % Lymph % (Auto) 3.7 % Whitman % (Auto) 3.0 % Eos % (Auto) 0.0 % Baso % (Auto) 0.2 % Neut # (Auto) 16.21 H (1.4-6.5) K/uL Lymph # (Auto) 0.66 L (1.2-3.4) K/uL Whitman # (Auto) 0.53 (0.24-0.82) K/uL Eos # (Auto) 0.00 (0-0.50) K/uL Baso # (Auto) 0.03 (0-0.2) K/uL Immature Gran # (Auto) 0.18 H (0.00-0.02) K/uL PT 11.6 (9.0-12.0) Seconds INR 1.1 (0.9-1.1) APTT 29.2 (21.0-31.0) Seconds PTT Ratio 1.1 Sodium 133 L (136-145) mmol/L Potassium 5.7 H (3.5-5.1) mmol/L Chloride 100 (98-107) mmol/L Carbon Dioxide 19 L (21-32) mmol/L Anion Gap 14 H (3-11) BUN 98 H (6-23) mg/dl Creatinine 4.68 H* (0.6-1.4) mg/dl Est Cr Clr Drug Dosing 18.0 ml/min Est GFR ( Amer) 13.8 ml/min Est GFR (Non-Af Amer) 11.9 ml/min BUN/Creatinine Ratio 20.9 H (10-20) Glucose 160 H (70-99(Fasting)) mg/dl POC Glucose (70-99) mg/dl Calcium 11.1 H (8.5-10.1) mg/dl Magnesium 2.1 (1.7-2.4) mg/dl Total Bilirubin 0.3 (0.2-1.0) mg/dl AST 270 H (13-39) U/L ALT 86 H (7-52) U/L Alkaline Phosphatase 64 (34-104) U/L Troponin I High Sens 77312.0 H* D (0-20) pg/ml C-Reactive Protein (0-0.5) mg/dl B-Natriuretic Peptide (0-100) pg/ml Total Protein 8.0 (6.0-8.3) gm/dl Albumin 3.9 (3.4-5.0) gm/dl Globulin 4.1 H (2.5-4.0) gm/dl Albumin/Globulin Ratio 1.0 (0.9-2) Procalcitonin (0-0.5) ng/ml Urine Color Urine Appearance (Clear) Urine pH (4.5-7.5) Ur Specific [place] (1.000-1.030) Urine Protein (Negative) Urine Glucose (UA) (Negative) Urine Ketones (Negative) Urine Blood (Negative) Urine Nitrite (Negative) Urine Bilirubin (Negative) Urine Urobilinogen (Negative) Ur Leukocyte Esterase (Negative) Urine WBC (Auto) (0-5) /hpf Urine RBC (Auto) (0-4) /hpf U Hyaline Cast (Auto) (0-5) /lpf U Epithel Cells (Auto) (0-5) /lpf Urine Bacteria (Auto) (Negative) Nasal Screen MRSA (PCR) (Negative) SARS-CoV-2 (PCR) (Negative) Influenza Type A (PCR) (Neg) Influenza Type B (PCR) (Neg) RSV (RT-PCR) (Neg) Resident Activity Tracking Resident Involvement: Resident Care Provided Care Provided: Adult Hospital Medicine (1) Respiratory failure Chronicity: acute Respiratory failure complication: hypoxia Qualified Code(s): J96.01 - Acute respiratory failure with hypoxia (2) Hypertension Hypertension type: unspecified Qualified Code(s): I10 - Essential (primary) hypertension
--- NOTE | 2022-08-09 08:02 | CT Scan Report ---
CT OF THE CHEST WITHOUT IV CONTRAST CLINICAL HISTORY: Severe hypoxia. COMPARISON STUDY: Chest radiographs August 02, 2022 and August 08, 2022. CT DOSE: 623.87 mGy.cm TECHNIQUE: Axial images of the chest were obtained without IV contrast. Images were reviewed in the axial, sagittal, and coronal planes. IV contrast was not administered for this examination. Automat ed exposure control was utilized for the study. A dose lowering technique was utilized adhering to t he principles of ALARA. FINDINGS: Extensive coronary artery calcification is present. Mild cardiomegaly. There is no pericar dial effusion. Small to moderate right and small left pleural effusions are present. There is no pneu mothorax. Extensive interlobular septal thickening is noted. This represent pulmonary edema. Associat ed airspace opacities favor alveolar edema. In addition, there are are subpleural opacities within th e right upper lobe and the bilateral lower lobes. Central airways are patent. No acute fracture or solomon spicious lesion within the visualized bony thorax is noted. Visualized portions of the upper abdomen are unremarkable on this unenhanced exam. IMPRESSION: 1. Moderate interstitial pulmonary edema with suspected alveolar pulmonary edema. Small to moderate r ight and small left pleural fusions. 2. Multifocal subpleural airspace opacities. These are nonspecific and could reflect atelectasis, sup erimposed pneumonia or alveolar edema. Follow up chest CT in 2 months to ensure resolution is recomme nded. 3. Extensive coronary artery calcification. Mild cardiomegaly. ACT 112: Negative or not required by law. Electronically signed by: Nas Drummond M.D. 08/09/2022 8:01 AM
--- NOTE | 2022-08-09 08:38 | Ultrasound Report ---
ABDOMINAL ULTRASOUND, RIGHT UPPER QUADRANT HISTORY: worsening transaminitis. COMPARISON: Abdomen and pelvis CT 04/04/2020. FINDINGS: Pancreas: The pancreatic tail is obscured by overlying bowel gas. The remaining portions of the pancr eas are within normal limits. Liver: Slightly heterogenous echotexture. No definite masses. 19 cm in length. Gallbladder: No gallbladder wall thickening. No gallstones. CBD: 5 mm. Right kidney: No hydronephrosis. Miscellaneous: Incidental note is made of a small right pleural effusion. This remains unchanged. IMPRESSION: 1. Slightly heterogeneous echotexture within the liver. No definite focal masses 2. Normal gallbladder. No gallstones. 3. Small right pleural effusion, unchanged. ACT 112: Negative or not required by law. Electronically signed by: Chilango Juarez M.D. 08/09/2022 8:36 AM
--- NOTE | 2022-08-09 08:41 | XRay Report ---
XR chest 1V portable CLINICAL HISTORY: effusion and edema f/u COMPARISON STUDY: Chest radiograph and chest CT August 08, 2022. FINDINGS: There is no pneumothorax. Small bilateral pleural effusions are again noted. Mild cardiomeg john is unchanged. Right midlung airspace opacity slightly improved. Left basilar opacity has increase d. Moderate pulmonary edema persists. IMPRESSION: 1. Persistent moderate interstitial pulmonary edema. Small bilateral pleural effusions. 2. Increase in left basilar opacity with improvement in right midlung opacity. These opacities could reflect alveolar edema, superimposed pneumonia or atelectasis. ACT 112: Negative or not required by law. Electronically signed by: Nas Drummond M.D. 08/09/2022 8:39 AM
[2022-08-09] MEDS ORDERED: CALCITRIOL 0.25 MCG CAPSULE PO SCH (09:00)
[2022-08-09] MEDS ORDERED: gemfibroziL 600 MG TAB PO SCH (09:00)
[2022-08-09] MEDS: amLODIPine BESYLATE 5 MG TAB PO SCH (09:29)
[2022-08-09] MEDS: DOCUSATE SODIUM 100 MG CAP PO SCH (09:29)
[2022-08-09] MEDS: CLOPIDOGREL BISULFATE 75 MG TAB PO SCH (09:29)
[2022-08-09] MEDS: ATORVASTATIN 40 MG TAB PO SCH (09:29)
[2022-08-09] MEDS: SODIUM BICARBONATE 650 MG TAB PO SCH ×2 (09:29→20:38)
[2022-08-09] MEDS: MULTIVITAMIN TAB PO SCH (09:29)
[2022-08-09] MEDS: FERROUS SULFATE 325 MG TAB PO SCH (09:29)
[2022-08-09] MEDS: METOPROLOL SUCC 50MG EXT REL TAB PO SCH ×2 (09:30→20:37)
[2022-08-09] MEDS: guaiFENesin 600 MG TABCR PO SCH ×2 (09:30→20:38)
[2022-08-09] MEDS ORDERED: PHARMACY GLYCEMIC MGMT CONSULT PRN (09:33)
--- NOTE | 2022-08-09 09:52 | Nephrology Consultation ---
Date of Consultation August 09, 2022 Assessment & Plan (1) Acute kidney injury superimposed on CKD: Kidney dysfunction is notably advanced. Advanced care planning has been reviewed. Indications for HD reviewed. I have consulted Dr. Orourke for HD catheter placement which can be performed tomorrow. Dionicio will need to be NPO after midnight. Eliquis has been held. Heparin gtt will need to be held accordingly depending on scheduling of the procedure. Hepatitis B profile has been ordered to be sent with AM labs. Case management assistance would be appreciated to help in arranging outpatient HD at [facility] under the care of Dr. Munoz. I stopped the IVF this AM and provided furosemide 40 mg IV. Goal will be to continue diuretics to encourage a negative fluid balance. Medications are appropriate for kidney function. Q24 hour dosing of cefepime may be considered. (2) Hyperkalemia: Improved with medical management overnight. Renal diet. Diuretics to encourage urine output. (3) Renal artery stenosis: BP reasonably acceptable. Unilateral L >60% per recent duplex. Unfortunately, given advanced kidney dysfunction, I would not anticipate significant benefit to intervention. I did discuss with Dr. Orourke this AM who will review and provide any additional considerations and recommendations with his consultation later today. (4) Bilateral pneumonia: Cefepime dosing per kidney dysfunction. (5) Elevated troponin: NSTEMI. Cardiology consultation pending. Heparin gtt ordered. Denies chest pain currently. History of Present Illness Reason for Consultation: MONE/CKD Requesting Physician: Lorenzo Estevez MD Attending Physician: Lorenzo Estevez MD History of Present Illness Mr. Dionicio Coleman is a 67 year-old male that I know well from the outpatient CKD clinic. Medical history is notable for with insulin dependent DMII, hypertension, renovascular disease, atrial fibrillation, and CKD IV A3. Baseline creatinine recently ~3.5 mg/dL. Dionicio has nephrotic range proteinuria quantified at 8.8 grams/gram suggestive of underlying sFSGS. He was recently admitted to [facility] with bilateral pneumonia. Dionicio was discharged home on August 05, unfortunately he started feeling poorly within 48 hours of hospital discharge. Serum creatinine 4.3 mg/dL on discharge. He presented to the ER yesterday with notable fatigue, nausea, and shortness of breath. Symptoms had been progressive over ~48 hours. He was admitted with hypoxic respiratory failure and acute on chronic kidney injury. Dionicio has been non-oliguric. He was resting in bed on an oxymask during my assessment this AM. He denies chest pain or palpitations. We reviewed his history. I called Dr. Orourke and reviewed the case with him as well. Dionicio has know underlying right sided renal artery stenosis. There had been consideration for intervention previously. Unfortunately, his kidney dysfunction is advanced and he is experiencing notable symptomatic fluid retention. Dionicio is increasingly notably azotemic with increasing symptoms. He presented with hyperkalemia requiring medical management and has progressive metabolic acidosis. I reviewed risks/benefits of initiation of dialysis with Dionicio. He expressed understanding. Eliquis has been held this morning. Cardiology consultation pending regarding elevated troponin. Heparin gtt is planned to start this afternoon. Dr. Orourke is available for permcath placement tomorrow. Allergies Allergy/AdvReac Type Severity Reaction Status Date / Time No Known Allergies Allergy Verified 08/02/22 21:00 Home Medications Medication Instructions Recorded Confirmed Type amlodipine 10 mg tablet 10 mg PO DAILY 06/26/18 08/02/22 History atorvastatin 40 mg tablet 40 mg PO DAILY 06/26/18 08/02/22 History gemfibrozil 600 mg tablet 600 mg PO DAILY 06/26/18 08/02/22 History magnesium oxide 400 mg PO DAILY 06/26/18 08/02/22 History insulin glargine 100 unit/mL (3 35 units subcut BID 01/13/20 08/02/22 History mL) subcutaneous pen (Basaglar KwikPen U-100 Insulin) apixaban 5 mg tablet (Eliquis) 5 mg PO BID 30 days #60 tabs 04/09/20 08/02/22 Rx clopidogrel 75 mg tablet (Plavix) 75 mg PO DAILY #30 tabs 04/09/20 08/02/22 Rx acetaminophen 650 mg 650 mg PO BID 05/30/20 08/02/22 History tablet,extended release coenzyme Q10 400 mg capsule 400 mg PO DAILY 05/30/20 08/02/22 History docusate sodium 100 mg capsule 100 mg PO DAILY 05/30/20 08/02/22 History ferrous sulfate 325 mg (65 mg 325 mg PO DAILY 05/30/20 08/02/22 History iron) tablet fluticasone propionate 50 1 spray intranasal DAILY PRN 05/30/20 08/02/22 History mcg/actuation nasal Congestion spray,suspension krill oil 500 mg capsule 500 mg PO BID 05/30/20 08/02/22 History mecobalamin (vitamin B12) 5,000 5,000 mcg PO DAILY 05/30/20 08/02/22 History mcg disintegrating tablet metoprolol succinate 100 mg 100 mg PO BID 05/30/20 08/02/22 History tablet,extended release 24 hr mmafepiwwdpd-kbveujji-syhtcl tablet 1 tab PO DAILY 05/30/20 08/02/22 History potassium chloride 20 mEq 20 meq PO DAILY 05/30/20 08/02/22 History tablet,extended release vitamin B complex 1 tab PO DAILY 05/30/20 08/02/22 History sodium bicarbonate 650 mg tablet 1,300 mg PO BID #360 tabs 03/21/22 08/02/22 Rx calcitriol 0.25 mcg capsule 0.25 mcg PO DAILY #90 caps 03/23/22 08/02/22 Rx cefdinir 300 mg capsule 300 mg PO BID 5 days #10 caps 08/05/22 Rx ciprofloxacin HCl 500 mg tablet 500 mg PO BID 5 days #10 tabs 08/05/22 Rx hydrochlorothiazide 25 mg tablet 50 mg PO DAILY #60 tabs 08/06/22 Rx Patient History Medical History Acute kidney injury Acute non-ST elevation myocardial infarction (NSTEMI) Atrial fibrillation, new onset Diabetes type 2, uncontrolled DKA (diabetic ketoacidoses) Hyperlipidemia LDL goal <70 Hypertension Lyme borreliosis Renal artery stenosis Surgical History 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 Family History Other Diabetes type 2, controlled Social History Smoking Status: Never smoker Hx Alcohol Use: Yes Alcohol type: beer and wine Hx Substance Use: No Preferred Language: Estonian Communication Ability: Effective Support Analyst Required: No Beliefs That Will Affect Care: None Current Living Situation: Alone Feels Safe at Home: Yes Assistive Devices: Glasses Review of Systems Review of Systems: All systems reviewed & are unremarkable except as noted in HPI & below Respiratory: + dyspnea; no cough, no hemoptysis and no pain on inspiration Cardiovascular: + dyspnea at rest and + orthopnea; no chest pain, no palpitati ons and no edema Gastrointestinal: + bloating, + nausea and + constipation; no abdominal pain, no vomiting, no diarrhea/loose stools and no melena Physical Exam Constitutional: well developed; no acute distress Eyes: + anicteric sclerae; no conjunctival abnormality ENMT: Mouth: no oral mucosal abnormality and oral mucous membranes not dry Neck: normal visual inspection and trachea midline Respiratory: + tachypneic; does not use accessory muscles Auscultation: + rales Cardiovascular: Rate/Rhythm: + irregularly irregular Heart Sounds: normal S1 and normal S2 Extremities: no edema Musculoskeletal: Extremities: no cyanosis and no clubbing Skin: normal turgor; no lesions Neurologic: Motor/Sensory: no tremor and no asterixis Psychiatric: Orientation: alert and oriented x 3 Results & Data ([facility]) Vital Signs (Past 12 Hours) Vital Signs Temp Pulse Pulse Resp BP BP Pulse Ox 08/09/22 09:40 20 87 L 08/09/22 07:43 73 08/09/22 07:22 37.1 C 81 19 157/62 H 95 08/09/22 07:06 84 96 08/09/22 03:30 08/09/22 03:15 36.5 C 83 16 150/76 H 95 08/09/22 03:12 83 08/09/22 03:15 36.5 C 83 20 151/71 H 95 08/09/22 02:50 82 20 97 08/09/22 02:46 79 23 95 08/09/22 02:10 43 H 100 08/09/22 02:00 36 H 99 08/09/22 02:00 158/72 H 08/09/22 01:50 37 H 98 08/09/22 01:40 23 96 08/09/22 01:30 24 97 08/09/22 01:20 28 H 97 08/09/22 01:10 22 97 08/09/22 01:00 24 98 08/09/22 01:00 176/84 H 08/09/22 00:54 25 H 98 08/09/22 00:54 154/69 H 08/09/22 00:50 23 99 08/09/22 00:40 83 24 98 08/09/22 00:30 80 23 98 08/09/22 00:20 82 24 93 08/09/22 00:10 83 23 93 08/09/22 00:00 78 25 H 96 08/08/22 23:50 76 21 96 08/08/22 23:40 78 31 H 97 08/08/22 23:30 83 26 H 92 08/08/22 23:20 85 41 H 95 08/08/22 23:10 73 23 97 08/08/22 23:00 73 23 97 08/08/22 22:50 74 23 97 08/08/22 22:40 76 27 H 97 08/08/22 22:30 80 34 H 98 08/08/22 22:20 81 30 H 96 08/08/22 22:10 83 22 97 08/08/22 22:00 97 08/09/22 02:43 78 24 167/78 H 97 08/08/22 22:31 78 98 O2 Del Method O2 Flow Rate 08/09/22 09:40 Oxymask 15 08/09/22 07:43 08/09/22 07:22 Room Air, Nasal Cannula, Aerosol Mask 6 08/09/22 07:06 6 08/09/22 03:30 Non-rebreather 08/09/22 03:15 Non-rebreather 10 08/09/22 03:12 08/09/22 03:15 Non-rebreather 10 08/09/22 02:50 08/09/22 02:46 08/09/22 02:10 08/09/22 02:00 08/09/22 02:00 08/09/22 01:50 08/09/22 01:40 08/09/22 01:30 08/09/22 01:20 08/09/22 01:10 08/09/22 01:00 08/09/22 01:00 08/09/22 00:54 08/09/22 00:54 08/09/22 00:50 08/09/22 00:40 08/09/22 00:30 08/09/22 00:20 08/09/22 00:10 08/09/22 00:00 08/08/22 23:50 08/08/22 23:40 08/08/22 23:30 08/08/22 23:20 08/08/22 23:10 08/08/22 23:00 08/08/22 22:50 08/08/22 22:40 08/08/22 22:30 08/08/22 22:20 08/08/22 22:10 08/08/22 22:00 08/09/22 02:43 Non-rebreather 10 08/08/22 22:31 Room Air Laboratory Results Laboratory Results - last 24 hr 08/08/22 08/08/22 08/08/22 20:00 20:00 20:00 WBC 17.61 H RBC 3.24 L Hgb 9.6 L Hct 29.5 L MCV 91.0 MCH 29.6 MCHC 32.5 RDW Std Deviation 46.9 H RDW Coeff of Whit 14.1 Plt Count 435 H MPV 9.2 L Immature Gran % (Auto) 1.0 Neut % (Auto) 92.1 Lymph % (Auto) 3.7 Rosebud % (Auto) 3.0 Eos % (Auto) 0.0 Baso % (Auto) 0.2 Neut # (Auto) 16.21 H Lymph # (Auto) 0.66 L Rosebud # (Auto) 0.53 Eos # (Auto) 0.00 Baso # (Auto) 0.03 Immature Gran # (Auto) 0.18 H PT 11.6 INR 1.1 APTT 29.2 PTT Ratio 1.1 Sodium 133 L Potassium 5.7 H Chloride 100 Carbon Dioxide 19 L Anion Gap 14 H BUN 98 H Creatinine 4.68 H* Est Cr Clr Drug Dosing 18.0 Est GFR ( Amer) 13.8 Est GFR (Non-Af Amer) 11.9 BUN/Creatinine Ratio 20.9 H Glucose 160 H POC Glucose Calcium 11.1 H Magnesium 2.1 Total Bilirubin 0.3 AST 270 H ALT 86 H Alkaline Phosphatase 64 Troponin I High Sens 97182.0 H* D C-Reactive Protein B-Natriuretic Peptide Total Protein 8.0 Albumin 3.9 Globulin 4.1 H Albumin/Globulin Ratio 1.0 Procalcitonin Urine Color Urine Appearance Urine pH Ur Specific Addis Urine Protein Urine Glucose (UA) Urine Ketones Urine Blood Urine Nitrite Urine Bilirubin Urine Urobilinogen Ur Leukocyte Esterase Urine WBC (Auto) Urine RBC (Auto) U Hyaline Cast (Auto) U Epithel Cells (Auto) Urine Bacteria (Auto) Nasal Screen MRSA (PCR) SARS-CoV-2 (PCR) Influenza Type A (PCR) Influenza Type B (PCR) RSV (RT-PCR) 08/08/22 08/08/22 08/08/22 20:00 20:00 20:00 WBC RBC Hgb Hct MCV MCH MCHC RDW Std Deviation RDW Coeff of Whit Plt Count MPV Immature Gran % (Auto) Neut % (Auto) Lymph % (Auto) Rosebud % (Auto) Eos % (Auto) Baso % (Auto) Neut # (Auto) Lymph # (Auto) Rosebud # (Auto) Eos # (Auto) Baso # (Auto) Immature Gran # (Auto) PT INR APTT PTT Ratio Sodium Potassium Chloride Carbon Dioxide Anion Gap BUN Creatinine Est Cr Clr Drug Dosing Est GFR ( Amer) Est GFR (Non-Af Amer) BUN/Creatinine Ratio Glucose POC Glucose Calcium Magnesium Total Bilirubin AST ALT Alkaline Phosphatase Troponin I High Sens C-Reactive Protein 5.39 H B-Natriuretic Peptide 2286 H Total Protein Albumin Globulin Albumin/Globulin Ratio Procalcitonin Urine Color Urine Appearance Urine pH Ur Specific Addis Urine Protein Urine Glucose (UA) Urine Ketones Urine Blood Urine Nitrite Urine Bilirubin Urine Urobilinogen Ur Leukocyte Esterase Urine WBC (Auto) Urine RBC (Auto) U Hyaline Cast (Auto) U Epithel Cells (Auto) Urine Bacteria (Auto) Nasal Screen MRSA (PCR) SARS-CoV-2 (PCR) NEGATIVE Influenza Type A (PCR) Negative Influenza Type B (PCR) Negative RSV (RT-PCR) Negative 08/08/22 08/09/22 08/09/22 20:00 00:15 01:15 WBC RBC Hgb Hct MCV MCH MCHC RDW Std Deviation RDW Coeff of Whit Plt Count MPV Immature Gran % (Auto) Neut % (Auto) Lymph % (Auto) Rosebud % (Auto) Eos % (Auto) Baso % (Auto) Neut # (Auto) Lymph # (Auto) Rosebud # (Auto) Eos # (Auto) Baso # (Auto) Immature Gran # (Auto) PT INR APTT PTT Ratio Sodium Potassium Chloride Carbon Dioxide Anion Gap BUN Creatinine Est Cr Clr Drug Dosing Est GFR ( Amer) Est GFR (Non-Af Amer) BUN/Creatinine Ratio Glucose POC Glucose Calcium Magnesium Total Bilirubin AST ALT Alkaline Phosphatase Troponin I High Sens C-Reactive Protein B-Natriuretic Peptide Total Protein Albumin Globulin Albumin/Globulin Ratio Procalcitonin 0.55 H Urine Color Yellow Urine Appearance Clear Urine pH 5.0 Ur Specific Addis 1.017 Urine Protein 3+ H Urine Glucose (UA) 1+ H Urine Ketones Negative Urine Blood 3+ H Urine Nitrite Negative Urine Bilirubin Negative Urine Urobilinogen Negative Ur Leukocyte Esterase Negative Urine WBC (Auto) 1-5 Urine RBC (Auto) 0-4 U Hyaline Cast (Auto) 1-5 U Epithel Cells (Auto) 10-20 H Urine Bacteria (Auto) Negative Nasal Screen MRSA (PCR) Negative SARS-CoV-2 (PCR) Influenza Type A (PCR) Influenza Type B (PCR) RSV (RT-PCR) 08/09/22 08/09/22 08/09/22 02:45 02:45 02:45 WBC 19.84 H RBC 2.93 L Hgb 8.8 L Hct 26.8 L MCV 91.5 MCH 30.0 MCHC 32.8 RDW Std Deviation 45.9 RDW Coeff of Whit 13.9 Plt Count 346 MPV 8.9 L Immature Gran % (Auto) 0.8 Neut % (Auto) 84.1 Lymph % (Auto) 8.1 Rosebud % (Auto) 6.8 Eos % (Auto) 0.0 Baso % (Auto) 0.2 Neut # (Auto) 16.70 H Lymph # (Auto) 1.61 Rosebud # (Auto) 1.35 H Eos # (Auto) 0.00 Baso # (Auto) 0.03 Immature Gran # (Auto) 0.15 H PT INR APTT PTT Ratio Sodium 132 L Potassium 5.0 Chloride 101 Carbon Dioxide 18 L Anion Gap 13 H BUN 101 H Creatinine 4.86 H* Est Cr Clr Drug Dosing 17.3 Est GFR ( Amer) 13.2 Est GFR (Non-Af Amer) 11.4 BUN/Creatinine Ratio 20.8 H Glucose 142 H POC Glucose Calcium 10.3 H Magnesium Total Bilirubin 0.3 AST 331 H ALT 85 H Alkaline Phosphatase 53 Troponin I High Sens 07290.1 H* D C-Reactive Protein B-Natriuretic Peptide Total Protein 7.0 Albumin 3.4 Globulin 3.6 Albumin/Globulin Ratio 0.9 Procalcitonin Urine Color Urine Appearance Urine pH Ur Specific Addis Urine Protein Urine Glucose (UA) Urine Ketones Urine Blood Urine Nitrite Urine Bilirubin Urine Urobilinogen Ur Leukocyte Esterase Urine WBC (Auto) Urine RBC (Auto) U Hyaline Cast (Auto) U Epithel Cells (Auto) Urine Bacteria (Auto) Nasal Screen MRSA (PCR) SARS-CoV-2 (PCR) Influenza Type A (PCR) Influenza Type B (PCR) RSV (RT-PCR) 08/09/22 07:35 WBC RBC Hgb Hct MCV MCH MCHC RDW Std Deviation RDW Coeff of Whit Plt Count MPV Immature Gran % (Auto) Neut % (Auto) Lymph % (Auto) Rosebud % (Auto) Eos % (Auto) Baso % (Auto) Neut # (Auto) Lymph # (Auto) [place] # (Auto) Eos # (Auto) Baso # (Auto) Immature Gran # (Auto) PT INR APTT PTT Ratio Sodium Potassium Chloride Carbon Dioxide Anion Gap BUN Creatinine Est Cr Clr Drug Dosing Est GFR ( Amer) Est GFR (Non-Af Amer) BUN/Creatinine Ratio Glucose POC Glucose 119 H Calcium Magnesium Total Bilirubin AST ALT Alkaline Phosphatase Troponin I High Sens C-Reactive Protein B-Natriuretic Peptide Total Protein Albumin Globulin Albumin/Globulin Ratio Procalcitonin Urine Color Urine Appearance Urine pH Ur Specific Addis Urine Protein Urine Glucose (UA) Urine Ketones Urine Blood Urine Nitrite Urine Bilirubin Urine Urobilinogen Ur Leukocyte Esterase Urine WBC (Auto) Urine RBC (Auto) U Hyaline Cast (Auto) U Epithel Cells (Auto) Urine Bacteria (Auto) Nasal Screen MRSA (PCR) SARS-CoV-2 (PCR) Influenza Type A (PCR) Influenza Type B (PCR) RSV (RT-PCR) Diagnostic Findings XR chest 1V portable CLINICAL HISTORY: effusion and edema f/u FINDINGS: There is no pneumothorax. Small bilateral pleural effusions are again noted. Mild cardiomegaly is unchanged. Right midlung airspace opacity slightly improved. Left basilar opacity has increased. Moderate pulmonary edema persists. IMPRESSION: 1. Persistent moderate interstitial pulmonary edema. Small bilateral pleural effusions. 2. Increase in left basilar opacity with improvement in right midlung opacity. These opacities could reflect alveolar edema, superimposed pneumonia or atelectasis. PG Care Time/CCT Total # of Minutes Spent Total Time Spent with Patient: Total time spent is greater than 50% in coordination of care (as documented) at patient's floor/unit and/or counseling patient: Coding Level of Care Code 75179 Inpt Consult Level 4 Diagnoses Acute kidney injury superimposed on CKD N17.9; N18.9 Hyperkalemia E87.5 Renal artery stenosis I70.1 Bilateral pneumonia J18.9 Elevated troponin R77.8
[2022-08-09] MEDS ORDERED: FUROSEMIDE 40 MG/4 ML VIAL IV ONE ×2 (10:00→11:00)
--- NOTE | 2022-08-09 10:37 | Pharmacy Report ---
Pharmacy Glycemic Short Note 2 - Date of Service August 09, 2022 - Glycemic Short BSG Results (Last 24 hours): 08/08/22 08/09/22 08/09/22 20:00 02:45 07:35 Glucose 160 H 142 H POC Glucose 119 H OUTPATIENT ANTIDIABETIC REGIMEN: * Basaglar 35 units BID * A1c 6% 08/03/22 ASSESSMENT: * 67 year old type 2 diabetic admitted with pneumonia, NPO to be evaluated by cardiology for possible cath, elevated troponin. * Patient managed on only basal insulin as outpatient, received 25 units Lantus last night, held this morning, euglycemic today. * Continue HS basal dosing only and correctional insulin Q6H while NPO, add CR when diet resumed, and possibly increase basal at that time. PLAN FOR INPATIENT GLYCEMIC CONTROL: * Basal insulin * Lantus 25 units SQ HS * Bolus insulin * NovoLog per scale ACHS or Q6hrs while NPO * Goal Range: Low 110 mg/dL - High 140 mg/dL * Correction Factor: 35 mg/dL/unit * Nutritional / Prandial insulin per carb ratio of 1 unit per 12 grams CHO consumed
[2022-08-09] MEDS: CEFEPIME 1,000 MG in SYRINGE 0 ML IV SCH ×2 (11:01→20:41)
[2022-08-09] MEDS ORDERED: Heparin IV Adult Wt-Based Low-Dose *NO* Bolus Protocol IV SCH (12:00)
[2022-08-09] MEDS ORDERED: HEPARIN SODIUM/DEXTROSE 25,000 UNITS/500 ML BAG IV SCH (12:00)
[2022-08-09] MEDS: INSULIN ASPART PER UNIT SC SCH ×3 (12:38→21:35)
--- NOTE | 2022-08-09 18:21 | Cardiology Consultation ---
Date of Consultation August 09, 2022 Assessment & Plan (1) Elevated troponin: (2) Atrial fibrillation: Plan 1. Elevated troponin: He has a history of markedly elevated cardiac biomarkers. This was more significant today. Very likely related to his declining clinical condition including both worsening renal function and a presentation with hypoxia. Undoubtedly this is superimposed upon significant coronary disease. I do not believe this is pharmaceutical specialty representative of an acute coronary syndrome, but at some point he should undergo coronary angiography as he is likely to have significant disease. His clinical condition will likely improve with initiation of dialysis. Once he is clinically improved we can make arrangements for a cardiac catheterization. At this point simply supportive care with good blood pressure management and oxygen supplementation. Continue beta-blockade. 2. Atrial fibrillation: No recent episodes of atrial fibrillation. Patient typically on Eliquis for systemic anticoagulation. 3. Mitral regurgitation: Mild on most recent echocardiogram History of Present Illness Reason for Consultation: Elevated troponin Requesting Physician: Leonie Attending Physician: Lorenzo Estevez MD History of Present Illness The patient is a 59-year-old gentleman with a history of paroxysmal atrial fibrillation, peripheral vascular disease and elevated troponins who was recently admitted to the hospital with multifocal pneumonia. During that admission he was noted to have markedly elevated cardiac biomarkers that were felt to be related to both his renal insufficiency and his acute illness. He did not describe symptoms consistent with an acute coronary syndrome or coronary insufficiency. His clinical condition improved and he was discharged home. However, he states that over the past few days he developed some gastrointe stinal symptoms such as nausea and vomiting. He developed anorexia and had some difficulty sleeping. He began to experience symptoms of breathing difficulty and was directed to the emergency room for evaluation. He was noted to be hypoxic at the time of evaluation. He was admitted for continued management of worsening renal failure and multifocal pneumonia. Currently the patient reports only mild gastrointestinal disturbance. He has a good appetite and is actually hungry. No current chest discomfort. He did report some indigestion at home, but this was in the setting of nausea and vo miting as well. No significant breathing difficulty while lying in bed. He has not been ambulatory today. Did not describe symptoms of palpitations. No dizziness or lightheadedness. No recent syncope. Allergies Allergy/AdvReac Type Severity Reaction Status Date / Time No Known Allergies Allergy Verified 08/02/22 21:00 Home Medications Medication Instructions Recorded Confirmed Type amlodipine 10 mg tablet 10 mg PO DAILY 06/26/18 08/02/22 History atorvastatin 40 mg tablet 40 mg PO DAILY 06/26/18 08/02/22 History gemfibrozil 600 mg tablet 600 mg PO DAILY 06/26/18 08/02/22 History magnesium oxide 400 mg PO DAILY 06/26/18 08/02/22 History insulin glargine 100 unit/mL (3 35 units subcut BID 01/13/20 08/02/22 History mL) subcutaneous pen (Basaglar KwikPen U-100 Insulin) apixaban 5 mg tablet (Eliquis) 5 mg PO BID 30 days #60 tabs 04/09/20 08/02/22 Rx clopidogrel 75 mg tablet (Plavix) 75 mg PO DAILY #30 tabs 04/09/20 08/02/22 Rx acetaminophen 650 mg 650 mg PO BID 05/30/20 08/02/22 History tablet,extended release coenzyme Q10 400 mg capsule 400 mg PO DAILY 05/30/20 08/02/22 History docusate sodium 100 mg capsule 100 mg PO DAILY 05/30/20 08/02/22 History ferrous sulfate 325 mg (65 mg 325 mg PO DAILY 05/30/20 08/02/22 History iron) tablet fluticasone propionate 50 1 spray intranasal DAILY PRN 05/30/20 08/02/22 History mcg/actuation nasal Congestion spray,suspension krill oil 500 mg capsule 500 mg PO BID 05/30/20 08/02/22 History mecobalamin (vitamin B12) 5,000 5,000 mcg PO DAILY 05/30/20 08/02/22 History mcg disintegrating tablet metoprolol succinate 100 mg 100 mg PO BID 05/30/20 08/02/22 History tablet,extended release 24 hr mrkjabocposm-frektmlx-fsdkuq tablet 1 tab PO DAILY 05/30/20 08/02/22 History potassium chloride 20 mEq 20 meq PO DAILY 05/30/20 08/02/22 History tablet,extended release vitamin B complex 1 tab PO DAILY 05/30/20 08/02/22 History sodium bicarbonate 650 mg tablet 1,300 mg PO BID #360 tabs 03/21/22 08/02/22 Rx calcitriol 0.25 mcg capsule 0.25 mcg PO DAILY #90 caps 03/23/22 08/02/22 Rx cefdinir 300 mg capsule 300 mg PO BID 5 days #10 caps 08/05/22 Rx ciprofloxacin HCl 500 mg tablet 500 mg PO BID 5 days #10 tabs 08/05/22 Rx hydrochlorothiazide 25 mg tablet 50 mg PO DAILY #60 tabs 08/06/22 Rx Patient History Medical History Acute kidney injury Acute non-ST elevation myocardial infarction (NSTEMI) Atrial fibrillation, new onset Diabetes type 2, uncontrolled DKA (diabetic ketoacidoses) Hyperlipidemia LDL goal <70 Hypertension Lyme borreliosis Renal artery stenosis Surgical History 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 Family History Other Diabetes type 2, controlled Social History Smoking Status: Never smoker Hx Alcohol Use: Yes Alcohol type: beer and wine Hx Substance Use: No Preferred Language: Korean Communication Ability: Effective Cafeteria Clerk Required: No Beliefs That Will Affect Care: None Current Living Situation: Alone Feels Safe at Home: Yes Assistive Devices: Cane Review of Systems Review of Systems: Per HPI. No recent fevers or chills. Physical Exam Physical Exam: The patient is alert and oriented. Mood and affect appeared normal. He answered all questions appropriately. HEENT: Pupils are equal and reactive to light and accommodation. Extraocular movements are intact. The sclerae are anicteric. Neuro: Cranial nerves intact Lungs: Crackles in congestion throughout all lung saenz. No expiratory wheezi ng. Normal respiratory effort. Cardiac: Heart demonstrates a regular rate and rhythm. Normal S1 and S2. No murmurs on examination. Pulses: The patient has palpable radial pulses bilaterally that are equal in intensity Extremities: There was no evidence of hypoperfusion. There is no cyanosis or clubbing. There is no edema. Skin: I did not appreciate any rashes on examination today. Results & Data ([facility]) Vital Signs (Past 12 Hours) Vital Signs Temp Pulse Pulse Resp BP Pulse Ox O2 Del Method 08/09/22 16:37 136/69 93 Non-rebreather 08/09/22 16:20 37.1 C 79 22 176/61 H 91 Oxymask 08/09/22 15:12 81 08/09/22 11:34 37.3 C 80 19 152/78 H 90 Non-rebreather 08/09/22 10:53 Non-rebreather 08/09/22 09:40 20 87 L Oxymask 08/09/22 07:43 73 08/09/22 07:22 37.1 C 81 19 157/62 H 95 Room Air, Nasal Cannula, Aerosol Mask 08/09/22 07:06 84 96 O2 Flow Rate 08/09/22 16:37 13 08/09/22 16:20 6 08/09/22 15:12 08/09/22 11:34 15 08/09/22 10:53 15 08/09/22 09:40 15 08/09/22 07:43 08/09/22 07:22 6 08/09/22 07:06 6 Laboratory Results Abnormal Lab Results 08/08/22 08/08/22 08/08/22 20:00 20:00 20:00 WBC 17.61 H RBC 3.24 L Hgb 9.6 L Hct 29.5 L MCV 91.0 MCH 29.6 MCHC 32.5 RDW Std Deviation 46.9 H RDW Coeff of Whit 14.1 Plt Count 435 H MPV 9.2 L Immature Gran % (Auto) 1.0 Neut % (Auto) 92.1 Lymph % (Auto) 3.7 [place] % (Auto) 3.0 Eos % (Auto) 0.0 Baso % (Auto) 0.2 Neut # (Auto) 16.21 H Lymph # (Auto) 0.66 L [place] # (Auto) 0.53 Eos # (Auto) 0.00 Baso # (Auto) 0.03 Immature Gran # (Auto) 0.18 H PT 11.6 INR 1.1 APTT 29.2 PTT Ratio 1.1 Sodium 133 L Potassium 5.7 H Chloride 100 Carbon Dioxide 19 L Anion Gap 14 H BUN 98 H Creatinine 4.68 H* Est Cr Clr Drug Dosing 18.0 Est GFR ( Amer) 13.8 Est GFR (Non-Af Amer) 11.9 BUN/Creatinine Ratio 20.9 H Glucose 160 H POC Glucose Calcium 11.1 H Magnesium 2.1 Total Bilirubin 0.3 AST 270 H ALT 86 H Alkaline Phosphatase 64 Troponin I High Sens 14167.0 H* D C-Reactive Protein B-Natriuretic Peptide Total Protein 8.0 Albumin 3.9 Globulin 4.1 H Albumin/Globulin Ratio 1.0 Procalcitonin Urine Color Urine Appearance Urine pH Ur Specific Norman Urine Protein Urine Glucose (UA) Urine Ketones Urine Blood Urine Nitrite Urine Bilirubin Urine Urobilinogen Ur Leukocyte Esterase Urine WBC (Auto) Urine RBC (Auto) U Hyaline Cast (Auto) U Epithel Cells (Auto) Urine Bacteria (Auto) Nasal Screen MRSA (PCR) SARS-CoV-2 (PCR) Influenza Type A (PCR) Influenza Type B (PCR) RSV (RT-PCR) 08/08/22 08/08/22 08/08/22 20:00 20:00 20:00 WBC RBC Hgb Hct MCV MCH MCHC RDW Std Deviation RDW Coeff of Whit Plt Count MPV Immature Gran % (Auto) Neut % (Auto) Lymph % (Auto) [place] % (Auto) Eos % (Auto) Baso % (Auto) Neut # (Auto) Lymph # (Auto) [place] # (Auto) Eos # (Auto) Baso # (Auto) Immature Gran # (Auto) PT INR APTT PTT Ratio Sodium Potassium Chloride Carbon Dioxide Anion Gap BUN Creatinine Est Cr Clr Drug Dosing Est GFR ( Amer) Est GFR (Non-Af Amer) BUN/Creatinine Ratio Glucose POC Glucose Calcium Magnesium Total Bilirubin AST ALT Alkaline Phosphatase Troponin I High Sens C-Reactive Protein 5.39 H B-Natriuretic Peptide 2286 H Total Protein Albumin Globulin Albumin/Globulin Ratio Procalcitonin Urine Color Urine Appearance Urine pH Ur Specific Norman Urine Protein Urine Glucose (UA) Urine Ketones Urine Blood Urine Nitrite Urine Bilirubin Urine Urobilinogen Ur Leukocyte Esterase Urine WBC (Auto) Urine RBC (Auto) U Hyaline Cast (Auto) U Epithel Cells (Auto) Urine Bacteria (Auto) Nasal Screen MRSA (PCR) SARS-CoV-2 (PCR) NEGATIVE Influenza Type A (PCR) Negative Influenza Type B (PCR) Negative RSV (RT-PCR) Negative 08/08/22 08/09/22 08/09/22 20:00 00:15 01:15 WBC RBC Hgb Hct MCV MCH MCHC RDW Std Deviation RDW Coeff of Whit Plt Count MPV Immature Gran % (Auto) Neut % (Auto) Lymph % (Auto) [place] % (Auto) Eos % (Auto) Baso % (Auto) Neut # (Auto) Lymph # (Auto) [place] # (Auto) Eos # (Auto) Baso # (Auto) Immature Gran # (Auto) PT INR APTT PTT Ratio Sodium Potassium Chloride Carbon Dioxide Anion Gap BUN Creatinine Est Cr Clr Drug Dosing Est GFR ( Amer) Est GFR (Non-Af Amer) BUN/Creatinine Ratio Glucose POC Glucose Calcium Magnesium Total Bilirubin AST ALT Alkaline Phosphatase Troponin I High Sens C-Reactive Protein B-Natriuretic Peptide Total Protein Albumin Globulin Albumin/Globulin Ratio Procalcitonin 0.55 H Urine Color Yellow Urine Appearance Clear Urine pH 5.0 Ur Specific Norman 1.017 Urine Protein 3+ H Urine Glucose (UA) 1+ H Urine Ketones Negative Urine Blood 3+ H Urine Nitrite Negative Urine Bilirubin Negative Urine Urobilinogen Negative Ur Leukocyte Esterase Negative Urine WBC (Auto) 1-5 Urine RBC (Auto) 0-4 U Hyaline Cast (Auto) 1-5 U Epithel Cells (Auto) 10-20 H Urine Bacteria (Auto) Negative Nasal Screen MRSA (PCR) Negative SARS-CoV-2 (PCR) Influenza Type A (PCR) Influenza Type B (PCR) RSV (RT-PCR) 08/09/22 08/09/22 08/09/22 02:45 02:45 02:45 WBC 19.84 H RBC 2.93 L Hgb 8.8 L Hct 26.8 L MCV 91.5 MCH 30.0 MCHC 32.8 RDW Std Deviation 45.9 RDW Coeff of Whit 13.9 Plt Count 346 MPV 8.9 L Immature Gran % (Auto) 0.8 Neut % (Auto) 84.1 Lymph % (Auto) 8.1 [place] % (Auto) 6.8 Eos % (Auto) 0.0 Baso % (Auto) 0.2 Neut # (Auto) 16.70 H Lymph # (Auto) 1.61 [place] # (Auto) 1.35 H Eos # (Auto) 0.00 Baso # (Auto) 0.03 Immature Gran # (Auto) 0.15 H PT INR APTT PTT Ratio Sodium 132 L Potassium 5.0 Chloride 101 Carbon Dioxide 18 L Anion Gap 13 H BUN 101 H Creatinine 4.86 H* Est Cr Clr Drug Dosing 17.3 Est GFR ( Amer) 13.2 Est GFR (Non-Af Amer) 11.4 BUN/Creatinine Ratio 20.8 H Glucose 142 H POC Glucose Calcium 10.3 H Magnesium Total Bilirubin 0.3 AST 331 H ALT 85 H Alkaline Phosphatase 53 Troponin I High Sens 12013.1 H* D C-Reactive Protein B-Natriuretic Peptide Total Protein 7.0 Albumin 3.4 Globulin 3.6 Albumin/Globulin Ratio 0.9 Procalcitonin Urine Color Urine Appearance Urine pH Ur Specific Norman Urine Protein Urine Glucose (UA) Urine Ketones Urine Blood Urine Nitrite Urine Bilirubin Urine Urobilinogen Ur Leukocyte Esterase Urine WBC (Auto) Urine RBC (Auto) U Hyaline Cast (Auto) U Epithel Cells (Auto) Urine Bacteria (Auto) Nasal Screen MRSA (PCR) SARS-CoV-2 (PCR) Influenza Type A (PCR) Influenza Type B (PCR) RSV (RT-PCR) 08/09/22 08/09/22 08/09/22 07:35 10:40 11:06 WBC RBC Hgb Hct MCV MCH MCHC RDW Std Deviation RDW Coeff of Whit Plt Count MPV Immature Gran % (Auto) Neut % (Auto) Lymph % (Auto) [place] % (Auto) Eos % (Auto) Baso % (Auto) Neut # (Auto) Lymph # (Auto) [place] # (Auto) Eos # (Auto) Baso # (Auto) Immature Gran # (Auto) PT INR APTT PTT Ratio Sodium Potassium Chloride Carbon Dioxide Anion Gap BUN Creatinine Est Cr Clr Drug Dosing Est GFR ( Amer) Est GFR (Non-Af Amer) BUN/Creatinine Ratio Glucose POC Glucose 119 H 150 H Calcium Magnesium Total Bilirubin AST ALT Alkaline Phosphatase Troponin I High Sens 66253.1 H* D C-Reactive Protein B-Natriuretic Peptide Total Protein Albumin Globulin Albumin/Globulin Ratio Procalcitonin Urine Color Urine Appearance Urine pH Ur Specific Norman Urine Protein Urine Glucose (UA) Urine Ketones Urine Blood Urine Nitrite Urine Bilirubin Urine Urobilinogen Ur Leukocyte Esterase Urine WBC (Auto) Urine RBC (Auto) U Hyaline Cast (Auto) U Epithel Cells (Auto) Urine Bacteria (Auto) Nasal Screen MRSA (PCR) SARS-CoV-2 (PCR) Influenza Type A (PCR) Influenza Type B (PCR) RSV (RT-PCR) 08/09/22 17:39 WBC RBC Hgb Hct MCV MCH MCHC RDW Std Deviation RDW Coeff of Whit Plt Count MPV Immature Gran % (Auto) Neut % (Auto) Lymph % (Auto) [place] % (Auto) Eos % (Auto) Baso % (Auto) Neut # (Auto) Lymph # (Auto) [place] # (Auto) Eos # (Auto) Baso # (Auto) Immature Gran # (Auto) PT INR APTT PTT Ratio Sodium Potassium Chloride Carbon Dioxide Anion Gap BUN Creatinine Est Cr Clr Drug Dosing Est GFR ( Amer) Est GFR (Non-Af Amer) BUN/Creatinine Ratio Glucose POC Glucose 157 H Calcium Magnesium Total Bilirubin AST ALT Alkaline Phosphatase Troponin I High Sens C-Reactive Protein B-Natriuretic Peptide Total Protein Albumin Globulin Albumin/Globulin Ratio Procalcitonin Urine Color Urine Appearance Urine pH Ur Specific [place] Urine Protein Urine Glucose (UA) Urine Ketones Urine Blood Urine Nitrite Urine Bilirubin Urine Urobilinogen Ur Leukocyte Esterase Urine WBC (Auto) Urine RBC (Auto) U Hyaline Cast (Auto) U Epithel Cells (Auto) Urine Bacteria (Auto) Nasal Screen MRSA (PCR) SARS-CoV-2 (PCR) Influenza Type A (PCR) Influenza Type B (PCR) RSV (RT-PCR) Diagnostic Findings Echocardiogram performed 08/02/2022: Normal LV systolic function with ejection fraction of 65-70%. Severe LVH. Stage II diastolic dysfunction. Mild mitral regurgitation. Chest x-ray obtained today revealed persistent interstitial pulmonary edema and small bilateral pleural effusions. Left basilar and right mid lung opacities concerning for pneumonia. ECG Additional Comments: EKG obtained yesterday demonstrated normal sinus rhythm with left ventricular hypertrophy and associated repolarization changes. Unchanged from prior. PG Care Time/CCT Total # of Minutes Spent Total Time Spent with Patient: Total time spent is greater than 50% in coordination of care (as documented) at patient's floor/unit and/or counseling patient: Coding Level of Care Code 65667 Initial Inpt Care Lvl 3 Diagnoses Elevated troponin R77.8 Atrial fibrillation I48.91
[2022-08-09 18:36] LABS: Partial Thromboplastin Ratio 1.2; Partial Thromboplastin Time 32.7 Seconds (21.0-31.0)
[2022-08-09] MEDS ORDERED: Nursing to Pharmacy Communication SCH (19:00)
--- NOTE | 2022-08-09 19:07 | Electrocardiogram Report ---
Test Reason : Blood Pressure : / mmHG Vent. Rate : 077 BPM Atrial Rate : 077 BPM P-R Int : 180 ms QRS Dur : 096 ms QT Int : 386 ms P-R-T Axes : 019 -13 107 degrees QTc Int : 436 ms Normal sinus rhythm Left ventricular hypertrophy with repolarization abnormality Poor R wave progression, consider anterior TN vs. lead placement vs. LVH Abnormal ECG Confirmed by Jose Eduardo Mittal ([id number]) on 08/09/2022 7:07:02 PM Referred By: REFERRED SELF Confirmed By:Dominguez Mittal
[2022-08-09] MEDS ORDERED: HEPARIN SOD (PORCINE) 1000 UNIT/ML IV ONE (19:15)
--- NOTE | 2022-08-09 20:51 | Electrocardiogram Report ---
Test Reason : Blood Pressure : / mmHG Vent. Rate : 078 BPM Atrial Rate : 078 BPM P-R Int : 174 ms QRS Dur : 088 ms QT Int : 378 ms P-R-T Axes : 044 -01 168 degrees QTc Int : 430 ms Normal sinus rhythm Anteroseptal infarct (cited on or before 08-AUG-2022) Marked ST abnormality, possible inferior subendocardial injury Abnormal ECG When compared with ECG of 08-AUG-2022 20:00, (unconfirmed) ST now depressed in Inferior leads Confirmed by Jose Eduardo Mittal ([id number]) on 08/09/2022 8:50:26 PM Referred By: REFERRED SELF Confirmed By:Domniguez Mittal
[2022-08-09] MEDS ORDERED: ALBUT/IPRATROP 3MG/0.5MG NEB 3 ML VIAL NEB STA (21:45)
[2022-08-09] MEDS ORDERED: FUROSEMIDE INJ 20 MG/2 ML VIAL IV ONE (21:53)
--- NOTE | 2022-08-10 00:25 | XRay Report ---
SINGLE VIEW CHEST CLINICAL HISTORY: Dyspnea. Lung overload. FINDINGS: An AP, portable, upright chest radiograph is compared to study performed earlier the same d ay 08/09/2022 and correlated with chest CT dated 08/08/2022. The examination is degraded by portable t echnique, apical lordotic positioning, and patient rotation. The heart is enlarged. There is pulmona ry vascular congestion and mild pulmonary edema. There are layering pleural effusions with dependent consolidation. No pneumothorax is seen. The skeletal structures are osteopenic. The bony thorax is gr ossly intact. IMPRESSION: 1. Cardiomegaly with evidence of congestive failure and pulmonary edema. This is similar to today's e arlier examination. 2. Layering pleural effusions with dependent consolidation. ACT 112: Negative or not required by law. Electronically signed by: Ezequiel Barton M.D. 08/10/2022 12:23 AM
[2022-08-10 01:34] LABS: Partial Thromboplastin Ratio 1.3; Partial Thromboplastin Time 35.9 Seconds (21.0-31.0)
[2022-08-10] MEDS ORDERED: [UNRECOGNIZED DRUG - REMARK] ONE (02:00)
[2022-08-10] MEDS ORDERED: HEPARIN SOD (PORCINE) 1000 UNIT/ML IV ONE (02:15)
[2022-08-10] MEDS: BUDESONIDE 0.5 MG/2 ML VIAL (PULMICORT) NEB SCH ×2 (05:23→17:57)
[2022-08-10 06:06] LABS: Hematocrit (blood only) 23.7 % (40.1-51.0); Mean Corpuscular Hemoglobin 30.3 pg (25.0-34.0); Mean Corpuscular Hgb Conc 33.8 g/dL (32.0-36.0); Mean Corpuscular Volume 89.8 fL (80.0-100.0); Mean Platelet Volume 9.1 fL (9.4-12.4); Platelet Count 364 K/uL (130-400); RDW Coefficient of Variation 13.9 % (11.5-14.5); RDW Standard Deviation 45.6 fL (36.4-46.3); Red Blood Count 2.64 M/uL (4.63-6.08); White Blood Count 14.78 K/ul (4.8-10.8)
[2022-08-10 06:10] LABS: Base Excess VBG -4.9 mEq/L; HCO3 VBG 20 mmol/L; Oxygen Saturation VBG 96.6 %; PCO2 VBG 35 mmHg (38-50); PO2 VBG 69 mmHg; pH VBG 7.36 (7.36-7.41)
[2022-08-10 06:33] LABS: Albumin Globulin Ratio 0.9 (0.9-2); Albumin Level 3.2 gm/dl (3.4-5.0); BUN Creatinine Ratio 20.7 (10-20); Bilirubin,Total 0.3 mg/dl (0.2-1.0); Calcium 8.9 mg/dl (8.5-10.1); Creatinine Clr Calc Pharmacy 15.4 ml/min; Est GFR (African American) 11.5 ml/min; Est GFR (Non-African American) 9.9 ml/min; Globulin 3.5 gm/dl (2.5-4.0); Phosphorus 7.4 mg/dl (2.5-4.9); Potassium 4.4 mmol/L (3.5-5.1); Total Protein 6.7 gm/dl (6.0-8.3)
--- NOTE | 2022-08-10 07:25 | Hospitalist Progress Note ---
Date of Service August 10, 2022 Assessment & Plan (1) Respiratory failure: Plan: 67yo male PMHx hypertension, insulin-dependent diabetes, atrial fibrillation, bilateral carotid artery stenosis, CKD stage IV, hyperlipidemia, renal artery stenosis who presented for evaluation of shortness of breath, likely secondary to hypervolemia and recurrent PNA. Acute Hypoxic Respiratory Failure - Redevelopment of AHRF in the setting of CKD4 and recent PNA; patient found to have features of hypervolemia on exam and on chest imaging. Likely multifactorial: possible recurrence of multifocal PNA compounded by fluid overload and pleural effusions - multifactorial from CKD4 and HFpEF. - Work-up as follows: - TTE 08/02: LVEF 65-70% with severe concentric LVH, grade II diastolic dysfunction, no significant aortic stenosis - BUN 98 / Cr 4.68 (from 84 / 4.59 on 08/06) - initial Troponin 47k, peaked at 90k - WBC 17.6, increasing / procal elevated 0.55 / CRP 5.39 - CT Chest: Moderate interstitial pulmonary edema with suspected alveolar pulmonary edema. Small to moderate right and small left pleural effusions. Multifocal subpleural airspace opacities. Extensive coronary artery calcification. Mild cardiomegaly. Follow up chest CT in 2 months to ensure resolution is recommended. - Supplement O2, goal SpO2 > 92%; currently on non rebreather - furosemide 40 mg IV x1. Goal will be to continue diuretics to encourage a negative fluid balance. - Perm cath placed in am. Plan for dialysis as below, 1st session earlier today. - daily I&Os, daily weights - Management as below otherwise (2) Hypervolemia: Plan: Hypervolemia - Features of pulmonary edema and lower extremity edema present on exam and imaging and with elevated BNP (though noted with CKD) - pleural effusions appreciated on CT and CXR imaging - TTE 08/02: LVEF 65-70% with severe LVH, grade II diastolic dysfunction, no significant aortic stenosis - Suspect multifactorial: CKD4, component of acute HFpEF (e.g., cardiorenal) - Lasix 40mg IV given in the ED. Cont diuresis as above. - Monitor I&Os, daily weights - Fluid restriction < 2L/day - Monitor lytes (3) Pneumonia: Plan: Multifocal Pneumonia - As above, CT imaging and labs are concerning for recurrent multifocal pneumonia. Influenza/COVID/RSV negative. - Continue cefepime/azithromycin as above - MRSA nares neg - Consider respiratory BioFire if no significant improvement - Pulmonary Respules (4) Chronic kidney disease, stage IV (severe): Plan: MONE-on-CKD4 - Patient was being followed during last admission for the same - nephrology notes indicate baseline Cr 3.0-3.5, though has been persistently >4 since last admission - Secondary to renovascular disease, including renal artery stenosis (>60% stenosis in R renal artery) - Continue NaHCO3 and calcitriol - Patiromer x1 in ED given hyperkalemia in setting of MONE-on-CKD - Lasix 40mg IV x1 in ED, diuresis as above. - Appreciate nephrology consultation -multi organ symptomatology likely stemming from acute renal failure -1st session dialysis today. Perm cath was placed in am. - Monitor BMP - Hold HCTZ/KCl (5) Elevated troponin: Plan: Elevated Troponin, peaked - high sensitivity troponin at over >75677 on admission; however, he has an extensive history of chronically and highly elevated troponin - denies chest symptoms with no acute ECG changes compared to last visit - Cardiology consulted during last admission (08/03) - suspect due to severe LVH, CKD, vascular disease, especially given no wall motion abnormalities on TTE - In setting of acute hypoxia and PNA/hypervolemia, suspect this is similar to previous with supply/demand mismatch - consulted cardiology given significant elevation in troponin from baseline (6) Hyperlipidemia LDL goal <70: Plan: HLD, CAD, MARTIN, [place] - Continue statin, Plavix (7) IDDM (insulin dependent diabetes mellitus): Plan: ID-DM2 - h/o poorly controlled DM2, improved, most recent A1c at 6.0% (08/03) - Lower home Lantus to 30U b.i.d. and add SSI, adjust as needed (8) Hypertension: Plan: HTN - Continue amlodipine, metoprolol - Hold HCTZ (9) Hyperkalemia: Plan: Hyperkalemia - Likely secondary to MONE-on-CKD - Diuresis as above, give Patiromer x1 in ED (10) Atrial fibrillation: Plan: Atrial Fibrillation - Continue metoprolol and Eliquis (11) Leukocytosis: Plan: Leukocytosis - Definitely a degree of PNA/physiologic stress contributing to this. However, looking back at his records, he has had a notable leukocytosis to 2018 - Should consider obtaining a peripheral smear once acute stressors have resolved to screen for hematologic malignancy Plan Code status: Full Diet: dialysis renal DVT ppx: home eliquis Dispo: PCU Admission and Anticipated Discharge Date Admission Date: August 08, 2022 Supervising Physician Co-Signing Physician Notes Attending attestation Also saw the patient with the resident physician and confirmed mcgee portions of the history and physical examination. I agree with the impression and plan as noted in the resident documentation and as summarized below. I also discussed the case with both cardiology, nephrology, and vascular. Upon our mid afternoon exam, the patient was getting prepared for hemodialysis in his room. He actually had no complaints, stating he felt quite well. Earlier today he had insertion of a permacatheter. Exam 117/66, 74, 24, 36.8 Regular rate and rhythm Respirations nonlabored Data White blood cell count 14.78, hemoglobin 8, platelet count 364 Sodium 132, potassium 4.4, BUN 113, creatinine 5.46 Impression and plan Acute hypoxic respiratory failure Multifocal with pneumonia, some element of fluid overload in the setting of acute kidney injury Seems improved today, and suspect will improve further with dialysis Acute kidney injury, CKD 4 Appreciate nephrology consultation Vascular placed permacath today Dialysis today and tomorrow Elevated troponin Discussed with cardiology Consider catheterization either early next week as inpatient, or near future as outpatient Decision will depend on clinical course over the week Additional per resident documentation Subjective Seen at bedside this morning. Laying comfortably. On nonrebreather in am. Now s/p perm cath placement on high flow. Denies chest pain, abd pain, headache, N/V. Review of Systems Review of Systems: All systems reviewed & are unremarkable except as noted in HPI & below Physical Exam Physical Exam: General: AOx3, in no acute distress. HEENT: NCAT. Sclera without injection. MMM Neck - supple, no appreciable JVD Cardiac: RRR; S1 and S2 present with no murmurs, rubs, or gallops. Pulmonary: Mildly increased respiratory effort with symmetric expansion of the chest. Visible retractions. No use of accessory muscles. Lungs demonstrated diffuse crackles, R>L, particularly near the bases and in the mid-lung saenz on R Abdominal: Normoactive bowel sounds. Abdomen was soft, mildly distended, and non-tender to palpation. Extremities: Upper and lower extremities are warm and well perfused. 1+ peripheral edema in the lower extremities bilaterally Psych: cooperative. Insight is appropriate. Results & Data Results & Data ([facility]) Vital Signs (Past 12 Hours) Vital Signs Temp Pulse Pulse Resp BP BP Pulse Ox 08/10/22 02:25 76 23 93 08/10/22 05:24 72 23 90 08/10/22 04:11 36.8 C 75 18 150/67 H 93 08/10/22 03:39 70 25 H 91 08/10/22 01:25 69 08/09/22 23:32 36.8 C 70 20 136/82 93 08/10/22 00:20 85 22 95 08/09/22 19:50 08/09/22 23:03 75 26 H 95 08/09/22 19:43 36.7 C 80 20 142/72 H 96 08/09/22 21:32 81 34 H 96 08/09/22 20:00 86 85 H 94 O2 Del Method O2 Flow Rate FiO2 08/10/22 02:25 65 08/10/22 05:24 BiPAP 65 08/10/22 04:11 BiPAP 08/10/22 03:39 55 08/10/22 01:25 08/09/22 23:32 BiPAP 08/10/22 00:20 65 08/09/22 19:50 Non-rebreather 15 08/09/22 23:03 BiPAP 65 08/09/22 19:43 Non-rebreather 15.0 08/09/22 21:32 65 08/09/22 20:00 Non-rebreather 15 Laboratory Results 08/10/22 08/10/22 08/10/22 Range/Units 16:52 12:03 10:34 WBC (4.8-10.8) K/ul RBC (4.63-6.08) M/uL Hgb (14.0-18.0) g/dl Hct (40.1-51.0) % MCV (80.0-100.0) fL MCH (25.0-34.0) pg MCHC (32.0-36.0) g/dL RDW Std Deviation (36.4-46.3) fL RDW Coeff of Whit (11.5-14.5) % Plt Count (130-400) K/uL MPV (9.4-12.4) fL APTT (21.0-31.0) Seconds PTT Ratio VBG pH (7.36-7.41) VBG pCO2 (38-50) mmHg VBG pO2 mmHg VBG HCO3 mmol/L VBG O2 Saturation % VBG Base Excess mEq/L Sodium (136-145) mmol/L Potassium (3.5-5.1) mmol/L Chloride (98-107) mmol/L Carbon Dioxide (21-32) mmol/L Anion Gap (3-11) BUN (6-23) mg/dl Creatinine (0.6-1.4) mg/dl Est Cr Clr Drug Dosing ml/min Est GFR ( Amer) ml/min Est GFR (Non-Af Amer) ml/min BUN/Creatinine Ratio (10-20) Glucose (70-99(Fasting)) mg/dl POC Glucose 108 H 132 H 118 H (70-99) mg/dl Calcium (8.5-10.1) mg/dl Phosphorus (2.5-4.9) mg/dl Total Bilirubin (0.2-1.0) mg/dl AST (13-39) U/L ALT (7-52) U/L Alkaline Phosphatase (34-104) U/L Troponin I High Sens (0-20) pg/ml Total Protein (6.0-8.3) gm/dl Albumin (3.4-5.0) gm/dl Globulin (2.5-4.0) gm/dl Albumin/Globulin Ratio (0.9-2) Hepatitis B Ab, Qual Hep Bs Antigen Hep Bs Ag Confirmation Hep B Core IgM Ab 08/10/22 08/10/22 08/10/22 Range/Units 09:22 08:06 05:51 WBC (4.8-10.8) K/ul RBC (4.63-6.08) M/uL Hgb (14.0-18.0) g/dl Hct (40.1-51.0) % MCV (80.0-100.0) fL MCH (25.0-34.0) pg MCHC (32.0-36.0) g/dL RDW Std Deviation (36.4-46.3) fL RDW Coeff of Whit (11.5-14.5) % Plt Count (130-400) K/uL MPV (9.4-12.4) fL APTT (21.0-31.0) Seconds PTT Ratio VBG pH 7.36 (7.36-7.41) VBG pCO2 35 L (38-50) mmHg VBG pO2 69 mmHg VBG HCO3 20 mmol/L VBG O2 Saturation 96.6 % VBG Base Excess -4.9 mEq/L Sodium (136-145) mmol/L Potassium (3.5-5.1) mmol/L Chloride (98-107) mmol/L Carbon Dioxide (21-32) mmol/L Anion Gap (3-11) BUN (6-23) mg/dl Creatinine (0.6-1.4) mg/dl Est Cr Clr Drug Dosing ml/min Est GFR ( Amer) ml/min Est GFR (Non-Af Amer) ml/min BUN/Creatinine Ratio (10-20) Glucose (70-99(Fasting)) mg/dl POC Glucose 115 H 121 H (70-99) mg/dl Calcium (8.5-10.1) mg/dl Phosphorus (2.5-4.9) mg/dl Total Bilirubin (0.2-1.0) mg/dl AST (13-39) U/L ALT (7-52) U/L Alkaline Phosphatase (34-104) U/L Troponin I High Sens (0-20) pg/ml Total Protein (6.0-8.3) gm/dl Albumin (3.4-5.0) gm/dl Globulin (2.5-4.0) gm/dl Albumin/Globulin Ratio (0.9-2) Hepatitis B Ab, Qual Hep Bs Antigen Hep Bs Ag Confirmation Hep B Core IgM Ab 08/10/22 08/10/22 08/10/22 Range/Units 05:51 05:51 05:51 WBC 14.78 H (4.8-10.8) K/ul RBC 2.64 L (4.63-6.08) M/uL Hgb 8.0 L (14.0-18.0) g/dl Hct 23.7 L (40.1-51.0) % MCV 89.8 (80.0-100.0) fL MCH 30.3 (25.0-34.0) pg MCHC 33.8 (32.0-36.0) g/dL RDW Std Deviation 45.6 (36.4-46.3) fL RDW Coeff of Whit 13.9 (11.5-14.5) % Plt Count 364 (130-400) K/uL MPV 9.1 L (9.4-12.4) fL APTT (21.0-31.0) Seconds PTT Ratio VBG pH (7.36-7.41) VBG pCO2 (38-50) mmHg VBG pO2 mmHg VBG HCO3 mmol/L VBG O2 Saturation % VBG Base Excess mEq/L Sodium 132 L (136-145) mmol/L Potassium 4.4 (3.5-5.1) mmol/L Chloride 98 (98-107) mmol/L Carbon Dioxide 19 L (21-32) mmol/L Anion Gap 15 H (3-11) BUN 113 H (6-23) mg/dl Creatinine 5.46 H* D (0.6-1.4) mg/dl Est Cr Clr Drug Dosing 15.4 ml/min Est GFR ( Amer) 11.5 ml/min Est GFR (Non-Af Amer) 9.9 ml/min BUN/Creatinine Ratio 20.7 H (10-20) Glucose 106 H (70-99(Fasting)) mg/dl POC Glucose (70-99) mg/dl Calcium 8.9 (8.5-10.1) mg/dl Phosphorus 7.4 H (2.5-4.9) mg/dl Total Bilirubin 0.3 (0.2-1.0) mg/dl AST 119 H (13-39) U/L ALT 70 H (7-52) U/L Alkaline Phosphatase 48 (34-104) U/L Troponin I High Sens (0-20) pg/ml Total Protein 6.7 (6.0-8.3) gm/dl Albumin 3.2 L (3.4-5.0) gm/dl Globulin 3.5 (2.5-4.0) gm/dl Albumin/Globulin Ratio 0.9 (0.9-2) Hepatitis B Ab, Qual Pending Hep Bs Antigen Pending Hep Bs Ag Confirmation Pending Hep B Core IgM Ab Pending 08/10/22 08/09/22 08/09/22 Range/Units 00:56 21:19 18:11 WBC (4.8-10.8) K/ul RBC (4.63-6.08) M/uL Hgb (14.0-18.0) g/dl Hct (40.1-51.0) % MCV (80.0-100.0) fL MCH (25.0-34.0) pg MCHC (32.0-36.0) g/dL RDW Std Deviation (36.4-46.3) fL RDW Coeff of Whit (11.5-14.5) % Plt Count (130-400) K/uL MPV (9.4-12.4) fL APTT 35.9 H 32.7 H (21.0-31.0) Seconds PTT Ratio 1.3 1.2 VBG pH (7.36-7.41) VBG pCO2 (38-50) mmHg VBG pO2 mmHg VBG HCO3 mmol/L VBG O2 Saturation % VBG Base Excess mEq/L Sodium (136-145) mmol/L Potassium (3.5-5.1) mmol/L Chloride (98-107) mmol/L Carbon Dioxide (21-32) mmol/L Anion Gap (3-11) BUN (6-23) mg/dl Creatinine (0.6-1.4) mg/dl Est Cr Clr Drug Dosing ml/min Est GFR ( Amer) ml/min Est GFR (Non-Af Amer) ml/min BUN/Creatinine Ratio (10-20) Glucose (70-99(Fasting)) mg/dl POC Glucose 185 H (70-99) mg/dl Calcium (8.5-10.1) mg/dl Phosphorus (2.5-4.9) mg/dl Total Bilirubin (0.2-1.0) mg/dl AST (13-39) U/L ALT (7-52) U/L Alkaline Phosphatase (34-104) U/L Troponin I High Sens (0-20) pg/ml Total Protein (6.0-8.3) gm/dl Albumin (3.4-5.0) gm/dl Globulin (2.5-4.0) gm/dl Albumin/Globulin Ratio (0.9-2) Hepatitis B Ab, Qual Hep Bs Antigen Hep Bs Ag Confirmation Hep B Core IgM Ab 08/09/22 08/09/22 Range/Units 18:11 17:39 WBC (4.8-10.8) K/ul RBC (4.63-6.08) M/uL Hgb (14.0-18.0) g/dl Hct (40.1-51.0) % MCV (80.0-100.0) fL MCH (25.0-34.0) pg MCHC (32.0-36.0) g/dL RDW Std Deviation (36.4-46.3) fL RDW Coeff of Whit (11.5-14.5) % Plt Count (130-400) K/uL MPV (9.4-12.4) fL APTT (21.0-31.0) Seconds PTT Ratio VBG pH (7.36-7.41) VBG pCO2 (38-50) mmHg VBG pO2 mmHg VBG HCO3 mmol/L VBG O2 Saturation % VBG Base Excess mEq/L Sodium (136-145) mmol/L Potassium (3.5-5.1) mmol/L Chloride (98-107) mmol/L Carbon Dioxide (21-32) mmol/L Anion Gap (3-11) BUN (6-23) mg/dl Creatinine (0.6-1.4) mg/dl Est Cr Clr Drug Dosing ml/min Est GFR ( Amer) ml/min Est GFR (Non-Af Amer) ml/min BUN/Creatinine Ratio (10-20) Glucose (70-99(Fasting)) mg/dl POC Glucose 157 H (70-99) mg/dl Calcium (8.5-10.1) mg/dl Phosphorus (2.5-4.9) mg/dl Total Bilirubin (0.2-1.0) mg/dl AST (13-39) U/L ALT (7-52) U/L Alkaline Phosphatase (34-104) U/L Troponin I High Sens 43970.1 H* (0-20) pg/ml Total Protein (6.0-8.3) gm/dl Albumin (3.4-5.0) gm/dl Globulin (2.5-4.0) gm/dl Albumin/Globulin Ratio (0.9-2) Hepatitis B Ab, Qual Hep Bs Antigen Hep Bs Ag Confirmation Hep B Core IgM Ab Resident Activity Tracking Resident Involvement: Resident Care Provided Care Provided: Adult Hospital Medicine (1) Respiratory failure Chronicity: acute Respiratory failure complication: hypoxia Qualified Code(s): J96.01 - Acute respiratory failure with hypoxia (2) Hypertension Hypertension type: unspecified Qualified Code(s): I10 - Essential (primary) hypertension
[2022-08-10] MEDS: DOCUSATE SODIUM 100 MG CAP PO SCH (08:27)
[2022-08-10] MEDS: guaiFENesin 600 MG TABCR PO SCH ×2 (08:27→20:45)
[2022-08-10] MEDS: ATORVASTATIN 40 MG TAB PO SCH (08:27)
[2022-08-10] MEDS: METOPROLOL SUCC 50MG EXT REL TAB PO SCH ×2 (08:27→20:46)
[2022-08-10] MEDS: amLODIPine BESYLATE 5 MG TAB PO SCH (08:27)
[2022-08-10] MEDS: MULTIVITAMIN TAB PO SCH (08:27)
[2022-08-10] MEDS: CLOPIDOGREL BISULFATE 75 MG TAB PO SCH (08:27)
[2022-08-10] MEDS: FERROUS SULFATE 325 MG TAB PO SCH (08:27)
[2022-08-10] MEDS: SODIUM BICARBONATE 650 MG TAB PO SCH ×2 (08:28→20:46)
--- NOTE | 2022-08-10 09:10 | Consultation ---
Date of Consultation August 10, 2022 Assessment & Plan (1) Acute kidney injury: Patient for permcath insertion. I have discussed the risks options and benefits of the procedure with the patient. The patient understands the risks options and benefits and agrees to the procedure. History of Present Illness Reason for Consultation: MONE Attending Physician: Tevin Galvan DO History of Present Illness This is a 67yo male who has MONE superimposed on CKD. He was admitted with fluid overload. His kidney function has worseded and he is in need of dialysis. Permcath insertion was recommended. Allergies Allergy/AdvReac Type Severity Reaction Status Date / Time No Known Allergies Allergy Verified 08/02/22 21:00 Home Medications Medication Instructions Recorded Confirmed Type amlodipine 10 mg tablet 10 mg PO DAILY 06/26/18 08/02/22 History atorvastatin 40 mg tablet 40 mg PO DAILY 06/26/18 08/02/22 History gemfibrozil 600 mg tablet 600 mg PO DAILY 06/26/18 08/02/22 History magnesium oxide 400 mg PO DAILY 06/26/18 08/02/22 History insulin glargine 100 unit/mL (3 35 units subcut BID 01/13/20 08/02/22 History mL) subcutaneous pen (Basaglar KwikPen U-100 Insulin) apixaban 5 mg tablet (Eliquis) 5 mg PO BID 30 days #60 tabs 04/09/20 08/02/22 Rx clopidogrel 75 mg tablet (Plavix) 75 mg PO DAILY #30 tabs 04/09/20 08/02/22 Rx acetaminophen 650 mg 650 mg PO BID 05/30/20 08/02/22 History tablet,extended release coenzyme Q10 400 mg capsule 400 mg PO DAILY 05/30/20 08/02/22 History docusate sodium 100 mg capsule 100 mg PO DAILY 05/30/20 08/02/22 History ferrous sulfate 325 mg (65 mg 325 mg PO DAILY 05/30/20 08/02/22 History iron) tablet fluticasone propionate 50 1 spray intranasal DAILY PRN 05/30/20 08/02/22 History mcg/actuation nasal Congestion spray,suspension krill oil 500 mg capsule 500 mg PO BID 05/30/20 08/02/22 History mecobalamin (vitamin B12) 5,000 5,000 mcg PO DAILY 05/30/20 08/02/22 History mcg disintegrating tablet metoprolol succinate 100 mg 100 mg PO BID 05/30/20 08/02/22 History tablet,extended release 24 hr kfmonsqycrho-[id number] tablet 1 tab PO DAILY 05/30/20 08/02/22 History potassium chloride 20 mEq 20 meq PO DAILY 05/30/20 08/02/22 History tablet,extended release vitamin B complex 1 tab PO DAILY 05/30/20 08/02/22 History sodium bicarbonate 650 mg tablet 1,300 mg PO BID #360 tabs 03/21/22 08/02/22 Rx calcitriol 0.25 mcg capsule 0.25 mcg PO DAILY #90 caps 03/23/22 08/02/22 Rx cefdinir 300 mg capsule 300 mg PO BID 5 days #10 caps 08/05/22 Rx ciprofloxacin HCl 500 mg tablet 500 mg PO BID 5 days #10 tabs 08/05/22 Rx hydrochlorothiazide 25 mg tablet 50 mg PO DAILY #60 tabs 08/06/22 Rx Patient History Medical History Acute kidney injury Acute non-ST elevation myocardial infarction (NSTEMI) Atrial fibrillation, new onset Diabetes type 2, uncontrolled DKA (diabetic ketoacidoses) Hyperlipidemia LDL goal <70 Hypertension Lyme borreliosis Renal artery stenosis Surgical History 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 Family History Other Diabetes type 2, controlled Social History Smoking Status: Never smoker Hx Alcohol Use: Yes Alcohol type: beer and wine Hx Substance Use: No Preferred Language: [place] Citizen Communication Ability: Effective Distribution Analyst Required: No Beliefs That Will Affect Care: None Current Living Situation: Alone Feels Safe at Home: Yes Assistive Devices: Cane Review of Systems Review of Systems: All systems reviewed & are unremarkable except as noted in HPI & below Respiratory: + dyspnea Physical Exam Constitutional: WD/WN, vitals as above Respiratory: Auscultation: + crackles Cardiovascular: Rate/Rhythm: regular rate and regular rhythm Gastrointestinal (Abdomen): Inspection/Auscultation: abdomen not distended Percussion/Palpation: abdomen soft; abdomen nontender Neurologic: CN's II-XI intact bilaterally and moves all extremities Psychiatric: Orientation: alert and oriented x 3 Results & Data ([facility]) Vital Signs (Past 12 Hours) Vital Signs Temp Pulse Pulse Resp BP BP Pulse Ox 08/10/22 08:30 37.5 C 73 20 122/68 96 08/10/22 02:25 76 23 93 08/10/22 05:24 72 23 90 08/10/22 04:11 36.8 C 75 18 150/67 H 93 08/10/22 03:39 70 25 H 91 08/10/22 01:25 69 08/09/22 23:32 36.8 C 70 20 136/82 93 08/10/22 00:20 85 22 95 08/09/22 23:03 75 26 H 95 08/09/22 21:32 81 34 H 96 O2 Del Method FiO2 08/10/22 08:30 BiPAP 08/10/22 02:25 65 08/10/22 05:24 BiPAP 65 08/10/22 04:11 BiPAP 08/10/22 03:39 55 08/10/22 01:25 08/09/22 23:32 BiPAP 08/10/22 00:20 65 08/09/22 23:03 BiPAP 65 08/09/22 21:32 65
[2022-08-10] MEDS ORDERED: KETAMINE 50 MG/5 ML SYRINGE ONE (09:39)
[2022-08-10] MEDS ORDERED: PROPOFOL IV EMULSION 10 MG/ML 20 ML VIAL IV ONE (09:39)
[2022-08-10] MEDS ORDERED: MIDAZOLAM HCL 1 MG/ML 2ML VIAL ONE (09:41)
[2022-08-10] MEDS ORDERED: ATROPINE SULFATE 0.1 MG/ML 10ML SYR IV PRN (09:57)
[2022-08-10] MEDS ORDERED: ePHEDrine sulfate 50 MG/ML AMP IV PRN (09:57)
--- NOTE | 2022-08-10 09:57 | Anesthesiology Consultation ---
Date of Service August 10, 2022 Assessment & Plan Chart Review Chart Review: Acceptable Risk for Surgery and Patient NOT seen in Pre Admission Testing Consults Requested none ASA ASA4 Proposed Anesthesia Anesthesia Type: MAC Risk / Benefits Reviewed With: PT / POA / Parent / Guardian, Accepts Plan and Informed Consent Obtained History Surgery Operation Date: 08/10/22 10:20 Proposed Procedures p Insertion of Perm Cath - Grzegorz Orourke MD Height/Weight Height: 5 ft 10 in Weight: 100.7 kg Allergies Allergy/AdvReac Type Severity Reaction Status Date / Time No Known Allergies Allergy Verified 08/02/22 21:00 Medications Home Medications Medication Instructions Recorded Confirmed Last Taken amlodipine 10 mg tablet 10 mg PO DAILY 06/26/18 08/02/22 08/02/22 atorvastatin 40 mg tablet 40 mg PO DAILY 06/26/18 08/02/22 08/02/22 gemfibrozil 600 mg tablet 600 mg PO DAILY 06/26/18 08/02/22 08/02/22 magnesium oxide 400 mg PO DAILY 06/26/18 08/02/22 08/02/22 insulin glargine 100 unit/mL (3 35 units subcut BID 01/13/20 08/02/22 08/02/22 08:00 mL) subcutaneous pen (Basaglar KwikPen U-100 Insulin) apixaban 5 mg tablet (Eliquis) 5 mg PO BID 30 days #60 tabs 04/09/20 08/02/22 08/02/22 08:00 clopidogrel 75 mg tablet (Plavix) 75 mg PO DAILY #30 tabs 04/09/20 08/02/22 08/02/22 acetaminophen 650 mg 650 mg PO BID 05/30/20 08/02/22 08/02/22 08:00 tablet,extended release coenzyme Q10 400 mg capsule 400 mg PO DAILY 05/30/20 08/02/22 08/02/22 docusate sodium 100 mg capsule 100 mg PO DAILY 05/30/20 08/02/22 08/02/22 ferrous sulfate 325 mg (65 mg 325 mg PO DAILY 05/30/20 08/02/22 08/02/22 iron) tablet fluticasone propionate 50 1 spray intranasal DAILY PRN 05/30/20 08/02/22 Unknown mcg/actuation nasal Congestion spray,suspension krill oil 500 mg capsule 500 mg PO BID 05/30/20 08/02/22 08/02/22 08:00 mecobalamin (vitamin B12) 5,000 5,000 mcg PO DAILY 05/30/20 08/02/22 08/02/22 mcg disintegrating tablet metoprolol succinate 100 mg 100 mg PO BID 05/30/20 08/02/22 08/02/22 08:00 tablet,extended release 24 hr gcjninxnubtp-ombgvsxj-orktza tablet 1 tab PO DAILY 05/30/20 08/02/22 08/02/22 potassium chloride 20 mEq 20 meq PO DAILY 05/30/20 08/02/22 08/02/22 tablet,extended release vitamin B complex 1 tab PO DAILY 05/30/20 08/02/22 08/02/22 sodium bicarbonate 650 mg tablet 1,300 mg PO BID #360 tabs 03/21/22 08/02/22 08/02/22 08:00 calcitriol 0.25 mcg capsule 0.25 mcg PO DAILY #90 caps 03/23/22 08/02/22 08/02/22 cefdinir 300 mg capsule 300 mg PO BID 5 days #10 caps 08/05/22 Unknown ciprofloxacin HCl 500 mg tablet 500 mg PO BID 5 days #10 tabs 08/05/22 Unknown hydrochlorothiazide 25 mg tablet 50 mg PO DAILY #60 tabs 08/06/22 Unknown Active Medications Generic Name Dose Route Start Last Admin Trade Name Sol PRN Reason Stop Dose Admin Amlodipine Besylate 10 mg 08/09/22 09:00 08/10/22 08:27 Amlodipine Besylate 5 Mg Tab PO 09/08/22 08:59 Not Given DAILY [facility] Apixaban 5 mg 08/08/22 23:20 08/09/22 01:04 Apixaban 5 Mg Tablet PO 09/07/22 23:19 5 mg BID [facility] Administration Atorvastatin Calcium 40 mg 08/09/22 09:00 08/10/22 08:27 Atorvastatin 40 Mg Tab PO 09/08/22 08:59 Not Given DAILY [facility] Budesonide 0.5 mg 08/09/22 07:00 08/10/22 05:23 Budesonide 0.5 Mg/2 Ml Vial (Pulmicort) NEB 09/08/22 06:59 0.5 mg BIDR [facility]CELL[facility] Administration Clopidogrel Bisulfate 75 mg 08/09/22 09:00 08/10/22 08:27 Clopidogrel Bisulfate 75 Mg Tab PO 09/08/22 08:59 Not Given DAILY [facility] Docusate Sodium 100 mg 08/09/22 09:00 08/10/22 08:27 Docusate Sodium 100 Mg Cap PO 09/08/22 08:59 Not Given DAILY [facility] Ferrous Sulfate 325 mg 08/09/22 09:00 08/10/22 08:27 Ferrous Sulfate 325 Mg Tab PO 09/08/22 08:59 Not Given DAILY [facility] Guaifenesin 1,200 mg 08/09/22 09:00 08/10/22 08:27 Guaifenesin 600 Mg Tabcr PO 09/08/22 08:59 Not Given Q12 [facility] Cefepime HCl 1,000 mg/ Syringe 10 mls @ 5 mls/min 08/09/22 09:00 08/09/22 2 0:41 IV 08/16/22 08:59 5 mls/min Q12H [facility] Administration Protocol Azithromycin 500 mg/ Dextrose 255 mls @ 125 mls/hr 08/09/22 00:00 08/10/22 01:29 IV 08/16/22 00:00 Infused Q24H [facility] Infusion Heparin Sodium/Dextrose 25,000 units in 500 mls @ 23 mls/hr 08/09/22 12:00 08/10/22 02:36 Heparin Sodium/Dextrose IV 09/08/22 11:59 0 units/hr .[id number] [facility] 0 mls/hr Titration Protocol 1,150 UNITS/HR Insulin Aspart 0 units 08/09/22 21:00 08/09/22 21:35 Insulin Aspart Per Unit SC 09/08/22 20:59 2 units ACHS [facility] Administration Protocol Insulin Glargine 25 units 08/09/22 21:00 08/09/22 21:35 Lantus Per Unit Charge SQ 09/08/22 20:59 25 units HS [facility] Administration Protocol Metoprolol Succinate 100 mg 08/09/22 09:00 08/10/22 08:27 Metoprolol Succ 50mg Ext Rel Tab PO 09/08/22 08:59 Not Given BID [facility] Multivitamins 1 tab 08/09/22 09:00 08/10/22 08:27 Multivitamin Tab PO 09/08/22 08:59 Not Given DAILY [facility] Sodium Bicarbonate 1,300 mg 08/09/22 09:00 08/10/22 08:28 Sodium Bicarbonate 650 Mg Tab PO 09/08/22 08:59 Not Given BID [facility] NPO Date Last Intake of Fluids: 08/09/22 Time Last Intake of Fluids: 20:30 Date Last Intake of Solids: 08/09/22 Time Last Intake of Solids: 19:00 Past Medical History Medical History Acute kidney injury Acute non-ST elevation myocardial infarction (NSTEMI) Atrial fibrillation, new onset Diabetes type 2, uncontrolled DKA (diabetic ketoacidoses) Hyperlipidemia LDL goal <70 Hypertension Lyme borreliosis Renal artery stenosis Exercise / Class Metabolic Activity II 4-5 Yardwork/Stairs/Walk up hill Past Family History Family History Other Diabetes type 2, controlled Past Surgical History Surgical History 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 Past Anesthesia History No Hx of Anesthesia Complications and No Family Hx of Anesthesia Complications History of PONV No Hx of PONV and No Hx of Motion Sickness Social History Smoking Status: Never smoker Hx Alcohol Use: Yes Alcohol type: beer and wine alcohol intake frequency: a few times a month Hx Substance Use: No substance use type: does not use Physical Exam Vital Signs Last Vital Signs Temp 36.6 C 08/10/22 09:28 Pulse 78 08/10/22 09:28 Resp 24 08/10/22 09:28 BP 144/67 H 08/10/22 09:28 Pulse Ox 93 08/10/22 09:28 O2 Del Method 08/10/22 09:28 O2 Flow Rate 15 08/10/22 09:28 FiO2 65 08/10/22 08:00 ENMT Mouth: no dentition abnormality Thyromental Distance: > or= 3.5 Finger Breadths Mallampati Class: II Neck normal visual inspection Respiratory normal respiratory effort Auscultation: + crackles and + rales Cardiovascular Rate/Rhythm: regular rate and regular rhythm Psychiatric Orientation: alert Testing Laboratory Results 08/10/22 05:51 08/10/22 05:51 PT 11.6 Seconds (9.0-12.0) 08/08/22 20:00 INR 1.1 (0.9-1.1) 08/08/22 20:00 APTT 35.9 Seconds (21.0-31.0) H 08/10/22 00:56 Urine Color Yellow 08/09/22 00:15 Urine Appearance Clear (Clear) 08/09/22 00:15 Urine pH 5.0 (4.5-7.5) 08/09/22 00:15 Ur Specific [place] 1.017 (1.000-1.030) 08/09/22 00:15 Urine Protein 3+ (Negative) H 08/09/22 00:15 Urine Glucose (UA) 1+ (Negative) H 08/09/22 00:15 Urine Ketones Negative (Negative) 08/09/22 00:15 Urine Nitrite Negative (Negative) 08/09/22 00:15 Ur Leukocyte Esterase Negative (Negative) 08/09/22 00:15 Urine WBC (Auto) 1-5 /hpf (0-5) 08/09/22 00:15 Urine RBC (Auto) 0-4 /hpf (0-4) 08/09/22 00:15 U Hyaline Cast (Auto) 1-5 /lpf (0-5) 08/09/22 00:15 U Epithel Cells (Auto) 10-20 /lpf (0-5) H 08/09/22 00:15 Urine Bacteria (Auto) Negative (Negative) 08/09/22 00:15 08/08/22 20:00 Aerobic Blood Culture - Preliminary Blood No growth in Aerobic bottle after 24 hours. Anaerobic Blood Culture - Preliminary No growth in Anaerobic bottle after 24 hours. 08/08/22 21:03 Aerobic Blood Culture - Preliminary Blood No growth in Aerobic bottle after 24 hours. Anaerobic Blood Culture - Preliminary No growth in Anaerobic bottle after 24 hours. 08/10/22 08/10/22 09:22 08:06 POC Glucose 115 H 121 H
--- NOTE | 2022-08-10 10:27 | Procedure Note ---
Angiogram Post Procedure Fluoroscopy Time (minutes): 0.2 Radiation (mGy): 2 Contrast: 0 Post Operative Report Pre & Post Diagnosis Operation Date: 08/10/22 10:20 Pre-Op Diagnosis: Acute on Chronic kidney injury Post-Op Diagnosis: Acute on Chronic kidney injury I identified the patient and participated in the time-out.: Yes Procedure Operation Date: 08/10/22 10:20 Actual Procedures p Insertion of Perm Catheter Right Jugular Approach, Ultrasound Localization of Right Jugular Vein, Fluoroscopy for Positioning(Right) - Grzegorz Orourke MD Surgeon Grzegorz Orourke MD Shipping Assistant None Estimated Blood Loss 5 Findings Consistent with Post-Op Diagnosis Specimens None Anesthesia Type MAC Complications none Disposition Accompanied Patient To Recovery: No Disposition: Recovery Room Indications This is a 67-year-old gentleman with acute injury superimposed upon chronic kidney disease. He is in need of dialysis for fluid overload. PermCath insertion was recommended for dialysis purposes. I have discussed the risks options and benefits of the procedure with the patient. The patient understands the risks options and benefits and agrees to the procedure. Description of Procedure Patient was taken to the angio suite and placed in the supine position. The right side of the neck and chest wall were prepped and draped in a sterile manner. The patient was identified and a timeout performed. Local anesthesia was then administered to the appropriate areas of the neck and chest wall. Ultrasound was then used to locate the right internal jugular vein. The vein compressed easily, had no filing defects, and was patent. The vein was then punctured under direct ultrasound imaging. A guidewire was then passed centrally under fluoroscopic imaging. A stab wound was then made in the anterior chest wall and a 19 cm permcath was passed from the stab wound on the chest wall to the puncture site on the neck. The puncture site was then dilated till the 14Fr peel away sheath was inserted. The permcath was then inserted through the sheath to a central position in the distal superior vena cava. The peel away sheath was then removed. The catheter was then sutured in place using nylon sutures. The puncture was then closed using a 4-0 Vicryl subcuticular suture. Dermabond was used for a dressing on the puncture site. Both ports aspirated and flushed easily and were then packed with heparin. A sterile dressing was applied to the catheter. The patient left the operation room in satisfactory condition and tolerated the procedure well. All needle and sponge counts were correct at the end of the procedure. I attest to the content of the Intraoperative Record and any orders documented therein. Any exceptions are noted below.
[2022-08-10] MEDS ORDERED: LIDOCAINE 1% LOCAL 20 ML VIAL ONE (10:36)
[2022-08-10] MEDS ORDERED: HEPARIN SOD (PORCINE) 5,000 UNITS/ML VIAL ONE (10:36)
--- NOTE | 2022-08-10 10:49 | Anesthesiology Progress Note ---
Date of Service August 10, 2022 Anesthesia Post Procedure Vital Signs Vital Signs: Temp Pulse Pulse Pulse Resp BP BP 08/10/22 10:40 72 21 136/64 08/10/22 10:30 36.6 C 75 25 H 137/63 08/10/22 09:28 36.6 C 78 24 144/67 H 08/10/22 08:00 95 H 08/10/22 08:00 08/10/22 08:00 08/10/22 08:30 37.5 C 73 20 122/68 08/10/22 02:25 76 23 08/10/22 05:24 72 23 08/10/22 04:11 36.8 C 75 18 150/67 H 08/10/22 03:39 70 25 H 08/10/22 01:25 69 08/09/22 23:32 36.8 C 70 20 136/82 08/10/22 00:20 85 22 08/09/22 19:50 08/09/22 23:03 75 26 H 08/09/22 19:43 36.7 C 80 20 142/72 H 08/09/22 21:32 81 34 H 08/09/22 20:00 86 85 H 08/09/22 16:37 136/69 08/09/22 16:20 37.1 C 79 22 176/61 H 08/09/22 15:12 81 08/09/22 11:34 37.3 C 80 19 152/78 H 08/09/22 10:53 Pulse Ox Pulse Ox O2 Del Method O2 Del Method O2 Flow Rate FiO2 08/10/22 10:40 99 Non-rebreather 15 08/10/22 10:30 96 Non-rebreather 15 08/10/22 09:28 93 Non-rebreather 15 08/10/22 08:00 08/10/22 08:00 BiPAP 65 08/10/22 08:00 99 BiPAP 08/10/22 08:30 96 BiPAP 08/10/22 02:25 93 65 08/10/22 05:24 90 BiPAP 65 08/10/22 04:11 93 BiPAP 08/10/22 03:39 91 55 08/10/22 01:25 08/09/22 23:32 93 BiPAP 08/10/22 00:20 95 65 08/09/22 19:50 Non-rebreather 15 08/09/22 23:03 95 BiPAP 65 08/09/22 19:43 96 Non-rebreather 15.0 08/09/22 21:32 96 65 08/09/22 20:00 94 Non-rebreather 15 08/09/22 16:37 93 Non-rebreather 13 08/09/22 16:20 91 Oxymask 6 08/09/22 15:12 08/09/22 11:34 90 Non-rebreather 15 08/09/22 10:53 Non-rebreather 15 Pain Intensity Back: Pain Intensity: 4 Right Neck: Pain Intensity: 3 Transfer of Care Handoff Completed per policy Notes Mental Status: alert / awake / arousable Patient Amnestic to Procedure: Yes Nausea / Vomiting: adequately controlled Pain: adequately controlled Airway Patency, RR, SpO2: stable & adequate BP & HR: stable & adequate Hydration State: stable & adequate Anesthetic Complications: no major complications apparent Notes: patient remains on 15L NRB as preop. Okay to return to floor where BiPAP was being used prn.
[2022-08-10] MEDS: INSULIN ASPART PER UNIT SC SCH ×4 (11:47→21:08)
[2022-08-10] MEDS: CEFEPIME 1,000 MG in SYRINGE 0 ML IV SCH ×2 (11:47→22:41)
[2022-08-10] MEDS: ACETAMINOPHEN 1,000 MG/100 ML VIAL IV PRN ×2 (12:21→19:27)
--- NOTE | 2022-08-10 17:18 | Cardiology Progress Note ---
Date of Service August 10, 2022 Assessment & Plan (1) Elevated troponin: (2) Atrial fibrillation: Plan 1. Elevated troponin: Likely related to fixed coronary disease in the setting of severe metabolic abnormalities. I think he would benefit from coronary angiography once his metabolic derangements have resolved. On his fluid status is stable and his uremia has resolved could consider coronary angiography now that he is on dialysis. No urgency. This could be arranged as an outpatient as well provided there are no symptoms of chest discomfort significant breathing difficulty prior to discharge. 2. Atrial fibrillation: No recent episodes of atrial fibrillation. Patient typically on Eliquis for systemic anticoagulation. 3. Mitral regurgitation: Mild on most recent echocardiogram Admission and Anticipated Discharge Date Admission Date: August 08, 2022 Subjective This afternoon the patient claims to be feeling much better. He was on dialysis at the time my interview. He states that overall energy is improved. Breathing is improved. He had a very rough evening with significant dyspnea and felt as if he was not going to make it to the morning. Review of Systems Review of Systems: Per HPI. No recent fevers or chills. Physical Exam Physical Exam: The patient is alert and oriented. Mood and affect appeared normal. He answered all questions appropriately. HEENT: Pupils are equal and reactive to light and accommodation. Extraocular movements are intact. The sclerae are anicteric. Neuro: Cranial nerves intact Lungs: Crackles in congestion throughout all lung saenz. No expiratory wheezing. Normal respiratory effort. Cardiac: Heart demonstrates a regular rate and rhythm. Normal S1 and S2. No murmurs on examination. Pulses: The patient has palpable radial pulses bilaterally that are equal in intensity Extremities: There was no evidence of hypoperfusion. There is no cyanosis or clubbing. There is no edema. Skin: I did not appreciate any rashes on examination today. Results & Data ([facility]) Vital Signs (Past 12 Hours) Vital Signs Temp Pulse Pulse Pulse Resp BP BP 08/10/22 16:30 71 134/71 08/10/22 16:00 72 134/79 08/10/22 15:30 75 137/76 08/10/22 15:00 69 126/67 08/10/22 14:59 72 125/66 08/10/22 14:50 37.0 C 69 08/10/22 13:53 24 08/10/22 11:39 36.5 C 74 16 130/69 08/10/22 11:00 75 23 08/10/22 10:50 36.5 C 73 22 08/10/22 10:40 72 21 08/10/22 10:30 36.6 C 75 25 H 08/10/22 09:28 36.6 C 78 24 144/67 H 08/10/22 08:00 95 H 08/10/22 08:00 08/10/22 08:00 08/10/22 08:30 37.5 C 73 20 122/68 08/10/22 05:24 72 23 BP Pulse Ox Pulse Ox O2 Del Method O2 Del Method O2 Flow Rate FiO2 08/10/22 16:30 08/10/22 16:00 08/10/22 15:30 08/10/22 15:00 08/10/22 14:59 08/10/22 14:50 08/10/22 13:53 94 High Flow Nasal Cannula 30 60 08/10/22 11:39 99 Oxymask 15 08/10/22 11:00 138/65 98 Non-rebreather 15 08/10/22 10:50 138/61 100 Non-rebreather 15 08/10/22 10:40 136/64 99 Non-rebreather 15 08/10/22 10:30 137/63 96 Non-rebreather 15 08/10/22 09:28 93 Non-rebreather 15 08/10/22 08:00 08/10/22 08:00 BiPAP 65 08/10/22 08:00 99 BiPAP 08/10/22 08:30 96 BiPAP 08/10/22 05:24 90 BiPAP 65 Laboratory Results Abnormal Lab Results 08/09/22 08/09/22 08/09/22 17:39 18:11 18:11 WBC RBC Hgb Hct MCV MCH MCHC RDW Std Deviation RDW Coeff of Whit Plt Count MPV APTT 32.7 H PTT Ratio 1.2 VBG pH VBG pCO2 VBG pO2 VBG HCO3 VBG O2 Saturation VBG Base Excess Sodium Potassium Chloride Carbon Dioxide Anion Gap BUN Creatinine Est Cr Clr Drug Dosing Est GFR ( Amer) Est GFR (Non-Af Amer) BUN/Creatinine Ratio Glucose POC Glucose 157 H Calcium Phosphorus Total Bilirubin AST ALT Alkaline Phosphatase Troponin I High Sens 87641.1 H* Total Protein Albumin Globulin Albumin/Globulin Ratio 08/09/22 08/10/22 08/10/22 21:19 00:56 05:51 WBC RBC Hgb Hct MCV MCH MCHC RDW Std Deviation RDW Coeff of Whit Plt Count MPV APTT 35.9 H PTT Ratio 1.3 VBG pH VBG pCO2 VBG pO2 VBG HCO3 VBG O2 Saturation VBG Base Excess Sodium 132 L Potassium 4.4 Chloride 98 Carbon Dioxide 19 L Anion Gap 15 H BUN 113 H Creatinine 5.46 H* D Est Cr Clr Drug Dosing 15.4 Est GFR ( Amer) 11.5 Est GFR (Non-Af Amer) 9.9 BUN/Creatinine Ratio 20.7 H Glucose 106 H POC Glucose 185 H Calcium 8.9 Phosphorus 7.4 H Total Bilirubin 0.3 AST 119 H ALT 70 H Alkaline Phosphatase 48 Troponin I High Sens Total Protein 6.7 Albumin 3.2 L Globulin 3.5 Albumin/Globulin Ratio 0.9 08/10/22 08/10/22 08/10/22 05:51 05:51 08:06 WBC 14.78 H RBC 2.64 L Hgb 8.0 L Hct 23.7 L MCV 89.8 MCH 30.3 MCHC 33.8 RDW Std Deviation 45.6 RDW Coeff of Whit 13.9 Plt Count 364 MPV 9.1 L APTT PTT Ratio VBG pH 7.36 VBG pCO2 35 L VBG pO2 69 VBG HCO3 20 VBG O2 Saturation 96.6 VBG Base Excess -4.9 Sodium Potassium Chloride Carbon Dioxide Anion Gap BUN Creatinine Est Cr Clr Drug Dosing Est GFR ( Amer) Est GFR (Non-Af Amer) BUN/Creatinine Ratio Glucose POC Glucose 121 H Calcium Phosphorus Total Bilirubin AST ALT Alkaline Phosphatase Troponin I High Sens Total Protein Albumin Globulin Albumin/Globulin Ratio 08/10/22 08/10/22 08/10/22 09:22 10:34 12:03 WBC RBC Hgb Hct MCV MCH MCHC RDW Std Deviation RDW Coeff of Whit Plt Count MPV APTT PTT Ratio VBG pH VBG pCO2 VBG pO2 VBG HCO3 VBG O2 Saturation VBG Base Excess Sodium Potassium Chloride Carbon Dioxide Anion Gap BUN Creatinine Est Cr Clr Drug Dosing Est GFR ( Amer) Est GFR (Non-Af Amer) BUN/Creatinine Ratio Glucose POC Glucose 115 H 118 H 132 H Calcium Phosphorus Total Bilirubin AST ALT Alkaline Phosphatase Troponin I High Sens Total Protein Albumin Globulin Albumin/Globulin Ratio 08/10/22 16:52 WBC RBC Hgb Hct MCV MCH MCHC RDW Std Deviation RDW Coeff of Whit Plt Count MPV APTT PTT Ratio VBG pH VBG pCO2 VBG pO2 VBG HCO3 VBG O2 Saturation VBG Base Excess Sodium Potassium Chloride Carbon Dioxide Anion Gap BUN Creatinine Est Cr Clr Drug Dosing Est GFR ( Amer) Est GFR (Non-Af Amer) BUN/Creatinine Ratio Glucose POC Glucose 108 H Calcium Phosphorus Total Bilirubin AST ALT Alkaline Phosphatase Troponin I High Sens Total Protein Albumin Globulin Albumin/Globulin Ratio PG Care Time/CCT Total # of Minutes Spent Total Time Spent with Patient: Total time spent is greater than 50% in coordination of care (as documented) at patient's floor/unit and/or counseling patient: Coding Level of Care Code 08309 Subseq Hosp Care Lvl 2 Diagnoses Elevated troponin R77.8 Atrial fibrillation I48.91
[2022-08-10] MEDS: APIXABAN 5 MG TABLET PO SCH (20:46)
[2022-08-10] MEDS: LANTUS PER UNIT CHARGE SQ SCH (21:08)
--- NOTE | 2022-08-10 22:21 | Nephrology Progress Note ---
Date of Service August 10, 2022 Assessment & Plan (1) Acute kidney injury superimposed on CKD: Plan: Orders for first HD treatment today were entered into the EHR and reviewed with the HD nurse. Dionicio tolerated it well. Preliminary orders for HD tomorrow entered into the EHR. s/p TDC placement today by Dr. Orourke. Case management assistance would be appreciated to help in arranging outpatient HD at [facility] under the care of Dr. Munoz. Medications are appropriate for kidney function. (2) Renal artery stenosis: Plan: BP reasonably acceptable. Unilateral L >60% per recent duplex. Unfortunately, given advanced kidney dysfunction, I would not anticipate significant benefit to intervention. Consideration may be given to performing angio during left heart catheterization. (3) Bilateral pneumonia: Plan: Cefepime dosing per kidney dysfunction. (4) Elevated troponin: Plan: Plan of care discussed with Dr. Mittal. Possible catheterization discussed once stable on HD. Admission and Anticipated Discharge Date Admission Date: August 08, 2022 Lubna Greenberg was seen and evaluated this afternoon immediately following dialysis. He tolerated treatment well. TDC placed without complications. Feeling better post treatment. Review of Systems Review of Systems: All systems reviewed & are unremarkable except as noted in HPI & below Physical Exam Constitutional: well developed; no acute distress Eyes: + anicteric sclerae; no conjunctival abnormality ENMT: Mouth: no oral mucosal abnormality and oral mucous membranes not dry Neck: normal visual inspection and trachea midline Respiratory: + tachypneic; does not use accessory muscles Auscultation: + rales Cardiovascular: Rate/Rhythm: regular rate Heart Sounds: normal S1 and normal S2 Extremities: no edema Musculoskeletal: Extremities: no cyanosis and no clubbing Skin: normal turgor; no lesions Neurologic: Motor/Sensory: no tremor and no asterixis Psychiatric: Orientation: alert and oriented x 3 Results & Data ([facility]) Vital Signs (Past 12 Hours) Vital Signs Temp Pulse Pulse Resp BP BP BP 08/10/22 19:30 08/10/22 19:30 08/10/22 19:55 36.5 C 80 20 143/73 H 08/10/22 17:57 22 08/10/22 17:03 36.8 C 74 117/66 08/10/22 16:30 71 134/71 08/10/22 16:00 72 134/79 08/10/22 15:30 75 137/76 08/10/22 15:00 69 126/67 08/10/22 14:59 72 125/66 08/10/22 14:50 37.0 C 69 08/10/22 13:53 24 08/10/22 11:39 36.5 C 74 16 130/69 08/10/22 11:00 75 23 138/65 08/10/22 10:50 36.5 C 73 22 138/61 08/10/22 10:40 72 21 136/64 08/10/22 10:30 36.6 C 75 25 H 137/63 Pulse Ox Pulse Ox O2 Del Method O2 Del Method O2 Flow Rate O2 Flow Rate FiO2 08/10/22 19:30 Nasal Cannula 6 08/10/22 19:30 96 Nasal Cannula 6 08/10/22 19:55 96 Nasal Cannula 6.0 08/10/22 17:57 98 High Flow Nasal Cannula 250 50 08/10/22 17:03 08/10/22 16:30 08/10/22 16:00 08/10/22 15:30 08/10/22 15:00 08/10/22 14:59 08/10/22 14:50 08/10/22 13:53 94 High Flow Nasal Cannula 30 60 08/10/22 11:39 99 Oxymask 15 08/10/22 11:00 98 Non-rebreather 15 08/10/22 10:50 100 Non-rebreather 15 08/10/22 10:40 99 Non-rebreather 15 08/10/22 10:30 96 Non-rebreather 15 Laboratory Results Laboratory Results - last 24 hr 08/10/22 08/10/22 08/10/22 00:56 05:51 05:51 WBC RBC Hgb Hct MCV MCH MCHC RDW Std Deviation RDW Coeff of Whit Plt Count MPV APTT 35.9 H PTT Ratio 1.3 VBG pH VBG pCO2 VBG pO2 VBG HCO3 VBG O2 Saturation VBG Base Excess Sodium 132 L Potassium 4.4 Chloride 98 Carbon Dioxide 19 L Anion Gap 15 H BUN 113 H Creatinine 5.46 H* D Est Cr Clr Drug Dosing 15.4 Est GFR ( Amer) 11.5 Est GFR (Non-Af Amer) 9.9 BUN/Creatinine Ratio 20.7 H Glucose 106 H POC Glucose Calcium 8.9 Phosphorus 7.4 H Total Bilirubin 0.3 AST 119 H ALT 70 H Alkaline Phosphatase 48 Total Protein 6.7 Albumin 3.2 L Globulin 3.5 Albumin/Globulin Ratio 0.9 Hepatitis B Ab, Qual Pending Hep Bs Antigen Pending Hep Bs Ag Confirmation Pending Hep B Core IgM Ab Pending 08/10/22 08/10/22 08/10/22 05:51 05:51 08:06 WBC 14.78 H RBC 2.64 L Hgb 8.0 L Hct 23.7 L MCV 89.8 MCH 30.3 MCHC 33.8 RDW Std Deviation 45.6 RDW Coeff of Whit 13.9 Plt Count 364 MPV 9.1 L APTT PTT Ratio VBG pH 7.36 VBG pCO2 35 L VBG pO2 69 VBG HCO3 20 VBG O2 Saturation 96.6 VBG Base Excess -4.9 Sodium Potassium Chloride Carbon Dioxide Anion Gap BUN Creatinine Est Cr Clr Drug Dosing Est GFR ( Amer) Est GFR (Non-Af Amer) BUN/Creatinine Ratio Glucose POC Glucose 121 H Calcium Phosphorus Total Bilirubin AST ALT Alkaline Phosphatase Total Protein Albumin Globulin Albumin/Globulin Ratio Hepatitis B Ab, Qual Hep Bs Antigen Hep Bs Ag Confirmation Hep B Core IgM Ab 08/10/22 08/10/22 08/10/22 09:22 10:34 12:03 WBC RBC Hgb Hct MCV MCH MCHC RDW Std Deviation RDW Coeff of Whit Plt Count MPV APTT PTT Ratio VBG pH VBG pCO2 VBG pO2 VBG HCO3 VBG O2 Saturation VBG Base Excess Sodium Potassium Chloride Carbon Dioxide Anion Gap BUN Creatinine Est Cr Clr Drug Dosing Est GFR ( Amer) Est GFR (Non-Af Amer) BUN/Creatinine Ratio Glucose POC Glucose 115 H 118 H 132 H Calcium Phosphorus Total Bilirubin AST ALT Alkaline Phosphatase Total Protein Albumin Globulin Albumin/Globulin Ratio Hepatitis B Ab, Qual Hep Bs Antigen Hep Bs Ag Confirmation Hep B Core IgM Ab 08/10/22 08/10/22 16:52 20:30 WBC RBC Hgb Hct MCV MCH MCHC RDW Std Deviation RDW Coeff of Whit Plt Count MPV APTT PTT Ratio VBG pH VBG pCO2 VBG pO2 VBG HCO3 VBG O2 Saturation VBG Base Excess Sodium Potassium Chloride Carbon Dioxide Anion Gap BUN Creatinine Est Cr Clr Drug Dosing Est GFR ( Amer) Est GFR (Non-Af Amer) BUN/Creatinine Ratio Glucose POC Glucose 108 H 173 H Calcium Phosphorus Total Bilirubin AST ALT Alkaline Phosphatase Total Protein Albumin Globulin Albumin/Globulin Ratio Hepatitis B Ab, Qual Hep Bs Antigen Hep Bs Ag Confirmation Hep B Core IgM Ab PG Care Time/CCT Total # of Minutes Spent Total Time Spent with Patient: Total time spent is greater than 50% in coordination of care (as documented) at patient's floor/unit and/or counseling patient: Coding Level of Care Code 18842 Subseq Hosp Care Lvl 3 Diagnoses Acute kidney injury superimposed on CKD N17.9; N18.9 Renal artery stenosis I70.1 Bilateral pneumonia J18.9 Elevated troponin R77.8
[2022-08-10] MEDS: AZITHROMYCIN 500 MG in DEXTROSE 5% 250 ML IV SCH (22:43)
[2022-08-11] MEDS ORDERED: HYDROmorphone INJ 0.5 MG/0.5 ML SYR IV STA (00:59)
[2022-08-11 06:03] LABS: Basophils # (auto) 0.05 K/uL (0-0.2); Basophils % (auto) 0.4 %; Eosinophils # (auto) 0.11 K/uL (0-0.50); Eosinophils % (auto) 0.8 %; Hematocrit (blood only) 23.9 % (40.1-51.0); Hemoglobin 7.9 g/dl (14.0-18.0); Immature Granulocytes # (auto) 0.12 K/uL (0.00-0.02); Immature Granulocytes % (auto) 0.9 %; Lymphocytes % (auto) 15.9 %; Mean Corpuscular Hemoglobin 29.5 pg (25.0-34.0); Mean Corpuscular Hgb Conc 33.1 g/dL (32.0-36.0); Mean Corpuscular Volume 89.2 fL (80.0-100.0); Mean Platelet Volume 9.3 fL (9.4-12.4); Monocytes # (auto) 1.37 K/uL (0.24-0.82); Monocytes % (auto) 9.9 %; Neutrophils # (auto) 9.95 K/uL (1.4-6.5); Neutrophils % (auto) 72.1 %; Nucleated RBC # (auto) 0.02 K/uL (0-0); Nucleated RBC % (auto) 0.1 %; Platelet Count 372 K/uL (130-400); RDW Coefficient of Variation 13.8 % (11.5-14.5); RDW Standard Deviation 45.1 fL (36.4-46.3); Red Blood Count 2.68 M/uL (4.63-6.08)
[2022-08-11 06:24] LABS: Partial Thromboplastin Ratio 1.1; Partial Thromboplastin Time 30.8 Seconds (21.0-31.0)
[2022-08-11 06:52] LABS: Polychromasia 1+
[2022-08-11 06:57] LABS: Albumin Globulin Ratio 0.9 (0.9-2); Albumin Level 3.3 gm/dl (3.4-5.0); BUN Creatinine Ratio 20.6 (10-20); Bilirubin,Total 0.4 mg/dl (0.2-1.0); Calcium 8.3 mg/dl (8.5-10.1); Creatinine Clr Calc Pharmacy 17.2 ml/min; Est GFR (African American) 13.5 ml/min; Est GFR (Non-African American) 11.7 ml/min; Globulin 3.7 gm/dl (2.5-4.0); Phosphorus 5.9 mg/dl (2.5-4.9); Potassium 4.1 mmol/L (3.5-5.1)
[2022-08-11] MEDS: BUDESONIDE 0.5 MG/2 ML VIAL (PULMICORT) NEB SCH ×2 (07:25→19:15)
[2022-08-11] MEDS: INSULIN ASPART PER UNIT SC SCH ×4 (08:28→20:35)
[2022-08-11] MEDS: METOPROLOL SUCC 50MG EXT REL TAB PO SCH ×2 (08:49→20:21)
[2022-08-11] MEDS: guaiFENesin 600 MG TABCR PO SCH ×2 (08:49→20:21)
[2022-08-11] MEDS: ATORVASTATIN 40 MG TAB PO SCH (08:49)
[2022-08-11] MEDS: CLOPIDOGREL BISULFATE 75 MG TAB PO SCH (08:49)
[2022-08-11] MEDS: amLODIPine BESYLATE 5 MG TAB PO SCH (08:49)
[2022-08-11] MEDS: MULTIVITAMIN TAB PO SCH (08:49)
[2022-08-11] MEDS: APIXABAN 5 MG TABLET PO SCH ×2 (08:50→20:21)
--- NOTE | 2022-08-11 08:50 | Nephrology Progress Note ---
Date of Service August 11, 2022 Assessment & Plan (1) Acute kidney injury superimposed on CKD: Plan: * Orders for 2nd HD treatment were entered into the EHR and reviewed with the HD nurse. Will attempt additional 2 L UF today * s/p IJ THC placement by Dr. Orourke 08/10/22 * Case management to arrange outpatient HD at [facility] under the care of Dr. Munoz (2) Renal artery stenosis: Plan: * BP reasonably acceptable. Unilateral L >60% per recent duplex. Unfortunately, given advanced kidney dysfunction, I would not anticipate significant benefit to intervention. Consideration may be given to performing angio during left heart catheterization. (3) Bilateral pneumonia: Plan: * Empiric management w/ Azithromycin and Cefepime * Will repeat CXR in am (4) Elevated troponin: Plan: * Possible cardiac catheterization once stable on HD Admission and Anticipated Discharge Date Admission Date: August 08, 2022 Subjective Mr. Coleman was evaluated in his hospital room this morning. He tolerated his 1st dialysis treatment without complication yesterday. 2 L UF obtained. Mr. Coleman remains mildly dyspneic and is scheduled for his 2nd dialysis treatment this afternoon Review of Systems Constitutional: no fever Eyes: no problem reported Ear, Nose, Mouth, Throat: no problem reported Respiratory: no dyspnea Cardiovascular: no chest pain Gastrointestinal: no abdominal pain Physical Exam Constitutional: not in distress Eyes: PERRL, conjunctivae normal, anicteric sclerae ENMT: external ear and nose normal, oropharynx normal Neck: trachea midline, no thyromegaly R IJ THC with clean, dry dressing in place Respiratory: Auscultation: + rales Cardiovascular: RRR, no murmur, no edema Gastrointestinal (Abdomen): normal bowel sounds, soft, nontender, no hepatosplenomegaly Neurologic: awake; not confused Results & Data ([facility]) Vital Signs (Past 12 Hours) Vital Signs Temp Pulse Pulse Resp BP Pulse Ox O2 Del Method 08/11/22 08:15 36.7 C 71 20 128/66 91 Nasal Cannula 08/11/22 07:26 72 18 97 Oxymask 08/11/22 03:35 36.7 C 69 18 135/73 97 Oxymask 08/11/22 01:49 Oxymask 08/11/22 01:00 Oxymask 08/10/22 23:33 68 08/10/22 23:30 36.6 C 71 20 140/64 92 Nasal Cannula 08/10/22 23:08 22 94 Nasal Cannula O2 Flow Rate 08/11/22 08:15 6.0 08/11/22 07:26 15 08/11/22 03:35 15 08/11/22 01:49 15 08/11/22 01:00 9 08/10/22 23:33 08/10/22 23:30 6 08/10/22 23:08 6 Laboratory Results Laboratory Tests 08/11/22 08/11/22 05:30 05:30 WBC 13.80 H Hgb 7.9 L Hct 23.9 L Plt Count 372 Sodium 133 L Potassium 4.1 Chloride 99 Carbon Dioxide 21 BUN 98 H Creatinine 4.76 H* D Glucose 104 H Calcium 8.3 L Phosphorus 5.9 H Magnesium 2.0 Albumin 3.3 L PG Care Time/CCT Total # of Minutes Spent Total Time Spent with Patient: Total time spent is greater than 50% in coordination of care (as documented) at patient's floor/unit and/or counseling patient: Coding Level of Care Code 27575 Subseq Hosp Care Lvl 3 Diagnoses Acute kidney injury superimposed on CKD N17.9; N18.9 Renal artery stenosis I70.1 Bilateral pneumonia J18.9 Elevated troponin R77.8
[2022-08-11] MEDS: SODIUM BICARBONATE 650 MG TAB PO SCH ×2 (08:51→20:21)
[2022-08-11 09:58] LABS: HBSAG NON-REACTIVE (NON-REACTIVE); Hepatitis B Core Antibody IgM NON-REACTIVE (NON-REACTIVE)
[2022-08-11] MEDS: FERROUS SULFATE 325 MG TAB PO SCH (10:29)
[2022-08-11] MEDS: DOCUSATE SODIUM 100 MG CAP PO SCH (10:29)
--- NOTE | 2022-08-11 15:08 | Hospitalist Progress Note ---
Date of Service August 11, 2022 Assessment & Plan (1) Respiratory failure: Plan: 67yo male PMHx hypertension, insulin-dependent diabetes, atrial fibrillation, bilateral carotid artery stenosis, CKD stage IV, hyperlipidemia, renal artery stenosis who presented for evaluation of shortness of breath, likely secondary to hypervolemia and recurrent PNA. Acute Hypoxic Respiratory Failure - Redevelopment of AHRF in the setting of CKD4 and recent PNA; patient found to have features of hypervolemia on exam and on chest imaging. Likely multifactorial: possible recurrence of multifocal PNA compounded by fluid overload and pleural effusions - multifactorial from CKD4 and HFpEF. - Work-up as follows: - TTE 08/02: LVEF 65-70% with severe concentric LVH, grade II diastolic dysfunction, no significant aortic stenosis - BUN 98 / Cr 4.68 (from 84 / 4.59 on 08/06) - initial Troponin 47k, peaked at 90k - WBC 17.6, increasing / procal elevated 0.55 / CRP 5.39 - CT Chest: Moderate interstitial pulmonary edema with suspected alveolar pulmonary edema. Small to moderate right and small left pleural effusions. Multifocal subpleural airspace opacities. Extensive coronary artery calcification. Mild cardiomegaly. Follow up chest CT in 2 months to ensure resolution is recommended. - Supplement O2, goal SpO2 > 92%; currently on 6L NC. - furosemide 40 mg IV x1. Goal will be to continue diuretics to encourage a negative fluid balance. - Perm cath placed in am. Plan for dialysis as below, 2nd session earlier today. - daily I&Os, daily weights - Management as below otherwise Hypervolemia - Features of pulmonary edema and lower extremity edema present on exam and imaging and with elevated BNP (though noted with CKD) - pleural effusions appreciated on CT and CXR imaging - TTE 08/02: LVEF 65-70% with severe LVH, grade II diastolic dysfunction, no significant aortic stenosis - Suspect multifactorial: CKD4, component of acute HFpEF (e.g., cardiorenal) - Lasix 40mg IV given in the ED. Cont diuresis as above. - Monitor I&Os, daily weights - Fluid restriction < 2L/day - Monitor lytes Multifocal Pneumonia - As above, CT imaging and labs are concerning for recurrent multifocal pneumonia. Influenza/COVID/RSV negative. - Continue cefepime/azithromycin as above - MRSA nares neg - Consider respiratory BioFire if no significant improvement - Pulmonary Respules MONE-on-CKD4 - Patient was being followed during last admission for the same - nephrology notes indicate baseline Cr 3.0-3.5, though has been persistently >4 since last admission - Secondary to renovascular disease, including renal artery stenosis (>60% stenosis in R renal artery) - Continue NaHCO3 and calcitriol - Patiromer x1 in ED given hyperkalemia in setting of MONE-on-CKD - Lasix 40mg IV x1 in ED, diuresis as above. - Appreciate nephrology consultation -multi organ symptomatology likely stemming from acute renal failure -2nd session dialysis today. - Monitor BMP - Hold HCTZ/KCl Elevated Troponin, peaked - high sensitivity troponin at over >95623 on admission; however, he has an extensive history of chronically and highly elevated troponin - denies chest symptoms with no acute ECG changes compared to last visit - Cardiology consulted during last admission (08/03) - suspect due to severe LVH, CKD, vascular disease, especially given no wall motion abnormalities on TTE - In setting of acute hypoxia and PNA/hypervolemia, suspect this is similar to previous with supply/demand mismatch - consulted cardiology given significant elevation in troponin from baseline HLD, CAD, MARTIN, [place] - Continue statin, Plavix ID-DM2 - h/o poorly controlled DM2, improved, most recent A1c at 6.0% (08/03) - Lower home Lantus to 30U b.i.d. and add SSI, adjust as needed HTN - Continue amlodipine, metoprolol - Hold HCTZ Hyperkalemia - Likely secondary to MONE-on-CKD - Diuresis as above, give Patiromer x1 in ED Leukocytosis - Definitely a degree of PNA/physiologic stress contributing to this. 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 (2) Hypervolemia: (3) Pneumonia: (4) Chronic kidney disease, stage IV (severe): (5) Elevated troponin: (6) Hyperlipidemia LDL goal <70: (7) IDDM (insulin dependent diabetes mellitus): (8) Hypertension: (9) Hyperkalemia: (10) Atrial fibrillation: (11) Leukocytosis: Admission and Anticipated Discharge Date Admission Date: August 08, 2022 Supervising Physician Co-Signing Physician Notes Attending attestation Also saw the patient with the resident physician and confirmed mcgee portions of the history and physical examination. I agree with the impression and plan as noted in the resident documentation and as summarized below. Patient overall feels well. Resting comfortably in bed. He has no complaints today. No issues with dialysis yesterday, scheduled for dialysis again today. Exam 136/68, 60, 20, 36.7, 100 percent on nasal cannula at 6 L/min Regular rate and rhythm Respirations nonlabored Data White blood cell count 13.8, hemoglobin 7.9 Sodium 133, potassium 4.1, BUN 98, creatinine 4.76 Impression and plan Acute hypoxic respiratory failure Multifocal with pneumonia, some element of fluid overload in the setting of acute kidney injury Seems improved today, and suspect will improve further with dialysis Attempt to wean supplemental oxygen Acute kidney injury, CKD 4 Appreciate nephrology consultation Dialysis today Arrangements for outpatient dialysis per nephrology Elevated troponin Discussed with cardiology Consider catheterization either early next week as inpatient, or near future as outpatient -discussed with patient and he would favor catheterization as inpatient Additional per resident documentation Subjective Patient doing well this morning saying he does not have any acute complaints. He denies fevers, chills, chest pain, shortness of breath, abdominal pain, nausea. He is able to eat and drink without issue and denies any nausea or vomiting at the current time. No overnight events. Review of Systems Review of Systems: as per HPI Physical Exam Constitutional: WD/WN, vitals as above Eyes: PERRL, conjunctivae normal, anicteric sclerae Respiratory: Mildly course breath sounds at the bilateral bases, clear to auscultation elsewhere. Cardiovascular: RRR, no murmur, no edema Gastrointestinal (Abdomen): normal bowel sounds, soft, nontender, no hep atosplenomegaly Psychiatric: A+Ox3, euthymic affect Results & Data Results & Data ([facility]) Vital Signs (Past 12 Hours) Vital Signs Temp Pulse Pulse Resp BP Pulse Ox Pulse Ox 08/11/22 11:15 37.1 C 74 20 125/79 100 08/11/22 08:00 67 08/11/22 08:00 08/11/22 08:00 91 08/11/22 08:15 36.7 C 71 20 128/66 91 08/11/22 07:26 72 18 97 08/11/22 03:35 36.7 C 69 18 135/73 97 O2 Del Method O2 Del Method O2 Flow Rate O2 Flow Rate 08/11/22 11:15 Nasal Cannula 6.0 08/11/22 08:00 08/11/22 08:00 Nasal Cannula 6 08/11/22 08:00 Nasal Cannula 6 08/11/22 08:15 Nasal Cannula 6.0 08/11/22 07:26 Oxymask 15 08/11/22 03:35 Oxymask 15 Resident Activity Tracking Resident Involvement: Resident Care Provided Care Provided: Adult Hospital Medicine (1) Respiratory failure Chronicity: acute Respiratory failure complication: hypoxia Qualified Code(s): J96.01 - Acute respiratory failure with hypoxia (2) Hypertension Hypertension type: unspecified Qualified Code(s): I10 - Essential (primary) hypertension
[2022-08-11] MEDS: LANTUS PER UNIT CHARGE SQ SCH (20:35)
[2022-08-11] MEDS: AZITHROMYCIN 500 MG in DEXTROSE 5% 250 ML IV SCH (23:08)
[2022-08-11] MEDS: CEFEPIME 1,000 MG in SYRINGE 0 ML IV SCH (23:08)
[2022-08-12 06:08] LABS: Hematocrit (blood only) 22.8 % (40.1-51.0); Hemoglobin 7.6 g/dl (14.0-18.0); Mean Corpuscular Hemoglobin 29.9 pg (25.0-34.0); Mean Corpuscular Hgb Conc 33.3 g/dL (32.0-36.0); Mean Corpuscular Volume 89.8 fL (80.0-100.0); Mean Platelet Volume 9.3 fL (9.4-12.4); Platelet Count 374 K/uL (130-400); RDW Coefficient of Variation 13.6 % (11.5-14.5); RDW Standard Deviation 44.7 fL (36.4-46.3); Red Blood Count 2.54 M/uL (4.63-6.08)
[2022-08-12 06:58] LABS: BUN Creatinine Ratio 17.4 (10-20); Calcium 7.9 mg/dl (8.5-10.1); Est GFR (African American) 18.5 ml/min; Ferritin 261.2 ng/ml (8-388); Potassium 3.7 mmol/L (3.5-5.1)
--- NOTE | 2022-08-12 06:59 | Hospitalist Progress Note ---
Date of Service August 12, 2022 Assessment & Plan (1) Respiratory failure: Plan: 67yo male PMHx hypertension, insulin-dependent diabetes, atrial fibrillation, bilateral carotid artery stenosis, CKD stage IV, hyperlipidemia, renal artery stenosis who presented for evaluation of shortness of breath, likely secondary to hypervolemia and recurrent PNA. Acute Hypoxic Respiratory Failure - Redevelopment of AHRF in the setting of CKD4 and recent PNA; patient found to have features of hypervolemia on exam and on chest imaging. Likely multifactorial: possible recurrence of multifocal PNA compounded by fluid overload and pleural effusions - multifactorial from CKD4 and HFpEF. - Work-up as follows: - TTE 08/02: LVEF 65-70% with severe concentric LVH, grade II diastolic dysfunction, no significant aortic stenosis - BUN 98 / Cr 4.68 (from 84 / 4.59 on 08/06) - initial Troponin 47k, peaked at 90k - WBC 17.6, increasing / procal elevated 0.55 / CRP 5.39 - CT Chest: Moderate interstitial pulmonary edema with suspected alveolar pulmonary edema. Small to moderate right and small left pleural effusions. Multifocal subpleural airspace opacities. Extensive coronary artery calcification. Mild cardiomegaly. Follow up chest CT in 2 months to ensure resolution is recommended. - Treating with Cefepime and Azithromycin for pneumonia. - Supplement O2, goal SpO2 > 92%; currently on Room Air. - furosemide 40 mg IV x1. Goal will be to continue diuretics to encourage a negative fluid balance. - Perm cath placed. Plan for dialysis as below, 2nd session yesterday, 3rd session tomorrow. - daily I&Os, daily weights - Management as below otherwise Hypervolemia - Features of pulmonary edema and lower extremity edema present on exam and imaging and with elevated BNP (though noted with CKD) - pleural effusions appreciated on CT and CXR imaging - TTE 08/02: LVEF 65-70% with severe LVH, grade II diastolic dysfunction, no significant aortic stenosis - Suspect multifactorial: CKD4, component of acute HFpEF (e.g., cardiorenal) - Lasix 40mg IV given in the ED. Cont diuresis as above. - Monitor I&Os, daily weights - Fluid restriction < 2L/day - Monitor lytes Multifocal Pneumonia - As above, CT imaging and labs are concerning for recurrent multifocal pneumonia. Influenza/COVID/RSV negative. - Continue cefepime/azithromycin as above - MRSA nares neg - Consider respiratory BioFire if no significant improvement - Pulmonary Respules MONE-on-CKD4 - Patient was being followed during last admission for the same - nephrology notes indicate baseline Cr 3.0-3.5, though has been persistently >4 since last admission - Secondary to renovascular disease, including renal artery stenosis (>60% stenosis in R renal artery) - Continue NaHCO3 and calcitriol - Patiromer x1 in ED given hyperkalemia in setting of MONE-on-CKD - Lasix 40mg IV x1 in ED, diuresis as above. - Appreciate nephrology consultation -multi organ symptomatology likely stemming from acute renal failure -3rd dialysis session tomorrow. -Patient set up with dialysis for discharge MWF 11AM schedule [facility] - Monitor BMP - Hold HCTZ/KCl Elevated Troponin, peaked - high sensitivity troponin at over >10513 on admission; however, he has an extensive history of chronically and highly elevated troponin - denies chest symptoms with no acute ECG changes compared to last visit - Cardiology consulted during last admission (08/03) - suspect due to severe LVH, CKD, vascular disease, especially given no wall motion abnormalities on TTE - In setting of acute hypoxia and PNA/hypervolemia, suspect this is similar to previous with supply/demand mismatch - consulted cardiology given significant elevation in troponin from baseline - patient already in hospital and optimized for procedure, will need to contact cardiology for potential cath for 08/13 or 08/14. HLD, CAD, MARTIN, [place] - Continue statin, Plavix ID-DM2 - h/o poorly controlled DM2, improved, most recent A1c at 6.0% (08/03) - Lower home Lantus to 30U b.i.d. and add SSI, adjust as needed HTN - Continue amlodipine, metoprolol - Hold HCTZ Hyperkalemia - Likely secondary to MONE-on-CKD - Diuresis as above, give Patiromer x1 in ED Leukocytosis - Definitely a degree of PNA/physiologic stress contributing to this. However, looking back at his records, he has had a notable leukocytosis to 2018 - Should consider obtaining a peripheral smear once acute stressors have resolved to screen for hematologic malignancy Atrial Fibrillation - Continue metoprolol and Eliquis Code status: Full Diet: dialysis renal DVT ppx: home eliquis Dispo: PCU, will likely stay until Saturday/Saturday and hopefully have room on catheter finisher and inspector schedule at that time. (2) Hypervolemia: (3) Pneumonia: (4) Chronic kidney disease, stage IV (severe): (5) Elevated troponin: (6) Hyperlipidemia LDL goal <70: (7) IDDM (insulin dependent diabetes mellitus): (8) Hypertension: (9) Hyperkalemia: (10) Atrial fibrillation: (11) Leukocytosis: Admission and Anticipated Discharge Date Admission Date: August 08, 2022 Supervising Physician Co-Signing Physician Notes Attending attestation Also saw the patient with the resident physician and confirmed mcgee portions of the history and physical examination. I agree with the impression and plan as noted in the resident documentation and as summarized below. Patient overall feels well -little tired today compared to yesterday. He has no shortness of breath and is maintaining adequate oxygenation on room air. Exam 133/66, 73, 19, 36.6, 91% room air Regular rate and rhythm Respirations nonlabored Data White blood cell count 13.1, hemoglobin 7.6 Sodium 133, potassium 3.7, BUN 64, creatinine 3.67 Impression and plan Acute hypoxic respiratory failure, resolved Multifocal with pneumonia, some element of fluid overload in the setting of acute kidney injury Doing well on room air Acute kidney injury, CKD 4 Appreciate nephrology consultation Dialysis tomorrow Arrangements for outpatient dialysis per nephrology Elevated troponin Discussed with cardiology Consider catheterization either early next week as inpatient, or near future as outpatient -discussed with patient and he would favor catheterization as inpatient Additional per resident documentation Subjective Patient seen at the bedside today without any acute complaints. He denies any fevers, chills, shortness of breath, chest pain. No overnight events, saturating well on room air now. Review of Systems Review of Systems: as per HPI Physical Exam Constitutional: WD/WN, vitals as above Eyes: PERRL, conjunctivae normal, anicteric sclerae Respiratory: normal respiratory effort, lungs clear to auscultation Cardiovascular: RRR, no murmur, no edema Gastrointestinal (Abdomen): normal bowel sounds, soft, nontender, no hepatosplenomegaly Psychiatric: A+Ox3, euthymic affect Results & Data Results & Data ([facility]) Vital Signs (Past 12 Hours) Vital Signs Temp Pulse Pulse Resp BP Pulse Ox O2 Del Method 08/12/22 03:54 36.9 C 64 18 103/57 L 97 Nasal Cannula 08/11/22 22:53 37.1 C 70 22 113/63 97 Nasal Cannula 08/11/22 22:55 72 08/11/22 19:16 36.9 C 73 20 151/74 H 93 Room Air 08/11/22 19:28 Room Air 08/11/22 19:15 73 18 93 Room Air O2 Flow Rate 08/12/22 03:54 3.0 08/11/22 22:53 4.0 08/11/22 22:55 08/11/22 19:16 08/11/22 19:28 96 08/11/22 19:15 Resident Activity Tracking Resident Involvement: Resident Care Provided Care Provided: Adult Hospital Medicine (1) Respiratory failure Chronicity: acute Respiratory failure complication: hypoxia Qualified Code(s): J96.01 - Acute respiratory failure with hypoxia (2) Hypertension Hypertension type: unspecified Qualified Code(s): I10 - Essential (primary) hypertension
[2022-08-12] MEDS: BUDESONIDE 0.5 MG/2 ML VIAL (PULMICORT) NEB SCH (07:27)
--- NOTE | 2022-08-12 08:11 | XRay Report ---
XR chest 1V portable HISTORY: Shortness of breath. Congestive heart failure. COMPARISON: Chest 08/09/2022. FINDINGS: No pneumothorax. Mild interstitial pulmonary edema has significantly improved. The heart re pallavi mildly enlarged. Trace bilateral pleural effusions have also improved. Hazy appearance of the r ight medial lung base has improved and may represent a component of the pulmonary edema. A pneumoniti s could also have a similar appearance. IMPRESSION: Interval improvement of the pulmonary edema and a right medial lung base airspace opacity. ACT 112: Negative or not required by law. Electronically signed by: Chilango Juarez M.D. 08/12/2022 8:10 AM
[2022-08-12] MEDS: INSULIN ASPART PER UNIT SC SCH ×4 (09:00→21:34)
[2022-08-12] MEDS: ATORVASTATIN 40 MG TAB PO SCH (09:01)
[2022-08-12] MEDS: APIXABAN 5 MG TABLET PO SCH ×2 (09:01→20:22)
[2022-08-12] MEDS: amLODIPine BESYLATE 5 MG TAB PO SCH (09:01)
[2022-08-12] MEDS: CLOPIDOGREL BISULFATE 75 MG TAB PO SCH (09:02)
[2022-08-12] MEDS: DOCUSATE SODIUM 100 MG CAP PO SCH (09:02)
[2022-08-12] MEDS: MULTIVITAMIN TAB PO SCH (09:03)
[2022-08-12] MEDS: guaiFENesin 600 MG TABCR PO SCH ×2 (09:03→20:21)
[2022-08-12] MEDS: METOPROLOL SUCC 50MG EXT REL TAB PO SCH ×2 (09:03→20:21)
[2022-08-12] MEDS: SODIUM BICARBONATE 650 MG TAB PO SCH ×2 (09:04→20:21)
--- NOTE | 2022-08-12 09:13 | Nephrology Progress Note ---
Date of Service August 12, 2022 Assessment & Plan (1) Acute kidney injury superimposed on CKD: Plan: * Will schedule next HD treatment for 08/13/22 am * s/p IJ THC placement by Dr. Orourke 08/10/22 * Outpatient HD has been scheduled at [facility] at 11 am (2) Anemia: Plan: * Hgb 7.6 this am. Iron saturation < 20%, ferritin < 200 * Will prescribe IV Venofer and provide STEPHEN w/ HD (3) Renal artery stenosis: Plan: * BP reasonably acceptable. Unilateral L >60% per recent duplex. Unfortunately, given advanced kidney dysfunction, I would not anticipate significant benefit to intervention. Consideration may be given to performing angio during left heart catheterization. (4) Bilateral pneumonia: Plan: * Empiric management w/ Azithromycin and Cefepime (5) Elevated troponin: Plan: * Possible cardiac catheterization once stable on HD Admission and Anticipated Discharge Date Admission Date: August 08, 2022 Subjective Mr. Coleman was evaluated in his hospital room this morning. He tolerated his 2nd dialysis treatment yesterday without complication yesterday. 2 L UF obtained. He is now breathing comfortably on RA. CXR this am show resolution of CHF Review of Systems Constitutional: no fever Eyes: no problem reported Ear, Nose, Mouth, Throat: no problem reported Respiratory: no dyspnea Cardiovascular: no chest pain Gastrointestinal: no abdominal pain Physical Exam Constitutional: not in distress Eyes: PERRL, conjunctivae normal, anicteric sclerae ENMT: external ear and nose normal, oropharynx normal Neck: trachea midline, no thyromegaly Respiratory: Auscultation: + rales Cardiovascular: RRR, no murmur, no edema Gastrointestinal (Abdomen): normal bowel sounds, soft, nontender, no hepatosplenomegaly Neurologic: awake; not confused Results & Data ([facility]) Vital Signs (Past 12 Hours) Vital Signs Temp Pulse Pulse Resp BP BP Pulse Ox 08/12/22 08:06 36.5 C 64 20 142/75 H 93 08/12/22 07:27 74 18 97 08/12/22 03:54 36.9 C 64 18 103/57 L 97 08/11/22 22:53 37.1 C 70 22 113/63 97 08/11/22 22:55 72 O2 Del Method O2 Flow Rate 08/12/22 08:06 Room Air 08/12/22 07:27 Nasal Cannula 2 08/12/22 03:54 Nasal Cannula 3.0 08/11/22 22:53 Nasal Cannula 4.0 08/11/22 22:55 Laboratory Results Laboratory Tests 08/11/22 08/12/22 08/12/22 05:30 05:30 05:30 WBC 13.10 H Hgb 7.6 L Hct 22.8 L Plt Count 374 Sodium 133 L Potassium 3.7 Chloride 99 Carbon Dioxide 22 BUN 64 H D Creatinine 3.67 H D Glucose 117 H Calcium 7.9 L Transferrin % Sat 10 L Ferritin 261.2 Albumin 3.3 L Diagnostic Findings 08/12/22 CXR: No pneumothorax. Mild interstitial pulmonary edema has significantly improved. The heart remains mildly enlarged. Trace bilateral pleural effusions have also improved. Hazy appearance of the right medial lung base has improved and may represent a component of the pulmonary edema. A pneumonitis could also have a similar appearance. PG Care Time/CCT Total # of Minutes Spent Total Time Spent with Patient: Total time spent is greater than 50% in coordination of care (as documented) at patient's floor/unit and/or counseling patient: Coding Level of Care Code 40982 Subseq Hosp Care Lvl 3 Diagnoses Acute kidney injury superimposed on CKD N17.9; N18.9 Anemia D64.9 Anemia type: unspecified type Renal artery stenosis I70.1 Bilateral pneumonia J18.9 Elevated troponin R77.8 (1) Anemia Anemia type: unspecified type Qualified Code(s): D64.9 - Anemia, unspecified
[2022-08-12] MEDS ORDERED: IRON SUCROSE 200 MG in 0.9 % SODIUM CHLORIDE 100 ML IV ONE (09:30)
[2022-08-12] MEDS: FERROUS SULFATE 325 MG TAB PO SCH (10:02)
[2022-08-12] MEDS: MELATONIN 3 MG TAB PO PRN (20:41)
[2022-08-12] MEDS: LANTUS PER UNIT CHARGE SQ SCH (21:33)
[2022-08-12] MEDS: AZITHROMYCIN 500 MG in DEXTROSE 5% 250 ML IV SCH (23:45)
[2022-08-12] MEDS: CEFEPIME 1,000 MG in SYRINGE 0 ML IV SCH (23:45)
[2022-08-13] MEDS ORDERED: EPOETIN ALFA 10,000 UNITS/ML VIAL IV ONE (07:00)
[2022-08-13] MEDS ORDERED: SODIUM CHLORIDE 0.9% 1000ML 1,000 ML IV PRN (07:00)
[2022-08-13] MEDS: amLODIPine BESYLATE 5 MG TAB PO SCH (08:44)
[2022-08-13] MEDS: SODIUM BICARBONATE 650 MG TAB PO SCH ×2 (08:44→21:35)
[2022-08-13] MEDS: METOPROLOL SUCC 50MG EXT REL TAB PO SCH ×2 (08:45→21:34)
[2022-08-13] MEDS: ATORVASTATIN 40 MG TAB PO SCH (08:45)
[2022-08-13] MEDS: MULTIVITAMIN TAB PO SCH (08:45)
[2022-08-13] MEDS: DOCUSATE SODIUM 100 MG CAP PO SCH (08:45)
[2022-08-13] MEDS: FERROUS SULFATE 325 MG TAB PO SCH (08:45)
[2022-08-13] MEDS: CLOPIDOGREL BISULFATE 75 MG TAB PO SCH (08:45)
[2022-08-13] MEDS: guaiFENesin 600 MG TABCR PO SCH ×2 (08:46→21:34)
[2022-08-13] MEDS: INSULIN ASPART PER UNIT SC SCH ×4 (08:47→21:33)
[2022-08-13] MEDS: APIXABAN 5 MG TABLET PO SCH ×2 (08:48→21:34)
--- NOTE | 2022-08-13 08:55 | Nephrology Progress Note ---
Date of Service August 13, 2022 Assessment & Plan (1) Acute kidney injury superimposed on CKD: Plan: * HD today. Orders have been placed in EMR and HD RN notified * s/p IJ THC placement by Dr. Orourke 08/10/22 * Outpatient HD has been scheduled at [facility] at 11 am (2) Anemia: Plan: * Hgb 7.6 08/12/22. Iron saturation < 20%, ferritin < 200 * Day #2 of 5 IV Venofer * Will provide STEPHEN w/ HD (3) Renal artery stenosis: Plan: * BP acceptable. Unilateral L >60% per recent duplex. Unfortunately, given advanced kidney dysfunction, I would not anticipate significant benefit to intervention. Consideration may be given to performing angio during left heart catheterization. (4) Bilateral pneumonia: Plan: * Empiric management w/ Azithromycin and Cefepime (5) Elevated troponin: Plan: * Awaiting Cardiology follow up. May require cardiac catheterization Admission and Anticipated Discharge Date Admission Date: August 08, 2022 Subjective Mr. Coleman was evaluated in his hospital room this morning. He was breathing comfortably on RA. He denied angina. He is willing to remain hospitalized for Cardiology evaluation and possible heart catheterization Review of Systems Constitutional: no fever Eyes: no problem reported Ear, Nose, Mouth, Throat: no problem reported Respiratory: no dyspnea Cardiovascular: no chest pain Gastrointestinal: no abdominal pain Physical Exam Constitutional: not in distress Eyes: PERRL, conjunctivae normal, anicteric sclerae ENMT: external ear and nose normal, oropharynx normal Neck: trachea midline, no thyromegaly Respiratory: Auscultation: + rales Cardiovascular: RRR, no murmur, no edema Gastrointestinal (Abdomen): normal bowel sounds, soft, nontender, no hepatosplenomegaly Neurologic: awake; not confused Results & Data ([facility]) Vital Signs (Past 12 Hours) Vital Signs Temp Pulse Pulse Resp BP BP Pulse Ox 08/13/22 08:12 37.3 C 69 19 133/72 96 08/13/22 02:58 36.8 C 73 18 108/55 L 94 08/12/22 22:25 72 08/12/22 22:54 36.9 C 70 18 118/66 93 O2 Del Method 08/13/22 08:12 Room Air 08/13/22 02:58 Room Air 08/12/22 22:25 08/12/22 22:54 Room Air Laboratory Results Laboratory Results - last 24 hr 08/12/22 08/12/22 08/12/22 11:58 16:46 20:21 POC Glucose 195 H 125 H 134 H 08/13/22 07:49 POC Glucose 128 H PG Care Time/CCT Total # of Minutes Spent Total Time Spent with Patient: Total time spent is greater than 50% in coordination of care (as documented) at patient's floor/unit and/or counseling patient: Coding Level of Care Code 61118 Subseq Hosp Care Lvl 3 Diagnoses Acute kidney injury superimposed on CKD N17.9; N18.9 Anemia D64.9 Anemia type: unspecified type Renal artery stenosis I70.1 Bilateral pneumonia J18.9 Elevated troponin R77.8 (1) Anemia Anemia type: unspecified type Qualified Code(s): D64.9 - Anemia, unspecified
[2022-08-13] MEDS: IRON SUCROSE 200 MG in 0.9 % SODIUM CHLORIDE 100 ML IV SCH (08:57)
--- NOTE | 2022-08-13 11:17 | Pharmacy Report ---
Pharmacy Glycemic Short Note 2 - Date of Service August 13, 2022 - Glycemic Short BSG Results (Last 24 hours): 08/12/22 08/12/22 08/12/22 11:58 16:46 20:21 POC Glucose 195 H 125 H 134 H 08/13/22 07:49 POC Glucose 128 H OUTPATIENT ANTIDIABETIC REGIMEN: * Basaglar 35 units BID * A1c 6% 08/03/22 ASSESSMENT: 08/13: * Fasting BSG this morning was 128 mg/dl - a slight increase from yesterday, still within goal. On renal diet today. Continued Lantus dose of 25 units SQ HS. CF & CHO ratio stays the same (30 and 10) 08/09 * 67 year old type 2 diabetic admitted with pneumonia, NPO to be evaluated by cardiology for possible cath, elevated troponin. * Patient managed on only basal insulin as outpatient, received 25 units Lantus last night, held this morning, euglycemic today. * Continue HS basal dosing only and correctional insulin Q6H while NPO, add CR when diet resumed, and possibly increase basal at that time. PLAN FOR INPATIENT GLYCEMIC CONTROL: * Basal insulin * Lantus 25 units SQ HS * Bolus insulin * NovoLog per scale ACHS or Q6hrs while NPO * Goal Range: Low 110 mg/dL - High 140 mg/dL * Correction Factor: 30 mg/dL/unit * Nutritional / Prandial insulin per carb ratio of 1 unit per 10 grams CHO consumed
--- NOTE | 2022-08-13 19:40 | Hospitalist Progress Note ---
Date of Service August 13, 2022 Assessment & Plan (1) Respiratory failure: Plan: 67yo male PMHx hypertension, insulin-dependent diabetes, atrial fibrillation, bilateral carotid artery stenosis, CKD stage IV, hyperlipidemia, renal artery stenosis who presented for evaluation of shortness of breath, likely secondary to hypervolemia and recurrent PNA. Acute Hypoxic Respiratory Failure - Redevelopment of AHRF in the setting of CKD4 and recent PNA; patient found to have features of hypervolemia on exam and on chest imaging. Likely multifactorial: possible recurrence of multifocal PNA compounded by fluid overload and pleural effusions - multifactorial from CKD4 and HFpEF. - Work-up as follows: - TTE 08/02: LVEF 65-70% with severe concentric LVH, grade II diastolic dysfunction, no significant aortic stenosis - BUN 98 / Cr 4.68 (from 84 / 4.59 on 08/06) - initial Troponin 47k, peaked at 90k - WBC 17.6, increasing / procal elevated 0.55 / CRP 5.39 - CT Chest: Moderate interstitial pulmonary edema with suspected alveolar pulmonary edema. Small to moderate right and small left pleural effusions. Multifocal subpleural airspace opacities. Extensive coronary artery calcification. Mild cardiomegaly. Follow up chest CT in 2 months to ensure resolution is recommended. Patient tentatively scheduled for coronary catheterization 08/14. - Treating with Cefepime and Azithromycin for pneumonia. - Supplement O2, goal SpO2 > 92%; currently on Room Air. - Perm cath placed. Plan for dialysis: MWF. - daily I&Os, daily weights - Management as below otherwise Hypervolemia - Features of pulmonary edema and lower extremity edema present on exam and imaging and with elevated BNP (though noted with CKD) - pleural effusions appreciated on CT and CXR imaging - TTE 08/02: LVEF 65-70% with severe LVH, grade II diastolic dysfunction, no significant aortic stenosis - Suspect multifactorial: CKD4, component of acute HFpEF (e.g., cardiorenal) - Lasix 40mg IV given in the ED. Cont diuresis as above. - Monitor I&Os, daily weights - Fluid restriction < 2L/day - Monitor lytes Multifocal Pneumonia - As above, CT imaging and labs are concerning for recurrent multifocal pneumonia. Influenza/COVID/RSV negative. - Continue cefepime/azithromycin as above - MRSA nares neg - Pulmonary Respules MONE-on-CKD4 - Patient was being followed during last admission for the same - nephrology notes indicate baseline Cr 3.0-3.5, though has been persistently >4 since last admission - Secondary to renovascular disease, including renal artery stenosis (>60% steno sis in R renal artery) - Continue NaHCO3 and calcitriol - Patiromer x1 in ED given hyperkalemia in setting of MONE-on-CKD - Lasix 40mg IV x1 in ED, diuresis as above. - Appreciate nephrology consultation -multi organ symptomatology likely stemming from acute renal failure -3rd dialysis session tomorrow. -[facility] - Monitor BMP - Hold HCTZ/KCl Elevated Troponin, peaked - high sensitivity troponin at over >76201 on admission; however, he has an extensive history of chronically and highly elevated troponin - denies chest symptoms with no acute ECG changes compared to last visit - Cardiology consulted during last admission (08/03) - suspect due to severe LVH, CKD, vascular disease, especially given no wall motion abnormalities on TTE - In setting of acute hypoxia and PNA/hypervolemia, suspect this is similar to previous with supply/demand mismatch - consulted cardiology given significant elevation in troponin from baseline - patient already in hospital and optimized for procedure, will need to contact cardiology for potential cath for 08/13 or 08/14. HLD, CAD, MARTIN, BERLIN - Continue statin, Plavix ID-DM2 - h/o poorly controlled DM2, improved, most recent A1c at 6.0% (08/03) - Lower home Lantus to 30U b.i.d. and add SSI, adjust as needed HTN - Continue amlodipine, metoprolol - Hold HCTZ Hyperkalemia - Likely secondary to MONE-on-CKD - Diuresis as above, give Patiromer x1 in ED Leukocytosis - Definitely a degree of PNA/physiologic stress contributing to this. However, looking back at his records, he has had a notable leukocytosis to 2018 - Should consider obtaining a peripheral smear once acute stressors have resolved to screen for hematologic malignancy Atrial Fibrillation - Continue metoprolol and Eliquis Code status: Full Diet: dialysis renal DVT ppx: home eliquis Dispo: PCU, will likely stay until Saturday/Saturday and hopefully have room on tag and label cutter schedule at that time. (2) Hypervolemia: (3) Pneumonia: (4) Chronic kidney disease, stage IV (severe): (5) Elevated troponin: (6) Hyperlipidemia LDL goal <70: (7) IDDM (insulin dependent diabetes mellitus): (8) Hypertension: (9) Hyperkalemia: (10) Atrial fibrillation: (11) Leukocytosis: Admission and Anticipated Discharge Date Admission Date: August 08, 2022 Supervising Physician Co-Signing Physician Notes I personally examined the patient and verified all mcgee points of history and exam, discussed case, and agree with decision making with Dr Givens Feels about as good as he is ever felt recently. Notes that he would like to have heart cath done tomorrow just to get out of the way while he is feeling good and while he is in the mindset of being a patient. Reached out to cardiologythey noted they would reevaluate tomorrow. Patient notes dialysis has gone well. Vitals noted, in general he is awake and alert pleasant no distress. HEENT normocephalic atraumatic mucous membranes moist. Breathing unlabored no accessory muscle use good effort. Skin shows no rashes no pallor or icterus. Neuro without focal deficits. Impression and plan Acute hypoxic respiratory failure, resolved Multifocal with pneumonia, some element of fluid overload in the setting of acute kidney injury Doing well on room air, essentially this problem has stabilized/resolved Acute kidney injury, CKD 4 now for all functional purposes progressed to ESRD On dialysis ongoing Elevated troponin Discussed with cardiology For cath at some point in the futureshe would much prefer to have done as inpatientwill defer to cardiology's discretion, but while awaiting reevaluation, made n.p.o. after midnight so that if the decision is made to proceed with cast tomorrow there is more flexibility in being able to get it done Anticoagulated Additional per resident documentation Subjective No acute events overnight. Patient reports some musculoskeletal left scapular discomfort. Otherwise he denies shortness of breath, fatigue, headaches, dizziness, or abdominal pain. He is ambulating without difficulty. He tolerated breakfast well. He is scheduled for dialysis today (nephrology aware and is following). Review of Systems Review of Systems: All systems reviewed & are unremarkable except as noted in HPI & below Physical Exam Physical Exam: General: Well-appearing, alert, interactive, and in no acute distress. HEENT: Normocephalic, atraumatic. EOM intact. Good conjugate gaze. Nares patent. Moist mucosal membranes. Neck: Supple. No lymphadenopathy. Normal ROM. CV: Regular rate and rhythm. Normal S1 and S2. No murmurs gallops or rubs. Respiratory: Normal respiratory effort. Lungs clear to auscultation bilaterally. No crackles, rhonchi, or wheezes. Abdomen: Soft, nondistended abdomen. No bruits heard on auscultation. No tenderness to deep palpation. Extremities: Capillary refill <2 sec. 2+ dp equal bilaterally. No pedal edema. Neuro: Alert and oriented x3. Skin: Clean, dry, and intact. No rashes, bruises, or erythema. Results & Data Results & Data ([facility]) Vital Signs (Past 12 Hours) Vital Signs Temp Pulse Pulse Pulse Resp BP BP 08/13/22 19:31 36.8 C 69 18 08/13/22 16:05 37.6 C H 71 19 135/65 08/13/22 13:35 36.6 C 63 08/13/22 13:00 62 151/70 H 08/13/22 12:30 62 150/74 H 08/13/22 12:00 61 148/79 H 08/13/22 11:30 61 145/72 H 08/13/22 11:00 61 144/64 H 08/13/22 10:30 61 145/95 H 08/13/22 10:00 62 145/71 H 08/13/22 09:27 71 138/64 08/13/22 09:23 36.5 C 71 08/13/22 08:00 64 08/13/22 08:12 37.3 C 69 19 133/72 BP Pulse Ox O2 Del Method 08/13/22 19:31 145/65 H 95 Room Air 08/13/22 16:05 93 Room Air 08/13/22 13:35 153/70 H 08/13/22 13:00 08/13/22 12:30 08/13/22 12:00 08/13/22 11:30 08/13/22 11:00 08/13/22 10:30 08/13/22 10:00 08/13/22 09:27 08/13/22 09:23 08/13/22 08:00 08/13/22 08:12 96 Room Air Resident Activity Tracking Resident Involvement: Resident Care Provided Care Provided: Adult Hospital Medicine (1) Respiratory failure Chronicity: acute Respiratory failure complication: hypoxia Qualified Code(s): J96.01 - Acute respiratory failure with hypoxia (2) Hypertension Hypertension type: unspecified Qualified Code(s): I10 - Essential (primary) hypertension
--- NOTE | 2022-08-13 20:08 | Billing Data ---
Date of Service August 13, 2022 Coding Level of Care Code 37093 Subseq Hosp Care Lvl 3
--- NOTE | 2022-08-13 20:09 | Billing Data ---
Date of Service August 13, 2022 Coding Level of Care Code 16042 Subseq Hosp Care Lvl 3
[2022-08-13] MEDS: LANTUS PER UNIT CHARGE SQ SCH (22:45)
[2022-08-13] MEDS: CEFEPIME 1,000 MG in SYRINGE 0 ML IV SCH (22:46)
[2022-08-13] MEDS: ACETAMINOPHEN 500 MG TAB PO PRN (22:53)
[2022-08-14 06:35] LABS: Hematocrit (blood only) 24.9 % (40.1-51.0); Mean Corpuscular Hemoglobin 29.4 pg (25.0-34.0); Mean Corpuscular Hgb Conc 32.1 g/dL (32.0-36.0); Mean Corpuscular Volume 91.5 fL (80.0-100.0); Mean Platelet Volume 9.3 fL (9.4-12.4); Nucleated RBC # (auto) 0.02 K/uL (0-0); Nucleated RBC % (auto) 0.1 %; Platelet Count 424 K/uL (130-400); RDW Coefficient of Variation 14.1 % (11.5-14.5); RDW Standard Deviation 46.2 fL (36.4-46.3); Red Blood Count 2.72 M/uL (4.63-6.08); White Blood Count 13.69 K/ul (4.8-10.8)
[2022-08-14 07:06] LABS: BUN Creatinine Ratio 14.5 (10-20); Calcium 7.9 mg/dl (8.5-10.1); Creatinine Clr Calc Pharmacy 20.7 ml/min; Est GFR (African American) 17.4 ml/min; Potassium 3.8 mmol/L (3.5-5.1)
[2022-08-14] MEDS: INSULIN ASPART PER UNIT SC SCH ×4 (07:37→21:01)
[2022-08-14] MEDS: APIXABAN 5 MG TABLET PO SCH ×2 (08:41→21:00)
[2022-08-14] MEDS: MULTIVITAMIN TAB PO SCH (08:41)
[2022-08-14] MEDS: SODIUM BICARBONATE 650 MG TAB PO SCH ×2 (08:41→21:00)
[2022-08-14] MEDS: METOPROLOL SUCC 50MG EXT REL TAB PO SCH ×2 (08:41→21:00)
[2022-08-14] MEDS: guaiFENesin 600 MG TABCR PO SCH ×2 (08:41→21:01)
[2022-08-14] MEDS: DOCUSATE SODIUM 100 MG CAP PO SCH (08:42)
[2022-08-14] MEDS: amLODIPine BESYLATE 5 MG TAB PO SCH (08:42)
[2022-08-14] MEDS: ATORVASTATIN 40 MG TAB PO SCH (08:42)
[2022-08-14] MEDS: FERROUS SULFATE 325 MG TAB PO SCH (08:42)
[2022-08-14] MEDS: CLOPIDOGREL BISULFATE 75 MG TAB PO SCH (08:42)
[2022-08-14] MEDS: ACETAMINOPHEN 500 MG TAB PO PRN ×2 (08:44→20:59)
[2022-08-14] MEDS: IRON SUCROSE 200 MG in 0.9 % SODIUM CHLORIDE 100 ML IV SCH (08:44)
--- NOTE | 2022-08-14 08:52 | Nephrology Progress Note ---
Date of Service August 14, 2022 Assessment & Plan (1) Acute kidney injury superimposed on CKD: Plan: * No acute indication for HD today. Will schedule next HD for am * s/p IJ THC placement by Dr. Orourke 08/10/22 * Outpatient HD has been scheduled at [facility] at 11 am (2) Anemia: Plan: * Hgb improved to 8.0 * Day #3 of 5 IV Venofer * Will provide STEPHEN w/ HD (3) Renal artery stenosis: Plan: * BP acceptable. Unilateral L >60% per recent duplex. Unfortunately, given advanced kidney dysfunction, I would not anticipate significant benefit to intervention. Consideration may be given to performing angio during left heart catheterization. (4) Bilateral pneumonia: Plan: * Empiric management w/ Cefepime (5) Elevated troponin: Plan: * Awaiting cardiac catheterization Admission and Anticipated Discharge Date Admission Date: August 08, 2022 Subjective Mr. Coleman was evaluated in his hospital room this morning. He was breathing comfortably on RA. He denied angina. He is awaiting heart catheterization later today Review of Systems Constitutional: no fever Eyes: no problem reported Ear, Nose, Mouth, Throat: no problem reported Respiratory: no dyspnea Cardiovascular: no chest pain Gastrointestinal: no abdominal pain Physical Exam Constitutional: not in distress Eyes: PERRL, conjunctivae normal, anicteric sclerae ENMT: external ear and nose normal, oropharynx normal Neck: trachea midline, no thyromegaly Respiratory: normal respiratory effort, lungs clear to auscultation Cardiovascular: RRR, no murmur, no edema Gastrointestinal (Abdomen): normal bowel sounds, soft, nontender, no hepatosplenomegaly Neurologic: awake; not confused Results & Data ([facility]) Vital Signs (Past 12 Hours) Vital Signs Temp Pulse Pulse Resp BP BP Pulse Ox 08/14/22 07:53 37.0 C 67 20 119/59 L 97 08/14/22 03:00 36.7 C 67 18 144/73 H 96 08/14/22 00:00 71 08/13/22 23:30 08/13/22 23:47 36.7 C 68 18 105/50 L 94 O2 Del Method 08/14/22 07:53 Room Air 08/14/22 03:00 Room Air 08/14/22 00:00 08/13/22 23:30 Room Air 08/13/22 23:47 Room Air Laboratory Results Laboratory Tests 08/14/22 08/14/22 05:44 05:44 WBC 13.69 H Hgb 8.0 L Hct 24.9 L Plt Count 424 H Sodium 136 Potassium 3.8 Chloride 101 Carbon Dioxide 21 BUN 56 H Creatinine 3.86 H Glucose 119 H Calcium 7.9 L PG Care Time/CCT Total # of Minutes Spent Total Time Spent with Patient: Total time spent is greater than 50% in coordination of care (as documented) at patient's floor/unit and/or counseling patient: Coding Level of Care Code 84657 Subseq Hosp Care Lvl 3 Diagnoses Acute kidney injury superimposed on CKD N17.9; N18.9 Anemia D64.9 Anemia type: unspecified type Renal artery stenosis I70.1 Bilateral pneumonia J18.9 Elevated troponin R77.8 (1) Anemia Anemia type: unspecified type Qualified Code(s): D64.9 - Anemia, unspecified
--- NOTE | 2022-08-14 19:40 | Billing Data ---
Date of Service August 14, 2022 Coding Level of Care Code 51527 Subseq Hosp Care Lvl 3
--- NOTE | 2022-08-14 20:11 | Hospitalist Progress Note ---
Date of Service August 14, 2022 Assessment & Plan (1) Respiratory failure: Plan: 67yo male PMHx hypertension, insulin-dependent diabetes, atrial fibrillation, bilateral carotid artery stenosis, CKD stage IV, hyperlipidemia, renal artery stenosis who presented for evaluation of shortness of breath, likely secondary to hypervolemia and recurrent PNA. Elevated Troponin, peaked - high sensitivity troponin at over >52422 on admission; however, he has an extensive history of chronically and highly elevated troponin - denies chest symptoms with no acute ECG changes compared to last visit - Cardiology consulted during last admission (08/03) - suspect due to severe LVH, CKD, vascular disease, especially given no wall motion abnormalities on TTE - In setting of acute hypoxia and PNA/hypervolemia, suspect this is similar to previous with supply/demand mismatch - consulted cardiology given significant elevation in troponin from baseline- cardiology likely to perform Procedure on . Patient otherwise stable. Acute Hypoxic Respiratory Failure: Resolved - Redevelopment of AHRF in the setting of CKD4 and recent PNA; patient found to have features of hypervolemia on exam and on chest imaging. Likely m ultifactorial: possible recurrence of multifocal PNA compounded by fluid overload and pleural effusions - multifactorial from CKD4 and HFpEF. - Work-up as follows: - TTE 08/02: LVEF 65-70% with severe concentric LVH, grade II diastolic dysfunction, no significant aortic stenosis - BUN 98 / Cr 4.68 (from 84 / 4.59 on 08/06) - initial Troponin 47k, peaked at 90k - WBC 17.6, increasing / procal elevated 0.55 / CRP 5.39 - CT Chest: Moderate interstitial pulmonary edema with suspected alveolar pulmonary edema. Small to moderate right and small left pleural effusions. Multifocal subpleural airspace opacities. Extensive coronary artery calcification. Mild cardiomegaly. Follow up chest CT in 2 months to ensure resolution is recommended. Patient tentatively scheduled for coronary catheter ization 08/14. - Treating with Cefepime and Azithromycin for pneumonia. - Supplement O2, goal SpO2 > 92%; currently on Room Air. - Perm cath placed. Plan for dialysis: MWF. - daily I&Os, daily weights - Management as below otherwise Hypervolemia: Resolved - Features of pulmonary edema and lower extremity edema present on exam and imaging and with elevated BNP (though noted with CKD) - pleural effusions appreciated on CT and CXR imaging - TTE 08/02: LVEF 65-70% with severe LVH, grade II diastolic dysfunction, no significant aortic stenosis - Suspect multifactorial: CKD4, component of acute HFpEF (e.g., cardiorenal) - Lasix 40mg IV given in the ED. Cont diuresis as above. - Monitor I&Os, daily weights - Fluid restriction < 2L/day - Monitor lytes Multifocal Pneumonia: Resolved - As above, CT imaging and labs are concerning for recurrent multifocal pneumonia. Influenza/COVID/RSV negative. - Continue cefepime/azithromycin as above - MRSA nares neg - Pulmonary Respules MONE-on-CKD4 - Patient was being followed during last admission for the same - nephrology notes indicate baseline Cr 3.0-3.5, though has been persistently >4 since last admission - Secondary to renovascular disease, including renal artery stenosis (>60% stenosis in R renal artery) - Continue NaHCO3 and calcitriol - Patiromer x1 in ED given hyperkalemia in setting of MONE-on-CKD - Lasix 40mg IV x1 in ED, diuresis as above. - Appreciate nephrology consultation -multi organ symptomatology likely stemming from acute renal failure -3rd dialysis session tomorrow. -Patient set up with dialysis for discharge MWF 11AM schedule at [facility] - Monitor BMP - Hold HCTZ/KCl HLD, CAD, MARTIN, BERLIN - Continue statin, Plavix ID-DM2 - h/o poorly controlled DM2, improved, most recent A1c at 6.0% (08/03) - Lower home Lantus to 30U b.i.d. and add SSI, adjust as needed HTN - Continue amlodipine, metoprolol - Hold HCTZ Hyperkalemia - Likely secondary to MONE-on-CKD - Diuresis as above, give Patiromer x1 in ED Leukocytosis - Definitely a degree of PNA/physiologic stress contributing to this. However, looking back at his records, he has had a notable leukocytosis to 2018 - Should consider obtaining a peripheral smear once acute stressors have resolved to screen for hematologic malignancy Atrial Fibrillation - Continue metoprolol and Eliquis Code status: Full Diet: dialysis renal DVT ppx: home eliquis Dispo: PCU, will likely stay until Saturday/Saturday and hopefully have room on label printer schedule at that time. (2) Hypervolemia: (3) Pneumonia: (4) Chronic kidney disease, stage IV (severe): (5) Elevated troponin: (6) Hyperlipidemia LDL goal <70: (7) IDDM (insulin dependent diabetes mellitus): (8) Hypertension: (9) Hyperkalemia: (10) Atrial fibrillation: (11) Leukocytosis: Admission and Anticipated Discharge Date Admission Date: August 08, 2022 Supervising Physician Co-Signing Physician Notes I personally examined the patient and verified all mcgee points of history and exam, discussed case, and agree with decision making with Dr Givens feels pretty good, for cath tomorrow. Vitals noted, in general he is awake and alert pleasant no distress. HEENT normocephalic atraumatic mucous membranes moist. Breathing unlabored no accessory muscle use good effort. Skin shows no rashes no pallor or icterus. Neuro without focal deficits. Impression and plan Acute hypoxic respiratory failure, resolved Multifocal with pneumonia, some element of fluid overload in the setting of acute kidney injury Doing well on room air, essentially this problem has stabilized/resolved Acute kidney injury, CKD 4 now for all functional purposes progressed to ESRD On dialysis ongoing Elevated troponin for cath tomorrow Anticoagulated Additional per resident documentation Subjective No acute events overnight. Patient feels much better today. He has no acute complaints. Review of Systems Review of Systems: All systems reviewed & are unremarkable except as noted in HPI & below Physical Exam Physical Exam: General: Well-appearing, alert, interactive, and in no acute distress. HEENT: Normocephalic, atraumatic. EOM intact. Good conjugate gaze. Nares patent. Moist mucosal membranes. Neck: Supple. No lymphadenopathy. Normal ROM. CV: Regular rate and rhythm. Normal S1 and S2. No murmurs gallops or rubs. Respiratory: Normal respiratory effort. Lungs clear to auscultation bilaterally. No crackles, rhonchi, or wheezes. Abdomen: Soft, nondistended abdomen. No bruits heard on auscultation. No tenderness to deep palpation. Extremities: Capillary refill <2 sec. 2+ dp equal bilaterally. No pedal edema. Neuro: Alert and oriented x3. Skin: Clean, dry, and intact. No rashes, bruises, or erythema. Results & Data Results & Data ([facility]) Vital Signs (Past 12 Hours) Vital Signs Temp Pulse Pulse Resp BP Pulse Ox O2 Del Method 12/06/22 19:19 36.6 C 70 20 122/71 98 Room Air 08/14/22 16:00 62 08/14/22 16:05 36.8 C 63 20 145/67 H 95 Room Air 08/14/22 12:04 36.9 C 63 18 124/68 98 Room Air Resident Activity Tracking Resident Involvement: Resident Care Provided Care Provided: Adult Hospital Medicine (1) Respiratory failure Chronicity: acute Respiratory failure complication: hypoxia Qualified Code(s): J96.01 - Acute respiratory failure with hypoxia (2) Hypertension Hypertension type: unspecified Qualified Code(s): I10 - Essential (primary) hypertension
[2022-08-14] MEDS: CEFEPIME 1,000 MG in SYRINGE 0 ML IV SCH (20:59)
[2022-08-14] MEDS: MELATONIN 3 MG TAB PO PRN (21:00)
[2022-08-14] MEDS: LANTUS PER UNIT CHARGE SQ SCH (21:01)
[2022-08-15] MEDS ORDERED: SODIUM CHLORIDE 0.9% 1000ML 1,000 ML IV PRN (07:00)
[2022-08-15] MEDS ORDERED: EPOETIN ALFA 10,000 UNITS/ML VIAL IV ONE (07:00)
[2022-08-15] MEDS: ATORVASTATIN 40 MG TAB PO SCH (07:51)
[2022-08-15] MEDS: MULTIVITAMIN TAB PO SCH (07:51)
[2022-08-15] MEDS: APIXABAN 5 MG TABLET PO SCH (07:51)
[2022-08-15] MEDS: guaiFENesin 600 MG TABCR PO SCH ×2 (07:51→21:21)
[2022-08-15] MEDS: SODIUM BICARBONATE 650 MG TAB PO SCH ×2 (07:51→21:20)
[2022-08-15] MEDS: CLOPIDOGREL BISULFATE 75 MG TAB PO SCH (07:51)
[2022-08-15] MEDS: FERROUS SULFATE 325 MG TAB PO SCH (07:51)
[2022-08-15] MEDS: DOCUSATE SODIUM 100 MG CAP PO SCH (07:52)
[2022-08-15] MEDS: IRON SUCROSE 200 MG in 0.9 % SODIUM CHLORIDE 100 ML IV SCH (07:57)
[2022-08-15] MEDS: ACETAMINOPHEN 500 MG TAB PO PRN (08:02)
[2022-08-15] MEDS: INSULIN ASPART PER UNIT SC SCH ×4 (08:34→21:51)
--- NOTE | 2022-08-15 09:08 | Nephrology Progress Note ---
Date of Service August 15, 2022 Assessment & Plan (1) Acute kidney injury superimposed on CKD: Plan: * HD today. Orders have been placed in EMR and HD RN notified * s/p IJ THC placement by Dr. Orourke 08/10/22 * Outpatient HD has been scheduled at [facility] at 11 am (2) Anemia: Plan: * Hgb improved to 8.0 * Day #4 of 5 IV Venofer * Will provide STEPHEN w/ HD (3) Renal artery stenosis: Plan: * BP acceptable. Unilateral L >60% per recent duplex. Unfortunately, given advanced kidney dysfunction, I would not anticipate significant benefit to intervention. Consideration may be given to performing angio during left heart catheterization. (4) Bilateral pneumonia: Plan: * Empiric management w/ Cefepime (5) Elevated troponin: Plan: * Awaiting cardiac catheterization Admission and Anticipated Discharge Date Admission Date: August 08, 2022 Subjective Mr. Coleman was evaluated in his hospital room this morning. He was breathing comfortably on RA. He denied angina. Heart catheterization has been postponed until tomorrow. He is anxious to have HD today Review of Systems Constitutional: no fever Eyes: no problem reported Ear, Nose, Mouth, Throat: no problem reported Respiratory: no dyspnea Cardiovascular: no chest pain Gastrointestinal: no abdominal pain Physical Exam Constitutional: not in distress Eyes: PERRL, conjunctivae normal, anicteric sclerae ENMT: external ear and nose normal, oropharynx normal Neck: trachea midline, no thyromegaly Respiratory: normal respiratory effort, lungs clear to auscultation Auscultation: + rales Cardiovascular: RRR, no murmur, no edema Gastrointestinal (Abdomen): normal bowel sounds, soft, nontender, no hepatosplenomegaly Neurologic: awake; not confused Results & Data ([facility]) Vital Signs (Past 12 Hours) Vital Signs Temp Pulse Pulse Pulse Resp BP BP 08/15/22 08:44 63 127/58 L 08/15/22 08:37 36.8 C 66 08/15/22 07:16 36.7 C 63 17 08/15/22 03:00 36.6 C 57 L 18 111/61 08/15/22 00:00 67 08/14/22 23:00 37.3 C 60 18 122/68 BP Pulse Ox O2 Del Method 08/15/22 08:44 08/15/22 08:37 08/15/22 07:16 135/65 97 Room Air 08/15/22 03:00 96 Room Air 08/15/22 00:00 08/14/22 23:00 96 Room Air PG Care Time/CCT Total # of Minutes Spent Total Time Spent with Patient: Total time spent is greater than 50% in coordination of care (as documented) at patient's floor/unit and/or counseling patient: Coding Level of Care Code 35704 Subseq Hosp Care Lvl 3 Diagnoses Acute kidney injury superimposed on CKD N17.9; N18.9 Anemia D64.9 Anemia type: unspecified type Renal artery stenosis I70.1 Bilateral pneumonia J18.9 Elevated troponin R77.8 (1) Anemia Anemia type: unspecified type Qualified Code(s): D64.9 - Anemia, unspecified
--- NOTE | 2022-08-15 11:59 | Pharmacy Report ---
Pharmacy Glycemic Short Note 2 - Date of Service August 15, 2022 - Glycemic Short BSG Results (Last 24 hours): 08/14/22 08/14/22 08/15/22 16:38 20:33 07:45 POC Glucose 97 150 H 111 H OUTPATIENT ANTIDIABETIC REGIMEN: * Basaglar 35 units BID * A1c 6% (08/03/22) ASSESSMENT: 08/15/22: * Pt has been NPO off and on while awaiting cardiac dental laboratory assistant. BSGs have been stable. * Basal dose still appears to be appropriate. * No changes required at this time. 08/13 * Fasting BSG this morning was 128 mg/dl - a slight increase from yesterday, still within goal. On renal diet today. Continued Lantus dose of 25 units SQ HS. CF & CHO ratio stays the same (30 and 10) 08/09 * 67 year old type 2 diabetic admitted with pneumonia, NPO to be evaluated by cardiology for possible cath, elevated troponin. * Patient managed on only basal insulin as outpatient, received 25 units Lantus last night, held this morning, euglycemic today. * Continue HS basal dosing only and correctional insulin Q6H while NPO, add CR when diet resumed, and possibly increase basal at that time. PLAN FOR INPATIENT GLYCEMIC CONTROL: * Basal insulin * Lantus 25 units SQ HS * Bolus insulin * NovoLog per scale ACHS or Q6hrs while NPO * Goal Range: Low 110 mg/dL - High 140 mg/dL * Correction Factor: 30 mg/dL/unit * Nutritional / Prandial insulin per carb ratio of 1 unit per 10 grams CHO consumed
[2022-08-15] MEDS: METOPROLOL SUCC 50MG EXT REL TAB PO SCH ×2 (13:59→21:20)
[2022-08-15] MEDS: amLODIPine BESYLATE 5 MG TAB PO SCH (13:59)
--- NOTE | 2022-08-15 18:14 | Billing Data ---
Date of Service August 15, 2022 Coding Level of Care Code 45545 Subseq Hosp Care Lvl 2
--- NOTE | 2022-08-15 18:19 | Hospitalist Progress Note ---
Date of Service August 15, 2022 Assessment & Plan (1) Respiratory failure: Plan: 67yo male PMHx hypertension, insulin-dependent diabetes, atrial fibrillation, bilateral carotid artery stenosis, CKD stage IV, hyperlipidemia, renal artery stenosis who presented for evaluation of shortness of breath, likely secondary to hypervolemia and recurrent PNA. Elevated Troponin, peaked - high sensitivity troponin at over >90990 on admission; however, he has an extensive history of chronically and highly elevated troponin - denies chest symptoms with no acute ECG changes compared to last visit - Cardiology consulted during last admission (08/03) - suspect due to severe LVH, CKD, vascular disease, especially given no wall motion abnormalities on TTE - In setting of acute hypoxia and PNA/hypervolemia, suspect this is similar to previous with supply/demand mismatch -Cardiology consulted: * Tentatively scheduled for cath procedure tomorrow. Acute Hypoxic Respiratory Failure: Resolved - Redevelopment of AHRF in the setting of CKD4 and recent PNA; patient found to have features of hypervolemia on exam and on chest imaging. Likely multifactorial: possible recurrence of multifocal PNA compounded by fluid overload and pleural effusions - multifactorial from CKD4 and HFpEF. - Work-up as follows: - TTE 08/02: LVEF 65-70% with severe concentric LVH, grade II diastolic dysfunction, no significant aortic stenosis - BUN 98 / Cr 4.68 (from 84 / 4.59 on 08/06) - initial Troponin 47k, peaked at 90k - WBC 17.6, increasing / procal elevated 0.55 / CRP 5.39 - CT Chest: Moderate interstitial pulmonary edema with suspected alveolar pulmonary edema. Small to moderate right and small left pleural effusions. Multifocal subpleural airspace opacities. Extensive coronary artery calcification. Mild cardiomegaly. Follow up chest CT in 2 months to ensure resolution is recommended. Patient tentatively scheduled for coronary catheterization 08/14. - Treating with Cefepime and Azithromycin for pneumonia. - Supplement O2, goal SpO2 > 92%; currently on Room Air. - Perm cath placed. Plan for dialysis: MWF. - daily I&Os, daily weights - Management as below otherwise Hypervolemia: Resolved - Features of pulmonary edema and lower extremity edema present on exam and imaging and with elevated BNP (though noted with CKD) - pleural effusions appreciated on CT and CXR imaging - TTE 08/02: LVEF 65-70% with severe LVH, grade II diastolic dysfunction, no significant aortic stenosis - Suspect multifactorial: CKD4, component of acute HFpEF (e.g., cardiorenal) - Lasix 40mg IV given in the ED. Cont diuresis as above. - Monitor I&Os, daily weights - Fluid restriction < 2L/day - Monitor lytes Multifocal Pneumonia: Resolved - As above, CT imaging and labs are concerning for recurrent multifocal pneumonia. Influenza/COVID/RSV negative. - Continue cefepime/azithromycin as above - MRSA nares neg - Pulmonary Respules MONE-on-CKD4 - Patient was being followed during last admission for the same - nephrology notes indicate baseline Cr 3.0-3.5, though has been persistently >4 since last admission - Secondary to renovascular disease, including renal artery stenosis (>60% stenosis in R renal artery) - Continue NaHCO3 and calcitriol - Patiromer x1 in ED given hyperkalemia in setting of MONE-on-CKD - Lasix 40mg IV x1 in ED, diuresis as above. - Appreciate nephrology consultation -multi organ symptomatology likely stemming from acute renal failure -3rd dialysis session tomorrow. -[facility] up with [facility] - Monitor BMP - Hold HCTZ/KCl HLD, CAD, MARTIN, B[place] - Continue statin, Plavix ID-DM2 - h/o poorly controlled DM2, improved, most recent A1c at 6.0% (08/03) - Lower home Lantus to 30U b.i.d. and add SSI, adjust as needed HTN - Continue amlodipine, metoprolol - Hold HCTZ Hyperkalemia - Likely secondary to MONE-on-CKD - Diuresis as above, give Patiromer x1 in ED Leukocytosis - Definitely a degree of PNA/physiologic stress contributing to this. 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 (2) Hypervolemia: (3) Pneumonia: (4) Chronic kidney disease, stage IV (severe): (5) Elevated troponin: (6) Hyperlipidemia LDL goal <70: (7) IDDM (insulin dependent diabetes mellitus): (8) Hypertension: (9) Hyperkalemia: (10) Atrial fibrillation: (11) Leukocytosis: Admission and Anticipated Discharge Date Admission Date: August 08, 2022 Supervising Physician Co-Signing Physician Notes I personally examined the patient and verified all mcgee points of history and exam, discussed case, and agree with decision making with Dr Givens Seen at dialysis. No acute complaints. For cath tomorrow Vitals noted, in general he is awake and alert pleasant no distress. HEENT normocephalic atraumatic mucous membranes moist. Breathing unlabored no accessory muscle use good effort. Skin shows no rashes no pallor or icterus. Neuro without focal deficits. Impression and plan Acute hypoxic respiratory failure, resolved Multifocal with pneumonia, some element of fluid overload in the setting of acute kidney injury Doing well on room air, essentially this problem has stabilized/resolved Acute kidney injury, CKD 4 now for all functional purposes progressed to ESRD On dialysis ongoing Elevated troponin For cath tomorrow Anticoagulated Additional per resident documentation Subjective No acute events overnight. Patient has no acute complaints today. Cardiology notified, will likely perform cath on . Patient completed dialysis today without complications. Review of Systems Review of Systems: All systems reviewed & are unremarkable except as noted in HPI & below Physical Exam Physical Exam: General: Well-appearing, alert, interactive, and in no acute distress. HEENT: Normocephalic, atraumatic. EOM intact. Good conjugate gaze. Nares patent. Moist mucosal membranes. Neck: Supple. No lymphadenopathy. Normal ROM. CV: Regular rate and rhythm. Normal S1 and S2. No murmurs gallops or rubs. Respiratory: Normal respiratory effort. Lungs clear to auscultation bilaterally. No crackles, rhonchi, or wheezes. Abdomen: Soft, nondistended abdomen. No bruits heard on auscultation. No tenderness to deep palpation. No guarding or rebound. Extremities: Capillary refill <2 sec. 2+ dp equal bilaterally. No pedal edema. Neuro: Alert and oriented x3. Skin: Clean, dry, and intact. No rashes, bruises, or erythema. Results & Data Results & Data ([facility]) Vital Signs (Past 12 Hours) Vital Signs Temp Pulse Pulse Pulse Resp BP BP 08/15/22 16:00 70 08/15/22 15:44 36.6 C 53 L 17 155/72 H 08/15/22 12:55 36.9 C 66 08/15/22 12:30 70 149/71 H 08/15/22 12:00 64 136/65 08/15/22 11:30 68 137/66 08/15/22 11:00 59 L 124/63 08/15/22 10:30 60 131/61 08/15/22 10:00 60 128/55 L 08/15/22 09:30 66 127/76 08/15/22 09:00 61 125/56 L 08/15/22 08:44 63 127/58 L 08/15/22 08:37 36.8 C 66 08/15/22 07:16 36.7 C 63 17 BP Pulse Ox O2 Del Method 08/15/22 16:00 08/15/22 15:44 97 Room Air 08/15/22 12:55 144/66 H 08/15/22 12:30 08/15/22 12:00 08/15/22 11:30 08/15/22 11:00 08/15/22 10:30 08/15/22 10:00 08/15/22 09:30 08/15/22 09:00 08/15/22 08:44 08/15/22 08:37 08/15/22 07:16 135/65 97 Room Air Resident Activity Tracking Resident Involvement: Resident Care Provided Care Provided: Adult Hospital Medicine (1) Respiratory failure Chronicity: acute Respiratory failure complication: hypoxia Qualified Code(s): J96.01 - Acute respiratory failure with hypoxia (2) Hypertension Hypertension type: unspecified Qualified Code(s): I10 - Essential (primary) hypertension
[2022-08-15] MEDS: LANTUS PER UNIT CHARGE SQ SCH (21:25)
[2022-08-16 06:59] LABS: Hematocrit (blood only) 24.1 % (40.1-51.0); Hemoglobin 7.7 g/dl (14.0-18.0); Mean Corpuscular Hemoglobin 29.5 pg (25.0-34.0); Mean Corpuscular Volume 92.3 fL (80.0-100.0); Mean Platelet Volume 8.9 fL (9.4-12.4); Nucleated RBC # (auto) 0.02 K/uL (0-0); Nucleated RBC % (auto) 0.1 %; Platelet Count 358 K/uL (130-400); RDW Coefficient of Variation 14.1 % (11.5-14.5); RDW Standard Deviation 45.9 fL (36.4-46.3); Red Blood Count 2.61 M/uL (4.63-6.08); White Blood Count 14.06 K/ul (4.8-10.8)
[2022-08-16 07:37] LABS: BUN Creatinine Ratio 10.7 (10-20); Calcium 7.9 mg/dl (8.5-10.1); Creatinine Clr Calc Pharmacy 19.2 ml/min; Est GFR (African American) 16.1 ml/min; Est GFR (Non-African American) 13.9 ml/min; Potassium 3.7 mmol/L (3.5-5.1)
--- NOTE | 2022-08-16 08:41 | Nephrology Progress Note ---
Date of Service August 16, 2022 Assessment & Plan (1) Acute kidney injury superimposed on CKD: Plan: * No acute indication for HD today. Will schedule next dialysis for am * s/p IJ THC placement by Dr. Orourke 08/10/22 * Outpatient HD has been scheduled at [facility] at 11 am (2) Anemia: Plan: * Hgb remains 7.7 * Day #5 of 5 IV Venofer * Will provide STEPHEN w/ HD (3) Renal artery stenosis: Plan: * BP acceptable. Unilateral L >60% per recent duplex. Unfortunately, given advanced kidney dysfunction, I would not anticipate significant benefit to intervention. Consideration may be given to performing angio during left heart catheterization. (4) Bilateral pneumonia: Plan: * Resolved (5) Elevated troponin: Plan: * Awaiting cardiac catheterization Admission and Anticipated Discharge Date Admission Date: August 08, 2022 Subjective Mr. Coleman was evaluated in his hospital room this morning. He was breathing comfortably on RA. He denied angina. He is awaiting heart catheterization Review of Systems Constitutional: no fever Eyes: no problem reported Ear, Nose, Mouth, Throat: no problem reported Respiratory: no dyspnea Cardiovascular: no chest pain Gastrointestinal: no abdominal pain Physical Exam Constitutional: not in distress Eyes: PERRL, conjunctivae normal, anicteric sclerae ENMT: external ear and nose normal, oropharynx normal Neck: trachea midline, no thyromegaly Respiratory: normal respiratory effort, lungs clear to auscultation Auscultation: + rales Cardiovascular: RRR, no murmur, no edema Gastrointestinal (Abdomen): normal bowel sounds, soft, nontender, no hepatosplenomegaly Neurologic: awake; not confused Results & Data ([facility]) Vital Signs (Past 12 Hours) Vital Signs Temp Pulse Pulse Resp BP Pulse Ox O2 Del Method 08/16/22 07:22 36.6 C 63 20 115/61 98 Room Air 08/16/22 07:20 68 08/16/22 03:49 36.8 C 66 18 148/69 H 96 Room Air 08/15/22 22:40 37.7 C H 70 22 129/60 98 Room Air Laboratory Results Laboratory Results - last 24 hr 08/15/22 08/15/22 08/15/22 13:00 17:06 21:13 WBC RBC Hgb Hct MCV MCH MCHC RDW Std Deviation RDW Coeff of Whit Plt Count MPV Absolute Nucleated RBC Nucleated RBC % (auto) Sodium Potassium Chloride Carbon Dioxide Anion Gap BUN Creatinine Est Cr Clr Drug Dosing Est GFR ( Amer) Est GFR (Non-Af Amer) BUN/Creatinine Ratio Glucose POC Glucose 111 H 121 H 112 H Calcium 08/16/22 08/16/22 08/16/22 06:32 06:32 08:43 WBC 14.06 H RBC 2.61 L Hgb 7.7 L Hct 24.1 L MCV 92.3 MCH 29.5 MCHC 32.0 RDW Std Deviation 45.9 RDW Coeff of Whit 14.1 Plt Count 358 MPV 8.9 L Absolute Nucleated RBC 0.02 H Nucleated RBC % (auto) 0.1 Sodium 136 Potassium 3.7 Chloride 100 Carbon Dioxide 24 Anion Gap 12 H BUN 44 H Creatinine 4.12 H Est Cr Clr Drug Dosing 19.2 Est GFR ( Amer) 16.1 Est GFR (Non-Af Amer) 13.9 BUN/Creatinine Ratio 10.7 Glucose 113 H POC Glucose 118 H Calcium 7.9 L PG Care Time/CCT Total # of Minutes Spent Total Time Spent with Patient: Total time spent is greater than 50% in coordination of care (as documented) at patient's floor/unit and/or counseling patient: Coding Level of Care Code 27894 Subseq Hosp Care Lvl 3 Diagnoses Acute kidney injury superimposed on CKD N17.9; N18.9 Anemia D64.9 Anemia type: unspecified type Renal artery stenosis I70.1 Bilateral pneumonia J18.9 Elevated troponin R77.8 (1) Anemia Anemia type: unspecified type Qualified Code(s): D64.9 - Anemia, unspecified
[2022-08-16] MEDS: amLODIPine BESYLATE 5 MG TAB PO SCH (08:46)
[2022-08-16] MEDS: FERROUS SULFATE 325 MG TAB PO SCH (08:46)
[2022-08-16] MEDS: METOPROLOL SUCC 50MG EXT REL TAB PO SCH ×2 (08:46→20:34)
[2022-08-16] MEDS: ATORVASTATIN 40 MG TAB PO SCH (08:48)
[2022-08-16] MEDS: MULTIVITAMIN TAB PO SCH (08:49)
[2022-08-16] MEDS: DOCUSATE SODIUM 100 MG CAP PO SCH (08:49)
[2022-08-16] MEDS: CLOPIDOGREL BISULFATE 75 MG TAB PO SCH (08:49)
[2022-08-16] MEDS: SODIUM BICARBONATE 650 MG TAB PO SCH ×2 (08:49→20:33)
[2022-08-16] MEDS: guaiFENesin 600 MG TABCR PO SCH ×2 (08:52→20:34)
[2022-08-16] MEDS: INSULIN ASPART PER UNIT SC SCH ×4 (08:53→20:45)
[2022-08-16] MEDS: IRON SUCROSE 200 MG in 0.9 % SODIUM CHLORIDE 100 ML IV SCH (08:53)
--- NOTE | 2022-08-16 12:10 | Pre Anesthesia Assessment ---
Date of Service August 16, 2022 Pre Sedation Assessment Vital Signs Temp Pulse Pulse Pulse Resp BP BP 08/16/22 11:05 36.7 C 62 19 08/16/22 09:00 08/16/22 08:45 65 133/66 08/16/22 07:22 36.6 C 63 20 08/16/22 07:20 68 08/16/22 03:49 36.8 C 66 18 08/15/22 22:40 37.7 C H 70 22 08/15/22 19:00 37.1 C 95 H 18 08/15/22 16:00 70 08/15/22 15:44 36.6 C 53 L 17 155/72 H 08/15/22 12:55 36.9 C 66 08/15/22 12:30 70 149/71 H BP Pulse Ox O2 Del Method 08/16/22 11:05 136/67 97 Room Air 08/16/22 09:00 Room Air 08/16/22 08:45 08/16/22 07:22 115/61 98 Room Air 08/16/22 07:20 08/16/22 03:49 148/69 H 96 Room Air 08/15/22 22:40 129/60 98 Room Air 08/15/22 19:00 135/57 L 96 Room Air 08/15/22 16:00 08/15/22 15:44 97 Room Air 08/15/22 12:55 144/66 H 08/15/22 12:30 Cardiovascular + regular rate Respiratory + respiratory effort normal Pre-Sedation Airway Assessment Smoking Status: Never smoker Hx Sleep Apnea: No Hx Difficult Intubation: No Short, Thick Neck: No Thyromental Distance: > or= 3.5 Finger Breadths Mallampati Class: II ASA: ASA3 Procedure Planning Contraindications for Sedation: none Current Medications Reviewed: Yes Notes The planned sedation has been discussed with the patient. Informed Consent was obtained. I have identified the patient, determined the appropriateness of sedation and have assessed the patient immediately prior to the procedure. All medicine(s) and interventions are by my order.
[2022-08-16] MEDS ORDERED: niCARdipine HCL INJ 2.5 MG/ML 10 ML AMP ONE (12:40)
[2022-08-16] MEDS ORDERED: MIDAZOLAM HCL 1 MG/ML 2ML VIAL ONE (12:40)
[2022-08-16] MEDS ORDERED: HEPARIN (PORCINE) 1000 UNIT/ML 10 ML (CATH LAB USE ONLY) ONE (12:40)
[2022-08-16] MEDS ORDERED: NITROGLYCERIN/D5W 100MCG/ML 20ML SYR ONE (12:40)
[2022-08-16] MEDS ORDERED: fentaNYL citrate 100 MCG/2 ML VIAL ONE (12:40)
--- NOTE | 2022-08-16 14:03 | Post Anesthesia Assessment ---
Date of Service August 16, 2022 Post Sedation Assessment Vital Signs Temp Pulse Pulse Resp BP BP Pulse Ox 08/16/22 12:29 62 17 124/69 96 08/16/22 11:05 36.7 C 62 19 136/67 97 08/16/22 09:00 08/16/22 08:45 65 133/66 08/16/22 07:22 36.6 C 63 20 115/61 98 08/16/22 07:20 68 08/16/22 03:49 36.8 C 66 18 148/69 H 96 08/15/22 22:40 37.7 C H 70 22 129/60 98 08/15/22 19:00 37.1 C 95 H 18 135/57 L 96 08/15/22 16:00 70 08/15/22 15:44 36.6 C 53 L 17 155/72 H 97 O2 Del Method 08/16/22 12:29 Room Air 08/16/22 11:05 Room Air 08/16/22 09:00 Room Air 08/16/22 08:45 08/16/22 07:22 Room Air 08/16/22 07:20 08/16/22 03:49 Room Air 08/15/22 22:40 Room Air 08/15/22 19:00 Room Air 08/15/22 16:00 08/15/22 15:44 Room Air Recovery Score Activity: Moves 4 extremities Respiration: Deep Breath/Cough Circulation: +/-20% PreAnes Value Consciousness: Arouseable (by name) Oxygen Saturation: O2 needed for >90% Post Anesthesia Score: 9 Discharge Sedation Level of Care: Fast Track Phase II Post Sedation Plan On clinical assessment, the patient appears to have tolerated the sedation without complications. Patient is recovering as anticipated. Patient will continue to be monitored by nursing and may be discharged when sedation discharge criteria are met per below protocol. Upon Completions of procedure up to 15 minutes continue every 5 minute vital signs and the P.A.R. score; then discharge to a Phase I or Fast Track to Phase II per the following guidelines: * Discharge Patient to appropriate Phase II area if PAR is 8 or greater or return to pre- procedure baseline. The post - procedure orders will be as directed. * If PAR score is less than 8 or not return to pre-procedure baseline then patient will follow Phase I monitoring till PAR is reached for Phase II. The Phase I may be done in procedure room or may call to secure a Phase I area. * If naloxone or flumazenil are used for reversal, hold in Phase I for continued monitoring from when last reversal dose was given for a minimum of 60 minutes or longer pending the nurse and/or physician discretion of patient condition before discharge to Phase II. Please call the Sedation Physician to re-evaluate and complete post-note for discharge to Phase II area. Do NOT discharge from procedure sedation or Phase 1 until post- sedation evaluation note is complete by procedure /sedation MD Sedation Discharge Instructions to be given to the patient at discharge to home.
--- NOTE | 2022-08-16 14:03 | Cardiac Catheterization ---
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 Cardiac Status Clinical evaluation leading to the procedure CAD Presenation: Non STEMI Diagnostic Physicians Name: Jose Eduardo Mittal MD Closure Device Recommendations: CABG Cardiac Cath Procedure Full Procedure Date August 16, 2022 Pre-Procedure Diagnosis Pre-Procedure Diagnosis: Non STEMI AUC Score AUC Score: 7 Post-Procedure Diagnosis Post-Procedure Diagnosis: Severe CAD Procedure(s) Performed Procedure(s) Performed: Coronary Angiography and Left Heart Cath Full Stack Web Developer Jose Eduardo Mittal MD Cloth Framer(s) none Estimated Blood Loss Estimated Blood Loss: 5cc Medication(s) Medication(s): Fentanyl, Heparin, Lidocaine 1%, Nicardipine, Nitroglycerin and Versed Summary of Findings Procedure performed: Left heart catheterization, coronary angiography Staff unit controller: Jose Eduardo Mittal MD Indication: The patient is a 67-year-old gentleman recently admitted with respiratory failure and renal failure. he has a history of peripheral vascular disease and was noted to have severely elevated cardiac biomarkers during admission. Procedure in detail: The patient was informed of the risks benefits and alternatives to the intended procedure, he understood such and wished to proceed. He was taken to the cardiac catheterization suite in a fasting state. Conscious sedation was administered per protocol and the patient was monitored electrocardiographically throughout today's procedure. The right wrist area was prepped and draped in usual sterile fashion. This area was anesthetized using subcutaneous administration of a lidocaine solution. The right radial artery was then accessed using Seldinger technique but a guidewire could not be passed proximally. This site was subsequently abandoned. The left wrist area was then prepped and draped in usual sterile fashion. The area over the left radial artery was anesthetized using subcutaneous menstruation lidocaine solution. Left radial artery was subsequently accessed using Seldinger technique and sheath was placed over guidewire at this site. The sheath was used to facilitate passage of the cardiac catheter for coronary angiography and left heart catheterization. Coronary angiogram was then obtained in multiple orthogonal views prior to removal of the catheter. At the conclusion of the procedure the sheath was removed and hemostasis was achieved at the access site using manual pressure. The patient tolerated procedure well, there were no immediate complications. Equipment used: 5 [place] tiger 4 Findings: Coronary angiography left main: There was near dual ostial physiology. 90% stenosis of the distal left main. Left anterior descending: Left anterior descending had 90% stenosis in its proximal portion. He was somewhat ectatic in its proximal portion. It produced a large 1st diagonal system 90% stenosis at its ostium. The remainder of the vessel has irregularities without discrete stenoses. Left circumflex: Left circumflex artery was a Codominant vessel. It had 90% stenosis at its ostium. It Produced a large 1st OM system a 50% ostial stenosis. Produced a medium size 2nd OM with a 50% proximal stenosis in a medium-sized 3rd OM with luminal regularities right coronary artery: The right coronary artery was a small codominant vessel with luminal regularities but no discrete stenoses. Impression: Severe left main/ proximal LAD and circumflex stenoses. Obstructive disease involving the ostium of D1 Co dominant coronary circulation normal left ventricular filling pressures no evidence of aortic stenosis Hemodynamics Rest Ao:: 101/43 mm of mercury Final Ao: 101/43 mmHg LV: 108/0 mm of mercury left ventricular end-diastolic pressure 8 mm of mercury Recommendations Recommendations: CABG Specimens Specimens: None Radiation Exposure (mGy) 601 Contrast (mls) 40 Procedural Complication(s) None Disposition PCU I attest to the content of the Intraoperative Record and any orders documented therein. Any exceptions are noted below. [facility] Card Cath Procedure Codes Cardiac Catheterization Procedure 1: Cardiovascular Cath Procedures: 57062 Coronaries and LHC (+/-LV) Moderate Sedation Procedure 1: Sedation/Anesthesia: 81647 Mod Sedation by the same physician;Init15 Min Child Age 5 & Up Procedure 2: Sedation/Anesthesia: 19268 Mod Sedation by the same physician; Ea [id number] Minutes PG Care Time/CCT Total # of Minutes Spent Total Time Spent with Patient: Total time spent is greater than 50% in coordination of care (as documented) at patient's floor/unit and/or counseling patient:
[2022-08-16] MEDS: ACETAMINOPHEN 500 MG TAB PO PRN (15:09)
--- NOTE | 2022-08-16 17:38 | Hospitalist Progress Note ---
Date of Service August 16, 2022 Assessment & Plan (1) Respiratory failure: Plan: 67yo male PMHx hypertension, insulin-dependent diabetes, atrial fibrillation, bilateral carotid artery stenosis, CKD stage IV, hyperlipidemia, renal artery stenosis who presented for evaluation of shortness of breath, likely secondary to hypervolemia and recurrent PNA. Elevated Troponin, peaked - high sensitivity troponin at over >72714 on admission; however, he has an extensive history of chronically and highly elevated troponin - denies chest symptoms with no acute ECG changes compared to last visit - Cardiology consulted during last admission (08/03) - suspect due to severe LVH, CKD, vascular disease, especially given no wall motion abnormalities on TTE. -Cardiology consulted: Heart cath procedure completed today, which revealed severe left main LAD stenosis, requiring transfer to tertiary facility ([facility] [place] Likely bed availability tomorrow. * Will complete transfer paperwork, discharge order in anticipation. Acute Hypoxic Respiratory Failure: Resolved - Redevelopment of AHRF in the setting of CKD4 and recent PNA; patient found to have features of hypervolemia on exam and on chest imaging. Likely multifactorial: possible recurrence of multifocal PNA compounded by fluid overload and pleural effusions - multifactorial from CKD4 and HFpEF. - Work-up as follows: - TTE 08/02: LVEF 65-70% with severe concentric LVH, grade II diastolic dysfunction, no significant aortic stenosis - BUN 98 / Cr 4.68 (from 84 / 4.59 on 08/06) - initial Troponin 47k, peaked at 90k - WBC 17.6, increasing / procal elevated 0.55 / CRP 5.39 - CT Chest: Moderate interstitial pulmonary edema with suspected alveolar pulmonary edema. Small to moderate right and small left pleural effusions. Multifocal subpleural airspace opacities. Extensive coronary artery calcification. Mild cardiomegaly. Follow up chest CT in 2 months to ensure resolution is recommended. Patient tentatively scheduled for coronary catheterization 08/14. - Treating with Cefepime and Azithromycin for pneumonia. - Supplement O2, goal SpO2 > 92%; currently on Room Air. - Perm cath placed. Plan for dialysis: MWF. - daily I&Os, daily weights - Management as below otherwise Hypervolemia: Resolved - Features of pulmonary edema and lower extremity edema present on exam and imaging and with elevated BNP (though noted with CKD) - pleural effusions appreciated on CT and CXR imaging - TTE 08/02: LVEF 65-70% with severe LVH, grade II diastolic dysfunction, no significant aortic stenosis - Suspect multifactorial: CKD4, component of acute HFpEF (e.g., cardiorenal) - Lasix 40mg IV given in the ED. Cont diuresis as above. - Monitor I&Os, daily weights - Fluid restriction < 2L/day - Monitor lytes Multifocal Pneumonia: Resolved - As above, CT imaging and labs are concerning for recurrent multifocal pneumonia. Influenza/COVID/RSV negative. - Continue cefepime/azithromycin as above - MRSA nares neg - Pulmonary Respules MONE-on-CKD4 - Patient was being followed during last admission for the same - nephrology notes indicate baseline Cr 3.0-3.5, though has been persistently >4 since last admission - Secondary to renovascular disease, including renal artery stenosis (>60% stenosis in R renal artery) - Continue NaHCO3 and calcitriol - Patiromer x1 in ED given hyperkalemia in setting of MONE-on-CKD - Lasix 40mg IV x1 in ED, diuresis as above. - Appreciate nephrology consultation -multi organ symptomatology likely stemming from acute renal failure -3rd dialysis session tomorrow. -Patient set up with dialysis for discharge MWF 11AM schedule at [place] - Monitor BMP - Hold HCTZ/KCl HLD, CAD, MARTIN, BERLIN - Continue statin, Plavix ID-DM2 - h/o poorly controlled DM2, improved, most recent A1c at 6.0% (08/03) - Lower home Lantus to 30U b.i.d. and add SSI, adjust as needed HTN - Continue amlodipine, metoprolol - Hold HCTZ Hyperkalemia - Likely secondary to MONE-on-CKD - Diuresis as above, give Patiromer x1 in ED Leukocytosis - Definitely a degree of PNA/physiologic stress contributing to this. 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 (2) Hypervolemia: (3) Pneumonia: (4) Chronic kidney disease, stage IV (severe): (5) Elevated troponin: (6) Hyperlipidemia LDL goal <70: (7) IDDM (insulin dependent diabetes mellitus): (8) Hypertension: (9) Hyperkalemia: (10) Atrial fibrillation: (11) Leukocytosis: Admission and Anticipated Discharge Date Admission Date: August 08, 2022 Supervising Physician Co-Signing Physician Notes I personally examined the patient and verified all mcgee points of history and exam, discussed case, and agree with decision making with Dr Givens Seen post cathfor transfer for CABG. He expresses good understanding, notes he is optimistic, and makes dry humor type jokes about his situation Vitals noted, in general he is awake and alert pleasant no distress. HEENT normocephalic atraumatic mucous membranes moist. Breathing unlabored no accessory muscle use good effort. Skin shows no rashes no pallor or icterus. Neuro without focal deficits. Impression and plan Acute hypoxic respiratory failure, resolved Multifocal with pneumonia, some element of fluid overload in the setting of ac [place] kidney injury Doing well on room air, essentially this problem has stabilized/resolved Acute kidney injury, CKD 4 now for all functional purposes progressed to ESRD On dialysis ongoing Elevated troponin With coronary disease requiring CABGfor transfer Anticoagulated Additional per resident documentation Subjective No acute events overnight. Patient resting comfortably in bed this morning. Denies any acute complaints. Patient continues to ambulate without dyspnea, dizziness or weakness. Revisited patient after heart cath patient aware that he will likely need transfer for CABG for severe left main coronary stenosis. Following encounter, received word from [place] m[place] Dr. Mittal patient accepted at [facility], with bed availability likely tomorrow. Review of Systems Review of Systems: All systems reviewed & are unremarkable except as noted in HPI & below Physical Exam Physical Exam: General: No acute distress HEENT: PERRLA. Normal conjunctiva, anicteric sclera. Oropharynx normal. Respiratory: Normal respiratory effort, CTA BL. Cardiovascular: RRR without murmurs, gallops, or rubs. No edema. GI: Soft abdomen with normal bowel sounds heard on auscultation. Nontender x4 quadrants Neuro: Alert and oriented x3. Results & Data Results & Data ([facility]) Vital Signs (Past 12 Hours) Vital Signs Temp Pulse Pulse Resp BP BP Pulse Ox 08/16/22 16:58 36.7 C 62 16 149/71 H 97 12/08/22 16:19 36.6 C 63 16 157/67 H 98 08/16/22 15:00 67 08/16/22 15:45 36.9 C 69 18 164/76 H 100 08/16/22 15:15 36.6 C 67 16 141/66 H 100 08/16/22 15:00 37.3 C 63 18 133/70 98 08/16/22 14:45 62 18 130/67 98 08/16/22 14:30 36.6 C 65 16 143/75 H 99 08/16/22 14:20 98 H 17 140/55 L 99 08/16/22 14:05 63 17 144/59 H 99 08/16/22 12:29 62 17 124/69 96 08/16/22 11:05 36.7 C 62 19 136/67 97 08/16/22 09:00 08/16/22 08:45 65 133/66 08/16/22 07:22 36.6 C 63 20 115/61 98 08/16/22 07:20 68 O2 Del Method 08/16/22 16:58 Room Air 08/16/22 16:19 Room Air 08/16/22 15:00 08/16/22 15:45 Room Air 08/16/22 15:15 Room Air 08/16/22 15:00 Room Air 08/16/22 14:45 Room Air 08/16/22 14:30 Room Air 08/16/22 14:20 Room Air 08/16/22 14:05 Room Air 08/16/22 12:29 Room Air 08/16/22 11:05 Room Air 08/16/22 09:00 Room Air 08/16/22 08:45 08/16/22 07:22 Room Air 08/16/22 07:20 Resident Activity Tracking Resident Involvement: Resident Care Provided Care Provided: Adult Hospital Medicine (1) Respiratory failure Chronicity: acute Respiratory failure complication: hypoxia Qualified Code(s): J96.01 - Acute respiratory failure with hypoxia (2) Hypertension Hypertension type: unspecified Qualified Code(s): I10 - Essential (primary) hypertension
--- NOTE | 2022-08-16 17:53 | Billing Data ---
Date of Service August 16, 2022 Coding Level of Care Code 26815 Subseq Hosp Care Lvl 3
[2022-08-16] MEDS ORDERED: Heparin IV Adult Wt-Based Low-Dose *NO* Bolus Protocol IV SCH (18:45)
[2022-08-16] MEDS: HEPARIN SODIUM/DEXTROSE 25,000 UNITS/500 ML BAG IV SCH (20:29)
[2022-08-16] MEDS: LANTUS PER UNIT CHARGE SQ SCH (20:45)
[2022-08-16] MEDS: MELATONIN 3 MG TAB PO PRN (20:45)
[2022-08-17 02:35] LABS: Basophils # (auto) 0.07 K/uL (0-0.2); Basophils % (auto) 0.5 %; Eosinophils # (auto) 0.43 K/uL (0-0.50); Eosinophils % (auto) 3.2 %; Hematocrit (blood only) 22.7 % (40.1-51.0); Hemoglobin 7.4 g/dl (14.0-18.0); Immature Granulocytes # (auto) 0.16 K/uL (0.00-0.02); Immature Granulocytes % (auto) 1.2 %; Lymphocytes # (auto) 2.91 K/uL (1.2-3.4); Lymphocytes % (auto) 21.5 %; Mean Corpuscular Hemoglobin 30.1 pg (25.0-34.0); Mean Corpuscular Hgb Conc 32.6 g/dL (32.0-36.0); Mean Corpuscular Volume 92.3 fL (80.0-100.0); Mean Platelet Volume 9.1 fL (9.4-12.4); Monocytes # (auto) 1.08 K/uL (0.24-0.82); Neutrophils # (auto) 8.91 K/uL (1.4-6.5); Neutrophils % (auto) 65.6 %; Nucleated RBC # (auto) 0.02 K/uL (0-0); Nucleated RBC % (auto) 0.1 %; Platelet Count 356 K/uL (130-400); RDW Coefficient of Variation 14.4 % (11.5-14.5); RDW Standard Deviation 46.6 fL (36.4-46.3); Red Blood Count 2.46 M/uL (4.63-6.08); White Blood Count 13.56 K/ul (4.8-10.8)
[2022-08-17 03:08] LABS: BUN Creatinine Ratio 11.9 (10-20); Calcium 7.7 mg/dl (8.5-10.1); Creatinine Clr Calc Pharmacy 16.2 ml/min; Est GFR (African American) 13.2 ml/min; Est GFR (Non-African American) 11.4 ml/min; Potassium 3.7 mmol/L (3.5-5.1)
[2022-08-17 03:17] LABS: Partial Thromboplastin Ratio 1.2; Partial Thromboplastin Time 33.5 Seconds (21.0-31.0)
[2022-08-17 03:31] LABS: RBC Morphology Unremarkable
[2022-08-17] MEDS ORDERED: HEPARIN SOD (PORCINE) 1000 UNIT/ML IV ONE ×2 (03:45→18:15)
[2022-08-17] MEDS ORDERED: SODIUM CHLORIDE 0.9% 1000ML 1,000 ML IV PRN (07:00)
[2022-08-17] MEDS ORDERED: EPOETIN ALFA 10,000 UNITS/ML VIAL IV ONE (07:00)
[2022-08-17] MEDS: INSULIN ASPART PER UNIT SC SCH ×4 (08:22→21:00)
[2022-08-17] MEDS: amLODIPine BESYLATE 5 MG TAB PO SCH (08:23)
[2022-08-17] MEDS: METOPROLOL SUCC 50MG EXT REL TAB PO SCH ×2 (08:23→21:07)
--- NOTE | 2022-08-17 08:57 | Nephrology Progress Note ---
Date of Service August 17, 2022 Assessment & Plan (1) Acute kidney injury superimposed on CKD: Plan: * HD today. Orders have been placed in the EMR and HD RN notified * s/p IJ THC placement by Dr. Orourke 08/10/22 * Outpatient HD has been scheduled at [facility] at 11 am MWF (2) Anemia: Plan: * Hgb remains 7.7 * Completed 2g IV Venofer * Will provide STEPHEN w/ HD (3) Renal artery stenosis: Plan: * BP acceptable. Unilateral L >60% per recent duplex. Renal angiogram was not performed at time of heart catheterization. (4) Bilateral pneumonia: Plan: * Resolved (5) Elevated troponin: Plan: * 08/16/22 Cardiac cath: 90% stenosis proximal LAD, 90% stenosis distal L main, 90% stenosis 1st diagonal (large vessel), 90% stenosis at ostium of L circumflex * [place] [facility] [place] Admission and Anticipated Discharge Date Admission Date: August 08, 2022 Subjective Mr. Coleman was evaluated in his hospital room this morning. He is accepting that CABG will need to be performed. He is anxious to have dialysis so that he can be [place] [facility] Review of Systems Constitutional: no fever Eyes: no problem reported Ear, Nose, Mouth, Throat: no problem reported Respiratory: no dyspnea Cardiovascular: no chest pain Gastrointestinal: no abdominal pain Physical Exam Constitutional: not in distress Eyes: PERRL, conjunctivae normal, anicteric sclerae ENMT: external ear and nose normal, oropharynx normal Neck: trachea midline, no thyromegaly Respiratory: normal respiratory effort, lungs clear to auscultation Auscultation: + rales Cardiovascular: RRR, no murmur, no edema Gastrointestinal (Abdomen): normal bowel sounds, soft, nontender, no hepatosplenomegaly Neurologic: awake; not confused Results & Data ([facility]) Vital Signs (Past 12 Hours) Vital Signs Temp Pulse Pulse Resp BP Pulse Ox O2 Del Method 08/17/22 08:23 36.7 C 63 19 143/67 H 99 Room Air 08/17/22 07:55 52 L 08/17/22 02:12 36.6 C 58 L 18 132/65 99 Room Air 08/16/22 22:50 65 08/16/22 23:06 36.7 C 67 18 135/65 94 Room Air 08/16/22 21:15 36.7 C 67 18 149/63 H 99 Room Air Laboratory Results Laboratory Tests 08/17/22 08/17/22 02:03 02:03 WBC 13.56 H Hgb 7.4 L Hct 22.7 L Plt Count 356 Sodium 136 Potassium 3.7 Chloride 101 Carbon Dioxide 22 BUN 58 H Creatinine 4.87 H* D Glucose 97 Calcium 7.7 L PG Care Time/CCT Total # of Minutes Spent Total Time Spent with Patient: Total time spent is greater than 50% in coordination of care (as documented) at patient's floor/unit and/or counseling patient: Coding Level of Care Code 97511 Subseq Hosp Care Lvl 3 Diagnoses Acute kidney injury superimposed on CKD N17.9; N18.9 Anemia D64.9 Anemia type: unspecified type Renal artery stenosis I70.1 Bilateral pneumonia J18.9 Elevated troponin R77.8 (1) Anemia Anemia type: unspecified type Qualified Code(s): D64.9 - Anemia, unspecified
--- NOTE | 2022-08-17 12:10 | Hospitalist Progress Note ---
Date of Service August 17, 2022 Assessment & Plan (1) Respiratory failure: Plan: 67yo male PMHx hypertension, insulin-dependent diabetes, atrial fibrillation, bilateral carotid artery stenosis, CKD stage IV, hyperlipidemia, renal artery stenosis who presented for evaluation of shortness of breath, likely secondary to hypervolemia and recurrent PNA. Elevated Troponin, peaked - high sensitivity troponin at over >02864 on admission; however, he has an extensive history of chronically and highly elevated troponin - denies chest symptoms with no acute ECG changes compared to last visit - Cardiology consulted during last admission (08/03) - suspect due to severe LVH, CKD, vascular disease, especially given no wall motion abnormalities on TTE. -Cardiology consulted: Heart cath procedure completed today, which revealed severe left main LAD stenosis, requiring transfer to tertiary facility ([facility] [place]). * Transfer paperwork completed. Patient now stable awaiting transfer to [facility] for CABG procedure, pending bed availability. Acute Hypoxic Respiratory Failure: Resolved - Redevelopment of AHRF in the setting of CKD4 and recent PNA; patient found to have features of hypervolemia on exam and on chest imaging. Likely multifactorial: possible recurrence of multifocal PNA compounded by fluid overload and pleural effusions - multifactorial from CKD4 and HFpEF. - Work-up as follows: - TTE 08/02: LVEF 65-70% with severe concentric LVH, grade II diastolic dysfunction, no significant aortic stenosis - BUN 98 / Cr 4.68 (from 84 / 4.59 on 08/06) - initial Troponin 47k, peaked at 90k - WBC 17.6, increasing / procal elevated 0.55 / CRP 5.39 - CT Chest: Moderate interstitial pulmonary edema with suspected alveolar pulmonary edema. Small to moderate right and small left pleural effusions. Multifocal subpleural airspace opacities. Extensive coronary artery calcification. Mild cardiomegaly. Follow up chest CT in 2 months to ensure resolution is recommended. Patient tentatively scheduled for coronary ca theterization 08/14. - Treating with Cefepime and Azithromycin for pneumonia. - Supplement O2, goal SpO2 > 92%; currently on Room Air. - Perm cath placed. Plan for dialysis: MWF. - daily I&Os, daily weights - Management as below otherwise Hypervolemia: Resolved - Features of pulmonary edema and lower extremity edema present on exam and imaging and with elevated BNP (though noted with CKD) - pleural effusions appreciated on CT and CXR imaging - TTE 08/02: LVEF 65-70% with severe LVH, grade II diastolic dysfunction, no significant aortic stenosis - Suspect multifactorial: CKD4, component of acute HFpEF (e.g., cardiorenal) - Lasix 40mg IV given in the ED. Cont diuresis as above. - Monitor I&Os, daily weights - Fluid restriction < 2L/day - Monitor lytes Multifocal Pneumonia: Resolved - As above, CT imaging and labs are concerning for recurrent multifocal pneumonia. Influenza/COVID/RSV negative. - Continue cefepime/azithromycin as above - MRSA nares neg - Pulmonary Respules MONE-on-CKD4 - Patient was being followed during last admission for the same - nephrology notes indicate baseline Cr 3.0-3.5, though has been persistently >4 since last admission - Secondary to renovascular disease, including renal artery stenosis (>60% stenosis in R renal artery) - Continue NaHCO3 and calcitriol - Patiromer x1 in ED given hyperkalemia in setting of MONE-on-CKD - Lasix 40mg IV x1 in ED, diuresis as above. - Appreciate nephrology consultation -multi organ symptomatology likely stemming from acute renal failure -3rd dialysis session tomorrow. -Patient set up with dialysis for discharge MWF 11AM schedule at [facility] - Monitor BMP - Hold HCTZ/KCl HLD, CAD, MARTIN, BERLIN - Continue statin, Plavix ID-DM2 - h/o poorly controlled DM2, improved, most recent A1c at 6.0% (08/03) - Lower home Lantus to 30U b.i.d. and add SSI, adjust as needed HTN - Continue amlodipine, metoprolol - Hold HCTZ Hyperkalemia - Likely secondary to MONE-on-CKD - Diuresis as above, give Patiromer x1 in ED Leukocytosis - Definitely a degree of PNA/physiologic stress contributing to this. 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 (2) Hypervolemia: (3) Pneumonia: (4) Chronic kidney disease, stage IV (severe): (5) Elevated troponin: (6) Hyperlipidemia LDL goal <70: (7) IDDM (insulin dependent diabetes mellitus): (8) Hypertension: (9) Hyperkalemia: (10) Atrial fibrillation: (11) Leukocytosis: Admission and Anticipated Discharge Date Admission Date: August 08, 2022 Supervising Physician Co-Signing Physician Notes I personally examined the patient and verified all mcgee points of history and exam, discussed case, and agree with decision making with Dr Givens Seen at dialysis. Feeling good. Pending transfer. We joked that he brought his body in for a "tune up" given that he came in feeling lousy, and will leave with new onset dialysis as well as a CABG. Vitals noted, in general he is awake and alert pleasant no distress. HEENT normocephalic atraumatic mucous membranes moist. Breathing unlabored no ac cessory muscle use good effort. Skin shows no rashes no pallor or icterus. Neuro without focal deficits. Impression and plan Acute hypoxic respiratory failure, resolved Multifocal with pneumonia, some element of fluid overload in the setting of acute kidney injury Doing well on room air, essentially this problem has stabilized/resolved Acute kidney injury, CKD 4 now for all functional purposes progressed to ESRD Hemodialysis Elevated troponin No known to have severe coronary diseasepending transfer for CABG. Anticoagulated Additional per resident documentation Subjective No acute events overnight. Patient is in bed resting comfortably this morning. He has no acute complaints. Review of Systems Review of Systems: All systems reviewed & are unremarkable except as noted in HPI & below Physical Exam Physical Exam: General: No acute distress HEENT: PERRLA. Normal conjunctiva, anicteric sclera. Oropharynx normal. Respiratory: Normal respiratory effort, CTA BL. Cardiovascular: RRR without murmurs, gallops, or rubs. No edema. GI: Soft abdomen with normal bowel sounds heard on auscultation. Nontender x4 quadrants Neuro: Alert and oriented x3. Results & Data Results & Data ([facility]) Vital Signs (Past 12 Hours) Vital Signs Temp Pulse Pulse Pulse Resp BP BP 08/17/22 12:00 67 124/34 L 08/17/22 11:30 71 163/73 H 08/17/22 11:00 62 142/66 H 08/17/22 10:30 63 139/67 08/17/22 10:00 61 133/60 08/17/22 09:30 65 131/50 L 08/17/22 09:19 67 129/62 08/17/22 09:10 36.9 C 67 08/17/22 08:23 36.7 C 63 19 143/67 H 08/17/22 07:55 52 L 08/17/22 02:12 36.6 C 58 L 18 132/65 Pulse Ox O2 Del Method 08/17/22 12:00 08/17/22 11:30 08/17/22 11:00 08/17/22 10:30 08/17/22 10:00 08/17/22 09:30 08/17/22 09:19 08/17/22 09:10 08/17/22 08:23 99 Room Air 08/17/22 07:55 08/17/22 02:12 99 Room Air Resident Activity Tracking Resident Involvement: Resident Care Provided Care Provided: Adult Hospital Medicine (1) Respiratory failure Chronicity: acute Respiratory failure complication: hypoxia Qualified Code(s): J96.01 - Acute respiratory failure with hypoxia (2) Hypertension Hypertension type: unspecified Qualified Code(s): I10 - Essential (primary) hypertension
[2022-08-17] MEDS: guaiFENesin 600 MG TABCR PO SCH ×2 (14:20→21:07)
[2022-08-17] MEDS: SODIUM BICARBONATE 650 MG TAB PO SCH ×2 (14:20→21:07)
[2022-08-17] MEDS: FERROUS SULFATE 325 MG TAB PO SCH (14:20)
[2022-08-17] MEDS: DOCUSATE SODIUM 100 MG CAP PO SCH (14:21)
[2022-08-17] MEDS: ATORVASTATIN 40 MG TAB PO SCH (14:21)
[2022-08-17] MEDS: MULTIVITAMIN TAB PO SCH (14:21)
--- NOTE | 2022-08-17 14:47 | Pharmacy Report ---
Pharmacy Glycemic Short Note 2 - Date of Service August 17, 2022 - Glycemic Short BSG Results (Last 24 hours): 08/16/22 08/16/22 08/17/22 16:35 20:18 02:03 Glucose 97 POC Glucose 168 H 105 H 08/17/22 08/17/22 08:02 14:39 Glucose POC Glucose 109 H 121 H OUTPATIENT ANTIDIABETIC REGIMEN: * Basaglar 35 units BID * A1c 6% (08/03/22) ASSESSMENT: 08/17/22: * Patient FBSG is trending low today 97/109 mg/dl. Entered Lantus on a scale (20 units if BSG is less than 150mg/dl and 25 units if BSG is 150mg/dl or greater) * HD today, did not eating anything today. 08/15/22: * Pt has been NPO off and on while awaiting cardiac medical laboratory technicians. BSGs have been stable. * Basal dose still appears to be appropriate. * No changes required at this time. 08/13 * Fasting BSG this morning was 128 mg/dl - a slight increase from yesterday, still within goal. On renal diet today. Continued Lantus dose of 25 units SQ HS. CF & CHO ratio stays the same (30 and 10) 08/09 * 67 year old type 2 diabetic admitted with pneumonia, NPO to be evaluated by cardiology for possible cath, elevated troponin. * Patient managed on only basal insulin as outpatient, received 25 units Lantus last night, held this morning, euglycemic today. * Continue HS basal dosing only and correctional insulin Q6H while NPO, add CR when diet resumed, and possibly increase basal at that time. PLAN FOR INPATIENT GLYCEMIC CONTROL: * Basal insulin * Lantus 20 - 25 units SQ HS * Bolus insulin * NovoLog per scale ACHS or Q6hrs while NPO * Goal Range: Low 110 mg/dL - High 140 mg/dL * Correction Factor: 30 mg/dL/unit * Nutritional / Prandial insulin per carb ratio of 1 unit per 10 grams CHO consumed
[2022-08-17 15:59] LABS: Partial Thromboplastin Ratio 1.2
--- NOTE | 2022-08-17 20:18 | Billing Data ---
Date of Service August 16, 2022 Coding Level of Care Code 74279 Subseq Hosp Care Lvl 2
--- NOTE | 2022-08-17 20:18 | Billing Data ---
Date of Service August 17, 2022 Coding Level of Care Code 24118 Subseq Hosp Care Lvl 2
[2022-08-17] MEDS ORDERED: LANTUS PER UNIT CHARGE SQ SCH (21:00)
[2022-08-17] MEDS: MELATONIN 3 MG TAB PO PRN (21:49)
[2022-08-17] MEDS: HEPARIN SODIUM/DEXTROSE 25,000 UNITS/500 ML BAG IV SCH (21:49)
[2022-08-17 22:21] LABS: Partial Thromboplastin Ratio 1.4; Partial Thromboplastin Time 37.3 Seconds (21.0-31.0)
[2022-08-18] MEDS ORDERED: HEPARIN SOD (PORCINE) 1000 UNIT/ML IV ONE (00:15)
[2022-08-18 05:39] LABS: Basophils # (auto) 0.11 K/uL (0-0.2); Basophils % (auto) 0.9 %; Eosinophils # (auto) 0.31 K/uL (0-0.50); Eosinophils % (auto) 2.6 %; Hematocrit (blood only) 23.3 % (40.1-51.0); Hemoglobin 7.5 g/dl (14.0-18.0); Immature Granulocytes # (auto) 0.17 K/uL (0.00-0.02); Immature Granulocytes % (auto) 1.4 %; Lymphocytes # (auto) 2.16 K/uL (1.2-3.4); Lymphocytes % (auto) 18.3 %; Mean Corpuscular Hemoglobin 29.5 pg (25.0-34.0); Mean Corpuscular Hgb Conc 32.2 g/dL (32.0-36.0); Mean Corpuscular Volume 91.7 fL (80.0-100.0); Mean Platelet Volume 8.7 fL (9.4-12.4); Monocytes # (auto) 1.18 K/uL (0.24-0.82); Neutrophils # (auto) 7.89 K/uL (1.4-6.5); Neutrophils % (auto) 66.8 %; Nucleated RBC # (auto) 0.03 K/uL (0-0); Nucleated RBC % (auto) 0.3 %; Platelet Count 317 K/uL (130-400); RDW Coefficient of Variation 14.8 % (11.5-14.5); RDW Standard Deviation 47.5 fL (36.4-46.3); Red Blood Count 2.54 M/uL (4.63-6.08); White Blood Count 11.82 K/ul (4.8-10.8)
[2022-08-18 05:54] LABS: Partial Thromboplastin Ratio 1.6; Partial Thromboplastin Time 43.6 Seconds (21.0-31.0)
[2022-08-18 06:02] LABS: Howell-Jolly Bodies 1+; Polychromasia 1+
[2022-08-18 06:03] LABS: BUN Creatinine Ratio 10.2 (10-20); Calcium 7.6 mg/dl (8.5-10.1); Creatinine Clr Calc Pharmacy 22.5 ml/min; Est GFR (African American) 18.8 ml/min; Est GFR (Non-African American) 16.3 ml/min; Potassium 3.8 mmol/L (3.5-5.1)
[2022-08-18] MEDS: HEPARIN SODIUM/DEXTROSE 25,000 UNITS/500 ML BAG IV SCH (07:13)
[2022-08-18] MEDS: METOPROLOL SUCC 50MG EXT REL TAB PO SCH (08:52)
[2022-08-18] MEDS: guaiFENesin 600 MG TABCR PO SCH (08:52)
[2022-08-18] MEDS: ATORVASTATIN 40 MG TAB PO SCH (08:53)
[2022-08-18] MEDS: SODIUM BICARBONATE 650 MG TAB PO SCH (08:53)
[2022-08-18] MEDS: amLODIPine BESYLATE 5 MG TAB PO SCH (08:53)
[2022-08-18] MEDS: MULTIVITAMIN TAB PO SCH (08:53)
[2022-08-18] MEDS: DOCUSATE SODIUM 100 MG CAP PO SCH (08:53)
[2022-08-18] MEDS: FERROUS SULFATE 325 MG TAB PO SCH (08:54)
[2022-08-18] MEDS: INSULIN ASPART PER UNIT SC SCH ×2 (09:08→12:54)
--- NOTE | 2022-08-18 09:50 | Hospitalist Progress Note ---
Date of Service August 18, 2022 Assessment & Plan (1) Respiratory failure: Plan: 67yo male PMHx hypertension, insulin-dependent diabetes, atrial fibrillation, bilateral carotid artery stenosis, CKD stage IV, hyperlipidemia, renal artery stenosis who presented for evaluation of shortness of breath, likely secondary to hypervolemia and recurrent PNA. Now stable and awaiting transfer to [facility] for CABG procedure. Elevated Troponin, peaked - high sensitivity troponin at over >08333 on admission; however, he has an extensive history of chronically and highly elevated troponin - denies chest symptoms with no acute ECG changes compared to last visit - Cardiology consulted during last admission (08/03) - suspect due to severe LVH, CKD, vascular disease, especially given no wall motion abnormalities on TTE. -Cardiology consulted: Heart cath procedure completed today, which revealed severe left main LAD stenosis, requiring transfer to tertiary facility ([facility]). * Transfer paperwork completed. Patient now stable awaiting transfer to [facility] for CABG procedure, pending bed availability. Acute Hypoxic Respiratory Failure: Resolved - Redevelopment of AHRF in the setting of CKD4 and recent PNA; patient found to have features of hypervolemia on exam and on chest imaging. Likely multifactorial: possible recurrence of multifocal PNA compounded by fluid overload and pleural effusions - multifactorial from CKD4 and HFpEF. - Work-up as follows: - TTE 08/02: LVEF 65-70% with severe concentric LVH, grade II diastolic dysfunction, no significant aortic stenosis - BUN 98 / Cr 4.68 (from 84 / 4.59 on 08/06) - initial Troponin 47k, peaked at 90k - WBC 17.6, increasing / procal elevated 0.55 / CRP 5.39 - CT Chest: Moderate interstitial pulmonary edema with suspected alveolar pulmonary edema. Small to moderate right and small left pleural effusions. Multifocal subpleural airspace opacities. Extensive coronary artery calcification. Mild cardiomegaly. Follow up chest CT in 2 months to ensure resolution is recommended. Patient tentatively scheduled for coronary catheterization 08/14. - Treating with Cefepime and Azithromycin for pneumonia. - Supplement O2, goal SpO2 > 92%; currently on Room Air. - Perm cath placed. Plan for dialysis: MWF. - daily I&Os, daily weights - Management as below otherwise Hypervolemia: Resolved - Features of pulmonary edema and lower extremity edema present on exam and imaging and with elevated BNP (though noted with CKD) - pleural effusions appreciated on CT and CXR imaging - TTE 08/02: LVEF 65-70% with severe LVH, grade II diastolic dysfunction, no significant aortic stenosis - Suspect multifactorial: CKD4, component of acute HFpEF (e.g., cardiorenal) - Lasix 40mg IV given in the ED. Cont diuresis as above. - Monitor I&Os, daily weights - Fluid restriction < 2L/day - Monitor lytes Multifocal Pneumonia: Resolved - As above, CT imaging and labs are concerning for recurrent multifocal pneumonia. Influenza/COVID/RSV negative. - Continue cefepime/azithromycin as above - MRSA nares neg - Pulmonary Respules MONE-on-CKD4 - Patient was being followed during last admission for the same - nephrology notes indicate baseline Cr 3.0-3.5, though has been persistently >4 since last admission - Secondary to renovascular disease, including renal artery stenosis (>60% stenosis in R renal artery) * Continue NaHCO3 and calcitriol * Patiromer x1 in ED given hyperkalemia in setting of MONE-on-CKD * Lasix 40mg IV x1 in ED, diuresis as above. * Appreciate nephrology consultation -multi organ symptomatology likely stemming from acute renal failure -3rd dialysis session tomorrow. -Patient set up with dialysis for discharge MWF 11AM schedule at [facility] * Monitor BMP * Hold HCTZ/KCl HLD, CAD, MATRIN, BERLIN * Continue statin, Plavix ID-DM2 - h/o poorly controlled DM2, improved, most recent A1c at 6.0% (08/03) * Lower home Lantus to 30U b.i.d. and add SSI, adjust as needed HTN * Continue amlodipine, metoprolol * Hold HCTZ Hyperkalemia - Likely secondary to MONE-on-CKD * Diuresis as above, give Patiromer x1 in ED Leukocytosis - Definitely a degree of PNA/physiologic stress contributing to this. However, looking back at his records, he has had a notable leukocytosis to 2018 * Consider peripheral smear once acute stressors have resolved to screen for hematologic malignancy Atrial Fibrillation * Continue metoprolol and Eliquis Code status: Full Diet: dialysis renal DVT ppx: IV Heparin Dispo: PCU, will likely stay until Saturday/Saturday and hopefully have room on laboratory immunologist schedule at that time. (2) Hypervolemia: (3) Pneumonia: (4) Chronic kidney disease, stage IV (severe): (5) Elevated troponin: (6) Hyperlipidemia LDL goal <70: (7) IDDM (insulin dependent diabetes mellitus): (8) Hypertension: (9) Hyperkalemia: (10) Atrial fibrillation: (11) Leukocytosis: Admission and Anticipated Discharge Date Admission Date: August 08, 2022 Supervising Physician Co-Signing Physician Notes The patient was seen and examined by me. Case discussed with resident physician. Lungs are clear to auscultation percussion. Cardiac rhythm regular with normal S1 and S2. He remains on a heparin drip and is asymptomatic. He is awaiting transfer to [facility] for coronary artery bypass grafting. He continues to receive hemodialysis per nephrology schedule for the end-stage renal disease. Subjective No acute events overnight. Patient is awake in bed on arrival. He has no acute complaints. Review of Systems Review of Systems: All systems reviewed & are unremarkable except as noted in HPI & below Physical Exam Physical Exam: General: No acute distress HEENT: PERRLA. Normal conjunctiva, anicteric sclera. Oropharynx normal. Respiratory: Normal respiratory effort, CTA BL. Cardiovascular: RRR without murmurs, gallops, or rubs. No edema. GI: Soft abdomen with normal bowel sounds heard on auscultation. Nontender x4 quadrants Neuro: Alert and oriented x3. Results & Data Results & Data ([facility]) Vital Signs (Past 12 Hours) Vital Signs Temp Pulse Pulse Resp BP Pulse Ox O2 Del Method 08/18/22 08:56 37.3 C 64 18 124/69 97 Room Air 08/18/22 05:45 76 08/18/22 02:52 36.7 C 89 20 121/63 93 Room Air 08/17/22 22:00 36.5 C 78 20 128/79 96 Room Air Resident Activity Tracking Resident Involvement: Resident Care Provided Care Provided: Adult Hospital Medicine (1) Respiratory failure Chronicity: acute Respiratory failure complication: hypoxia Qualified Code(s): J96.01 - Acute respiratory failure with hypoxia (2) Hypertension Hypertension type: unspecified Qualified Code(s): I10 - Essential (primary) hypertension
[2022-08-18 12:46] LABS: Partial Thromboplastin Ratio 1.4; Partial Thromboplastin Time 39.1 Seconds (21.0-31.0)
--- NOTE | 2022-08-18 13:14 | Nephrology Progress Note ---
Date of Service August 18, 2022 Assessment & Plan (1) ESRD on hemodialysis: (2) Hypertension: (3) Anemia: (4) Renal artery stenosis: (5) Acute non-ST elevation myocardial infarction (NSTEMI): Plan 67 year old gentleman with ESRD in the setting of renovascular disease, poorly-controlled hypertension, diabetes with nephrotic range proteinuria Started on dialysis on 08/10/2022 via right IJ tunneled dialysis catheter. He was also noted to have acute non ST elevation ID, cardiac catheterization showed a triple-vessel disease, now waiting for transfer to [facility] for CABG. Has been tolerating dialysis well, had dialysis yesterday, uneventful. Currently blood pressure of volume status, electrolyte acceptable. Appetite decent. -- Will keep on Saturday, Saturday dialysis schedule. Left arm nephrology precaution or AV fistula placement. -- discontinue sodium bicarbonate and oral iron, resume calcitriol -- start on Renvela 1 tab t.i.d. with meal -- continue on Epogen -- Dose medications for EGFR less than 10 Will follow Admission and Anticipated Discharge Date Admission Date: August 08, 2022 Subjective Dionicio was seen and evaluated this morning. Overall he feels well, denies any shortness of breath, chest pain, appetite decent. Renal function relatively stable without further worsening, electrolyte acceptable. Decent urine output. Blood pressure remains elevated. Review of Systems Review of Systems: Detailed review of system was done and pertinent positives and negatives were mentioned above. Physical Exam Constitutional: WD/WN, vitals as above no acute distress Eyes: + anicteric sclerae ENMT: Ears: no hearing impairment Neck: normal visual inspection Respiratory: no respiratory distress Auscultation: + diminished lung sounds; no wheezes Neurologic: no focal motor deficits Psychiatric: Orientation: alert and oriented x 3 Affect: euthymic affect Results & Data ([facility]) Vital Signs (Past 12 Hours) Vital Signs Temp Pulse Pulse Resp BP Pulse Ox O2 Del Method 08/18/22 12:00 36.3 C L 66 18 135/69 96 Room Air 08/18/22 08:00 60 08/18/22 08:56 37.3 C 64 18 124/69 97 Room Air 08/18/22 05:45 76 08/18/22 02:52 36.7 C 89 20 121/63 93 Room Air PG Care Time/CCT Total # of Minutes Spent Total Time Spent with Patient: Total time spent is greater than 50% in coordination of care (as documented) at patient's floor/unit and/or counseling patient: Coding Level of Care Code 02667 Subseq Hosp Care Lvl 3 Diagnoses ESRD on hemodialysis N18.6; Z99.2 Hypertension I10 Hypertension type: unspecified Anemia D64.9 Anemia type: unspecified type Renal artery stenosis I70.1 Acute non-ST elevation myocardial infarction (NSTEMI) I21.4 (1) Hypertension Hypertension type: unspecified Qualified Code(s): I10 - Essential (primary) hypertension (2) Anemia Anemia type: unspecified type Qualified Code(s): D64.9 - Anemia, unspecified
--- NOTE | 2022-08-18 14:12 | Billing Data ---
Date of Service August 18, 2022 Coding Level of Care Code 18251 Subseq Hosp Care Lvl 2
--- NOTE | 2022-08-18 14:27 | Discharge Summary ---
Date of Service August 18, 2022 Admission HPI Per Admitting Provider This is a 67-year-old male with a history of hypertension, insulin-dependent diabetes, atrial fibrillation, bilateral carotid artery stenosis, CKD stage IV, hyperlipidemia, renal artery stenosis who presented to [facility] for evaluation of shortness of breath and fatigue. Patient says following his discharge from the hospital couple days ago, he was actually feeling quite good. He tells me his energy levels were good, he was not getting short of breath walking around, did not have any fevers, chills, sweats. Then beginning yesterday, he began developing progressive fatigue. He said that he just did not have the energy to do things that he normally wanted to do. He then said he began getting a little more short of breath with activities. He says he has felt cold/hot throughout today, but no myalgias or new night sweats or fevers. He denies any appetite changes. He does say that his belly has felt bigger today compared to previous days, no change in leg size. Given his signif icant fatigue and growing shortness of breath, he did report to the emergency department for further evaluation. Of note, patient was recently discharged for management of pneumonia. During that time, He was treated with cefepime and azithromycin, scheduled DuoNebs. Medications reviewed and include amlodipine, atorvastatin, calcitriol, clopidogrel, Eliquis, gemfibrozil, hydrochlorothiazide, Lantus, metoprolol, sodium bicarbonate. In the ED, patient was found to have a 10 L oxygen requirement to maintain saturations over 90%. Blood pressure on arrival was 180/94, heart rate 78. Weight today at 100.7 kg from 98.8 kg on discharge 1126 (on 1126, also was back on room air).Labs reveal white count of 17.6 with notable left shift, chronic anemia at 9.6, sodium 133, potassium 5.7, anion gap 14, HCO3 19, BUN 98/creatinine 4.68 (from 84/4.59 on 1128). Calcium at 11.1. AST 270/ALT 86. BNP 2286. COVID-negative, influenza negative, RSV negative.Chest x-ray demonstrated cardiomegaly with pulmonary edema, right and left bibasilar opacities, right midlung opacity. Chest CT pending.He was given albuterol and cefepime. He was also given 20 mg of IV Lasix. Principal Diagnosis General: Tired-appearing 67-year old male who is alert, oriented, and appears in no acute distress. HEENT: NCAT. - Eyes - Sclera are white, anicteric, and without injection. - Mouth - MMM - Neck - supple, no appreciable JVD though difficult to assess with habitus Cardiac: Difficult exam given habitus. Normal rate and regular rhythm; S1 and S2 present with no murmurs, rubs, or gallops. Pulmonary: Mildly increased respiratory effort with symmetric expansion of the chest. No use of accessory muscles. Lungs demonstrated diffuse crackles, R>L, particularly near the bases and in the mid-lung saenz on R Abdominal: Normoactive bowel sounds. Abdomen was soft, mildly distended, and non-tender to palpation. Extremities: Upper and lower extremities are warm and well perfused. 1+ peripheral edema in the lower extremities bilaterally Psych: Well-developed, well-nourished, appropriately dressed for occasion. Behavior is cooperative and appropriate. Affect is WNL. Insight is appropriate. Discharge Exam General: No acute distress HEENT: PERRLA. Normal conjunctiva, anicteric sclera. Oropharynx normal. Respiratory: Normal respiratory effort, CTA BL. Cardiovascular: RRR without murmurs, gallops, or rubs. No edema. GI: Soft abdomen with normal bowel sounds heard on auscultation. Nontender x4 quadrants Neuro: Alert and oriented x3. Discharge Data Allergies Allergy/AdvReac Type Severity Reaction Status Date / Time No Known Allergies Allergy Verified 08/02/22 21:00 Consultations 08/08/22 21:16 ED Decision to Admit Stat 08/08/22 22:02 Consult Nephrology Routine 08/09/22 07:55 Consult Cardiology Routine 08/09/22 09:49 Consult Vascular Surgery Routine 08/16/22 20:22 Consult Patient Rep [Consult Patient Services] Routine Procedures Performed Operation Date: 08/10/22 10:20 Actual Procedures p Insertion of Perm Catheter Right Jugular Approach, Ultrasound Localization of Right Jugular Vein, Fluoroscopy for Positioning(Right) - Grzegorz Orourke MD Operation Date: 08/16/22 14:00 Actual Procedures s Cineradiography w/Routine Exam - Jose Eduardo Mittal MD p Cath, Left with Cors and Vent - Jose Eduardo Mittal MD Ordered Studies 08/08/22 20:43 CT chest diagnostic wo con Urgent 08/09/22 04:49 US RUQ [US liver] Routine 08/10/22 07:13 EV cvc insrt tunnel wo prt/train station server Routine US EV guide vascular access Routine 08/16/22 11:21 CL Cath Imgs for PACS use only Stat Hospital Course (1) Respiratory failure: 67yo male PMHx hypertension, insulin-dependent diabetes, atrial fibrillation, bilateral carotid artery stenosis, CKD stage IV, hyperlipidemia, renal artery stenosis who presented for evaluation of shortness of breath, likely secondary to hypervolemia and recurrent PNA. Now stable and awaiting transfer to [facility] for CABG procedure. Elevated Troponin, peaked - high sensitivity troponin at over >86343 on admission; however, he has an extensive history of chronically and highly elevated troponin - denies chest symptoms with no acute ECG changes compared to last visit - Cardiology consulted during last admission (08/03) - suspect due to severe LVH, CKD, vascular disease, especially given no wall motion abnormalities on TTE. -Cardiology consulted: Heart cath procedure completed today, which revealed severe left main LAD stenosis, requiring transfer to tertiary facility ([facility]). * Transfer paperwork completed. Patient now stable awaiting transfer to [facility] for CABG procedure, pending bed availability. Acute Hypoxic Respiratory Failure: Resolved - Redevelopment of AHRF in the setting of CKD4 and recent PNA; patient found to have features of hypervolemia on exam and on chest imaging. Likely multifactorial: possible recurrence of multifocal PNA compounded by fluid overload and pleural effusions - multifactorial from CKD4 and HFpEF. - Work-up as follows: - TTE 08/02: LVEF 65-70% with severe concentric LVH, grade II diastolic dysfunction, no significant aortic stenosis - BUN 98 / Cr 4.68 (from 84 / 4.59 on 08/06) - initial Troponin 47k, peaked at 90k - WBC 17.6, increasing / procal elevated 0.55 / CRP 5.39 - CT Chest: Moderate interstitial pulmonary edema with suspected alveolar pulmonary edema. Small to moderate right and small left pleural effusions. Multifocal subpleural airspace opacities. Extensive coronary artery calcification. Mild cardiomegaly. Follow up chest CT in 2 months to ensure resolution is recommended. Patient tentatively scheduled for coronary catheterization 08/14. - Treating with Cefepime and Azithromycin for pneumonia. - Supplement O2, goal SpO2 > 92%; currently on Room Air. - Perm cath placed. Plan for dialysis: MWF. - daily I&Os, daily weights - Management as below otherwise Hypervolemia: Resolved - Features of pulmonary edema and lower extremity edema present on exam and imaging and with elevated BNP (though noted with CKD) - pleural effusions appreciated on CT and CXR imaging - TTE 08/02: LVEF 65-70% with severe LVH, grade II diastolic dysfunction, no significant aortic stenosis - Suspect multifactorial: CKD4, component of acute HFpEF (e.g., cardiorenal) - Lasix 40mg IV given in the ED. Cont diuresis as above. - Monitor I&Os, daily weights - Fluid restriction < 2L/day - Monitor lytes Multifocal Pneumonia: Resolved - As above, CT imaging and labs are concerning for recurrent multifocal pneumonia. Influenza/COVID/RSV negative. - Continue cefepime/azithromycin as above - MRSA nares neg - Pulmonary Respules MONE-on-CKD4 - Patient was being followed during last admission for the same - nephrology notes indicate baseline Cr 3.0-3.5, though has been persistently >4 since last admission - Secondary to renovascular disease, including renal artery stenosis (>60% stenosis in R renal artery) * Continue NaHCO3 and calcitriol * Patiromer x1 in ED given hyperkalemia in setting of MONE-on-CKD * Lasix 40mg IV x1 in ED, diuresis as above. * Appreciate nephrology consultation -multi organ symptomatology likely stemming from acute renal failure -3rd dialysis session tomorrow. -[facility] * Monitor BMP * Hold HCTZ/KCl HLD, CAD, MARTIN, BERLIN * Continue statin, Plavix ID-DM2 - h/o poorly controlled DM2, improved, most recent A1c at 6.0% (08/03) * Lower home Lantus to 30U b.i.d. and add SSI, adjust as needed HTN * Continue amlodipine, metoprolol * Hold HCTZ Hyperkalemia - Likely secondary to MONE-on-CKD * Diuresis as above, give Patiromer x1 in ED Leukocytosis - Definitely a degree of PNA/physiologic stress contributing to this. However, looking back at his records, he has had a notable leukocytosis to 2018 * Consider peripheral smear once acute stressors have resolved to screen for hematologic malignancy Atrial Fibrillation * Continue metoprolol and Eliquis (2) Hypervolemia: (3) Pneumonia: (4) Chronic kidney disease, stage IV (severe): (5) Elevated troponin: (6) Hyperlipidemia LDL goal <70: (7) IDDM (insulin dependent diabetes mellitus): (8) Hypertension: (9) Hyperkalemia: (10) Atrial fibrillation: (11) Leukocytosis: Total Time Total Time Spent Total Time Spent (In Minutes): 60 Discharge Plan Discharge Items Patient Disposition: Transfer Acute Care Hospital Reason For Visit: ACUTE HYPOXIC RESPIRATORY FAILURE Discharge Diagnosis: Acute hypoxic respiratory failure Severe left anterior descending artery stenosis Activity: Per Instructions section Non-emergency contact: Primary Care Provider, [employer] Call non-emergency contact if: you have any medication questions, your symptoms worsen and your pain is worsening Follow-up/Referrals: Art Trejo [Primary Care Provider] - Diet: Regular Addtl Attending Provider Instructions: Elevated Troponin, peaked - high sensitivity troponin at over >47768 on admission; however, he has an extensive history of chronically and highly elevated troponin - denies chest symptoms with no acute ECG changes compared to last visit - Cardiology consulted during last admission (08/03) - suspect due to severe LVH, CKD, vascular disease, especially given no wall motion abnormalities on TTE. -Cardiology consulted: Heart cath procedure completed today, which revealed severe left main LAD stenosis, requiring transfer to tertiary facility ([facility]). Likely bed availability tomorrow. * Will complete transfer paperwork, discharge order in anticipation. Acute Hypoxic Respiratory Failure: Resolved - Redevelopment of AHRF in the setting of CKD4 and recent PNA; patient found to have features of hypervolemia on exam and on chest imaging. Likely multifactorial: possible recurrence of multifocal PNA compounded by fluid overload and pleural effusions - multifactorial from CKD4 and HFpEF. - Work-up as follows: - TTE 08/02: LVEF 65-70% with severe concentric LVH, grade II diastolic dysfunction, no significant aortic stenosis - BUN 98 / Cr 4.68 (from 84 / 4.59 on 08/06) - initial Troponin 47k, peaked at 90k - WBC 17.6, increasing / procal elevated 0.55 / CRP 5.39 - CT Chest: Moderate interstitial pulmonary edema with suspected alveolar pulmonary edema. Small to moderate right and small left pleural effusions. Multifocal subpleural airspace opacities. Extensive coronary artery calcification. Mild cardiomegaly. Follow up chest CT in 2 months to ensure resolution is recommended. Patient tentatively scheduled for coronary catheterization 08/14. - Treating with Cefepime and Azithromycin for pneumonia. - Supplement O2, goal SpO2 > 92%; currently on Room Air. - Perm cath placed. Plan for dialysis: MWF. - daily I&Os, daily weights - Management as below otherwise Hypervolemia: Resolved - Features of pulmonary edema and lower extremity edema present on exam and imaging and with elevated BNP (though noted with CKD) - pleural effusions appreciated on CT and CXR imaging - TTE 08/02: LVEF 65-70% with severe LVH, grade II diastolic dysfunction, no significant aortic stenosis - Suspect multifactorial: CKD4, component of acute HFpEF (e.g., cardiorenal) - Lasix 40mg IV given in the ED. Cont diuresis as above. - Monitor I&Os, daily weights - Fluid restriction < 2L/day - Monitor lytes Multifocal Pneumonia: Resolved - As above, CT imaging and labs are concerning for recurrent multifocal pneumo chloe. Influenza/COVID/RSV negative. - Continue cefepime/azithromycin as above - MRSA nares neg - Pulmonary Respules MONE-on-CKD4 - Patient was being followed during last admission for the same - nephrology notes indicate baseline Cr 3.0-3.5, though has been persistently >4 since last admission - Secondary to renovascular disease, including renal artery stenosis (>60% stenosis in R renal artery) - Continue NaHCO3 and calcitriol - Patiromer x1 in ED given hyperkalemia in setting of MONE-on-CKD - Lasix 40mg IV x1 in ED, diuresis as above. - Appreciate nephrology consultation -multi organ symptomatology likely stemming from acute renal failure -3rd dialysis session tomorrow. -Patient set up with dialysis for discharge MWF 11AM schedule at [facility] - Monitor BMP - Hold HCTZ/KCl HLD, CAD, MARTIN, BERLIN - Continue statin, Plavix ID-DM2 - h/o poorly controlled DM2, improved, most recent A1c at 6.0% (08/03) - Lower home Lantus to 30U b.i.d. and add SSI, adjust as needed HTN - Continue amlodipine, metoprolol - Hold HCTZ Hyperkalemia - Likely secondary to MONE-on-CKD - Diuresis as above, give Patiromer x1 in ED Leukocytosis - Definitely a degree of PNA/physiologic stress contributing to this. However, looking back at his records, he has had a notable leukocytosis to 2018 - Should consider obtaining a peripheral smear once acute stressors have reso lved to screen for hematologic malignancy Atrial Fibrillation - Continue metoprolol and Eliquis Pending Studies at Discharge: No Stand-Alone Forms: My [facility] Skilled Items Patient informed of condition?: Yes DNR: No Discharge Level of Care: Other Communicable Disease: No Discharge Prognosis: Stable Lines: None Urinary Catheter: No Medications and DC Order Prescriptions: Continued calcitriol 0.25 mcg capsule 0.25 mcg PO DAILY Qty: 90 2RF hydrochlorothiazide 25 mg tablet 50 mg PO DAILY Qty: 60 0RF metoprolol succinate 100 mg tablet extended release 24 hr 100 mg PO BID krill oil 500 mg capsule 500 mg PO BID ferrous sulfate 325 mg (65 mg iron) tablet 325 mg PO DAILY fluticasone propionate 50 mcg/actuation spray,suspension 1 spray intranasal DAILY PRN (Reason: Congestion) Rx Instructions: administer into each nostril vitamin B complex Tablet 1 tab PO DAILY mecobalamin (vitamin B12) 5,000 mcg tablet,disintegrating 5,000 mcg PO DAILY [id number] Tablet 1 tab PO DAILY coenzyme Q10 400 mg capsule 400 mg PO DAILY docusate sodium 100 mg capsule 100 mg PO DAILY potassium chloride 20 mEq tablet extended release 20 meq PO DAILY acetaminophen 650 mg tablet extended release 650 mg PO BID sodium bicarbonate 650 mg tablet 1,300 mg PO BID Qty: 360 3RF Basaglar KwikPen U-100 Insulin 100 unit/mL (3 mL) insulin pen 35 units SQ BID atorvastatin 40 mg Tablet 40 mg PO DAILY amlodipine 10 mg Tablet 10 mg PO DAILY gemfibrozil 600 mg Tablet 600 mg PO DAILY magnesium oxide 400 mg magnesium Tablet 400 mg PO DAILY Eliquis 5 mg Tablet 5 mg PO BID 30 Days Qty: 60 1RF clopidogrel [Plavix] 75 mg tablet 75 mg PO DAILY Qty: 30 0RF cefdinir 300 mg capsule 300 mg PO BID 5 Days Qty: 10 0RF ciprofloxacin HCl 500 mg tablet 500 mg PO BID 5 Days Qty: 10 0RF Discharge Orders: Discharge Order (Routine); Ordered 08/18/22 Ordered By: Himanshu Vega/Other Patient Handouts: Kidney Disease Anemia Iron, Kidney Disease Reducing Potassium, Kidney Disease Calcium Phosphorus, Kidney Disease Protein, Kidney Disease Fluid Intake, Kidney Disease Limiting Sodium Admission Data Admit Date/Time: 08/08/22 21:29 Attending Provider: Arnaud Delgado Admit Provider: Arnaud Rodríguez Primary Care Provider: Art Trejo Other Providers: Rosa Aguilar ; Dharmesh Tiwari ; Brian Wright ; Penny Munoz ; Cornelius Nelson ; Jeannie Young ; Jose Eduardo Mittal ; Grzegorz Orourke ; Tevin Galavn Resident Activity Tracking Resident Involvement: Resident Care Provided Care Provided: Adult Hospital Medicine
[2022-08-18] MEDS ORDERED: SEVELAMER HCL 800 MG TABLET PO SCH (17:00)
[2022-08-19] MEDS ORDERED: NEPHROCAPS PO SCH (09:00)
--- NOTE | 2022-08-28 12:36 | Coding Query ---
PRESENT ON ADMISSION QUERY To promote full compliance with coding requirements relating to pateint care, physician participation is requested in all cases of master ocean uncertainty. Please assist us with the question(s) below: Please place an X within the parenthesis (x). The following diagnosis listed in this patient's medical record require physician assistance to determine if they were present on admission (POA) or not. Please advise for each diagnosis whether it was present on admission, not present on admission, or if it was clinically undetermined or ruled-out. 1. NSTEMI (documented on the 08/16 Cardiac Catheterization report and also documented on the 08/09 Nephrology Consultation and on the 08/18 Nephrology PN) (x ) Present On Admission ( ) Not Present On Admission ( ) Clinically Undetermined ( ) Ruled-Out Thank you Bailey Obando *Definition of the present on admission (POA)-Present on admission is defined as present at the time the order for inpatient admission occurs. Conditions that develop during an outpatient encounter prior to a written order for inpatient admission (including emergency department, observation, or outpatient surgery) are considered present on admission. YU
--- NOTE | 2022-08-28 12:51 | Coding Query ---
PRESENT ON ADMISSION QUERY To promote full compliance with coding requirements relating to pateint care, physician participation is requested in all cases of sock folder uncertainty. Please assist us with the question(s) below: Please place an X within the parenthesis (x). The following diagnosis(es) listed in this patient's medical record require physician assistance to determine if they were present on admission (POA) or not. Please advise for each diagnosis whether it was present on admission, not present on admission, or if it was clinically undetermined. 1. ESRD (documented on the 08/18 Nephrology Progress Note, and by the supervising physician on Hospitalist Progress Notes 08/13 - 08/17) (x ) Present On Admission ( ) Not Present On Admission ( ) Clinically Undetermined Thank you Bailey Obando *Definition of the present on admission (POA)-Present on admission is defined as present at the time the order for inpatient admission occurs. Conditions that develop during an outpatient encounter prior to a written order for inpatient admission (including emergency department, observation, or outpatient surgery) are considered present on admission. YU
--- NOTE | 2022-08-30 07:12 | Coding Query ---
CODING QUERY To promote full compliance with coding requirements relating to patient care, provider participation is requested in all cases of retail tire sales manager uncertainty. Please assist us with the question(s) below: Coding Question(s): There is documentation of Acute Kidney Injury and CKD throughout the record, with documentation on Progress Notes 08/13 - 08/17 by the Supervising Physician of, "Acute kidney injury, CKD 4 now for all functional purposes progressed to ESRD On dialysis ongoing", and the Discharge Summary documents, "Acute Hypoxic Respiratory Failure: Resolved - Redevelopment of AHRF in the setting of CKD4 and recent PNA; patient found to have features of hypervolemia on exam and on chest imaging. Likely multifactorial: possible recurrence of multifocal PNA compounded by fluid overload and pleural effusions - multifactorial from CKD4 and HFpEF - Work-up as follows: - TTE 08/02: LVEF 65-70% with severe concentric LVH, grade II diastolic dysfunction, no significant aortic stenosis - BUN 98 / Cr 4.68 (from 84 / 4.59 on 08/06) - initial Troponin 47k, peaked at 90k - WBC 17.6, increasing / procal elevated 0.55 / CRP 5.39 - CT Chest: Moderate interstitial pulmonary edema with suspected alveolar pulmonary edema. Small to moderate right and small left pleural effusions. Multifocal subpleural airspace opacities. Extensive coronary artery calcification. Mild cardiomegaly. Follow up chest CT in 2 months to ensure resolution is recommended. Patient tentatively scheduled for coronary catheterization 08/14. - Treating with Cefepime and Azithromycin for pneumonia. - Supplement O2, goal SpO2 > 92%; currently on Room Air. - Perm cath placed. Plan for dialysis: MWF. - daily I&Os, daily weights - Management as below otherwise", and also, "MONE-on-CKD4 - Patient was being followed during last admission for the same - nephrology notes indicate baseline Cr 3.0-3.5, though has been persistently >4 since last admission - Secondary to renovascular disease, including renal artery stenosis (>60% stenosis in R renal artery) * Continue NaHCO3 and calcitriol * Patiromer x1 in ED given hyperkalemia in setting of MONE-on-CKD * Lasix 40mg IV x1 in ED, diuresis as above. * Appreciate nephrology consultation -multi organ symptomatology likely stemming from acute renal failure -3rd dialysis session tomorrow. -Patient set up with dialysis for discharge MWF 11AM schedule at [facility] * Monitor BMP * Hold HCTZ/KCl ". In your clinical opinion, please specify below, the diagnosis most responsible for causing the Acute Hypoxic Respiratory Failure and/or necessitating the need for Perm cath placement and Hemodialysis. -Please Specify below, in your clinical opinion, the diagnosis most responsible for causing Acute Hypoxic Respiratory Failure: ( x ) most likely multifactorial from CKD and HFpEF ( ) most likely Acute Kidney Injury ( ) most likely Pneumonia ( ) most likely both Acute Kidney Injury and multifactorial from CKD and HFpEF and pneumonia equally ( ) Other: Please Specify -Please Specify below, in your clinical opinion, the diagnosis most responsible for necessitating the need for Perm Cath and Hemodialysis: ( ) most likely Acute Kidney Injury ( x ) most likely CKD ( ) most likley Acute Kidney Injury and CKD equally ( ) Other: Please Specify Physician's Response(s): Thank you Bailey Obando Principal Diagnosis: "that condition established after study, to be chiefly responsible for occasioning the admission of the patient to the hospital for care." Co-Existing Principal Diagnosis: "when two or more diagnoses equally meet the criteria for principal diagnosis as determined by the circumstances of admission, diagnostic work up, and/or therapy provided, and the Alphabetic Index, Tabular List, or another coding guideline does not provide sequencing direction, any one of the diagnoses may be sequenced first." "When the physician has documented what appears to be a current diagnosis in the body of the record, but has not included the diagnosis in the final diagnostic statement, the physician should be asked whether the diagnosis should be added." (Source [facility]oding [facility] 2 QTR90. p3-4) YU
== END 2022-08-18 14:55 | disposition short-term general hospital (02) | DRG 280 ==
LOC: ED 19:28 → SUATTDRO 21:29 → EDINP 21:29 → 4W 08-09 02:43

== ENCOUNTER 2022-12-24 14:06 | Inpatient (IN) ==
[2022-12-24 15:00] LABS: Basophils # (auto) 0.04 K/uL (0-0.2); Basophils % (auto) 0.3 %; Eosinophils % (auto) 0.8 %; Hematocrit (blood only) 29.5 % (42.0-52.0); Immature Granulocytes # (auto) 0.09 K/uL (0.01-0.20); Immature Granulocytes % (auto) 0.8 %; Lymphocytes # (auto) 1.32 K/uL (1.2-3.4); Mean Corpuscular Hemoglobin 31.3 pg (25.0-34.0); Mean Corpuscular Hgb Conc 33.9 g/dL (32.0-36.0); Mean Corpuscular Volume 92.2 fL (80.0-100.0); Monocytes # (auto) 0.67 K/uL (0.11-0.59); Monocytes % (auto) 5.6 %; Neutrophils # (auto) 9.75 K/uL (1.40-6.50); Neutrophils % (auto) 81.5 %; Platelet Count 306 K/uL (130-400); RDW Coefficient of Variation 16.2 % (11.5-14.5); RDW Standard Deviation 54.3 fL (36.4-46.3); White Blood Count 11.97 K/ul (4.8-10.8)
--- NOTE | 2022-12-24 15:07 | XRay Report ---
XR chest 1V not portable HISTORY: 67 years-old Male Chest pain, nonspecific acute chest pain COMPARISON: Chest radiograph 08/12/2022 TECHNIQUE: PA view of the chest FINDINGS: Cardiac silhouette is enlarged. Pulmonary vascular congestion with interstitial coarsening. Prior med geovanni sternotomy. Left atrial exclusion device. Dual lumen right IJ hemodialysis catheter is unchanged. No pneumothorax. Small pleural effusions. Mild bibasilar densities favoring atelectasis. Degenerativ e changes of the shoulders and spine. IMPRESSION: 1. Cardiomegaly with mild pulmonary edema. 2. Small pleural effusions. 3. Mild right lung base opacities favor atelectasis. ACT 112: Negative or not required by law. The above report was generated using voice recognition software. It may contain grammatical, syntax o r spelling errors. Electronically signed by: Ted Victor M.D. 12/24/2022 3:06 PM
[2022-12-24 15:18] LABS: Albumin Globulin Ratio 1.2 (0.9-2); Albumin Level 4.4 gm/dl (3.4-5.0); BUN Creatinine Ratio 10.9 (10-20); Bilirubin,Total 1.1 mg/dl (0.2-1.0); Creatinine Clr Calc Pharmacy 18.8 ml/min; Est GFR (Non-African American) 14.7 ml/min; Globulin 3.6 gm/dl (2.5-4.0); Potassium 3.7 mmol/L (3.5-5.1)
[2022-12-24 15:29] LABS: INR 1.1 (0.9-1.1); Partial Thromboplastin Ratio 1.3; Partial Thromboplastin Time 35.5 Seconds (21.0-31.0); Prothrombin Time 11.4 Seconds (9.0-12.0); Troponin I High Sensitivity 72.1 pg/ml (0-20)
--- NOTE | 2022-12-24 17:32 | Emergency Department Note ---
History of Present Illness General Chief complaint: Cough Stated complaint: REF BY DOC,COUGHING UP BLOOD,SOB,LOW O2 Time Seen by Provider: 12/24/22 17:18 Source: patient, family (Cousin who is at the bed), RN notes reviewed and old records reviewed (I have reviewed all direct) Mode of arrival: ambulatory Limitations: no limitations History of Present Illness This patient is 67-year-old male who has a history of end-stage renal disease an d gets dialysis Saturday as well as had a CABG in August comes in after having weakness and shortness of breath. He was in dialysis today and they recommended he come here. He says he has been coughing over the last couple weeks he has been coughing up blood at times. He did have a CABG in August no chest pain he is short of breath at times particularly lays flat. He did have some edema in his legs. No missed dialysis. No fever his doctor did start him on oxygen 2 L as an outpatient. No headache. no pain . he continues to have a cough. No sick contacts Home Medications Medication Instructions Recorded Confirmed Type amlodipine 10 mg tablet 10 mg PO DAILY 06/26/18 10/29/22 History atorvastatin 40 mg tablet 40 mg PO DAILY 06/26/18 10/29/22 History gemfibrozil 600 mg tablet 600 mg PO DAILY 06/26/18 10/29/22 History insulin glargine 100 unit/mL (3 35 units subcut BID 01/13/20 10/29/22 History mL) subcutaneous pen (Basaglar KwikPen U-100 Insulin) fluticasone propionate 50 1 spray intranasal DAILY PRN 05/30/20 10/29/22 History mcg/actuation nasal Congestion spray,suspension krill oil 500 mg capsule 500 mg PO BID 05/30/20 10/29/22 History vitamin B complex 1 tab PO DAILY 05/30/20 10/29/22 History sevelamer carbonate 800 mg tablet 800 mg PO TID 10/29/22 10/29/22 History (Renvela) vitamin B complex-vitamin C-folic 1 tab PO DAILY 10/29/22 10/29/22 History acid 0.8 mg tablet (Unique-Suzanne) carvedilol 3.125 mg tablet 12.5 mg PO BID 12/19/22 History Allergies Allergy/AdvReac Type Severity Reaction Status Date / Time No Known Allergies Allergy Verified 10/29/22 11:49 Past Med/Surg History Medical History Acute kidney injury Acute non-ST elevation myocardial infarction (NSTEMI) Atrial fibrillation, new onset Diabetes type 2, uncontrolled DKA (diabetic ketoacidoses) ESRD on hemodialysis Hyperlipidemia LDL goal <70 Hypertension Lyme borreliosis Renal artery stenosis Surgical History 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 Feels Safe at Home: Yes Safety Concerns: Feels Safe At This Time Assistive Devices: Oxygen - Continuous Review of Systems A total of 10 systems reviewed and were otherwise negative Physical Exam Vital Signs Vital Signs - 24 hr 12/24/22 14:07 12/24/22 17:03 12/24/22 17:12 Temperature 36.8 C Temperature Source Temporal Artery Scan Pulse Rate 88 83 Pulse Rate [Right Apical] 83 Pulse Rate from SpO2 Sensor Respiratory Rate 20 18 Respiratory Effort / Characteristics Non-Labored Spontaneous Non-Labored Spontaneous Respiratory Depth Normal Normal Respiratory Pattern Regular Blood Pressure 162/71 H Blood Pressure [Right Arm] 173/71 H Blood Pressure Mean 101 Blood Pressure Mean [Right Arm] 105 Pulse Oximetry 89 L 96 Oxygen Delivery Method Room Air Nasal Cannula Oxygen Flow Rate 2 Sepsis Recent Fever Within 48 Hours No Sepsis New/Unexplained Change in Mental Status No Sepsis Action Taken by Nursing No Action Required 12/24/22 17:30 12/24/22 18:00 12/24/22 18:31 Temperature Temperature Source Pulse Rate 82 81 80 Pulse Rate [Right Apical] Pulse Rate from SpO2 Sensor 82 81 83 Respiratory Rate 24 21 22 Respiratory Effort / Characteristics Respiratory Depth Respiratory Pattern Blood Pressure 135/63 125/70 158/79 H Blood Pressure [Right Arm] Blood Pressure Mean 87 88 105 Blood Pressure Mean [Right Arm] Pulse Oximetry 98 98 97 Oxygen Delivery Method Nasal Cannula Nasal Cannula Oxygen Flow Rate 2 2 Sepsis Recent Fever Within 48 Hours Sepsis New/Unexplained Change in Mental Status Sepsis Action Taken by Nursing General: Well developed well nourished older male in no acute distress, breathing comfortably on supplemental oxygen. normal speech HEENT: Normal cephalic atraumatic. Pupils are equal round and reactive to light. Extraocular movements are intact. Oropharynx is pink with moist mucous membranes. No swelling of the mouth lips or tongue. Neck: Supple with a midline trachea. No meningeal signs or stiffness, no JVD or bruits. No Stridor. Chest: Somewhat rhonchorous auscultation bilaterally. Mild increased work of breathing. Heart: Regular rate and rhythm without murmurs or gallops. Abdomen: Soft nontender, nondistended without rebound guarding or rigidity. Extremities: No cyanosis clubbing or edema. No calf tenderness or assymetry Spine/Back. Non tender to palpation. No CVA tenderness Skin: Good turgor without rashes. Neurologic exam: Cranial nerves two through 12 are intact. Motor and sensation are intact and symmetrical throughout. Course Administered Medications Carvedilol (Carvedilol 3.125 Mg Tab) 3.125 mg PO BIDM MARCELLUS Stop: 01/23/23 20:59 Last Admin: 12/24/22 21:11 Dose: 3.125 mg Documented By: DE Insulin Aspart (Insulin Aspart Per Unit Charge) 0 units SC ACHS MARCELLUS Stop: 01/23/23 20:59 Last Admin: 12/24/22 20:52 Dose: Not Given Documented By: DE Insulin Glargine (Lantus Per Unit Charge) 8 units SQ BID MARCELLUS Stop: 01/23/23 20:59 Last Admin: 12/24/22 20:56 Dose: 8 units Documented By: DE Co-signed By: LA Sevelamer HCl (Sevelamer Hcl 800 Mg Tablet) 800 mg PO TIDM MARCELLUS Stop: 01/23/23 20:59 Last Admin: 12/24/22 21:12 Dose: 800 mg Documented By: DE Discontinued Medications Melatonin (Melatonin 3 Mg Tab) 3 mg PO NOW STA Stop: 12/24/22 23:40 Last Admin: 12/24/22 23:49 Dose: 3 mg Documented By: DE Medical Decision Making Differential Diagnosis CHF, pneumonia, end-stage renal disease, electrolyte or metabolic abnormality, acute coronary syndrome, Medical Records Attestation: I reviewed the patient's medical records. Home Medications Current Medication List: was personally reviewed by me Laboratory Data Attestation: I reviewed the patient's lab results. 12/24/22 14:35 12/24/22 14:35 Lab Results 12/24/22 12/24/22 12/24/22 Range/Units 14:35 14:35 14:35 WBC 11.97 H (4.8-10.8) K/ul RBC 3.20 L (4.70-6.10) M/uL Hgb 10.0 L (14.0-18.0) g/dl Hct 29.5 L (42.0-52.0) % MCV 92.2 (80.0-100.0) fL MCH 31.3 (25.0-34.0) pg MCHC 33.9 (32.0-36.0) g/dL RDW Std Deviation 54.3 H (36.4-46.3) fL RDW Coeff of Whit 16.2 H (11.5-14.5) % Plt Count 306 (130-400) K/uL MPV 9.0 L (9.4-12.4) fL Immature Gran % (Auto) 0.8 % Neut % (Auto) 81.5 % Lymph % (Auto) 11.0 % [place] % (Auto) 5.6 % Eos % (Auto) 0.8 % Baso % (Auto) 0.3 % Neut # (Auto) 9.75 H (1.40-6.50) K/uL Lymph # (Auto) 1.32 (1.2-3.4) K/uL [place] # (Auto) 0.67 H (0.11-0.59) K/uL Eos # (Auto) 0.10 (0-0.50) K/uL Baso # (Auto) 0.04 (0-0.2) K/uL Immature Gran # (Auto) 0.09 (0.01-0.20) K/uL PT 11.4 (9.0-12.0) Seconds INR 1.1 (0.9-1.1) APTT 35.5 H (21.0-31.0) Seconds PTT Ratio 1.3 Sodium 140 (136-145) mmol/L Potassium 3.7 (3.5-5.1) mmol/L Chloride 95 L (98-107) mmol/L Carbon Dioxide 30 (21-32) mmol/L Anion Gap 15 H (3-11) BUN 43 H (6-23) mg/dl Creatinine 3.94 H (0.6-1.4) mg/dl Est Cr Clr Drug Dosing 18.8 ml/min Est GFR ( Amer) 17.0 ml/min Est GFR (Non-Af Amer) 14.7 ml/min BUN/Creatinine Ratio 10.9 (10-20) Glucose 92 (70-99(Fasting)) mg/dl Calcium 9.0 (8.6-10.3) mg/dl Total Bilirubin 1.1 H (0.2-1.0) mg/dl AST 19 (13-39) U/L ALT 11 (7-52) U/L Alkaline Phosphatase 72 (34-104) U/L Troponin I High Sens 72.1 H* (0-20) pg/ml Total Protein 8.0 (6.0-8.3) gm/dl Albumin 4.4 (3.4-5.0) gm/dl Globulin 3.6 (2.5-4.0) gm/dl Albumin/Globulin Ratio 1.2 (0.9-2) SARS-CoV-2 (PCR) (Negative) 12/24/22 Range/Units 17:48 WBC (4.8-10.8) K/ul RBC (4.70-6.10) M/uL Hgb (14.0-18.0) g/dl Hct (42.0-52.0) % MCV (80.0-100.0) fL MCH (25.0-34.0) pg MCHC (32.0-36.0) g/dL RDW Std Deviation (36.4-46.3) fL RDW Coeff of Whit (11.5-14.5) % Plt Count (130-400) K/uL MPV (9.4-12.4) fL Immature Gran % (Auto) % Neut % (Auto) % Lymph % (Auto) % [place] % (Auto) % Eos % (Auto) % Baso % (Auto) % Neut # (Auto) (1.40-6.50) K/uL Lymph # (Auto) (1.2-3.4) K/uL [place] # (Auto) (0.11-0.59) K/uL Eos # (Auto) (0-0.50) K/uL Baso # (Auto) (0-0.2) K/uL Immature Gran # (Auto) (0.01-0.20) K/uL PT (9.0-12.0) Seconds INR (0.9-1.1) APTT (21.0-31.0) Seconds PTT Ratio Sodium (136-145) mmol/L Potassium (3.5-5.1) mmol/L Chloride (98-107) mmol/L Carbon Dioxide (21-32) mmol/L Anion Gap (3-11) BUN (6-23) mg/dl Creatinine (0.6-1.4) mg/dl Est Cr Clr Drug Dosing ml/min Est GFR ( Amer) ml/min Est GFR (Non-Af Amer) ml/min BUN/Creatinine Ratio (10-20) Glucose (70-99(Fasting)) mg/dl Calcium (8.6-10.3) mg/dl Total Bilirubin (0.2-1.0) mg/dl AST (13-39) U/L ALT (7-52) U/L Alkaline Phosphatase (34-104) U/L Troponin I High Sens (0-20) pg/ml Total Protein (6.0-8.3) gm/dl Albumin (3.4-5.0) gm/dl Globulin (2.5-4.0) gm/dl Albumin/Globulin Ratio (0.9-2) SARS-CoV-2 (PCR) NEGATIVE (Negative) Imaging Data Attestation: I personally reviewed and interpreted this imaging study as follows: My Impression: Chest x-ray cardiomegaly with mild pulmonary edema. No pneumothorax seen Radiologist's Impression: Chest X-Ray 12/24/22 14:14 XR chest 1V not portable HISTORY: 67 years-old Male Chest pain, nonspecific acute chest pain COMPARISON: Chest radiograph 08/12/2022 TECHNIQUE: PA view of the chest FINDINGS: Cardiac silhouette is enlarged. Pulmonary vascular congestion with interstitial coarsening. Prior median sternotomy. Left atrial exclusion device. Dual lumen right IJ hemodialysis catheter is unchanged. No pneumothorax. Small pleural effusions. Mild bibasilar densities favoring atelectasis. Degenerative changes of the shoulders and spine. IMPRESSION: 1. Cardiomegaly with mild pulmonary edema. 2. Small pleural effusions. 3. Mild right lung base opacities favor atelectasis. ACT 112: Negative or not required by law. The above report was generated using voice recognition software. It may contain grammatical, syntax or spelling errors. Electronically signed by: Ted Victor M.D. 12/24/2022 3:06 PM ECG Data Attestation: I personally reviewed and interpreted this ECG as follows: Indication: + SOB/dyspnea and + weakness Rate (beats per minute): 85 Rhythm: + normal sinus ECG Intervals/blocks: + Normal QRS and + Normal MS ECG [place]: + Left axis deviation ECG ST segments: + Nonspecific ST abnormalities ECG Findings: no PACs or no PVCs Comparison ECG Date: from (08/10/22) Change: no significant change MDM Narrative This patient comes in as described above. He was placed in room C4. He has been having shortness of breath. He looks better at present. He was placed on oxygen recently. He is a dialysis patient . he does look somewhat fluid overloaded despite having dialysis his renal function is elevated as expected. It sounds like talking to the patient that his kidney doctors were trying to coordinate dialysis with a CT scan so they could dialyze him afterwards. I am also concerned troponins elevated. I do think he would benefit from admission as he has increasing shortness of breath hypoxemia and weakness. I have disc ussed the case with Dr. Ivan and his team saw the patient in ED and will be admitting/observing him. Continuous cardiac monitoring: Orders placed in EMR for continuous cardiac monitoring. Upon my evaluation patient was reviewed normal sinus rhythm with a rate of 67. Impression & Plan SOB (shortness of breath), Hypoxemia, ESRD (end stage renal disease), Lab test negative for COVID-19 virus, Elevated troponin I level, CHF (congestive heart failure) Discharge Plan Visit Data Chief Complaint: Cough Stated Complaint: REF BY DOC,COUGHING UP BLOOD,SOB,LOW O2 ED Provider: Fito Rios Discharge Problem: SOB (shortness of breath), Hypoxemia, ESRD (end stage renal disease), Lab test negative for COVID-19 virus, Elevated troponin I level, CHF (congestive heart failure) Patient Disposition: Admitted As Inpatient Discharge Instructions Interventions: ED Discharge Assessment Last Done: 12/24/22 20:01
--- NOTE | 2022-12-24 17:58 | Electrocardiogram Report ---
Test Reason : Blood Pressure : / mmHG Vent. Rate : 085 BPM Atrial Rate : 085 BPM P-R Int : 190 ms QRS Dur : 126 ms QT Int : 414 ms P-R-T Axes : 054 -40 103 degrees QTc Int : 492 ms Poor data quality, interpretation may be adversely affected Normal sinus rhythm Left axis deviation Left ventricular hypertrophy with QRS widening and repolarization abnormality Abnormal ECG When compared with ECG of 09-AUG-2022 04:33, QRS duration is longer Confirmed by Jose Eduardo Mittal ([id number]) on 12/24/2022 5:58:06 PM Referred By: REFERRED SELF Confirmed By:Dominguez Mittal
--- NOTE | 2022-12-24 18:34 | History & Physical Report ---
Date of Service December 24, 2022 Assessment & Plan (1) CHF exacerbation: Plan: 67yo Male with PMH CABGx2 vessels in 08/22/22, HTN, CAD, pAfib, DM2 insulin dependent, ESRD on dialysis MWF, HLD here for hemoptysis SOB ongoing 2 weeks. Hypoxia 2/2 CHF exacerbation -on dialysis last done 12/24 removed 3.5L -89% on RA, placed on 2L NC satting 98% -CXR: Cardiomegaly with mild pulmonary edema.Small pleural effusions. Mild right lung base opacities favor atelectasis. -admit to med/tele -trop 72.1 repeat pending -EKG: Normal sinus rhythm, Left axis deviation, Left ventricular hypertrophy with QRS widening and repolarization abnormality -ordered echo (last echo 08/30 EF 56%) -wean oxygen as tolerated -nephrology consulted for dialysis, fluid management -daily weights CHF/HTN/pAfib -continue coreg -continue amlodipine -follows with [facility] cardiology is not currently on medication for afib, hx. left atrial appendage ligation ESRD on Dialysis -nephrology consulted for dialysis -continue sevelamer -creat on admit 3.94 continue to monitor DM2 -SSI ordered HLD -continue atorvastatin -continue gemfibrozil FENa: heart healthy DM2 dialysis Code Status: Full Dispo: med/tele Maggie Zuniga D.O. PGY 2, FCM (2) Hypertension: (3) CAD (coronary artery disease): (4) S/P CABG x 2: (5) Chronic kidney disease, stage IV (severe): (6) Hypoxia: (7) Elevated troponin: (8) Atrial fibrillation: (9) ESRD on hemodialysis: (10) Hyperlipidemia LDL goal <70: (11) Diabetes type 2, uncontrolled: History of Present Illness Chief Complaint: CHF Exacerbation Primary Care Provider: Art Trejo 67yo Male with PMH CABGx2 vessels in 08/22/22, HTN, CAD, pAfib, DM2 insulin dependent, ESRD on dialysis MWF, HLD here for hemoptysis SOB ongoing 2 weeks. Patient states a few weeks ago he had a change in BP medication, his fistula was redone, he ate 3 hotdogs and got his hepB booster. Overnight he felt poorly vomitted had arm pain, skipped dinner ended up drinking salty chicken soup later on. Since then he noted worsening SOB especially on laying down, feels like he's drowning if he lays down has been sleeping propped up, his home pulse ox on room air was 69%, had difficulty ambulating 200ft needs to stop and rest. He was placed on home oxygen last week, which he states has helped. Denies chest pain. Has baseline occasional swelling in his legs that improves with dialysis. Patient last had dialysis today removed 3.5L fluid. Patient states originally his medications were managed by nephew/nieces, then home health, then people changed, was at one time managed by friend hospice nurse Radha, patient has been managing his own medication in the past few weeks states he took them as prescribed however isn't sure what he is on. Allergies Allergy/AdvReac Type Severity Reaction Status Date / Time No Known Allergies Allergy Verified 10/29/22 11:49 Home Medications Medication Instructions Recorded Confirmed Type amlodipine 10 mg tablet 10 mg PO DAILY 06/26/18 10/29/22 History atorvastatin 40 mg tablet 40 mg PO DAILY 06/26/18 10/29/22 History gemfibrozil 600 mg tablet 600 mg PO DAILY 06/26/18 10/29/22 History insulin glargine 100 unit/mL (3 35 units subcut BID 01/13/20 10/29/22 History mL) subcutaneous pen (Basaglar KwikPen U-100 Insulin) fluticasone propionate 50 1 spray intranasal DAILY PRN 05/30/20 10/29/22 History mcg/actuation nasal Congestion spray,suspension krill oil 500 mg capsule 500 mg PO BID 05/30/20 10/29/22 History vitamin B complex 1 tab PO DAILY 05/30/20 10/29/22 History sevelamer carbonate 800 mg tablet 800 mg PO TID 10/29/22 10/29/22 History (Renvela) vitamin B complex-vitamin C-folic 1 tab PO DAILY 10/29/22 10/29/22 History acid 0.8 mg tablet (Unique-Suzanne) carvedilol 3.125 mg tablet 12.5 mg PO BID 12/19/22 History Past Med/Surg History Medical History Acute kidney injury Acute non-ST elevation myocardial infarction (NSTEMI) Atrial fibrillation, new onset Diabetes type 2, uncontrolled DKA (diabetic ketoacidoses) ESRD on hemodialysis Hyperlipidemia LDL goal <70 Hypertension Lyme borreliosis Renal artery stenosis Surgical History 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 Feels Safe at Home: Yes Safety Concerns: Feels Safe At This Time Assistive Devices: Oxygen - Continuous Physical Exam Constitutional: well developed, well nourished, cooperative and comfortable Eyes: PERRL, conjunctivae normal, anicteric sclerae ENMT: external ear and nose normal, oropharynx normal Neck: trachea midline, no thyromegaly Respiratory: normal respiratory effort Auscultation: + rales (b/l lower lobes) Cardiovascular: Rate/Rhythm: regular rate and regular rhythm Extremities: no edema Gastrointestinal (Abdomen): Inspection/Auscultation: abdomen normal to inspection Percussion/Palpation: abdomen soft; abdomen nontender Skin: no rashes, warm and dry Results & Data Results & Data Vital Signs (Past 12 Hours) Vital Signs Temp Pulse Pulse Resp BP BP Pulse Ox 12/24/22 17:30 82 24 135/63 98 12/24/22 17:12 83 12/24/22 17:03 83 18 173/71 H 96 12/24/22 14:07 36.8 C 88 20 162/71 H 89 L O2 Del Method O2 Flow Rate 12/24/22 17:30 12/24/22 17:12 12/24/22 17:03 Nasal Cannula 2 12/24/22 14:07 Room Air Supervising Physician Co-Signing Physician Notes Patient seen and examined, chart reviewed, case discussed with Dr. Zuniga and I agree with the assessment and plan as documented above. In brief, patient is a 67-year-old male with history of coronary artery disease status post two-vessel CABG in August 2022, hypertension, paroxysmal atrial fibrillation, diabetes and end-stage renal disease on dialysis q. Saturday/Saturday/Saturday with last treatment today3.5 L of fluid removed. Patient presenting today with progressive shortness of breath as well as hemoptysis ongoing for the last 2 weeks. He admits to orthopnea, dyspnea with minimal exertion. Hypoxia per home O2 monitor reported to be 69%. In the ER patient is afebrile, hemodynamically stable. Adequate oxygenation on 2 L nasal cannula. Examresting comfortably, no acute distress Skinwarm, dry, intact HEENTmoist mucous membranes, neck supple, no JVD Heart+ S1, S2, regular Lungspatient speaking in complete sentences, adequate oxygenation on 2 L nasal cannula, crackles in bilateral bases, no rhonchi or wheeze Abdomensoft, nontender/nondistended Extremitiestrace pitting edema of bilateral lower extremities, 2+ pulses, left upper extremity AV fistula with palpable thrill Labs and images reviewed. Significant for stable leukocytosis with WBC = 11.97 stable anemia with hemoglobin = 10, mild elevation of troponin = 78.4 Chest x-ray with cardiomegaly with mild pulmonary edema, small pleural effusions, mid right lung base opacities favoring atelectasis Assessment/plan: 67-year-old male presenting with 2 weeks of progressive shortness of breath, orthopnea and dyspnea on exertion as well as hemoptysis. Hypoxia reported from home at 69%. Saturations have been adequate on 2 L nasal cannula in the ER. 1. Dyspnea, orthopnealikely secondary to volume overload. Appreciate nephrology consultation for possible dialysis Patient does report making urine. Will administer Lasix 60 mg IV x1 dose and monitor output Continue supplemental oxygen as needed 2. Hemoptysis. Suspect secondary to pulmonary edema Continue to monitor Consider CT chest 3. Hypertension. Well-controlled. Continue amlodipine 10 mg p.o. daily and carvedilol 12.5 mg p.o. twice daily at home dose Continue to monitor 4. End-stage renal disease on dialysistreatment M/W/F with last treatment 12/24/2022 Appreciate nephrology assistance Continue sevelamer 5. Diabetes Basal/bolus Remainder of plan as above Resident Activity Tracking Resident Involvement: Resident Care Provided Care Provided: Adult Hospital Medicine (2) Hypertension Hypertension type: unspecified Qualified Code(s): I10 - Essential (primary) hypertension
[2022-12-24] MEDS ORDERED: GLUCOSE 10 TAB/TUBE PO PRN (20:37)
[2022-12-24] MEDS ORDERED: POLYETHYLENE (MIRALAX) 17 GM PACK PO PRN (20:37)
[2022-12-24] MEDS ORDERED: GLUCOSE 40% GEL 15 GM TUBE PO PRN (20:37)
[2022-12-24] MEDS ORDERED: GLUCAGON FOR INJ 1 MG VIAL SQ PRN (20:37)
[2022-12-24] MEDS ORDERED: CARBOHYDRATES FOR HYPOGLYCEMIA PO PRN (20:37)
[2022-12-24] MEDS ORDERED: DEXTROSE 50% 50 ML SYRINGE IV PRN (20:37)
[2022-12-24] MEDS: INSULIN ASPART PER UNIT CHARGE SC SCH (20:52)
[2022-12-24] MEDS: LANTUS PER UNIT CHARGE SQ SCH (20:56)
[2022-12-24] MEDS ORDERED: NON-FORMULARY MEDICATION (Krill Oil 500 mg capsule) PO SCH (21:00)
[2022-12-24] MEDS ORDERED: carvediloL 3.125 MG TAB PO SCH (21:00)
[2022-12-24] MEDS: SEVELAMER HCL 800 MG TABLET PO SCH (21:12)
[2022-12-24] MEDS ORDERED: MELATONIN 3 MG TAB PO STA (23:39)
[2022-12-25] MEDS ORDERED: carvediloL 3.125 MG TAB PO SCH (00:40)
[2022-12-25] MEDS ORDERED: FUROSEMIDE 40 MG/4 ML VIAL IV ONE (00:40)
--- NOTE | 2022-12-25 00:44 | Billing Data ---
Date of Service December 24, 2022 Coding Level of Care Code 31518 INT INP/OBS CARE
[2022-12-25 01:26] LABS: Hematocrit (blood only) 27.3 % (42.0-52.0); Hemoglobin 9.2 g/dl (14.0-18.0); Mean Corpuscular Hemoglobin 31.6 pg (25.0-34.0); Mean Corpuscular Hgb Conc 33.7 g/dL (32.0-36.0); Mean Corpuscular Volume 93.8 fL (80.0-100.0); Platelet Count 256 K/uL (130-400); RDW Coefficient of Variation 16.4 % (11.5-14.5); RDW Standard Deviation 57.3 fL (36.4-46.3); Red Blood Count 2.91 M/uL (4.70-6.10); White Blood Count 9.94 K/ul (4.8-10.8)
[2022-12-25 01:39] LABS: Calcium 8.3 mg/dl (8.6-10.3); Creatinine Clr Calc Pharmacy 17.9 ml/min; Potassium 3.7 mmol/L (3.5-5.1)
[2022-12-25 01:48] LABS: Troponin I High Sensitivity 78.7 pg/ml (0-20)
[2022-12-25] MEDS: SEVELAMER HCL 800 MG TABLET PO SCH ×3 (08:06→17:11)
[2022-12-25] MEDS: amLODIPine BESYLATE 5 MG TAB PO SCH (08:06)
[2022-12-25] MEDS: ATORVASTATIN 40 MG TAB PO SCH (08:06)
[2022-12-25] MEDS: carvediloL 12.5 MG TAB PO SCH ×2 (08:06→17:11)
[2022-12-25] MEDS: gemfibroziL 600 MG TAB PO SCH (08:06)
[2022-12-25] MEDS: VITAMIN B COMPLEX TAB PO SCH (08:06)
[2022-12-25] MEDS: INSULIN ASPART PER UNIT CHARGE SC SCH ×4 (08:27→20:13)
[2022-12-25] MEDS: LANTUS PER UNIT CHARGE SQ SCH ×2 (08:27→20:28)
--- NOTE | 2022-12-25 08:27 | Hospitalist Progress Note ---
Date of Service December 25, 2022 Assessment & Plan (1) CHF exacerbation: Plan: 67yo Male with PMH CABGx2 vessels in 08/22/22, HTN, CAD, pAfib, DM2 insulin dependent, ESRD on dialysis MWF, HLD here for hemoptysis SOB ongoing 2 weeks. acute respiratory failure with hypoxia secondary to acute on chronic systolic and diastolic heart failure, systemic complications -on dialysis last done 12/24 removed 3.5L hemoptysis, maybe from vascular congestion will have CTA 12/26/22. Pulmonary medicine to follow -elevated troponin is demand ischemia, no uptrend, no acute ecg changes although has baseline abnormal ecg chronic Atrial fibrillation stable, rate controlled with coreg -follows with [facility] cardiology is not currently on anticoagualtion medication for afib, hx. left atrial appendage ligation ESRD on Dialysis, chronic unstable with presentation of volume overload -nephrology consulted for dialysis -continue sevelamer DM2, chronic unclear if stable check A!C -basal bolus insulin ordered HLD, chronic and stable -continue atorvastatin -continue gemfibrozil Code Status: Full (2) ESRD on hemodialysis: Admission and Anticipated Discharge Date Admission Date: December 24, 2022 Subjective pt was seen to cough and expectorate clear phlegm with blood tinging, exam is non focal and no supraclavicular or axillar LN Physical Exam Physical Exam: Pt is awake and alert, lungs decreased at the bases no obvious LN cardiac is regular Results & Data Results & Data Vital Signs (Past 12 Hours) Vital Signs Temp Pulse Pulse Pulse Resp BP Pulse Ox 12/25/22 07:59 98.6 F 71 16 120/52 L 90 12/25/22 07:30 12/25/22 02:45 97.9 F 72 18 118/74 90 12/24/22 23:57 67 12/24/22 23:33 98.4 F 60 16 128/77 98 12/24/22 22:35 83 12/24/22 21:40 12/24/22 20:38 99.1 F 87 18 134/50 L 95 O2 Del Method O2 Flow Rate 12/25/22 07:59 Nasal Cannula 2 12/25/22 07:30 Nasal Cannula 2 12/25/22 02:45 Nasal Cannula 2 12/24/22 23:57 12/24/22 23:33 Room Air 12/24/22 22:35 12/24/22 21:40 Nasal Cannula 2 12/24/22 20:38 Nasal Cannula 2 PG Care Time/CCT Total # of Minutes Spent Total Time Spent with Patient: Total time spent is greater than 50% in coordination of care (as documented) at patient's floor/unit and/or counseling patient: Coding Level of Care Code 14227 SUB INP/OBS CARE MIN Diagnoses CHF exacerbation I50.9 ESRD on hemodialysis N18.6; Z99.2
--- NOTE | 2022-12-25 09:50 | XCELERA ---
[id number]
--- NOTE | 2022-12-25 12:47 | Nephrology Consultation ---
Date of Consultation December 25, 2022 Assessment & Plan (1) ESRD (end stage renal disease): (2) SOB (shortness of breath): (3) Hypertension: (4) Hemoptysis: (5) Anemia due to chronic kidney disease: Plan End-stage renal disease, on hemodialysis on Saturday, Saturday, Saturday at [facility] via left brachiocephalic AV fistula. Admitted with progressive shortness of breath, generalized weakness and hemoptysis for last 3 weeks, failed outpatient antibiotic and unremarkable outpatient chest x-ray. Recently his dry weight has been lowered and volume status improved and blood pressure well controlled however continues to be short of breath and have persistent hemoptysis. had dialysis yesterday, currently electrolyte acceptable. -- will plan for dialysis tomorrow for 4 hours After CTA of chest, will continue to try to challenge dry weight -- left arm nephrology precaution, has AV fistula in place, dose medications for eGFR less than 10 -- STEPHEN for hemoglobin less than 10, continue on phosphate binder and renal cap Thank you for allowing me to participate in your patient's care. It was a pleasure to see Dionicio. History of Present Illness Reason for Consultation: ESRD, on dialysis, admitted with shortness of breath and hemoptysis. Attending Physician: Giuseppe Cherry MD History of Present Illness Mr. Dionicio Coleman is a 67yo Male with PMH significant for end-stage renal disease on hemodialysis, coronary artery disease the s/p CABGx2 admitted to the hospital with progressive shortness of breath and hemoptysis over last few weeks. Nephrology consult requested for management of hemodialysis while inpatient. EMR records are reviewed in detail during patient's visit. Dionicio has been having progressive shortness of breath, generalized weakness and hemoptysis for last 2-3 weeks. He did have occasional cough but no fever or chills. He seen by his PCP and had a chest x-ray and completed a course of antibiotic without much improvement. Chest x-ray was otherwise unremarkable. With a concern for volume overload his estimated dry weight was decreased from 92.5-91 a week ago and yesterday he had dialysis and had more than 4 L UF and at the end of the dialysis his weight was 91.2 however he continued to have shortness of breath although felt slightly better compared to before dialysis. With ongoing shortness of breath, hemoptysis and generalized weakness he was referred to get admitted for further evaluation. Chest x-ray again on admission showed some concern for atelectasis but no overt pulmonary edema. 2D echo showed normal EF, elevated right ventricular pressure as well as dilatation of IVC suggestive of possible volume overload. He continues to feel weak and tired and feels short of breath with minimum exertion. Blood pressure has been well controlled since admission. His electrolytes were otherwise unremarkable. Hemoglobin was reasonable. 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 Had full dialysis treatment yesterday and had more than 4 L UF and on discharge she was at his dry weight. Has left brachiocephalic AV fistula which recently match urine started working and has been in use for last 1 week. He still has tunneled dialysis catheter which will need to be removed in next few weeks if AV fistula continues to work well. Coronary artery disease status post CABG on 08/22/22, had cardiac rehab and recovered well after the CABG. Allergies Allergy/AdvReac Type Severity Reaction Status Date / Time No Known Allergies Allergy Verified 10/29/22 11:49 Home Medications Medication Instructions Recorded Confirmed Type amlodipine 10 mg tablet 10 mg PO DAILY 06/26/18 10/29/22 History atorvastatin 40 mg tablet 40 mg PO DAILY 06/26/18 10/29/22 History gemfibrozil 600 mg tablet 600 mg PO DAILY 06/26/18 10/29/22 History insulin glargine 100 unit/mL (3 35 units subcut BID 01/13/20 10/29/22 History mL) subcutaneous pen (Basaglar KwikPen U-100 Insulin) fluticasone propionate 50 1 spray intranasal DAILY PRN 05/30/20 10/29/22 History mcg/actuation nasal Congestion spray,suspension krill oil 500 mg capsule 500 mg PO BID 05/30/20 10/29/22 History vitamin B complex 1 tab PO DAILY 05/30/20 10/29/22 History sevelamer carbonate 800 mg tablet 800 mg PO TID 10/29/22 10/29/22 History (Renvela) vitamin B complex-vitamin C-folic 1 tab PO DAILY 10/29/22 10/29/22 History acid 0.8 mg tablet (Unique-Suzanne) carvedilol 3.125 mg tablet 12.5 mg PO BID 12/19/22 History Patient History Medical History (Updated 12/25/22 @ 13:01 by Penny Munoz MD) Acute kidney injury Acute non-ST elevation myocardial infarction (NSTEMI) Anemia due to chronic kidney disease Atrial fibrillation, new onset Diabetes type 2, uncontrolled DKA (diabetic ketoacidoses) ESRD on hemodialysis Hemoptysis Hyperlipidemia LDL goal <70 Hypertension Lyme borreliosis Renal artery stenosis Surgical History 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 Physical Exam Constitutional: WD/WN, vitals as above no acute distress Eyes: + anicteric sclerae Neck: normal visual inspection Respiratory: normal respiratory effort; no respiratory distress and no cough Auscultation: + diminished lung sounds Cardiovascular: Rate/Rhythm: regular rate and regular rhythm Heart Sounds: normal S1 and normal S2 Extremities: + AV fistula (left BC AVF with thrill and bruit); no edema Gastrointestinal (Abdomen): Inspection/Auscultation: abdomen normal to inspection and normal bowel sounds Percussion/Palpation: abdomen soft; abdomen nontender Musculoskeletal: Extremities: extremities normal to inspection Skin: normal turgor; no rashes Neurologic: no focal motor deficits and not confused Psychiatric: Orientation: alert and oriented x 3 Affect: euthymic affect Results & Data Vital Signs (Past 12 Hours) Vital Signs Temp Pulse Pulse Resp BP Pulse Ox O2 Del Method 12/25/22 11:36 36.9 C 71 16 111/69 95 Nasal Cannula 12/25/22 07:59 37.0 C 71 16 120/52 L 90 Nasal Cannula 12/25/22 07:30 Nasal Cannula 12/25/22 02:45 36.6 C 72 18 118/74 90 Nasal Cannula O2 Flow Rate 12/25/22 11:36 2 12/25/22 07:59 2 12/25/22 07:30 2 12/25/22 02:45 2 PG Care Time/CCT Total # of Minutes Spent Total Time Spent with Patient: Total time spent is greater than 50% in coordination of care (as documented) at patient's floor/unit and/or counseling patient: Coding Level of Care Code 51763 IN/OBS CONSULT LVL 5,80M Diagnoses ESRD (end stage renal disease) N18.6 SOB (shortness of breath) R06.02 Hypertension I10 Hypertension type: unspecified Hemoptysis R04.2 Anemia due to chronic kidney disease N18.9; D63.1 (3) Hypertension Hypertension type: unspecified Qualified Code(s): I10 - Essential (primary) hypertension
--- NOTE | 2022-12-25 16:08 | Pulmonary Consultation ---
Date of Consultation December 25, 2022 Assessment & Plan (1) Hemoptysis: Chest CTA scheduled for tomorrow to be time with dialysis. If he becomes more unstable or has more hemoptysis, chest CTA should be done urgently. Consider nebulized TXA if symptoms worsen. Hemoptysis generally appears to be improving. We will hold off on bronchoscopy at this time unless the findings and symptoms change. Hemoptysis likely secondary to possible bronchitis and elevated pulmonary artery pressures. We will start DuoNebs BID. Case discussed with hospitalist and bedside RN. (2) CHF exacerbation: (3) Bronchitis: History of Present Illness Reason for Consultation: Hemoptysis Attending Physician: Giuseppe Cherry MD History of Present Illness 67-year-old male with a history of ESRD, coronary artery disease, CABG x2 who presented with increasing shortness of breath and hemoptysis. Patient notes that his hemoptysis is actually improved today. He has been having symptoms for the past couple of weeks. He denies any significant swelling. No fevers, chills or night sweats. No recent travel. Hemoptysis mostly admixed with sputum. Echo from today revealed grade 3 diastolic dysfunction and an elevated RVSP of 40 to 50 mmHg. Hemoglobin stable at 9.2. Platelet count 256,000. INR 1.1. PTT mildly elevated at 35.5. Chest x-ray upon personal review with mildly increased interstitial markings, sternal wires present, hemodialysis catheter in place. No significant effusions. No lobar consolidation. Allergies Allergy/AdvReac Type Severity Reaction Status Date / Time No Known Allergies Allergy Verified 10/29/22 11:49 Home Medications Medication Instructions Recorded Confirmed Type amlodipine 10 mg tablet 10 mg PO DAILY 06/26/18 10/29/22 History atorvastatin 40 mg tablet 40 mg PO DAILY 06/26/18 10/29/22 History gemfibrozil 600 mg tablet 600 mg PO DAILY 06/26/18 10/29/22 History insulin glargine 100 unit/mL (3 35 units subcut BID 01/13/20 10/29/22 History mL) subcutaneous pen (Basaglar KwikPen U-100 Insulin) fluticasone propionate 50 1 spray intranasal DAILY PRN 05/30/20 10/29/22 History mcg/actuation nasal Congestion spray,suspension krill oil 500 mg capsule 500 mg PO BID 05/30/20 10/29/22 History vitamin B complex 1 tab PO DAILY 05/30/20 10/29/22 History sevelamer carbonate 800 mg tablet 800 mg PO TID 10/29/22 10/29/22 History (Renvela) vitamin B complex-vitamin C-folic 1 tab PO DAILY 10/29/22 10/29/22 History acid 0.8 mg tablet (Unique-Suzanne) carvedilol 3.125 mg tablet 12.5 mg PO BID 12/19/22 History Patient History Medical History (Updated 12/25/22 @ 16:07 by Ghassan Haque MD) Acute kidney injury Acute non-ST elevation myocardial infarction (NSTEMI) Anemia due to chronic kidney disease Atrial fibrillation, new onset Bronchitis Diabetes type 2, uncontrolled DKA (diabetic ketoacidoses) ESRD on hemodialysis Hemoptysis Hyperlipidemia LDL goal <70 Hypertension Lyme borreliosis Renal artery stenosis Surgical History 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 Patient is in no apparent distress. Patient is well-developed. Eyes: Pupils are equal round and reactive to light. Conjunctivae are normal. Anicteric sclera. Ears nose, mouth and throat: Deferred. Neck: Trachea is midline. Visual inspection is normal. Respiratory: Clear to auscultation bilaterally. No use of accessory muscles. No significant clubbing noted. Cardiovascular: Regular rate and rhythm. No murmurs. No edema. Gastrointestinal: Normal bowel sounds, soft, nontender and nondistended. No hepatosplenomegaly noted. Musculoskeletal: No cyanosis. Patient is able to move all extremities. Strength is 5 out of 5 in the upper and lower extremities. Skin: No rashes, warm dry and intact. Neurologic: No obvious focal neurological deficits seen. Psychiatric: Alert and oriented x3 with a euthymic affect. Results & Data Results & Data Vital Signs (Past 12 Hours) Vital Signs Temp Pulse Pulse Resp BP Pulse Ox O2 Del Method 12/25/22 15:16 37.0 C 75 16 114/47 L 94 Room Air 12/25/22 15:08 73 12/25/22 11:36 36.9 C 71 16 111/69 95 Nasal Cannula 12/25/22 07:59 37.0 C 71 16 120/52 L 90 Nasal Cannula 12/25/22 07:30 Nasal Cannula O2 Flow Rate 12/25/22 15:16 12/25/22 15:08 12/25/22 11:36 2 12/25/22 07:59 2 12/25/22 07:30 2 PG Care Time/CCT Total # of Minutes Spent Total Time Spent with Patient: Total time spent is greater than 50% in coordination of care (as documented) at patient's floor/unit and/or counseling patient: Coding Level of Care Code 58680 IN/OBS CONSULT LVL 4,60M Diagnoses Hemoptysis R04.2 CHF exacerbation I50.9 Bronchitis J40
[2022-12-25] MEDS: ALBUT/IPRATROP 3MG/0.5MG NEB 3 ML VIAL NEB SCH (20:12)
[2022-12-25] MEDS: MELATONIN 3 MG TAB PO PRN (20:54)
[2022-12-26] MEDS: ALBUT/IPRATROP 3MG/0.5MG NEB 3 ML VIAL NEB SCH ×2 (07:34→20:12)
[2022-12-26] MEDS ORDERED: OPTIRAY 320 500ml IV ONE (08:28)
[2022-12-26] MEDS: SEVELAMER HCL 800 MG TABLET PO SCH ×3 (08:45→17:28)
[2022-12-26] MEDS: gemfibroziL 600 MG TAB PO SCH (08:45)
[2022-12-26] MEDS: VITAMIN B COMPLEX TAB PO SCH (08:45)
[2022-12-26] MEDS: carvediloL 12.5 MG TAB PO SCH ×2 (08:48→17:28)
[2022-12-26] MEDS: amLODIPine BESYLATE 5 MG TAB PO SCH (08:48)
[2022-12-26] MEDS: ATORVASTATIN 40 MG TAB PO SCH (08:48)
[2022-12-26] MEDS: INSULIN ASPART PER UNIT CHARGE SC SCH ×5 (08:50→20:27)
[2022-12-26] MEDS: LANTUS PER UNIT CHARGE SQ SCH ×2 (08:50→20:59)
--- NOTE | 2022-12-26 08:52 | CT Scan Report ---
CT angio chest PE protocol CT DOSE: 684.93 mGy.cm HISTORY: 67 years-old Male with PE. Acute shortness of breath with hemoptysis TECHNIQUE: Multiple CTA images of the chest were obtained after the intravenous administration of 95 ml Optiray. Coronal and sagittal MIPS were obtained from the axial data set and were submitted for [employer]. All measurements were obtained according to NASCET criteria. A dose lowering technique was ut ilized adhering to the principles of ALARA. COMPARISON: Chest radiograph 12/24/2022, chest CT 08/08/2022 FINDINGS: CTA: Moderate cardiomegaly. Prior median sternotomy with suspected CABG. Left atrial exclusion device. Ext ensive [place] coronary artery calcifications. Atherosclerosis of the thoracic aorta without aneurysm or dissection. Right IJ dual-lumen hemodialysis catheter distal tip terminates within the inferior SV C. No pulmonary emboli are identified. CT CHEST: No thyroid nodule. Stranding within the anterior mediastinum is favored to be on a postsurgical basis . Subcarinal lymph nodes measure up to 1.2 cm. Subcentimeter hilar lymph nodes. Small pleural effusio ns. Intralobular septal thickening with intermixed groundglass densities and bronchial wall thickenin g. No suspicious pulmonary nodules or masses identified. Central airways are patent. There is no acute process identified within the imaged upper abdomen. Unremarkable soft tissues. No a cute fracture. IMPRESSION: 1. Cardiomegaly with extensive [place] coronary artery calcifications, interval median sternotomy and CABG with left atrial exclusion device. 2. Interstitial alveolar pulmonary edema with small pleural effusions. 3. No pulmonary emboli identified. 4. Mild subcarinal lymphadenopathy. 5. Distal tip of the dual-lumen hemodialysis catheter terminates within the inferior aspect of the SV C. ACT 112: Negative or not required by law. The above report was generated using voice recognition software. It may contain grammatical, syntax o r spelling errors. Electronically signed by: Ted Victor M.D. 12/26/2022 8:50 AM
[2022-12-26] MEDS ORDERED: EPOETIN ALFA 10,000 UNITS/ML VIAL IV SCH (10:00)
--- NOTE | 2022-12-26 10:13 | Nephrology Progress Note ---
Date of Service December 26, 2022 Assessment & Plan (1) ESRD (end stage renal disease): (2) SOB (shortness of breath): (3) Hypertension: (4) Hemoptysis: (5) Anemia due to chronic kidney disease: Plan End-stage renal disease, on hemodialysis on Saturday, Saturday, Saturday at [facility] via left brachiocephalic AV fistula. Admitted with progressive shortness of breath, generalized weakness and hemoptysis for last 3 weeks, failed outpatient antibiotic and unremarkable outpatient chest x-ray. Had CTA this am. -- dialysis today for 4 hours After CTA of chest, will continue to try to challenge dry weight -- left arm nephrology precaution, has AV fistula in place, dose medications for eGFR less than 10 -- STEPHEN for hemoglobin less than 10, continue on phosphate binder and renal cap Admission and Anticipated Discharge Date Admission Date: December 24, 2022 Subjective Dionicio was seen and evaluated this morning. Overall he feels fair, no worsening of shortness of breath, appetite decent. Blood pressure fair. Had chest CTA this am. Review of Systems Review of Systems: Detailed review of system was done and pertinent positives and negatives were mentioned above. Physical Exam Constitutional: WD/WN, vitals as above no acute distress Eyes: + anicteric sclerae Neck: normal visual inspection Respiratory: normal respiratory effort; no respiratory distress and no cough Auscultation: + diminished lung sounds and + rales Cardiovascular: Rate/Rhythm: regular rate and regular rhythm Heart Sounds: normal S1 and normal S2 Extremities: + AV fistula (left BC AVF with thrill and bruit); no edema Musculoskeletal: Extremities: extremities normal to inspection Skin: normal turgor; no rashes Neurologic: no focal motor deficits Psychiatric: Orientation: alert and oriented x 3 Affect: euthymic affect Results & Data Vital Signs (Past 12 Hours) Vital Signs Temp Pulse Pulse Pulse Resp BP Pulse Ox 12/26/22 08:08 36.6 C 72 14 128/82 92 12/26/22 08:08 72 18 93 12/26/22 07:15 72 12/26/22 03:00 36.6 C 68 20 139/79 92 12/25/22 23:21 69 O2 Del Method O2 Flow Rate 12/26/22 08:08 Nasal Cannula 12/26/22 08:08 Nasal Cannula 2 12/26/22 07:15 12/26/22 03:00 Nasal Cannula 2 12/25/22 23:21 PG Care Time/CCT Total # of Minutes Spent Total Time Spent with Patient: Total time spent is greater than 50% in coordination of care (as documented) at patient's floor/unit and/or counseling patient: Coding Level of Care Code 53600 SUB INP/OBS CARE 3/50MIN Diagnoses ESRD (end stage renal disease) N18.6 SOB (shortness of breath) R06.02 Hypertension I10 Hypertension type: unspecified Hemoptysis R04.2 Anemia due to chronic kidney disease N18.9; D63.1 (3) Hypertension Hypertension type: unspecified Qualified Code(s): I10 - Essential (primary) hypertension
[2022-12-26] MEDS: ACETAMINOPHEN 325 MG TAB PO PRN ×3 (12:18→20:58)
--- NOTE | 2022-12-26 16:47 | Hospitalist Progress Note ---
Date of Service December 26, 2022 Assessment & Plan (1) CHF exacerbation: Plan: 67yo Male with PMH CABGx2 vessels in 08/22/22, HTN, CAD, pAfib, DM2 insulin dependent, ESRD on dialysis MWF, HLD here for hemoptysis SOB ongoing 2 weeks. acute respiratory failure with hypoxia secondary to acute on chronic systolic and diastolic heart failure, systemic complications -on dialysis last done 12/24 removed 3.5L hemoptysis, Pulmonary medicine was possibly secondary to bronchitis or possible elevated pulmonary artery pressures Pulmonary vasculitis work-up with antiproteinase 3, antimyeloperoxidase, ANCA, GBM membrane antibody, and complement levels these are send outs and pending As mentioned possibility of acute bronchitis we will institute the patient on azithromycin -elevated troponin is demand ischemia, no uptrend, no acute ecg changes although has baseline abnormal ecg chronic Atrial fibrillation stable, rate controlled with coreg -follows with [facility] cardiology is not currently on anticoagualtion medication for afib, hx. left atrial appendage ligation ESRD on Dialysis, chronic unstable with presentation of volume overload -nephrology consulted for dialysis -continue sevelamer DM2, chronic unclear if stable check A!C -basal bolus insulin ordered HLD, chronic and stable -continue atorvastatin -continue gemfibrozil Code Status: Full (2) ESRD on hemodialysis: Admission and Anticipated Discharge Date Admission Date: December 24, 2022 Subjective Dionicio was seen and evaluated in dialysis. Still having coughing with a mopped assist. Is disappointed as his AV fistula in his left arm does not work and use his tunneled catheter. Overall no better or worse than when admitted Physical Exam Physical Exam: Awake alert and appropriate. Left AV fistula does have palpable thrill Breathing is unlabored Cough persists Results & Data Results & Data Vital Signs (Past 12 Hours) Vital Signs Temp Pulse Pulse Pulse Resp BP BP 12/26/22 15:34 98.4 F 90 174/78 H 12/26/22 15:00 81 171/88 H 12/26/22 14:30 74 163/76 H 12/26/22 14:00 74 153/80 H 12/26/22 13:30 75 156/80 H 12/26/22 13:00 74 159/81 H 12/26/22 12:30 76 167/82 H 12/26/22 12:00 76 159/83 H 12/26/22 11:30 75 160/76 H 12/26/22 11:28 76 164/78 H 12/26/22 11:15 98.6 F 73 12/26/22 08:08 97.9 F 72 14 128/82 12/26/22 08:08 72 18 12/26/22 07:15 72 Pulse Ox O2 Del Method O2 Flow Rate 12/26/22 15:34 12/26/22 15:00 12/26/22 14:30 12/26/22 14:00 12/26/22 13:30 12/26/22 13:00 12/26/22 12:30 12/26/22 12:00 12/26/22 11:30 12/26/22 11:28 12/26/22 11:15 12/26/22 08:08 92 Nasal Cannula 2 12/26/22 08:08 93 Nasal Cannula 2 12/26/22 07:15 Laboratory Results Reviewed CBC reviewed PRP PG Care Time/CCT Total # of Minutes Spent Total Time Spent with Patient: Total time spent is greater than 50% in coordination of care (as documented) at patient's floor/unit and/or counseling patient: Coding Level of Care Code 69772 SUB INP/OBS CARE 2/35MIN Diagnoses CHF exacerbation I50.9 ESRD on hemodialysis N18.6; Z99.2
[2022-12-26] MEDS ORDERED: AZITHROMYCIN 250 MG TAB PO ONE (17:00)
[2022-12-26] MEDS: MELATONIN 3 MG TAB PO PRN (20:58)
[2022-12-27] MEDS: ALBUT/IPRATROP 3MG/0.5MG NEB 3 ML VIAL NEB SCH (07:36)
[2022-12-27] MEDS: carvediloL 12.5 MG TAB PO SCH ×2 (08:29→17:03)
[2022-12-27] MEDS: SEVELAMER HCL 800 MG TABLET PO SCH ×3 (08:29→17:03)
[2022-12-27] MEDS: ATORVASTATIN 40 MG TAB PO SCH (08:29)
[2022-12-27] MEDS: amLODIPine BESYLATE 5 MG TAB PO SCH (08:29)
[2022-12-27] MEDS: VITAMIN B COMPLEX TAB PO SCH (08:30)
[2022-12-27] MEDS: gemfibroziL 600 MG TAB PO SCH (08:30)
[2022-12-27] MEDS: ACETAMINOPHEN 325 MG TAB PO PRN ×3 (08:33→17:06)
[2022-12-27] MEDS: INSULIN ASPART PER UNIT CHARGE SC SCH ×3 (08:45→17:07)
[2022-12-27] MEDS: LANTUS PER UNIT CHARGE SQ SCH (08:46)
[2022-12-27 11:49] LABS: Basophils # (auto) 0.07 K/uL (0-0.2); Basophils % (auto) 0.8 %; Eosinophils # (auto) 0.28 K/uL (0-0.50); Eosinophils % (auto) 3.1 %; Hematocrit (blood only) 29.7 % (42.0-52.0); Immature Granulocytes # (auto) 0.08 K/uL (0.01-0.20); Immature Granulocytes % (auto) 0.9 %; Lymphocytes # (auto) 1.78 K/uL (1.2-3.4); Lymphocytes % (auto) 19.6 %; Mean Corpuscular Hgb Conc 33.7 g/dL (32.0-36.0); Mean Platelet Volume 9.3 fL (9.4-12.4); Monocytes # (auto) 0.98 K/uL (0.11-0.59); Monocytes % (auto) 10.8 %; Neutrophils # (auto) 5.88 K/uL (1.40-6.50); Neutrophils % (auto) 64.8 %; Platelet Count 292 K/uL (130-400); RDW Coefficient of Variation 16.1 % (11.5-14.5); RDW Standard Deviation 54.1 fL (36.4-46.3); Red Blood Count 3.23 M/uL (4.70-6.10); White Blood Count 9.07 K/ul (4.8-10.8)
--- NOTE | 2022-12-27 12:45 | Pulmonology Progress Note ---
Date of Service December 27, 2022 Assessment & Plan (1) Hemoptysis: Plan: I personally reviewed the chest CTA. No signs of active bleeding. He does have some mild diffuse groundglass opacities likely secondary to CHF. Hypoxia improved after hemodialysis. Hemoptysis likely secondary to possible bronchitis and elevated pulmonary artery pressures. We will hold off bronchoscopy at this time. Vasculitis studies pending per hospital service. Continue DuoNebs Case discussed with hospitalist and bedside RN. Okay to discharge home tomorrow hemoptysis results. (2) CHF exacerbation: (3) Bronchitis: Admission and Anticipated Discharge Date Admission Date: December 24, 2022 Subjective Patient notes that he had approximately 3 episodes of hemoptysis mixed with sputum today. It is slow down. He denies any shortness of breath. He is off supplemental oxygen saturating well on room air. He denies any fevers, chills or night sweats. He had some abdominal cramping yesterday after hemodialysis. This is now resolved. Review of Systems Review of Systems: All systems reviewed & are unremarkable except as noted in HPI & below Physical Exam Physical Exam: Constitutional: Patient appears to be of their stated age. Patient is in no apparent distress. Patient is well-developed. Eyes: Pupils are equal round and reactive to light. Conjunctivae are normal. Anicteric sclera. Ears nose, mouth and throat: Deferred. Neck: Trachea is midline. Visual inspection is normal. Respiratory: Clear to auscultation bilaterally. No use of accessory muscles. No significant clubbing noted. Cardiovascular: Regular rate and rhythm. No murmurs. No edema. Gastrointestinal: Normal bowel sounds, soft, nontender and nondistended. No hepatosplenomegaly noted. Musculoskeletal: No cyanosis. Patient is able to move all extremities. Strength is 5 out of 5 in the upper and lower extremities. Skin: No rashes, warm dry and intact. Neurologic: No obvious focal neurological deficits seen. Psychiatric: Alert and oriented x3 with a euthymic affect. Results & Data Results & Data Vital Signs (Past 12 Hours) Vital Signs Temp Pulse Pulse Resp BP Pulse Ox O2 Del Method 12/27/22 11:46 36.8 C 62 16 109/68 95 Room Air 12/27/22 10:41 Room Air 12/27/22 07:37 97 H 16 94 Nasal Cannula 12/27/22 07:28 68 12/27/22 07:27 36.7 C 67 18 115/62 97 Room Air, Nasal Cannula 12/27/22 02:56 36.8 C 69 18 114/70 95 Nasal Cannula 12/27/22 01:26 Nasal Cannula 12/27/22 01:26 Nasal Cannula O2 Flow Rate 12/27/22 11:46 12/27/22 10:41 12/27/22 07:37 2 12/27/22 07:28 12/27/22 07:27 2 12/27/22 02:56 2 12/27/22 01:26 2 12/27/22 01:26 2 PG Care Time/CCT Total # of Minutes Spent Total Time Spent with Patient: Total time spent is greater than 50% in coordination of care (as documented) at patient's floor/unit and/or counseling patient: Coding Level of Care Code 82602 SUB INP/OBS CARE 10/03MIN Diagnoses Hemoptysis R04.2 CHF exacerbation I50.9 Bronchitis J40
--- NOTE | 2022-12-27 14:42 | Nephrology Progress Note ---
Date of Service December 27, 2022 Assessment & Plan (1) ESRD (end stage renal disease): (2) SOB (shortness of breath): (3) Hypertension: (4) Hemoptysis: (5) Anemia due to chronic kidney disease: Plan End-stage renal disease, on hemodialysis on Saturday, Saturday, Saturday at [facility] via left brachiocephalic AV fistula. Admitted with progressive shortness of breath, generalized weakness and hemoptysis for last 3 weeks, failed outpatient antibiotic and unremarkable outpatient chest x-ray. Had CTA showing pulmonary congestion, no PE. No plan for bronchoscopy at this time. Had dialysis yesterday for 4.5 L UF. Hemoglobin dialysis thought to be secondary to bronchitis and pulmonary vascular congestion. -- Plan for HD tomorrow, will continue to try to challenge dry weight, if clinically stable, OK to DC from Nephrology. -- left arm nephrology precaution, has AV fistula in place, dose medications for eGFR less than 10 -- STEPHEN for hemoglobin less than 10, continue on phosphate binder and renal cap Will follow Admission and Anticipated Discharge Date Admission Date: December 24, 2022 Subjective Dionicio was seen and evaluated this morning. Overall he feels better, SOB improved, Off of NC O2, Sat 95 % on RA. Blood pressure fair. Hemoptysis ongoing but better. Review of Systems Review of Systems: Detailed review of system was done and pertinent positives and negatives were mentioned above. Physical Exam Constitutional: WD/WN, vitals as above no acute distress Eyes: + anicteric sclerae Neck: normal visual inspection Respiratory: normal respiratory effort; no respiratory distress and no cough Auscultation: + rales Cardiovascular: Rate/Rhythm: regular rate and regular rhythm Heart Sounds: normal S1 and normal S2 Extremities: + AV fistula (left BC AVF with thrill and bruit); no edema Musculoskeletal: Extremities: extremities normal to inspection Skin: normal turgor; no rashes Neurologic: no focal motor deficits Psychiatric: Orientation: alert and oriented x 3 Affect: euthymic affect Results & Data Vital Signs (Past 12 Hours) Vital Signs Temp Pulse Pulse Resp BP Pulse Ox O2 Del Method 12/27/22 11:46 36.8 C 62 16 109/68 95 Room Air 12/27/22 10:41 Room Air 12/27/22 07:37 97 H 16 94 Nasal Cannula 04/20/23 07:28 68 12/27/22 07:27 36.7 C 67 18 115/62 97 Room Air, Nasal Cannula 12/27/22 02:56 36.8 C 69 18 114/70 95 Nasal Cannula O2 Flow Rate 12/27/22 11:46 12/27/22 10:41 12/27/22 07:37 2 12/27/22 07:28 12/27/22 07:27 2 12/27/22 02:56 2 PG Care Time/CCT Total # of Minutes Spent Total Time Spent with Patient: Total time spent is greater than 50% in coordination of care (as documented) at patient's floor/unit and/or counseling patient: Coding Level of Care Code 58632 SUB INP/OBS CARE 3/50MIN Diagnoses ESRD (end stage renal disease) N18.6 SOB (shortness of breath) R06.02 Hypertension I10 Hypertension type: unspecified Hemoptysis R04.2 Anemia due to chronic kidney disease N18.9; D63.1 (3) Hypertension Hypertension type: unspecified Qualified Code(s): I10 - Essential (primary) hypertension
--- NOTE | 2022-12-27 16:37 | Discharge Summary ---
Date of Service December 27, 2022 Admission HPI Per Admitting Provider 67yo Male with PMH CABGx2 vessels in 08/22/22, HTN, CAD, pAfib, DM2 insulin dependent, ESRD on dialysis MWF, HLD here for hemoptysis SOB ongoing 2 weeks. Patient states a few weeks ago he had a change in BP medication, his fistula was redone, he ate 3 hotdogs and got his hepB booster. Overnight he felt poorly vomitted had arm pain, skipped dinner ended up drinking salty chicken soup later on. Since then he noted worsening SOB especially on laying down, feels like he's drowning if he lays down has been sleeping propped up, his home pulse ox on room air was 69%, had difficulty ambulating 200ft needs to stop and rest. He was placed on home oxygen last week, which he states has helped. Denies chest pain. Has baseline occasional swelling in his legs that improves with dialysis. Patient last had dialysis today removed 3.5L fluid. Patient states originally his medications were managed by nephew/nieces, then home health, then people changed, was at one time managed by friend hospice nurse Radha, patient has been managing his own medication in the past few weeks states he took them as prescribed however isn't sure what he is on. Discharge Data Allergies Allergy/AdvReac Type Severity Reaction Status Date / Time No Known Allergies Allergy Verified 10/29/22 11:49 Consultations 12/24/22 20:37 Consult Nephrology Routine 12/25/22 11:25 Consult Pulmonology Routine 12/27/22 16:33 [facility] CHF Program Referral Routine Ordered Studies 12/26/22 07:00 CT angio chest PE protocol Routine Hospital Course (1) CHF exacerbation: 67yo Male with PMH CABGx2 vessels in 08/22/22, HTN, CAD, pAfib, DM2 insulin dependent, ESRD on dialysis MWF, HLD here for hemoptysis SOB ongoing 2 weeks. acute respiratory failure with hypoxia secondary to acute on chronic systolic and diastolic heart failure, systemic complications -on dialysis last done 12/24 removed 3.5L hemoptysis, Pulmonary medicine was possibly secondary to bronchitis or possible elevated pulmonary artery pressures Pulmonary vasculitis work-up with antiproteinase 3, antimyeloperoxidase, ANCA, GBM membrane antibody, and complement levels these are send outs and pending As mentioned possibility of acute bronchitis we will institute the patient on azithromycin -elevated troponin is demand ischemia, no uptrend, no acute ecg changes although has baseline abnormal ecg chronic Atrial fibrillation stable, rate controlled with coreg -follows with [facility] cardiology is not currently on anticoagualtion medication for afib, hx. left atrial appendage ligation ESRD on Dialysis, chronic unstable with presentation of volume overload -nephrology consulted for dialysis -continue sevelamer DM2, chronic unclear if stable check A!C -basal bolus insulin ordered HLD, chronic and stable -continue atorvastatin -continue gemfibrozil Code Status: Full (2) ESRD on hemodialysis: Discharge Plan Discharge Items Patient Disposition: Home - Self-Care Reason For Visit: CHF EXACERBATION Discharge Diagnosis: hemoptysis Activity: Resume your previous activity Non-emergency contact: Primary Care Provider Call non-emergency contact if: you have any medication questions Follow-up/Referrals: Art Trejo [Primary Care Provider] - Diet: Dialysis Renal Addtl Attending Provider Instructions: Recommend followup with your PCP ini 1-[address] Haque in 2 weeks. Take antibiotics at 17:00 for 3 more doses starting tomorrow. Call your Primary Care doctor if any of the following symptoms or problems start or get worse: * Shortness of breath or difficulty breathing * Wake up at night short of breath * Chest pain * Cough * Swelling of your hands, feet, or legs * More fatigued or tired with your normal activity * Palpitations - sudden fast heart beats WEIGHT * Weigh yourself every morning after using the bathroom. * Use the same scale. * Wear the same amount of clothing. * Write your weight down on a chart. * Call your Primary Care doctor if you gain more than 2-3 pounds in 1-2 days. MEDICATIONS * Use this discharge instruction sheet for medication instructions. * Take your medications at the time your doctor ordered. * Do not skip a dose of your medicines. * If you miss a dose of medicine, take it as soon as possible, but DO NOT DOUBLE A DOSE. * Read your medicine information when you get home. * Know all of the side effects of your medicine. If in doubt, ask your pharmacist * Call your Primary Care doctor's office if you have any side effects. * Be sure all of your doctors know what medicine and herbs you take (including cold, flu, and herbal medicine). Take the following with you to your follow-up doctor appointments: * Weight Chart * Medication List * List of questions Do not drink excessive alcohol, beer or wine. Pending Studies at Discharge: No Stand-Alone Forms: My [facility], Smoking Cessation Medications and DC Order Prescriptions: New azithromycin 250 mg Tablet 250 mg PO 1700 Qty: 3 0RF Continued carvedilol 3.125 mg tablet 12.5 mg PO BID Rx Instructions: must administer with a meal/food krill oil 500 mg capsule 500 mg PO BID fluticasone propionate 50 mcg/actuation spray,suspension 1 spray intranasal DAILY PRN (Reason: Congestion) Rx Instructions: administer into each nostril vitamin B complex Tablet 1 tab PO DAILY Basaglar KwikPen U-100 Insulin 100 unit/mL (3 mL) insulin pen 35 units SQ BID Unique-Suzanne 0.8 mg tablet 1 tab PO DAILY sevelamer carbonate [Renvela] 800 mg tablet 800 mg PO TID Rx Instructions: must administer with a meal/food atorvastatin 40 mg Tablet 40 mg PO DAILY amlodipine 10 mg Tablet 10 mg PO DAILY gemfibrozil 600 mg Tablet 600 mg PO DAILY Discharge Orders: Discharge Order- CHF (Routine); Ordered 12/27/22 Ordered By: Arnold Dang Admission Data Admit Date/Time: 12/24/22 18:41 Attending Provider: Arnold Dang Admit Provider: Rosa Aguilar Primary Care Provider: Art Trejo Other Providers: Penny Munoz ; Ghassan Haque ; Doris Gamez Coding Diagnoses CHF exacerbation I50.9 ESRD on hemodialysis N18.6; Z99.2
[2022-12-27] MEDS ORDERED: AZITHROMYCIN 250 MG TAB PO SCH (17:00)
== END 2022-12-27 18:00 | disposition home or self-care (01) | DRG 291 ==
LOC: ED 14:06 → SUATTDRO 18:41 → 2N 18:41